=== PATIENT | male | born 1940 | race Caucasian/White ===

== ENCOUNTER 2018-01-19 11:10 | Inpatient (IN) | payer OTHER ==
[~2018-01-19] VITALS: Ht 172.7 cm; Wt 74.4 kg
[~2018-01-19 11:10] MED LIST: ALBUTEROL0.09 MG/A1 INH; AMLODIPINE BESYL5 M1 PO; ATIVAN0.5 M1 PO; ATORVASTATIN CA40 MG PO; AZITHROMYCIN500 M3 PO; AZITHROMYCIN500 MG PO; CEFUROXIME500 MG PO; CLOPIDOGREL75 MG PO; DALIRESP500 MCG PO; FINASTERIDE5 M1 PO; IPRAT-ALBUT 0.5-3 ML INH; LASIX20 M1 PO; LEVAQUIN500 MG PO; LOPRESSOR 25MG25 MG PO; LOSARTAN POTASS50 MG PO; LOTREL 5 MG-201 CAP PO; METOPROLOL TART25 M1 PO; MIRALAX119 GM PO; PREDNISONE 20MG20 MG PO; PREDNISONE10 M2 PO; PREDNISONE10 MG PO; PREDNISONE20 M1 PO; PREDNISONE50 MG PO; PROAIR HFA0.09 MG/Ac INH; SPIRIVA1 PUF INH; SYMBICORT 80-10.2 GM INH; ZETIA10 M1 PO; ZITHROMAX Z-PA250 M1 PO; ZITHROMAX500 M2 PO
--- NOTE | 2018-01-19 11:57 | ED DYSPNEA/ASTHMA COMPLAINT ---
History of Present Illness General Chief Complaint: General Adult Stated Complaint: SENT BY [facility] FOR EVAL OF SWOLLEN LEGS Source: patient, family, old records Exam Limitations: no limitations Vital Signs & Intake/Output Vital Signs & Intake/Output Vital Signs Date Time Temp Pulse Resp B/P B/P Pulse O2 O2 Flow FiO2 Mean Ox Delivery Rate 01/20 0639 98.7 98 20 126/80 97 Nasal 2.0L Cannula 01/20 0156 93 Nasal 2.0L Cannula 01/20 0000 Nasal 2.0L Cannula 01/19 2319 98.7 98 20 128/70 95 Nasal Cannula 01/19 1913 Nasal 2.0L Cannula 01/19 1626 94 Nasal 2.0L Cannula 01/19 1626 94 Nasal 2.0L Cannula 01/19 1557 97.7 88 22 126/68 96 01/19 1514 97.4 85 18 133/66 96 01/19 1335 98.1 96 22 148/79 94 Nasal 2.0L Cannula 01/19 1330 94 Nasal 2.0L Cannula 01/19 1250 100 137/78 01/19 1245 100 137/78 01/19 1245 100 137/78 01/19 1224 98 Nasal 2.0L Cannula 01/19 1144 97.2 100 22 137/78 95 Nasal 2.0L Cannula ED Intake and Output 01/20 0000 01/19 1200 Intake Total 240 Output Total 450 Balance -210 Intake, Oral 240 Output, Urine 450 Patient 175 lb 175 lb Weight Weight Reported by Patient Measurement Method Allergies Coded Allergies: aspirin (Intermediate, HIVES 11/07/15) Triage Note: 77 YEAR OLD MALE SENT TO ER BY HIS PMD, PT STATES THAT HE HAS BEEN HAVING INCREASED EDEMA IN BLE AND INCREASED SOB X A FEW DAYS, TOOK 20 MG PO LASIX WITH NO RELIEF, STATES THAT HE URINATES BUT A VERY SMALL AMOUNT DUE TO PROSTATE ISSUES. PT IS O2 DEPENDENT 2L, O2 SAT 95 % , COMPLAINS OF SOB BUT DENIES CP. Triage Nurses Notes Reviewed? yes Onset: Abrupt Duration: day(s): (4), constant Timing: recent history Severity: moderate Activities at Onset: activity Prior Episodes/Possible Cause: occasional episodes Associated Symptoms: denies HPI: 77 YEAR Old male with past medical history of chf, COPD on 2 L of home oxygen, myocardial infarction 25 years ago, CAD status post angioplasty, HTN, HLD presents to the ER for evaluation after being seen by his primary care physician today. Patient has had progressively worsening bilateral lower extremity swelling going on for the past 3-4 days associated with orthopnea dyspnea at rest worse with exertion he has had to increase his oxygen to 3 L. He's been compliant with his Lasix which she was told to increase to twice a day which she took last night's dose. No chest pain fever chills cough. 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 Romero (Manav Jewell) Reconcile Medications Amlodipine Besylate 5 MG TABLET 1 TAB PO DAILY HEART (Reported) Atorvastatin Calcium 40 MG TABLET 1 TAB PO DAILY cholesterol (Reported) Azithromycin (Zithromax) 500 MG TABLET 1 TAB PO Tuesday COPD Please resume taking this medication as scheduled starting 03/24/16 Budesonide/Formoterol Fumarate (Symbicort 80-4.5 Mcg Inhaler) 10.2 GM HFA.AER.AD 1 PUF INH BID COPD (Reported) Clopidogrel Bisulfate (Clopidogrel) 75 MG TABLET 1 TAB PO DAILY CAD (Reported ) Ezetimibe (Zetia) 10 MG TABLET 1 TAB PO DAILY CHOLESTEROL (Reported) Finasteride 5 MG TABLET 1 TAB PO DAILY PROSTATE (Reported) Furosemide (Lasix) 20 MG TABLET 1 TAB PO DAILY FLUID OVERLOAD (Reported) Ipratropium/Albuterol Sulfate (Iprat-Albut 0.5-3(2.5) MG/3 Ml) 3 ML AMPUL.NEB 3 ML INH Q4 BREATHING (Reported) EVERY 4 HOURS WHEN AWAKE Losartan Potassium 50 MG TABLET 1 TAB PO DAILY htn (Reported) Metoprolol Tartrate 25 MG TABLET 1 TAB PO BID BP (Reported) Polyethylene Glycol 3350 (Miralax) 119 GM POWDER 17 GM PO DAILY constipatin mix with water, juice, soda, coffee or tea Prednisone 10 MG TABLET 1 TAB PO EOD COPD (Reported) (Brannon RICE,Jevon Medina) Past History Travel History Traveled to [place] past 21 day No Medical History Any Pertinent Medical History? 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 FATHER (COPD). Hx Contributory? No (Manav Jewell) Review of Systems Review of Systems Constitutional: Reports: see HPI. Comments Review of systems: See HPI, All other systems negative. Constitutional, no chills no fever HEENT: no sore throat no congestion Cardiovascular: No chest pain , no palpitation Skin: no rashes, no change in skin Respiratory: see hpi GI: No nausea no vomiting, no diarrhea : No dysuria Muscle skeletal: No joint pain, no back pain, no neck pain, Neurologic: , no headache Heme/endocrine: No bruising (Manav Jewell) Physical Exam Physical Exam General Appearance: well developed/nourished, alert, awake Respiratory: chest non-tender, decreased breath sounds Comments: Well-developed well-nourished person in no acute distress HEENT: Normal EENT exam; PERRL, EOMI, HEAD is atraumatic. moist mucous membranes. Neck: Supple, normal range of motion Back: Full range of motion Cardiovascular: Regular rate and rhythms no murmurs rubs Respiratory:No respiratory distress. Patient speaking in full complete sentences. Diminished breath sounds bilaterally Abdomen: Soft, nontender nondistended, no appreciable organomegaly. Extremity: Bilateral 4+ pitting lower extremity treva, full range of motion of extremities, normal and equal pulses bilaterally, 5 out of 5 strength noted to bilateral upper and lower extremities Neuro: Alert oriented x3, motor sensory normal, There were no obvious focal neurologic abnormalities. Skin: No appreciable rash on exposed skin, skin is warm and dry. Psych: Mood and affect is normal, memory and judgment is normal. Core Measures ACS in differential dx? Yes CVA/TIA Diagnosis No Sepsis Present: No Sepsis Focused Exam Completed? No (Manav Jewell) Progress Differential Diagnosis: asthma, AMI, CHF, COPD, pericarditis, pulmonary embolism , pneumonia, pneumothorax, unstable angina Plan of Care: Orders Procedure Date/time Status CBC WITHOUT DIFFERENTIAL 01/20 06 Complete BASIC ELECTROLYTES PLUS BUN&CR 01/20 0600 Complete TROPONIN LEVEL 01/20 0035 Complete EKG 01/20 0035 Active US-EXT BILAT VENOUS DOPPLER 01/20 UNK Active Heart Healthy Diet 01/19 D Active EKG 01/19 1930 Active RT: Evaluation 01/19 1910 Active TROPONIN LEVEL 01/19 1835 Complete EKG 01/19 1835 Active CULTURE,URINE 01/19 1742 Active URINALYSIS 01/19 1742 Complete Weight 01/19 1624 Active Teach/Educate 01/19 162 Active Pain Treatment and Response 01/19 1624 Active Nutritional Intake, Monitor 01/19 162 Active Isolation 01/19 1624 Active Patient Care Conference 01/19 1624 Active TRC EVALUATION (GEN) 01/19 1520 Complete OXYGEN SETUP (GEN) 01/19 1520 Active Saline Lock 01/19 1520 Active Pathway - chart 01/19 1520 Active House Staff 01/19 1520 Active Code Status 01/19 1520 Active Intake & Output 01/19 1451 Active Patient Data 01/19 1355 Active ED Holding Orders 01/19 1347 Active Admit to inpatient 01/19 1347 Active Vital Signs 01/19 1347 Active Code Status 01/19 1347 Complete Telemetry/General Assembler 01/19 1151 Active TROPONIN LEVEL 01/19 1151 Complete COMPREHENSIVE METABOLIC PANEL 01/19 1151 Complete CBC WITHOUT DIFFERENTIAL 01/19 1151 Complete B-TYPE NATRIURETIC PEP (BNP) 01/19 1151 Complete EKG 01/19 1151 Active THERAPIST ORDERS 01/19 UNK Complete OXYGEN SETUP (GEN) 01/19 UNK Complete VTE Mechanical Prophylaxis 01/19 UNK Active Vital Signs 01/19 UNK Complete Intake & Output 01/19 UNK Complete Elevate 01/19 UNK Active Activity/Ambulation 01/19 UNK Active Current Medications Sig/Herber Start time Last Medication Dose Stop Time Status Admin Prednisone 10 MG Q48H 01/20 1730 AC Amlodipine Besylate 5 MG DAILY 01/20 900 AC (Norvasc) Azithromycin 500 MG 01/20 09 AC (Zithromax) Clopidogrel Bisulfate 75 MG DAILY 01/20 900 AC (Plavix) Enoxaparin Sodium 40 MG DAILY 01/20 900 AC (Lovenox) Ezetimibe 10 MG DAILY 01/20 900 AC (Zetia) Finasteride 5 MG DAILY 01/20 900 AC (Proscar) Losartan Potassium 50 MG DAILY 01/20 900 AC (Cozaar) Metoprolol Tartrate 25 MG BID 01/20 900 AC (Lopressor) Albuterol Sulfate 3 ML EVERY 4 HRS/AWAKE 01/20 0800 AC 01/20 (Proventil) 0539 Ipratropium [place] 2.5 ML EVERY 4 HRS/AWAKE 01/20 0800 AC 01/20 (Atrovent) 0539 Budesonide/ 1 PUF BID 01/19 2100 AC Formoterol Fumarate (SYMBICORT) Lorazepam 0.5 MG AT BEDTIME 01/19 2100 AC 01/19 (Ativan) 01/26 Ipratropium [place] 2.5 ML Q4 01/19 1800 AC (Atrovent) Atorvastatin Calcium 40 MG 1700 01/19 1717 AC 01/19 (Lipitor) 1832 Acetaminophen 650 MG Q6P PRN 01/19 1530 AC 01/20 (Tylenol) 0133 Laboratory Tests 01/20/18 0640: Anion Gap 11, Estimated GFR 59 L, BUN/Creatinine Ratio 20.0, CBC w Diff NO MAN DIFF REQ, RBC 4.22 L, MCV 92.3, MCH 31.1 H, MCHC 33.6, RDW 13.7, MPV 8.4, Gran % 68.5, Lymphocytes % 14.7 L, Monocytes % 11.8 H, Eosinophils % 4.6, Basophils % 0.4, Absolute Granulocytes 6.8 H, Absolute Lymphocytes 1.5, Absolute Monocytes 1.2 H, Absolute Eosinophils 0.5, Absolute Basophils 0 01/20/18 0530: Urine Color YEL, Urine Clarity CLEAR, Urine pH 6.0, Ur Specific [place] 1.020, Urine Protein NEG, Urine Ketones NEG, Urine Nitrite NEG, Urine Bilirubin NEG, Urine Urobilinogen 0.2, Ur Leukocyte Esterase NEG, Ur Microscopic EXAM NOT REQUIRED, Urine Hemoglobin NEG, Urine Glucose NEG 01/20/18 0100: Troponin I 0.02 01/19/18 1847: Troponin I 0.01 01/19/18 1235: Anion Gap 12, Estimated GFR > 60, BUN/Creatinine Ratio 20.0, Glucose 94, Calcium 9.4, Total Bilirubin 1.9 H, AST 27, ALT 30, Alkaline Phosphatase 80, Troponin I 0.01, Gzj-V-Flnejcizayn Pept 804 H, Total Protein 6.6, Albumin 4.3, Globulin 2.3, Albumin/Globulin Ratio 1.9, CBC w Diff NO MAN DIFF REQ, RBC 4.42 L, MCV 91.6, MCH 30.9, MCHC 33.8, RDW 13.7, MPV 7.8, Gran % 67.3, Lymphocytes % 17.0 L , Monocytes % 11.6 H, Eosinophils % 3.5, Basophils % 0.6, Absolute Granulocytes 6.8 H, Absolute Lymphocytes 1.7, Absolute Monocytes 1.2 H, Absolute Eosinophils 0.4, Absolute Basophils 0.1 Microbiology 01/20 530 URINE ROUT: Urine Culture - RECD Labs ordered old records reviewed patient medicated Lasix 20 mg IV DuoNeb ordered case discussed with Dr. South agrees with plan Dr. Romero was in the department seeing another patient and I spoke with him regarding his patient he agrees with plan. Patient is on prednisone every other day no prednisone at this time Diagnostic Imaging: Viewed by Me: Radiology Read. Discussed w/RAD: Radiology Read. Radiology Impression: PATIENT: OUSMANE GUZMAN PRESENT AGE: 77 PATIENT ACCOUNT NO: [id number] : 42 LOCATION: [facility] ORDERING PHYSICIAN: Manav JONES SERVICE DATE: 01/19/18 EXAM TYPE: RAD - XRY- PORTABLE CHEST XRAY EXAMINATION: XR PORTABLE CHEST CLINICAL INFORMATION: Dyspnea. Leg swelling. COMPARISON: Chest radiograph 01/28/2017. TECHNIQUE: Portable frontal view of the chest was obtained. FINDINGS: The lungs are slightly hyperexpanded and the diaphragms are flattened. There is no consolidation, edema, effusion, or pneumothorax. The heart is top normal in size. Atheromatous calcifications are present in the thoracic aorta. The osseous structures are intact allowing for degenerative changes at the bilateral shoulder joints. IMPRESSION: No acute abnormality in the chest. All DICTATED BY: Kyle Renteria MD DATE/TIME DICTATED:01/19/181350 MAT MAKER:SU DATE/TIME TRANSCRIBED:01/19/181350 CONFIDENTIAL, DO NOT COPY WITHOUT APPROPRIATE AUTHORIZATION. <Electronically signed in Other Vendor System> SIGNED BY: Kyle Renteria MD 01/19/18 1401 Initial ED EKG: normal QRS complex, NSR AT 90, ARTIFACT, PVC Prior EKG: unchanged Rhythm Strip: normal sinus rhythm (Manav Jewell) Departure Departure Condition: Stable Clinical Impression Primary Impression: CHF exacerbation Secondary Impressions: COPD exacerbation, Leg edema Referrals: Charlotte RICE,Naun Benites (PCP/Family) Departure Forms: Customer Survey General Discharge Information Admission Note Documentation of Exam: Documentation of any treatments & extenuating circumstances including Concerns Regarding Discharge (functional status, medication knowledge or non-compliance, living conditions, etc.) that warrant an admission rather than observation: Pulmonology, cardiology consult premature discharge would BE medically harmful IV diuresis (Manav Jewell) Departure Disposition: STILL A PATIENT Admission Note Spoke With: Momo Arroyo MD Documentation of Exam: Documentation of any treatments & extenuating circumstances including Concerns Regarding Discharge (functional status, medication knowledge or non-compliance, living conditions, etc.) that warrant an admission rather than observation: [ Patient will need IV diuresis, this may be secondary to pulmonary hypertension given his COPD and probable cor pulmonale.] PA/PASTER HAT LINING Co-Sign Statement Statement: ED Attending supervision documentation- [X] I saw and evaluated the patient. I have also reviewed all the pertinent lab results and diagnostic results. I agree with the findings and the plan of care as documented in the PA's/PASTER HAT LINING's documentation. []X I have reviewed the ED Record and agree with the PA's/PASTER HAT LINING's documentation. [] Additions or exceptions (if any) to the PAs/PASTER HAT LINING's note and plan are summarized below: [SEE ABOVE NOTE] (Brannon RICE,Jevon Medina) Critical Care Note Critical Care Note Critical Care Time: non-applicable (Manav Jewell)
[2018-01-19] MEDS ORDERED: LOSARTAN POTASS50 M1 PO (12:08)
[2018-01-19 12:45] LABS: ABSOLUTE BASOPHIL COUNT 0.1 /CUMM (0.0-0.2); ABSOLUTE EOSINOPHIL COUNT 0.4 /CUMM (0.0-0.7); ABSOLUTE GRANULOCYTE CT 6.8 /CUMM (1.4-6.5); ABSOLUTE LYMPH COUNT 1.7 /CUMM (1.2-3.4); ABSOLUTE MONOCYTE COUNT 1.2 /CUMM (0.10-0.60); BASOPHIL % 0.6 % (0.0-2.0); EOSINOPHIL % 3.5 % (0-5); GRANULOCYTE % 67.3 % (42.2-75.2); HEMATOCRIT 40.5 % (42-52); MEAN CORPUSCULAR HGB 30.9 PG (27.0-31.0); MEAN CORPUSCULAR HGB CONC 33.8 G/DL (33.0-37.0); MEAN CORPUSCULAR VOLUME 91.6 FL (80.0-94.0); MEAN PLATELET VOLUME 7.8 FL (7.4-10.4); PLATELET COUNT 287 /CUMM (130-400); RBC DISTRIBUTION WIDTH 13.7 % (11.5-14.5); RED BLOOD CELL CT 4.42 /CUMM (4.70-6.10); WHITE BLOOD CELL COUNT 10.1 /CUMM (4.8-10.8)
--- NOTE | 2018-01-19 14:00 | History & Physical ---
Constantino RICE,Gregoria 01/19/18 9523: General Information and HPI MD Statement: I have seen and personally examined OUSMANE GUZMAN and documented this H&P. The patient is a 77 year old M who presented with a patient stated chief complaint of [shortness of breath]. 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 Patient was seen by his PCP, Dr. Porter today who sent him to the ED due to dyspnea with and without exertion and worsening lower extremity swelling. Patient reports that he has dyspnea at baseline however has noticed that it has worsened over the past 3-4 days. Patient reports shortness of breath while sitting and talking and with movement. Patient reports orthopnea at baseline. States that he sits upright in a recliner. Also notes that his legs have become more swollen and noted that he had difficulty putting his shoes on today. Patient reports that he was recently restarted on Lasix 10 mg once a day which was increased to twice daily 1 day prior to admission. Patient denies any chest pain, palpitations, cough, fever/chills, nausea/vomiting, abdominal pain, constipation/diarrhea, hematuria. Reports chronic burning on urination and decreased stream. Patient notes that this has been an ongoing problem due to BPH. Patient sees Dr. Gould and is currently on Flomax. Patient states that his senior field engineer is Dr. Abernathy who he saw 6 months ago. Patient's ball maker is Dr. Romero. Past medical history: As above Past surgical history: CABG, cholecystectomy Social history: Former tobacco user, quit 25 years ago, previously smoked 1.5-2 packs per day for 40 years, occasional alcohol use, denies illicit drug use, patient lives with his , denies any sick contacts, recent travel Medications: Patient reports he is currently on Norvasc 5 mg, losartan 50 mg, Zetia 10 mg, atorvastatin 40 mg, Plavix 75 mg. Patient states that he is allergic to aspirin and was temporarily put on Coumadin due to his MS and CABG in the past. Of note patient does not have a stent however due to his aspirin allergy he is currently on Plavix. Patient is on ipratropium/albuterol, prednisone 10 mg every other day, azithromycin 500 mg 3 times a week, Flomax. Patient's pharmacy is [facility] in [place]. Allergies/Medications Allergies: Coded Allergies: aspirin (Intermediate, HIVES 11/07/15) Home Med list Amlodipine Besylate 5 MG TABLET 1 TAB PO DAILY HEART (Reported) Atorvastatin Calcium 40 MG TABLET 1 TAB PO DAILY cholesterol (Reported) Azithromycin (Zithromax) 500 MG TABLET 1 TAB PO Tuesday COPD Please resume taking this medication as scheduled starting 03/24/16 Budesonide/Formoterol Fumarate (Symbicort 80-4.5 Mcg Inhaler) 10.2 GM HFA.AER.AD 1 PUF INH BID COPD (Reported) Clopidogrel Bisulfate (Clopidogrel) 75 MG TABLET 1 TAB PO DAILY CAD (Reported ) Ezetimibe (Zetia) 10 MG TABLET 1 TAB PO DAILY CHOLESTEROL (Reported) Finasteride 5 MG TABLET 1 TAB PO DAILY PROSTATE (Reported) Furosemide (Lasix) 20 MG TABLET 1 TAB PO DAILY FLUID OVERLOAD (Reported) Ipratropium/Albuterol Sulfate (Iprat-Albut 0.5-3(2.5) MG/3 Ml) 3 ML AMPUL.NEB 3 ML INH Q4 BREATHING (Reported) EVERY 4 HOURS WHEN AWAKE Lorazepam (Ativan) 0.5 MG TABLET 1 TAB PO BIDP PRN ANXIETY (Reported) Losartan Potassium 50 MG TABLET 1 TAB PO DAILY htn (Reported) Metoprolol Tartrate 25 MG TABLET 1 TAB PO BID BP (Reported) Polyethylene Glycol 3350 (Miralax) 119 GM POWDER 17 GM PO DAILY constipatin mix with water, juice, soda, coffee or tea Prednisone 10 MG TABLET 1 TAB PO EOD COPD (Reported) Past History Travel History Traveled to [place] past 21 day No Medical History Neurological: NONE EENT: HOARSE VOICE Cardiovascular: hypertension, hyperlipidemia, myocardial infarction Respiratory: COPD, emphysema Gastrointestinal: diverticulosis Hepatic: NONE Renal: benign prost hyperplasia, nephrolithiasis Musculoskeletal: FRACTURE(LT.INDEX FINGER) Psychiatric: NONE Endocrine: NONE Blood Disorders: NONE Cancer(s): 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 FATHER (COPD). Psychosocial History Who Do You Live With? spouse Services at Home: Oxygen ETOH Use: denies use Illicit Drug Use: denies illicit drug use Living Will? yes Functional Ability ADLs Independent: dressing, eating, toileting. Needs Assist: bathing. Ambulation: independent IADLs Independent: shopping, housework, finances, food prep, telephone, medication admin. Needs Assist: transportation. Review of Systems Review of Systems Constitutional: Reports: see HPI. Exam & Diagnostic Data Last 24 Hrs of Vital Signs/I&O Vital Signs Date Time Temp Pulse Resp B/P B/P Pulse O2 O2 Flow FiO2 Mean Ox Delivery Rate 01/19 1626 94 Nasal 2.0L Cannula 01/19 1626 94 Nasal 2.0L Cannula 01/19 1557 97.7 88 22 126/68 96 01/19 1514 97.4 85 18 133/66 96 01/19 1335 98.1 96 22 148/79 94 Nasal 2.0L Cannula 01/19 1330 94 Nasal 2.0L Cannula 01/19 1250 100 137/78 01/19 1245 100 137/78 01/19 1245 100 137/78 01/19 1224 98 Nasal 2.0L Cannula 01/19 1144 97.2 100 22 137/78 95 Nasal 2.0L Cannula Intake & Output 01/19 1600 01/19 0800 01/19 0000 Intake Total 0 Output Total 200 Balance -200 Intake, Oral 0 Output, Urine 200 Patient 175 lb Weight Physical Exam General Appearance Alert, Oriented X3, Cooperative, Mild Distress Skin No Rashes Skin Temp/Moisture Exam: Warm/Dry HEENT Atraumatic, PERRLA, EOMI, dry mucosal membranes Neck No JVD, +2 Carotid Pulse wo Bruit Cardiovascular Regular Rate, Normal S1, Normal S2, No Murmurs Lungs decreased breath sounds bilaterally Abdomen Normal Bowel Sounds, Soft, No Tenderness, distended Neurological Normal Speech, Sensation Intact, Cranial Nerves 3-12 NL Extremities bilateral lower extremity pitting edema 4+, unable to assess feet as patient refuses to take his shoes off Last 24 Hrs of Labs/Alok: Laboratory Tests 01/19/18 1235: Anion Gap 12, Estimated GFR > 60, BUN/Creatinine Ratio 20.0, Glucose 94, Calcium 9.4, Total Bilirubin 1.9 H, AST 27, ALT 30, Alkaline Phosphatase 80, Troponin I 0.01, Ldj-B-Scozxqwkzyr Pept 804 H, Total Protein 6.6, Albumin 4.3, Globulin 2.3, Albumin/Globulin Ratio 1.9, CBC w Diff NO MAN DIFF REQ, RBC 4.42 L, MCV 91.6, MCH 30.9, MCHC 33.8, RDW 13.7, MPV 7.8, Gran % 67.3, Lymphocytes % 17.0 L , Monocytes % 11.6 H, Eosinophils % 3.5, Basophils % 0.6, Absolute Granulocytes 6.8 H, Absolute Lymphocytes 1.7, Absolute Monocytes 1.2 H, Absolute Eosinophils 0.4, Absolute Basophils 0.1 Microbiology 01/19 1742 URINE ROUT: Urine Culture - ORD Assessment/Plan Assessment: Patient is a 77-year-old male with past medical history of 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 Patient will be admitted to the telemetry floor for management of the followin. Dyspnea and Lower Extremity Edema likley 2/2 right heart failure and COPD Patient has worsening dyspnea and lower extremity edema over the past 3-4 days with orthopnea at baseline. No JVD or crackles on exam. There is decreased breath sounds bilaterally. Pro-BNP is elevated. CXR is negative for vascular congestion or effusion. The patient does become short of breath while talking and moving on examination. Patient meets framingham criteria for decompensated heart failure with one major criteria of orthopnea and two minor criteria of bilateral lower extremity edema and dyspnea on minimal exertion. This acute decompensation is likley due to right heart failure in the setting of end stage COPD, oxygen dependency and pulmonary htn seen on ECHO in 2005. More current echo is unavailable at this time. - Admit to telemetry - Continuous telemetry monitoring - Oxygen supplementation as needed - TRC/DuoNeb Treatment - Serial EKG and Trops - Patient received IV lasix in the ED. Due to preload depedency in RHF will be cautious with diuresis - Cardiology consult with Dr. Linares's group - Will hold off ECHO pending cardiology consult (possible recent ECHO) - Pulmonology consult with Dr. Romero - Continue prednisone 10mg every other day - Continue azithromycin three times/week - Continue plavix, losartan, norvasc, zetia, atorvastatin 2. Possible UTI in the setting of BPH Patient reports dysuria and decreased stream. - U/A and urine culture - continue flomax - Monitor I/O - Bladder scan if poor urine output while being diuresed 3. Chronic conditions: COPD, HTN, HLD, BPH, Lung nodules - continue home medications DVT PPx: Lovenox SQ Diet: Heart healthy Code: DNR/DNI As Ranked By This Provider Problem List: 1. CHF exacerbation 2. Leg edema 3. BPH (benign prostatic hyperplasia) Core Measures/Misc (05/15) Acute Coronary Syndrome ACS Diagnosis: No Congestive Heart Failure Congestive Heart Failure Diagnosis No Cerebrovascular Accident CVA/TIA Diagnosis: No VTE (View Protocol) VTE Risk Factors Age>40 No Mechanical VTE Prophylaxis d/t N/A MechProphylax Ordered No VTE Pharm Prophylaxis d/t NA PharmProphylax ordered Sepsis (View protocol) Sepsis Present: No If YES complete Sepsis Event Note If YES complete Sepsis Event Note Charles Gray 01/19/18 1609: Core Measures/Misc (05/15) Sepsis (View protocol) If YES complete Sepsis Event Note If YES complete Sepsis Event Note Resident Review Statement Resident Statement: examined this patient, discussed with international marketing executive, agreed with international marketing executive, discussed with family, reviewed EMR data (avail), reviewed images Other Findings: 75 year old gentleman, former smoker with past medical history significant for endstage COPD on home O2 of 2 L NC and chronic prednisone, myocardial infarction s/p CAD status post angioplasty 25 years ago, HTN, HLD, BPH s/p laser TURP, coming in for evaluation of dyspnea at rest and worsening BLE since the past 3- 4days. States that his baseline is dyspnea on minimal exertion however this dyspnea at rest is new for him. He also sleeps at a steep inclination. He is not on daily lasix and after speaking to his PCP he has been taking lasix 10mg BID since the past two day. ROS as above. Of note Patient is allergic to Aspirin. He breaks out in Hives. Vitals on admission afebrile, HR 100, BP 137/78, sat 94% on RA. Examination pertinent for dry mucous membranes, distant S1S2, no murmurs heard, b/l decreased breath sounds throughout, BLE up to below the knees. He refused to remove his shoes for us to examine him. Labs: CBC/BEP unremarkable, Pro BNP 804. CXR show no acute abnormality. His last echo in EMR is 03/03 RV pressure of 30-40 EKG NSR, HR 90, normal axis Assessement: Likely decompensated Right heart failure, unclear as to what triggered it, as he stated compliance with medication and salt restrict diet and reports no recent infection. Plan: admit to tele floor, vitals per protocol, daily weights,strict I/0s. elevate legs with compression stockings. will reasses in am and continue with IV diuresis trend trop/ekg to rule out acs cardio consult in am (his senior field engineer is Dr. Linares), if no echo done recently then we will repeat echocardiogram DVT PPx sc lovenox heart healthy diet DNR/DNI Yaw Min MD 01/19/18 2137: Core Measures/Misc (05/15) Sepsis (View protocol) If YES complete Sepsis Event Note If YES complete Sepsis Event Note Attending MD Review Statement Attending Statement Attending MD Statement: examined this patient, discuss w/resident/PA/HIGHBALLER, agreed w/resident/PA/HIGHBALLER, reviewed EMR data (avail) Attending Assessment/Plan: Agree with resident assessment and plan. Will give gentle diuresis, monitor output, holds steroids for now, LE doppler, leg elevation if possible, continue home meds, DVT PPx
--- NOTE | 2018-01-19 14:01 | RADIOLOGY REPORT ---
EXAMINATION: XR PORTABLE CHEST CLINICAL INFORMATION: Dyspnea. Leg swelling. COMPARISON: Chest radiograph 01/28/2017. TECHNIQUE: Portable frontal view of the chest was obtained. FINDINGS: The lungs are slightly hyperexpanded and the diaphragms are flattened. There is no consolidation, edema, effusion, or pneumothorax. The heart is top normal in size. Atheromatous calcifications are present in the thoracic aorta. The osseous structures are intact allowing for degenerative changes at the bilateral shoulder joints. IMPRESSION: No acute abnormality in the chest. All
[2018-01-19 15:57] VITALS: BP 126/68
[2018-01-19] MEDS ORDERED: ATORVASTATIN CA40 M1 PO (17:15)
[2018-01-19] MEDS ORDERED: CLOPIDOGREL75 M1 PO (17:20)
--- NOTE | 2018-01-19 19:13 | Cons- Pulmonary ---
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 Patient was seen by his PCP, who sent him to the ED due to dyspnea with and without exertion and worsening lower extremity swelling. Patient reports that he has dyspnea at baseline however has noticed that it has worsened over the past 3-4 days. Patient reports shortness of breath while sitting and talking and with movement. Patient reports orthopnea at baseline. States that he sits upright in a recliner. Also notes that his legs have become more swollen and noted that he had difficulty putting his shoes on today. Patient reports that he was recently restarted on Lasix 10 mg once a day which was increased to twice daily 1 day prior to admission. Patient denies any chest pain, palpitations, cough, fever/chills, nausea/vomiting, abdominal pain, constipation/diarrhea, hematuria. Reports chronic burning on urination and decreased stream. Patient notes that this has been an ongoing problem due to BPH. Patient sees Dr. Gould and is currently on Flomax. Allergies/Medications Allergies: Coded Allergies: aspirin (Intermediate, HIVES 11/07/15) Home Med List: Amlodipine Besylate 5 MG TABLET 1 TAB PO DAILY HEART (Reported) Atorvastatin Calcium 40 MG TABLET 1 TAB PO DAILY cholesterol (Reported) Azithromycin (Zithromax) 500 MG TABLET 1 TAB PO Tuesday COPD Please resume taking this medication as scheduled starting 03/24/16 Budesonide/Formoterol Fumarate (Symbicort 80-4.5 Mcg Inhaler) 10.2 GM HFA.AER.AD 1 PUF INH BID COPD (Reported) Clopidogrel Bisulfate (Clopidogrel) 75 MG TABLET 1 TAB PO DAILY CAD (Reported ) Ezetimibe (Zetia) 10 MG TABLET 1 TAB PO DAILY CHOLESTEROL (Reported) Finasteride 5 MG TABLET 1 TAB PO DAILY PROSTATE (Reported) Furosemide (Lasix) 20 MG TABLET 1 TAB PO DAILY FLUID OVERLOAD (Reported) Ipratropium/Albuterol Sulfate (Iprat-Albut 0.5-3(2.5) MG/3 Ml) 3 ML AMPUL.NEB 3 ML INH Q4 BREATHING (Reported) EVERY 4 HOURS WHEN AWAKE Losartan Potassium 50 MG TABLET 1 TAB PO DAILY htn (Reported) Metoprolol Tartrate 25 MG TABLET 1 TAB PO BID BP (Reported) Polyethylene Glycol 3350 (Miralax) 119 GM POWDER 17 GM PO DAILY constipatin mix with water, juice, soda, coffee or tea Prednisone 10 MG TABLET 1 TAB PO EOD COPD (Reported) Review of Systems Review of Systems Constitutional: Reports: see HPI. 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 FATHER (COPD). Psychosocial History Where Do You Live? Home Who Do You Live With? spouse Services at Home: Oxygen Smoking Status: Former Smoker ETOH Use: denies use Illicit Drug Use: denies illicit drug use Living Will? yes Functional Ability ADLs Independent: dressing, eating, toileting. Needs Assist: bathing. Ambulation: independent IADLs Independent: shopping, housework, finances, food prep, telephone, medication admin. Needs Assist: transportation. Exam & Diagnostic Data Last 24 Hrs of Vital Signs/I&O Vital Signs Date Time Temp Pulse Resp B/P B/P Pulse O2 O2 Flow FiO2 Mean Ox Delivery Rate 01/19 1626 94 Nasal 2.0L Cannula 01/19 1626 94 Nasal 2.0L Cannula 01/19 1557 97.7 88 22 126/68 96 01/19 1514 97.4 85 18 133/66 96 01/19 1335 98.1 96 22 148/79 94 Nasal 2.0L Cannula 01/19 1330 94 Nasal 2.0L Cannula 01/19 1250 100 137/78 01/19 1245 100 137/78 01/19 1245 100 137/78 01/19 1224 98 Nasal 2.0L Cannula 01/19 1144 97.2 100 22 137/78 95 Nasal 2.0L Cannula Intake & Output 01/19 1600 01/19 0800 01/19 0000 Intake Total 0 Output Total 200 Balance -200 Intake, Oral 0 Output, Urine 200 Patient 175 lb Weight Last 48 Hrs of Labs/Alok: Laboratory Tests 01/19/18 1847: Troponin I Pending 01/19/18 1235: Anion Gap 12, Estimated GFR > 60, BUN/Creatinine Ratio 20.0, Glucose 94, Calcium 9.4, Total Bilirubin 1.9 H, AST 27, ALT 30, Alkaline Phosphatase 80, Troponin I 0.01, Jch-H-Hvjwxmdyret Pept 804 H, Total Protein 6.6, Albumin 4.3, Globulin 2.3, Albumin/Globulin Ratio 1.9, CBC w Diff NO MAN DIFF REQ, RBC 4.42 L, MCV 91.6, MCH 30.9, MCHC 33.8, RDW 13.7, MPV 7.8, Gran % 67.3, Lymphocytes % 17.0 L , Monocytes % 11.6 H, Eosinophils % 3.5, Basophils % 0.6, Absolute Granulocytes 6.8 H, Absolute Lymphocytes 1.7, Absolute Monocytes 1.2 H, Absolute Eosinophils 0.4, Absolute Basophils 0.1 Assessment/Plan Impression/Plan: SIGNIFICANT Data Chest x-ray normal No left shift Previous ABG did not reveal hypercarbia This is a gentleman with very end-stage COPD with FEV1 of 0.6 L, on oxygen, coronary artery disease with previous angioplasty, previous [place], hypertension, hyperlipidemia, diverticulosis, stable lung nodules at least for 5 years bilaterally, previous bronchiectasis which is mild with recurrent bronchitis episode, intolerant to Daliresp and has been on azithromycin for exacerbation prophylaxis, came into the hospital because of increasing pedal edema and wt gain not responding to lasix. No recent travel history. No sig cough or wheezing and his oxygenation is at his baseline Issues include * Acute corpulmonalae on top of chronic corpulmonalae with sig pedal edema and wt gain * End-stage COPD with no COPD exacerbation. is at baseline as far as copd is concerned * Mild bilateral bronchiectasis in a gentleman with end-stage COPD high risk for pseudomonas with no exacerbation of bronchiectasis * Intolerant to preventative medications like Daliresp due to diarrhea and GI upset. Patient has been on azithromycin 500 mg 3 times a week * Chronic steroid dependent COPD now on low-dose steroids at home * Ischemic heart disease, hypertension, hyperlipidemia with no evidence suggestive of active coronary ischemia * Multiple bilateral lung nodules which has been stable for more than 5 years. * BPH with signs of dysuria REC Cont out pt inhaler rx, no indication for abx or escalation of steroid rx IV lasix and keep potassium more than 4.2 Cont oxygen Keep leg elevated Ultrasound of lower ext and if neg will consider ultrasound of abd ECHO to rule out pericardial path Will follow Discussed with pt's and ed provider Consult Acknowledgment - Thank you for your consult request.
[2018-01-19 23:19] VITALS: BP 128/70
[2018-01-20 06:39] VITALS: BP 126/80
--- NOTE | 2018-01-20 07:49 | PN- Housestaff ---
Constantino RICE,Gregoria 01/20/18 0748: Subjective Follow-up For: Acute on chronic heart failure Urinary retention secondary to BPH Anxiety End-stage COPD Tele-Events Since Last Visit: NSR - ST: 88-101 Subjective: Patient was seen and examined today. Patient reports continued lower extremity swelling which has worsened today. Reports shortness of breath which is also worsened today. Patient denies any chest pain, palpitations, nausea/vomiting, lightheadedness, dizziness. Patient reports that he has poor urinary stream Due to BPH. Patient states he would feel more comfortable with a Lorenzo. Patient had a bladder scan and a Lorenzo was placed after patient voided. Immediately after Lorenzo placement patient had approximately 1.4 L of urine. Review of Systems Constitutional: Reports: see HPI. Objective Last 24 Hrs of Vital Signs/I&O Vital Signs Date Time Temp Pulse Resp B/P B/P Pulse O2 O2 Flow FiO2 Mean Ox Delivery Rate 01/20 1743 110 140/86 01/20 1743 110 140/86 01/20 1743 110 140/86 01/20 1645 94 Nasal 2.0L Cannula 01/20 1600 Nasal 2.0L Cannula 01/20 1440 98.1 105 20 134/74 94 Nasal Cannula 01/20 0855 95 Nasal 2.0L Cannula 01/20 0800 92 Nasal 2.0L Cannula 01/20 0639 98.7 98 20 126/80 97 Nasal 2.0L Cannula 01/20 0156 93 Nasal 2.0L Cannula 01/20 0000 Nasal 2.0L Cannula 01/19 2319 98.7 98 20 128/70 95 Nasal Cannula 01/19 1913 Nasal 2.0L Cannula Intake & Output 01/20 1600 01/20 0800 01/20 0000 Intake Total 250 240 Output Total 2400 100 250 Balance -2150 -100 -10 Intake, IV 10 Intake, Oral 240 240 Output, Urine 2400 100 250 Patient 179 lb Weight Weight Bed scale Measurement Method Physical Exam General Appearance: Alert, Cooperative, No Acute Distress Skin: No Rashes Other Physical Findings: Neck No JVD, +2 Carotid Pulse wo Bruit Cardiovascular Regular Rate, Normal S1, Normal S2, No Murmurs Lungs decreased breath sounds bilaterally Abdomen Normal Bowel Sounds, Soft, No Tenderness, distended Neurological Normal Speech, Sensation Intact, Cranial Nerves 3-12 NL Extremities bilateral lower extremity pitting edema 4+, unable to assess feet as patient refuses to take his shoes off Current Medications: Current Medications Sig/Herber Start time Last Medication Dose Route Stop Time Status Admin Acetaminophen 500 MG Q4P PRN 01/20 1715 AC 01/20 PO 1707 Acetaminophen 650 MG .STK-MED ONE 01/20 0132 DC PO 01/20 0133 Acetaminophen 650 MG Q6P PRN 01/19 1530 DC 01/20 PO 0133 Albuterol Sulfate 3 ML EVERY 4 HRS/AWAKE 01/20 0800 AC 01/20 INH 1645 Amlodipine Besylate 5 MG 1200 01/20 1200 AC 01/20 PO 1743 Amlodipine Besylate 5 MG DAILY 01/20 0900 DC PO Atorvastatin Calcium 40 MG 1700 01/19 1717 AC 01/20 PO 1741 Azithromycin 500 MG MoWeFr@1200 01/20 1200 AC 01/20 PO 1742 Azithromycin 500 MG 01/20 0900 DC PO Budesonide/ 1 PUF BID 01/19 2100 AC Formoterol Fumarate INH Clopidogrel Bisulfate 75 MG 1200 01/20 1200 AC 01/20 PO 1741 Clopidogrel Bisulfate 75 MG DAILY 01/20 0900 DC PO Enoxaparin Sodium 40 MG DAILY 01/20 0900 AC 01/20 SC 1038 Ezetimibe 10 MG 1200 01/20 1200 AC 01/20 PO 1744 Ezetimibe 10 MG DAILY 01/20 09 DC PO Finasteride 5 MG 1200 01/20 1200 AC 01/20 PO 1744 Finasteride 5 MG DAILY 01/20 0900 DC PO Furosemide 20 MG 7:30 AM, & 4:30 PM 01/20 1630 AC 01/20 IV 1707 Furosemide 20 MG DAILY 01/20 0911 DC 01/20 IV 1021 Ipratropium [place] 2.5 ML EVERY 4 HRS/AWAKE 01/20 0800 AC 01/20 INH 1645 Ipratropium [place] 2.5 ML Q4 01/19 1800 DC INH Lorazepam 0.5 MG BID PRN 01/20 1100 AC 01/20 PO 01/27 1059 1059 Lorazepam 0.5 MG AT BEDTIME 01/19 2100 DC 01/19 PO 01/26 Losartan Potassium 50 MG 1200 01/20 1200 AC 01/20 PO 1743 Losartan Potassium 50 MG DAILY 01/20 0900 DC PO Metoprolol Tartrate 25 MG 1200,01/20 1200 AC 01/20 PO 1743 Metoprolol Tartrate 25 MG BID 01/20 0900 DC PO Patient Medication 1 ED ONE ONE 01/20 1430 DC Teaching ED 01/20 1431 Potassium Chloride 40 MEQ ONCE ONE 01/20 0915 DC 01/20 PO 01/20 0916 1741 Prednisone 10 MG Q48H 01/20 1730 DC PO Prednisone 10 MG Q48@1200 01/20 1200 AC 01/20 PO 1745 Tramadol HCl 50 MG Q6 PRN 01/20 1515 AC 01/20 PO 1517 Last 24 Hrs of Lab/Alok Results Last 24 Hrs of Labs/Mics: Laboratory Tests 01/20/18 0640: Anion Gap 11, Estimated GFR 59 L, BUN/Creatinine Ratio 20.0, CBC w Diff NO MAN DIFF REQ, RBC 4.22 L, MCV 92.3, MCH 31.1 H, MCHC 33.6, RDW 13.7, MPV 8.4, Gran % 68.5, Lymphocytes % 14.7 L, Monocytes % 11.8 H, Eosinophils % 4.6, Basophils % 0.4, Absolute Granulocytes 6.8 H, Absolute Lymphocytes 1.5, Absolute Monocytes 1.2 H, Absolute Eosinophils 0.5, Absolute Basophils 0 01/20/18 0530: Urine Color YEL, Urine Clarity CLEAR, Urine pH 6.0, Ur Specific [place] 1.020, Urine Protein NEG, Urine Ketones NEG, Urine Nitrite NEG, Urine Bilirubin NEG, Urine Urobilinogen 0.2, Ur Leukocyte Esterase NEG, Ur Microscopic EXAM NOT REQUIRED, Urine Hemoglobin NEG, Urine Glucose NEG 01/20/18 0100: Troponin I 0.02 01/19/18 1847: Troponin I 0.01 Microbiology 01/20 0530 URINE ROUT: Urine Culture - RECD Assessment/Plan Assessment: Patient is a 77-year-old male with past medical history of end-stage COPD on 2 L oxygen at home, CAD status post WA and CABG on Plavix (allergic to aspirin), hypertension, hyperlipidemia,BPH, nephrolithiasis, diverticulosis, and bilateral lung nodules presenting this admission with worsening lower extremity swelling and shortness of breath. Patient will be admitted to the telemetry floor for management of the followin. Dyspnea and Lower Extremity Edema likley 2/2 right heart failure and COPD Patient has worsening dyspnea and lower extremity edema over the past 3-4 days with orthopnea at baseline. No JVD or crackles on exam. There is decreased breath sounds bilaterally. Pro-BNP is elevated. CXR is negative for vascular congestion or effusion. The patient does become short of breath while talking and moving on examination. Patient meets framingham criteria for decompensated heart failure with one major criteria of orthopnea and two minor criteria of bilateral lower extremity edema and dyspnea on minimal exertion. This acute decompensation is likley due to right heart failure in the setting of end stage COPD, oxygen dependency and pulmonary htn seen on ECHO in 2005. More current echo is unavailable at this time. - Admit to telemetry - Continuous telemetry monitoring - Oxygen supplementation as needed - TRC/DuoNeb Treatment - I/O, daily weights - compression stockings, keep legs elevated - IV lasix BID - If patient continues to remain dyspneic or worsen will consider giving steroids - Cardiology consult with Dr. Linares's group - ECHO ordered - Pulmonology consult with Dr. Romero - Continue prednisone 10mg every other day - Continue azithromycin three times/week - Continue plavix, losartan, norvasc, zetia, atorvastatin 2. Obstructive uropathy in setting of BPH Patient reports dysuria and decreased stream. - follow up urine culture - continue flomax - Lorenzo placed - urine output of 1.4L immediateley after placement - tramadol and tylenol for penile pain s/p insertion of lorenzo 3. Chronic conditions: COPD, HTN, HLD, BPH, Lung nodules - continue home medications DVT PPx: Lovenox SQ Diet: Heart healthy Code: DNR/DNI Problem List: 1. Leg edema 2. CHF exacerbation Pain Ratin Pain Location: penile pain Pain Goal: Pain 7 or less Pain Plan: tramadol tylenol Tomorrow's Labs & Rationales: Araseli Conley MD 01/20/18 1347: Attending MD Review Statement Attending Statement Attending MD Statement: examined this patient, discuss w/resident/PA/CERAMIC TILE SETTER, agreed w/resident/PA/CERAMIC TILE SETTER, reviewed EMR data (avail) Attending Assessment/Plan: 77M PMH end-stage COPD on 2 L oxygen at home, CAD status post WA and CABG on Plavix (allergic to aspirin), hypertension, hyperlipidemia,BPH, nephrolithiasis, diverticulosis, and bilateral lung nodules admitted with progressive bilateral leg swelling and SOB. Symptoms consistent with right and left heart failure. 1. Acute on chronic systolic CHF 2. COPD with cor pulmonale Plan - Continue on telemetry - Continue IV Lasix - Follow pulmonary and cardiology recommendations - I/O, daily weights - Continue home medications - DVT PPx
[2018-01-20 08:08] LABS: ABSOLUTE BASOPHIL COUNT 0 /CUMM (0.0-0.2); ABSOLUTE EOSINOPHIL COUNT 0.5 /CUMM (0.0-0.7); ABSOLUTE GRANULOCYTE CT 6.8 /CUMM (1.4-6.5); ABSOLUTE LYMPH COUNT 1.5 /CUMM (1.2-3.4); ABSOLUTE MONOCYTE COUNT 1.2 /CUMM (0.10-0.60); BASOPHIL % 0.4 % (0.0-2.0); EOSINOPHIL % 4.6 % (0-5); GRANULOCYTE % 68.5 % (42.2-75.2); MEAN CORPUSCULAR HGB 31.1 PG (27.0-31.0); MEAN CORPUSCULAR HGB CONC 33.6 G/DL (33.0-37.0); MEAN CORPUSCULAR VOLUME 92.3 FL (80.0-94.0); MEAN PLATELET VOLUME 8.4 FL (7.4-10.4); PLATELET COUNT 272 /CUMM (130-400); RBC DISTRIBUTION WIDTH 13.7 % (11.5-14.5); RED BLOOD CELL CT 4.22 /CUMM (4.70-6.10); WHITE BLOOD CELL COUNT 9.9 /CUMM (4.8-10.8)
[2018-01-20] MEDS ORDERED: ATIVAN0.5 M1 PO ×2 (10:45→10:46)
--- NOTE | 2018-01-20 10:56 | Cons- Cardiology ---
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 He presents to our hospital with increasing dyspnea. The patient was referred to our emergency room due to increasing dyspnea as well as lower extremity edema that had been progressive over the past several days. The patient states symptoms have been present for approximately 3-4 days, and are described as dyspnea while at physical rest and minimal activity. There has been a cough, productive of clear sputum, as well as increasing lower extremity edema, with a an inability to adequately ambulate due to the same. He was restarted on 10 mg of furosemide twice daily; however, without significant improvement. The patient otherwise denies symptoms of chest pain or palpitations while at rest or with physical activity. He states no fevers nor chills. Upon arrival, the patient was given nebulizer treatments with improvement of symptoms; however, not returned to his baseline. He has ruled out for myocardial infarction via serial troponin isoenzymes, and his baseline presenting BNP was 804 Allergies/Medications Allergies: Coded Allergies: aspirin (Intermediate, HIVES 11/07/15) Home Med List: Amlodipine Besylate 5 MG TABLET 1 TAB PO DAILY HEART (Reported) Atorvastatin Calcium 40 MG TABLET 1 TAB PO DAILY cholesterol (Reported) Azithromycin (Zithromax) 500 MG TABLET 1 TAB PO Tuesday COPD Please resume taking this medication as scheduled starting 03/24/16 Budesonide/Formoterol Fumarate (Symbicort 80-4.5 Mcg Inhaler) 10.2 GM HFA.AER.AD 1 PUF INH BID COPD (Reported) Clopidogrel Bisulfate (Clopidogrel) 75 MG TABLET 1 TAB PO DAILY CAD (Reported ) Ezetimibe (Zetia) 10 MG TABLET 1 TAB PO DAILY CHOLESTEROL (Reported) Finasteride 5 MG TABLET 1 TAB PO DAILY PROSTATE (Reported) Furosemide (Lasix) 20 MG TABLET 1 TAB PO DAILY FLUID OVERLOAD (Reported) Ipratropium/Albuterol Sulfate (Iprat-Albut 0.5-3(2.5) MG/3 Ml) 3 ML AMPUL.NEB 3 ML INH Q4 BREATHING (Reported) EVERY 4 HOURS WHEN AWAKE Losartan Potassium 50 MG TABLET 1 TAB PO DAILY htn (Reported) Metoprolol Tartrate 25 MG TABLET 1 TAB PO BID BP (Reported) Polyethylene Glycol 3350 (Miralax) 119 GM POWDER 17 GM PO DAILY constipatin mix with water, juice, soda, coffee or tea Prednisone 10 MG TABLET 1 TAB PO EOD COPD (Reported) Current Medications: Current Medications Sig/Herber Start time Last Medication Dose Route Stop Time Status Admin Acetaminophen 650 MG .STK-MED ONE 01/20 0132 DC PO 01/20 0133 Acetaminophen 650 MG Q6P PRN 01/19 1530 AC 01/20 PO 0133 Albuterol Sulfate 3 ML EVERY 4 HRS/AWAKE 01/20 0800 AC 01/20 INH 0854 Albuterol Sulfate 3 ML ONCE ONE 01/19 1230 DC 01/19 INH 01/19 1231 1225 Amlodipine Besylate 5 MG 1200 01/20 1200 AC PO Amlodipine Besylate 5 MG DAILY 01/20 09 DC PO Amlodipine Besylate 0 .STK-MED ONE 01/19 1226 DC PO Amlodipine Besylate 5 MG ONCE ONE 01/19 1215 DC 01/19 PO 01/19 1216 1250 Atorvastatin Calcium 40 MG 1700 01/19 1717 AC 01/19 PO 1832 Azithromycin 500 MG MoWeFr@1200 01/20 1200 AC PO Azithromycin 500 MG 01/20 0900 DC PO Budesonide/ 1 PUF BID 01/19 2100 AC Formoterol Fumarate INH Clopidogrel Bisulfate 75 MG 1200 01/20 1200 AC PO Clopidogrel Bisulfate 75 MG DAILY 01/20 0900 DC PO Clopidogrel Bisulfate 75 MG ONCE ONE 01/19 1215 DC 01/19 PO 01/19 1216 1245 Enoxaparin Sodium 40 MG DAILY 01/20 0900 AC 01/20 SC 1038 Ezetimibe 10 MG 1200 01/20 1200 AC PO Ezetimibe 10 MG DAILY 01/20 0900 DC PO Finasteride 5 MG 1200 01/20 1200 AC PO Finasteride 5 MG DAILY 01/20 0900 DC PO Finasteride 5 MG ONCE ONE 01/19 1215 DC 01/19 PO 01/19 1216 1245 Furosemide 20 MG DAILY 01/20 0911 AC 01/20 IV 1021 Furosemide 0 .STK-MED ONE 01/19 1225 DC IV Furosemide 20 MG ONCE ONE 01/19 1215 DC 01/19 IV 01/19 1216 1245 Ipratropium [place] 2.5 ML EVERY 4 HRS/AWAKE 01/20 0800 AC 01/20 INH 0854 Ipratropium [place] 2.5 ML Q4 01/19 1800 DC INH Ipratropium [place] 2.5 ML ONCE ONE 01/19 1230 DC 01/19 INH 01/19 1231 1225 Lorazepam 0.5 MG .[BIDP] PRN 01/20 1100 UNVr PO 01/27 1059 Lorazepam 0.5 MG AT BEDTIME 01/19 2100 DC 01/19 PO 01/26 2059 205 Losartan Potassium 50 MG 1200 01/20 1200 AC PO Losartan Potassium 50 MG DAILY 01/20 0900 DC PO Losartan Potassium 0 .STK-MED ONE 01/19 1226 DC PO Losartan Potassium 50 MG ONCE ONE 01/19 1215 DC 01/19 PO 01/19 1216 1245 Metoprolol Tartrate 25 MG 1200,01/20 1200 AC PO Metoprolol Tartrate 25 MG BID 01/20 0900 DC PO Metoprolol Tartrate 0 .STK-MED ONE 01/19 1225 DC PO Metoprolol Tartrate 25 MG ONCE ONE 01/19 1215 DC 01/19 PO 01/19 1216 1245 Potassium Chloride 40 MEQ ONCE ONE 01/20 0915 DC PO 01/20 0916 Prednisone 10 MG Q48H 01/20 1730 DC PO Prednisone 10 MG Q48@1200 01/20 1200 AC PO Review of Systems Review of Systems: The review of systems is negative for chest pains, palpitations nor lightheadedness. Positive for increasing dyspnea as above as well as lower extremity edema The remainder of the 14 point review of systems is noncontributory with the exception of above. Past History Travel History Traveled to [place] past 21 day No Medical History Blood Transfusion Hx: No Neurological: NONE EENT: HOARSE VOICE Cardiovascular: hypertension, hyperlipidemia, myocardial infarction Respiratory: COPD, emphysema, CHF Gastrointestinal: diverticulosis Hepatic: NONE Renal: benign prost hyperplasia, nephrolithiasis Musculoskeletal: FRACTURE(LT.INDEX FINGER) Psychiatric: anxiety Endocrine: NONE Blood Disorders: NONE Cancer(s): NONE QUANTITATIVE SOFTWARE ENGINEER/Reproductive: NONE Surgical History Surgical History: CABG, cholecystectomy Family History Relations & Conditions If Any: MOTHER (lung cancer, COPD). FATHER (COPD). Psychosocial History Where Do You Live? Home Who Do You Live With? spouse Services at Home: Oxygen Smoking Status: Former Smoker ETOH Use: denies use Illicit Drug Use: denies illicit drug use Living Will? yes Functional Ability ADLs Independent: dressing, eating, toileting. Needs Assist: bathing. Ambulation: independent IADLs Independent: shopping, housework, finances, food prep, telephone, medication admin. Needs Assist: transportation. Exam & Diagnostic Data Vital Signs and I&O Vital Signs Date Time Temp Pulse Resp B/P B/P Pulse O2 O2 Flow FiO2 Mean Ox Delivery Rate 01/20 0855 95 Nasal 2.0L Cannula 01/20 0639 98.7 98 20 126/80 97 Nasal 2.0L Cannula 01/20 0156 93 Nasal 2.0L Cannula 01/20 0000 Nasal 2.0L Cannula 01/19 2319 98.7 98 20 128/70 95 Nasal Cannula 01/19 1913 Nasal 2.0L Cannula 01/19 1626 94 Nasal 2.0L Cannula 01/19 1626 94 Nasal 2.0L Cannula 01/19 1557 97.7 88 22 126/68 96 01/19 1514 97.4 85 18 133/66 96 01/19 1335 98.1 96 22 148/79 94 Nasal 2.0L Cannula 01/19 1330 94 Nasal 2.0L Cannula 01/19 1250 100 137/78 01/19 1245 100 137/78 01/19 1245 100 137/78 01/19 1224 98 Nasal 2.0L Cannula 01/19 1144 97.2 100 22 137/78 95 Nasal 2.0L Cannula Intake & Output 01/20 1600 01/20 0800 01/20 0000 01/19 1600 01/19 0800 01/19 0000 Intake Total 240 0 Output Total 100 250 200 Balance -100 -10 -200 Intake, Oral 240 0 Output, Urine 100 250 200 Patient 179 lb 175 lb Weight Weight Bed scale Measurement Method Physical Exam: General: Nontoxic, no apparent distress. HEENT: Sclera and conjunctiva within normal limits, without xanthelasmas. Neck: Carotids 2+ without bruits. Respiratory: Scattered rhonchi, air movement is markedly decreased throughout, without accessory respiratory muscle use. Heart: Regular rate and rhythm, 2 out of 6 systolic ejection murmur at left sternal border, without JVD. There is approximately greater than 1 cm of pitting edema in both lower extremities to the thighs Abdomen: Soft, nontender, no masses, normoactive bowel sounds. Extremities: Without clubbing, cyanosis, Neuro: Nonfocal exam, strength, 5 out of 5 Skin: Within normal limits without lesions. Psych: Mood and affect: Normal Labs/Alok Results: Laboratory Tests 01/20 01/20 0640 0530 Chemistry Sodium (137 - 145 mmol/L) 142 Potassium (3.5 - 5.1 mmol/L) 3.8 Chloride (98 - 107 mmol/L) 99 Carbon Dioxide (22 - 30 mmol/L) 32 H Anion Gap (5 - 16) 11 BUN (9 - 20 mg/dL) 24 H Creatinine (0.7 - 1.2 mg/dL) 1.2 Estimated GFR (>60 ml/min) 59 L BUN/Creatinine Ratio (7 - 25 %) 20.0 Hematology CBC w Diff NO MAN DIFF REQ WBC (4.8 - 10.8 /CUMM) 9.9 RBC (4.70 - 6.10 /CUMM) 4.22 L Hgb (14.0 - 18.0 G/DL) 13.1 L Hct (42 - 52 %) 39.0 L MCV (80.0 - 94.0 FL) 92.3 MCH (27.0 - 31.0 PG) 31.1 H MCHC (33.0 - 37.0 G/DL) 33.6 RDW (11.5 - 14.5 %) 13.7 Plt Count (130 - 400 /CUMM) 272 MPV (7.4 - 10.4 FL) 8.4 Gran % (42.2 - 75.2 %) 68.5 Lymphocytes % (20.5 - 51.1 %) 14.7 L Monocytes % (1.7 - 9.3 %) 11.8 H Eosinophils % (0 - 5 %) 4.6 Basophils % (0.0 - 2.0 %) 0.4 Absolute Granulocytes (1.4 - 6.5 /CUMM) 6.8 H Absolute Lymphocytes (1.2 - 3.4 /CUMM) 1.5 Absolute Monocytes (0.10 - 0.60 /CUMM) 1.2 H Absolute Eosinophils (0.0 - 0.7 /CUMM) 0.5 Absolute Basophils (0.0 - 0.2 /CUMM) 0 Urines Urine Color (YEL,AMB,STR) YEL Urine Clarity (CLEAR) CLEAR Urine pH (5.0 - 8.0) 6.0 Ur Specific [place] (1.001 - 1.035) 1.020 Urine Protein (NEG,<30 MG/DL) NEG Urine Ketones (NEG) NEG Urine Nitrite (NEG) NEG Urine Bilirubin (NEG) NEG Urine Urobilinogen (0.1 - 1.0 EU/dl) 0.2 Ur Leukocyte Esterase (NEG) NEG Ur Microscopic EXAM NOT REQUIRED Urine Hemoglobin (NEG) NEG Urine Glucose (N MG/DL) NEG 01/20 01/19 01/19 0100 1847 1235 Chemistry Sodium (137 - 145 mmol/L) 145 Potassium (3.5 - 5.1 mmol/L) 3.7 Chloride (98 - 107 mmol/L) 98 Carbon Dioxide (22 - 30 mmol/L) 35 H Anion Gap (5 - 16) 12 BUN (9 - 20 mg/dL) 20 Creatinine (0.7 - 1.2 mg/dL) 1.0 Estimated GFR (>60 ml/min) > 60 BUN/Creatinine Ratio (7 - 25 %) 20.0 Glucose (65 - 99 mg/dL) 94 Calcium (8.4 - 10.2 mg/dL) 9.4 Total Bilirubin (0.2 - 1.3 mg/dL) 1.9 H AST (17 - 59 U/L) 27 ALT (21 - 72 U/L) 30 Alkaline Phosphatase (< 127 U/L) 80 Troponin I (<0.11 ng/ml) 0.02 0.01 0.01 Ter-A-Fjuggjmfury Pept (<125 pg/mL) 804 H Total Protein (6.3 - 8.2 g/dL) 6.6 Albumin (3.5 - 5.0 g/dL) 4.3 Globulin (1.9 - 4.2 gm/dL) 2.3 Albumin/Globulin Ratio (1.1 - 2.2 %) 1.9 Hematology CBC w Diff NO MAN DIFF REQ WBC (4.8 - 10.8 /CUMM) 10.1 RBC (4.70 - 6.10 /CUMM) 4.42 L Hgb (14.0 - 18.0 G/DL) 13.7 L Hct (42 - 52 %) 40.5 L MCV (80.0 - 94.0 FL) 91.6 MCH (27.0 - 31.0 PG) 30.9 MCHC (33.0 - 37.0 G/DL) 33.8 RDW (11.5 - 14.5 %) 13.7 Plt Count (130 - 400 /CUMM) 287 MPV (7.4 - 10.4 FL) 7.8 Gran % (42.2 - 75.2 %) 67.3 Lymphocytes % (20.5 - 51.1 %) 17.0 L Monocytes % (1.7 - 9.3 %) 11.6 H Eosinophils % (0 - 5 %) 3.5 Basophils % (0.0 - 2.0 %) 0.6 Absolute Granulocytes (1.4 - 6.5 /CUMM) 6.8 H Absolute Lymphocytes (1.2 - 3.4 /CUMM) 1.7 Absolute Monocytes (0.10 - 0.60 /CUMM) 1.2 H Absolute Eosinophils (0.0 - 0.7 /CUMM) 0.4 Absolute Basophils (0.0 - 0.2 /CUMM) 0.1 Assessment/Plan Assessment/Plan 77-year-old gentleman with a past medical history of COPD (on home O2), coronary artery disease (status post remote myocardial infarction and bypass surgery), mild cardiomyopathy with an LVEF of 45%, hypertension, hyperlipidemia and lung nodules. He presents to our hospital with increasing dyspnea. Dyspnea: The patient presents with increasing dyspnea which is predominantly secondary to his underlying COPD. Pulmonary input was reviewed and appreciated. There is likely a component of increasing edema which is worsening his symptoms as well as capacity for ambulation. We will attempt to diurese as tolerated. Of note, on his recent outpatient visit to his program director cable television, his weight was 170 pounds (77.1 kg), which is 9 pounds below his current weight. This demonstrates a significant volume overload. I would therefore increase his diuretic regimen to 20 mg IV twice daily or 40 mg orally twice daily, targeting a net output of approximately 1 L per day. Coronary artery disease: The patient has known coronary artery disease and hemic cardiomyopathy with an LVEF of 45%. This has been overall stable, we will continue to monitor and treat conservatively given his significant underlying pulmonary issues. Thank you for allowing us to participate in the care of your patient. Please do not hesitate to contact us further with any questions. Sincerely, Rex Alanis MD [facility] Consult Acknowledgment - Thank you for your consult request.
--- NOTE | 2018-01-20 12:55 | ULTRASOUND REPORT ---
EXAMINATION: US TRIPLEX OF LOWER EXTREMITIES, BILATERAL CLINICAL INFORMATION: Bilateral lower extremity pitting edema with swelling and erythema COMPARISON: None TECHNIQUE: Color-flow triplex imaging with spectral analysis and compression Doppler were performed on the lower extremities. FINDINGS: Respiratory variation, normal compression and augmented flow are noted throughout the lower extremities. The visualized common femoral vein, superficial femoral vein, profunda femoral vein, popliteal vein and visualized tibial venous segments show no evidence of deep venous thrombosis. On the right, the peroneal veins were not seen secondary to edema There is no Luna's cyst. IMPRESSION: No evidence of deep venous thrombosis involving the bilateral lower extremities.
--- NOTE | 2018-01-20 14:05 | PN- Pulmonary ---
Subjective HPI/Critical Care Issues: Doing well stable Dyspnea persists Objective Current Medications: Current Medications Sig/Herber Start time Last Medication Dose Route Stop Time Status Admin Acetaminophen 650 MG .STK-MED ONE 01/20 0132 DC PO 01/20 0133 Acetaminophen 650 MG Q6P PRN 01/19 1530 AC 01/20 PO 0133 Albuterol Sulfate 3 ML EVERY 4 HRS/AWAKE 01/20 0800 AC 01/20 INH 1255 Amlodipine Besylate 5 MG 1200 01/20 1200 AC PO Amlodipine Besylate 5 MG DAILY 01/20 0900 DC PO Atorvastatin Calcium 40 MG 1700 01/19 1717 AC 01/19 PO 1832 Azithromycin 500 MG MoWeFr@1200 01/20 1200 AC PO Azithromycin 500 MG 01/20 0900 DC PO Budesonide/ 1 PUF BID 01/19 2100 AC Formoterol Fumarate INH Clopidogrel Bisulfate 75 MG 1200 01/20 1200 AC PO Clopidogrel Bisulfate 75 MG DAILY 01/20 0900 DC PO Enoxaparin Sodium 40 MG DAILY 01/20 0900 AC 01/20 SC 1038 Ezetimibe 10 MG 1200 01/20 1200 AC PO Ezetimibe 10 MG DAILY 01/20 0900 DC PO Finasteride 5 MG 1200 01/20 1200 AC PO Finasteride 5 MG DAILY 01/20 0900 DC PO Furosemide 20 MG 7:30 AM, & 4:30 PM 01/20 1630 AC IV Furosemide 20 MG DAILY 01/20 0911 DC 01/20 IV 1021 Ipratropium [place] 2.5 ML EVERY 4 HRS/AWAKE 01/20 0800 AC 01/20 INH 1255 Ipratropium [place] 2.5 ML Q4 01/19 1800 DC INH Lorazepam 0.5 MG BID PRN 01/20 1100 AC 01/20 PO 01/27 1059 1059 Lorazepam 0.5 MG AT BEDTIME 01/19 2100 DC 01/19 PO 01/26 Losartan Potassium 50 MG 1200 01/20 1200 AC PO Losartan Potassium 50 MG DAILY 01/20 0900 DC PO Metoprolol Tartrate 25 MG 1200,01/20 1200 AC PO Metoprolol Tartrate 25 MG BID 01/20 0900 DC PO Potassium Chloride 40 MEQ ONCE ONE 01/20 0915 DC PO 01/20 0916 Prednisone 10 MG Q48H 01/20 1730 DC PO Prednisone 10 MG Q48@1200 01/20 1200 AC PO Vital Signs & I&O Last 24 Hrs of Vitals and I&O: Vital Signs Date Time Temp Pulse Resp B/P B/P Pulse O2 O2 Flow FiO2 Mean Ox Delivery Rate 01/20 0855 95 Nasal 2.0L Cannula 01/20 0800 92 Nasal 2.0L Cannula 01/20 0639 98.7 98 20 126/80 97 Nasal 2.0L Cannula 01/20 0156 93 Nasal 2.0L Cannula 01/20 0000 Nasal 2.0L Cannula 01/19 2319 98.7 98 20 128/70 95 Nasal Cannula 01/19 1913 Nasal 2.0L Cannula 01/19 1626 94 Nasal 2.0L Cannula 01/19 1626 94 Nasal 2.0L Cannula 01/19 1557 97.7 88 22 126/68 96 01/19 1514 97.4 85 18 133/66 96 Intake & Output 01/20 1600 01/20 0800 01/20 0000 Intake Total 240 Output Total 100 250 Balance -100 -10 Intake, Oral 240 Output, Urine 100 250 Patient 179 lb Weight Weight Bed scale Measurement Method Impression/Plan Impression/Plan Impression/Plan: General: Nontoxic, no apparent distress. HEENT: Sclera and conjunctiva within normal limits, without xanthelasmas. Neck: Carotids 2+ without bruits. Respiratory: Scattered rhonchi, air movement is markedly decreased throughout, without accessory respiratory muscle use. Heart: Regular rate and rhythm, 2 out of 6 systolic ejection murmur at left sternal border, without JVD. There is approximately greater than 1 cm of pitting edema in both lower extremities to the thighs Abdomen: Soft, nontender, no masses, normoactive bowel sounds. Extremities: Without clubbing, cyanosis, Neuro: Nonfocal exam, strength, 5 out of 5 Skin: Within normal limits without lesions. 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 No recent travel history. No sig cough or wheezing and his oxygenation is at his baseline Issues include * Acute corpulmonalae on top of chronic corpulmonalae with sig pedal edema and wt gain * End-stage COPD with no sig COPD exacerbation. is at baseline as far as copd is concerned * Mild bilateral bronchiectasis in a gentleman with end-stage COPD high risk for pseudomonas with no exacerbation of bronchiectasis * Intolerant to preventative medications like Daliresp due to diarrhea and GI upset. Patient has been on azithromycin 500 mg 3 times a week * Chronic steroid dependent COPD now on low-dose steroids at home * Ischemic heart disease, hypertension, hyperlipidemia with no evidence suggestive of active coronary ischemia * Multiple bilateral lung nodules which has been stable for more than 5 years. * BPH with signs of dysuria REC Cont nebs If dyspnea persists can start prednisone 50 qd or iv solumedrol 60 daily IV lasix and keep potassium more than 4.2, watch urine out put Ok to use low dose benzo and low dose po dilautid for dyspnea Sputum culture Cont oxygen Keep leg elevated
[2018-01-20 14:40] VITALS: BP 134/74
--- NOTE | 2018-01-20 17:10 | ULTRASOUND REPORT ---
EXAMINATION: ABDOMINAL ULTRASOUND COMPLETE CLINICAL INFORMATION: Abdominal distention. COMPARISON: 12/23/2016. TECHNIQUE: Real-time imaging of the abdominal viscera. FINDINGS: PANCREAS: The visualized pancreatic head and body are normal in appearance. The remainder of the pancreas is obscured from visualization by the overlying bowel gas. ABDOMINAL AORTA: The proximal, middle, and distal aortic segments are normal in caliber. INFERIOR VENA CAVA: Visualized portions are normal. LIVER: There is a stable 9 mm cyst within the right lobe. The liver demonstrates normal size, contour and echogenicity. No concerning focal lesion. There is equivocal prominence to the intrahepatic biliary ducts. GALLBLADDER: The patient is status post cholecystectomy. COMMON BILE DUCT: Normal in caliber measuring 0.7 cm in diameter. RIGHT KIDNEY: Normal. No hydronephrosis. No renal calculi or focal parenchymal lesions. The kidney measures 10.0 cm in maximum dimension. LEFT KIDNEY: Normal. No hydronephrosis. No renal calculi or focal parenchymal lesions. The kidney measures 9.7 cm in maximum dimension. SPLEEN: Normal. The spleen measures 7.9 cm in maximum dimension. FREE FLUID: None. IMPRESSION: Status post cholecystectomy. Equivocal increase in the prominence of the intrahepatic biliary ducts. Stable hepatic cysts. Otherwise, unremarkable abdominal ultrasound.
[2018-01-20 23:21] VITALS: BP 124/82
[2018-01-21 06:50] VITALS: BP 130/74
[2018-01-21 08:38] LABS: ABSOLUTE BASOPHIL COUNT 0 /CUMM (0.0-0.2); ABSOLUTE EOSINOPHIL COUNT 0 /CUMM (0.0-0.7); ABSOLUTE GRANULOCYTE CT 8.4 /CUMM (1.4-6.5); ABSOLUTE LYMPH COUNT 0.9 /CUMM (1.2-3.4); ABSOLUTE MONOCYTE COUNT 1.2 /CUMM (0.10-0.60); BASOPHIL % 0.2 % (0.0-2.0); EOSINOPHIL % 0.4 % (0-5); GRANULOCYTE % 79.5 % (42.2-75.2); HEMATOCRIT 40.6 % (42-52); MEAN CORPUSCULAR HGB 30.9 PG (27.0-31.0); MEAN CORPUSCULAR HGB CONC 33.7 G/DL (33.0-37.0); MEAN CORPUSCULAR VOLUME 91.9 FL (80.0-94.0); MEAN PLATELET VOLUME 8.9 FL (7.4-10.4); PLATELET COUNT 259 /CUMM (130-400); RBC DISTRIBUTION WIDTH 13.8 % (11.5-14.5); RED BLOOD CELL CT 4.42 /CUMM (4.70-6.10); WHITE BLOOD CELL COUNT 10.6 /CUMM (4.8-10.8)
--- NOTE | 2018-01-21 09:14 | PN- Housestaff ---
Roxana RICE,[facility] 01/21/18 0914: Subjective Follow-up For: Acute on chronic heart failure Urinary retention secondary to BPH Anxiety End-stage COPD Tele-Events Since Last Visit: Sinus rhythm with PVCs Heart rate 70-99 Subjective: Patient continues to have shortness of breath. Denies any chest pain or palpitations. Since he wants to go home tomorrow. Review of Systems Constitutional: Reports: no symptoms. EENTM: Reports: no symptoms. Cardiovascular: Reports: peripheral edema. Respiratory: Reports: short of breath. Gastrointestinal: Reports: no symptoms. Genitourinary: Reports: no symptoms. Musculoskeletal: Reports: no symptoms. Skin: Reports: no symptoms. Neurological/Psychological: Reports: no symptoms. Hematologic/Endocrine: Reports: no symptoms. Immunologic/Allergic: Reports: no symptoms. Objective Last 24 Hrs of Vital Signs/I&O Vital Signs Date Time Temp Pulse Resp B/P B/P Pulse O2 O2 Flow FiO2 Mean Ox Delivery Rate 01/22 1948 86 118/78 01/21 1947 86 118/78 01/21 1508 97.6 77 20 110/60 96 Nasal 2.0L Cannula 01/21 1207 87 130/74 01/21 1207 87 130/74 01/21 1207 87 130/74 01/21 0825 98 Nasal 2.0L Cannula 01/21 0800 Nasal 2.0L Cannula 01/21 0650 98.4 84 18 130/74 96 Nasal Cannula 01/21 0009 96 Nasal 2.0L Cannula 01/20 2321 98.3 82 18 124/82 96 Nasal 2.0L Cannula 01/20 2256 95 Nasal 2.0L Cannula 01/20 2048 88 126/78 Intake & Output 01/21 1600 01/21 0800 01/21 0000 Intake Total 610 300 360 Output Total 5174 121 3197 Balance -490 -200 -1440 Intake, IV 10 Intake, Oral 600 300 360 Number 1 Bowel Movements Output, Urine 6679 562 3385 Patient 175 lb Weight Weight Bed scale Measurement Method Physical Exam General Appearance: Alert, Oriented X3, Cooperative Skin: No Rashes, No Breakdown Cardiovascular: Regular Rate, Normal S1, Normal S2 Lungs: decreased breath sounds and wheezing bilaterally Abdomen: Normal Bowel Sounds, Soft, No Tenderness Extremities: No Clubbing (+2 pitting edema bilateral), +2 pitting edema bilaterally Current Medications: Current Medications Sig/Herber Start time Last Medication Dose Route Stop Time Status Admin Acetaminophen 500 MG Q4P PRN 01/20 1715 AC 01/21 PO 1946 Albuterol Sulfate 3 ML EVERY 4 HRS/AWAKE 01/20 08 AC 01/21 INH 1627 Amlodipine Besylate 5 MG 1200 01/20 1200 AC 01/21 PO 1207 Atorvastatin Calcium 40 MG 1700 01/19 1717 AC 01/21 PO 1710 Azithromycin 500 MG MoWeFr@1200 01/20 1200 AC 01/20 PO 1742 Budesonide/ 1 PUF BID 01/19 2100 AC Formoterol Fumarate INH Clopidogrel Bisulfate 75 MG 1200 01/20 1200 AC 01/21 PO 1205 Digoxin 0.125 MG 01/21 1830 AC 01/21 PO 194 Enoxaparin Sodium 40 MG DAILY 01/20 0900 AC 01/21 SC 0808 Ezetimibe 10 MG 1200 01/20 1200 AC 01/21 PO 1205 Finasteride 5 MG 1200 01/20 1200 AC 01/21 PO 0811 Furosemide 20 MG DAILY 01/22 09 AC IV Furosemide 40 MG .STK-MED ONE 01/21 0802 DC IV 01/21 0803 Furosemide 20 MG 7:30 AM, & 4:30 PM 01/20 1630 DC 01/21 IV 1710 Ipratropium [place] 2.5 ML EVERY 4 HRS/AWAKE 01/20 08 AC 01/21 INH 1627 Lorazepam 0.5 MG BID PRN 01/20 1100 AC 01/21 PO 01/27 1059 1946 Losartan Potassium 50 MG 1200 01/20 1200 AC 01/21 PO 1207 Metoprolol Tartrate 25 MG 1200,01/20 1200 AC 01/21 PO 1948 Prednisone 10 MG Q48@1200 01/20 1200 AC 01/20 PO 1745 Tramadol HCl 50 MG Q6 PRN 01/20 1515 AC 01/21 PO 171 Last 24 Hrs of Lab/Alok Results Last 24 Hrs of Labs/Mics: Laboratory Tests 01/21/18 0658: Anion Gap 11, Estimated GFR > 60, BUN/Creatinine Ratio 24.0, CBC w Diff NO MAN DIFF REQ, RBC 4.42 L, MCV 91.9, MCH 30.9, MCHC 33.7, RDW 13.8, MPV 8.9, Gran % 79.5 H, Lymphocytes % 8.7 L, Monocytes % 11.2 H, Eosinophils % 0.4, Basophils % 0.2, Absolute Granulocytes 8.4 H, Absolute Lymphocytes 0.9 L, Absolute Monocytes 1.2 H, Absolute Eosinophils 0, Absolute Basophils 0 Assessment/Plan Assessment: Patient is a 77-year-old male with past medical history of end-stage COPD on 2 L oxygen at home, CAD status post VA and CABG on Plavix (allergic to aspirin), hypertension, hyperlipidemia,BPH, nephrolithiasis, diverticulosis, and bilateral lung nodules presenting this admission with worsening lower extremity swelling and shortness of breath. Patient will be admitted to the telemetry floor for management of the followin. Dyspnea and Lower Extremity Edema likley 2/2 right heart failure and COPD Patient has worsening dyspnea and lower extremity edema over the past 3-4 days with orthopnea at baseline. No JVD or crackles on exam. There is decreased breath sounds bilaterally. Pro-BNP is elevated. CXR is negative for vascular congestion or effusion. The patient does become short of breath while talking and moving on examination. Patient meets framingham criteria for decompensated heart failure with one major criteria of orthopnea and two minor criteria of bilateral lower extremity edema and dyspnea on minimal exertion. This acute decompensation is likley due to right heart failure in the setting of end stage COPD, oxygen dependency and pulmonary htn seen on ECHO in 2005. More current echo is unavailable at this time. - Admit to telemetry - Continuous telemetry monitoring - Oxygen supplementation as needed - TRC/DuoNeb Treatment - I/O, daily weights - compression stockings, keep legs elevated - Changed IV lasix to once daily - Start patient on digoxin 0.125 mg to - If patient continues to remain dyspneic or worsen will consider giving benzos or low dose dilaudid - Cardiology consult with Dr. Linares's group - ECHO pending - Pulmonology consult with Dr. Romero - Continue prednisone 10mg every other day - Continue azithromycin three times/week - Continue plavix, losartan, norvasc, zetia, atorvastatin 2. Obstructive uropathy in setting of BPH Patient reports dysuria and decreased stream. - follow up urine culture - no growth after 1 day - continue flomax - Lorenzo placed - urine output of 1.4L immediateley after placement - tramadol and tylenol for penile pain s/p insertion of lorenzo 3. Chronic conditions: COPD, HTN, HLD, BPH, Lung nodules - continue home medications DVT PPx: Lovenox SQ Diet: Heart healthy Code: DNR/DNI Problem List: 1. CHF exacerbation 2. COPD exacerbation 3. Leg edema 4. BPH (benign prostatic hyperplasia) Pain Ratin Pain Location: None Pain Goal: Remain pain free Pain Plan: Pain pathway Tomorrow's Labs & Rationales: BEP (on Lasix) Araseli Min MD 01/21/18 1555: Attending MD Review Statement Attending Statement Attending MD Statement: examined this patient, discuss w/resident/PA/DRY JANITOR, agreed w/resident/PA/DRY JANITOR, reviewed EMR data (avail) Attending Assessment/Plan: 77M PMH end-stage COPD on 2 L oxygen at home, CAD status post VA and CABG on Plavix (allergic to aspirin), hypertension, hyperlipidemia,BPH, nephrolithiasis, diverticulosis, and bilateral lung nodules admitted with progressive bilateral leg swelling and SOB. Symptoms consistent with right and failure. 1. Acute on chronic right CHF 2. COPD with cor pulmonale Plan - Continue on telemetry - Start Digoxin per cardiology - Continue IV Lasix - Follow pulmonary and cardiology recommendations - I/O, daily weights - Continue home medications - DVT PPx
--- NOTE | 2018-01-21 11:25 | PN- Cardiology ---
Subjective Subjective: * Patient continue to report shortness of breath and orthopnea although it has improved somewhat from admission. * sinus rhythm Objective Vital Signs and I&Os Vital Signs Date Time Temp Pulse Resp B/P B/P Pulse O2 O2 Flow FiO2 Mean Ox Delivery Rate 01/21 0825 98 Nasal 2.0L Cannula 01/21 0800 Nasal 2.0L Cannula 01/21 0650 98.4 84 18 130/74 96 Nasal Cannula 01/21 0009 96 Nasal 2.0L Cannula 01/20 2321 98.3 82 18 124/82 96 Nasal 2.0L Cannula 01/20 2256 95 Nasal 2.0L Cannula 01/20 2048 88 126/78 01/20 1743 110 140/86 01/20 1743 110 140/86 01/20 1743 110 140/86 01/20 1645 94 Nasal 2.0L Cannula 01/20 1600 Nasal 2.0L Cannula 01/20 1440 98.1 105 20 134/74 94 Nasal Cannula Intake & Output 01/21 1600 01/21 0800 01/21 0000 01/20 1600 01/20 0800 01/20 0000 Intake Total 300 360 250 240 Output Total 500 1800 2400 100 250 Balance -200 -1440 -2150 -100 -10 Intake, IV 10 Intake, Oral 300 360 240 240 Output, Urine 500 1800 2400 100 250 Patient 175 lb 179 lb Weight Weight Bed scale Bed scale Measurement Method Physical Exam: General: WD/WN male in NAD; alert and oriented x 3 HEENT: NC/AT, PERRL, EOMI Neck: no JVD, no carotid bruit Heart: RRR lungs: severely decreased air movement, no crackles Extremities: 2+ leg edema Assessment/Plan Assessment/Plan * 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 He reports that he cannot lie down to sleep even at his baseline. I do not think he has left heart failure. * Begin digoxin at 0.125mg daily for increased RV contractility. Change Lasix to 40mg IV daily today and we will likely change to oral Lasix tomorrow. * Follow BUN, creatinine and potassium Continue telemetry? Yes
--- NOTE | 2018-01-21 12:24 | PN- Pulmonary ---
Subjective HPI/Critical Care Issues: Patient continue to report shortness of breath and orthopnea although it has improved somewhat from admission. Much improved Did have urinary outlet obstruction and did have a Parker placed. Since then he has had good urine output. Objective Current Medications: Current Medications Sig/Herber Start time Last Medication Dose Route Stop Time Status Admin Acetaminophen 500 MG Q4P PRN 01/20 1715 AC 01/20 PO 1707 Acetaminophen 650 MG Q6P PRN 01/19 1530 DC 01/20 PO 0133 Albuterol Sulfate 3 ML EVERY 4 HRS/AWAKE 01/20 0800 AC 01/21 INH 1212 Amlodipine Besylate 5 MG 1200 01/20 1200 AC 01/21 PO 1207 Atorvastatin Calcium 40 MG 1700 01/19 1717 AC 01/20 PO 1741 Azithromycin 500 MG MoWeFr@1200 01/20 1200 AC 01/20 PO 1742 Budesonide/ 1 PUF BID 01/19 2100 AC Formoterol Fumarate INH Clopidogrel Bisulfate 75 MG 1200 01/20 1200 AC 01/21 PO 1205 Enoxaparin Sodium 40 MG DAILY 01/20 0900 AC 01/21 SC 0808 Ezetimibe 10 MG 1200 01/20 1200 AC 01/21 PO 1205 Finasteride 5 MG 1200 01/20 1200 AC 01/21 PO 0811 Furosemide 20 MG 7:30 AM, & 4:30 PM 01/20 1630 AC 01/21 IV 0808 Furosemide 20 MG DAILY 01/20 0911 DC 01/20 IV 1021 Ipratropium [place] 2.5 ML EVERY 4 HRS/AWAKE 01/20 0800 AC 01/21 INH 1212 Lorazepam 0.5 MG BID PRN 01/20 1100 AC 01/21 PO 01/27 1059 0807 Losartan Potassium 50 MG 1200 01/20 1200 AC 01/21 PO 1207 Metoprolol Tartrate 25 MG 1200,2100 01/20 1200 AC 01/21 PO 1207 Patient Medication 1 ED ONE ONE 01/20 1430 DC Teaching ED 01/20 1431 Prednisone 10 MG Q48H 01/20 1730 DC PO Prednisone 10 MG Q48@1200 01/20 1200 AC 01/20 PO 1745 Tramadol HCl 50 MG Q6 PRN 01/20 1515 AC 01/21 PO 0807 Vital Signs & I&O Last 24 Hrs of Vitals and I&O: Vital Signs Date Time Temp Pulse Resp B/P B/P Pulse O2 O2 Flow FiO2 Mean Ox Delivery Rate 01/21 1207 87 130/74 01/21 1207 87 130/74 01/21 1207 87 130/74 01/21 0825 98 Nasal 2.0L Cannula 01/21 0800 Nasal 2.0L Cannula 01/21 0650 98.4 84 18 130/74 96 Nasal Cannula 01/21 0009 96 Nasal 2.0L Cannula 01/20 2321 98.3 82 18 124/82 96 Nasal 2.0L Cannula 01/20 2256 95 Nasal 2.0L Cannula 01/20 2048 88 126/78 01/20 1743 110 140/86 01/20 1743 110 140/86 01/20 1743 110 140/86 01/20 1645 94 Nasal 2.0L Cannula 01/20 1600 Nasal 2.0L Cannula 01/20 1440 98.1 105 20 134/74 94 Nasal Cannula Intake & Output 01/21 1600 01/21 0800 01/21 0000 Intake Total 300 360 Output Total 500 1800 Balance -200 -1440 Intake, Oral 300 360 Output, Urine 500 1800 Patient 175 lb Weight Weight Bed scale Measurement Method Impression/Plan Impression/Plan Impression/Plan: General: Nontoxic, no apparent distress. HEENT: Sclera and conjunctiva within normal limits, without xanthelasmas. Neck: Carotids 2+ without bruits. Respiratory: Scattered rhonchi, air movement is markedly decreased throughout, without accessory respiratory muscle use. Heart: Regular rate and rhythm, 2 out of 6 systolic ejection murmur at left sternal border, without JVD. There is approximately greater than 1 cm of pitting edema in both lower extremities to the thighs Abdomen: Soft, nontender, no masses, normoactive bowel sounds. Extremities: Without clubbing, cyanosis, Neuro: Nonfocal exam, strength, 5 out of 5 Skin: Within normal limits without lesions. 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 No recent travel history. No sig cough or wheezing and his oxygenation is at his baseline Issues include * Acute corpulmonalae on top of chronic corpulmonalae with sig pedal edema and wt gain, slowly improving * End-stage COPD with no sig COPD exacerbation. is at baseline as far as copd is concerned * Mild bilateral bronchiectasis in a gentleman with end-stage COPD high risk for pseudomonas with no exacerbation of bronchiectasis * Intolerant to preventative medications like Daliresp due to diarrhea and GI upset. Patient has been on azithromycin 500 mg 3 times a week * Chronic steroid dependent COPD now on low-dose steroids at home * Ischemic heart disease, hypertension, hyperlipidemia with no evidence suggestive of active coronary ischemia * Multiple bilateral lung nodules which has been stable for more than 5 years. * BPH with signs of dysuria, now with urinary outlet obstruction status post Parker with adequate urine output REC Cont nebs, Parker IV lasix and keep potassium more than 4.2, watch urine out put Ok to use low dose benzo and low dose po dilautid for dyspnea if worse Start bowel regimen Cont oxygen Keep leg elevated
[2018-01-21 15:08] VITALS: BP 110/60
[2018-01-21 21:38] VITALS: BP 122/59
[2018-01-22 07:04] VITALS: BP 146/67
--- NOTE | 2018-01-22 09:34 | ECHOCARDIOGRAM REPORT ---
OUSMANE GUZMAN Age: 77 : 1940 Gender: M Exam Date: 01/21/2018 09:18 Exam Location: [address] Ht (in): 68 Wt (lb): 179 BSA: 1.99 BP: 140 / 86 Ordering Physician: Gregoria Meeks MD Referring Physician: Gregoria Meeks MD Technologist: Jenny Vsaquez [facility] Room Number: 178-1 Indications: Rhythm: Sinus Technical Quality: poor FINDINGS Left Ventricle Left ventricular cavity size normal. Left ventricular wall thickness mildly increased. Mildly abnormal left ventricular ejection fraction estimated at 35-40%. Akinetic anterior wall. Murphy akinetic. Abnormal relaxation filling pattern of the left ventricle for age (stage 1 diastolic dysfunction). Right Ventricle Normal right ventricular size and function. Right Atrium Normal right atrial size. Left Atrium Normal left atrial size. Mitral Valve Moderate thickening/calcification of the anterior mitral valve leaflet. Moderate mitral annular calcification. Trace to mild mitral regurgitation. Aortic Valve Diffuse thickening of the aortic valve cusps with reduced excursion. Severe aortic stenosis. Trace to mild aortic regurgitation. Dimensionlesss index 0.24 Tricuspid Valve Tricuspid valve is normal in structure and function. Mild tricuspid regurgitation. Pulmonic Valve Pulmonic valve not well visualized, grossly normal. Pericardium No pericardial effusion. Great Vessels Normal size aortic root. CONCLUSIONS Moderately reduced left ventricular systolic function with segmental abnormalities consistent with Ischemic heart disease and prior infarct. Normal Right ventricular systolic function. Probably severe Aortic stenosis. Jose De Jesus Linares M.D. (Electronically Signed) Final Date: 22 Jan 2018 09:33 MEASUREMENTS (Male / Female) Normal Values 2D ECHO LV Diastolic Diameter PLAX 3.9 cm 4.2 - 5.9 / 3.9 - 5.3 cm LV Systolic Diameter PLAX 2.6 cm 2.1 - 4.0 cm LV Fractional Shortening PLAX 33.3 % 25 - 46 % LV Ejection Fraction 2D Teich 62.7 % IVS Diastolic Thickness 1.3 cm LVPW Diastolic Thickness 1.6 cm LV Relative Wall Thickness 0.7 LVOT Diameter 2.1 cm Aortic Root Diameter 3.3 cm LA Systolic Diameter LX 3.0 cm 3.0 - 4.0 / 2.7 - 3.8 cm LA Volume 38.0 cm 18 - 58 / 22 - 52 cm DOPPLER AV Peak Velocity 304.0 cm/s AV Peak Gradient 37.0 mmHg AV Mean Velocity 215.0 cm/s AV Mean Gradient 21.0 mmHg AV Velocity Time Integral 62.3 cm LVOT Peak Velocity 71.4 cm/s LVOT Peak Gradient 2.0 mmHg LVOT Mean Velocity 47.7 cm/s LVOT Mean Gradient 1.0 mmHg LVOT Velocity Time Integral 15.2 cm LVOT Stroke Volume 52.6 cm AV Area Cont Eq vti 0.8 cm AV Area Cont Eq pk 0.8 cm Mitral E Point Velocity 67.6 cm/s Mitral A Point Velocity 120.0 cm/s Mitral E to A Ratio 0.6 MV Deceleration Time 158.0 ms TV Peak Velocity 246.0 cm/s PV Peak Velocity 129.0 cm/s PV Peak Gradient 6.7 mmHg LV E' Lateral Velocity 6.9 cm/s Mitral E to LV E' Lateral Ratio 9.8 LV E' Septal Velocity 5.7 cm/s Mitral E to LV E' Septal Ratio 12.0
--- NOTE | 2018-01-22 09:57 | PN- Housestaff ---
Subjective Follow-up For: Acute on chronic heart failure Urinary retention secondary to BPH Anxiety End-stage COPD Tele-Events Since Last Visit: Sinus rhythm with PVCs Heart rate 70-99 Subjective: Seen and examined patient. Patient states that he is feeling much better, his lower extremity swelling has improved remarkably. He does however seem anxious and a little agitated this morning. Some hematuria noted in his Lorenzo likely secondary to some overnight trauma as he reports some tugging when he was moving last night. Review of Systems Constitutional: Denies: chills, diaphoresis, fever, malaise, weakness, unexplained weight loss. Cardiovascular: Denies: chest pain, edema, orthopena, palpitations, peripheral edema, syncope. Respiratory: Denies: see HPI. Objective Last 24 Hrs of Vital Signs/I&O Vital Signs Date Time Temp Pulse Resp B/P B/P Pulse O2 O2 Flow FiO2 Mean Ox Delivery Rate 01/22 1131 92 Nasal 2.0L Cannula 01/22 0800 Nasal 2.0L Cannula 01/22 0704 98.2 85 20 146/67 96 01/22 0643 96 Nasal 2.0L Cannula 01/22 0000 Nasal 2.0L Cannula 01/21 2138 98.0 85 18 122/59 93 01/21 2054 95 Nasal 2.0L Cannula 01/21 1948 86 118/78 01/21 1947 86 118/78 01/21 1508 97.6 77 20 110/60 96 Nasal 2.0L Cannula 01/21 1207 87 130/74 01/21 1207 87 130/74 01/21 1207 87 130/74 Intake & Output 01/22 1600 01/22 0800 01/22 0000 Intake Total 200 240 Output Total 1050 1100 Balance -850 -860 Intake, Oral 200 240 Output, Urine 1050 1100 Patient 175 lb Weight Weight Bed scale Measurement Method Physical Exam General Appearance: Alert, Oriented X3, Cooperative, No Acute Distress Cardiovascular: Normal S1, Normal S2 Lungs: Clear to Auscultation, Normal Air Movement Extremities: resolving edema Current Medications: Current Medications Sig/Herber Start time Last Medication Dose Route Stop Time Status Admin Acetaminophen 500 MG .STK-MED ONE 01/21 1945 DC PO 01/21 1946 Acetaminophen 650 MG .STK-MED ONE 01/21 1943 DC PO 01/22 1944 Acetaminophen 500 MG Q4P PRN 01/20 1715 AC 01/22 PO 1036 Albuterol Sulfate 3 ML EVERY 4 HRS/AWAKE 01/20 0800 AC 01/22 INH 1127 Amlodipine Besylate 5 MG 1200 01/20 1200 AC 01/21 PO 1207 Atorvastatin Calcium 40 MG 17001/19 1717 AC 01/21 PO 1710 Azithromycin 500 MG MoWeFr@1200 01/20 1200 AC 01/20 PO 1742 Budesonide/ 1 PUF BID 01/19 2100 AC Formoterol Fumarate INH Clopidogrel Bisulfate 75 MG 1200 01/20 1200 AC 01/21 PO 1205 Digoxin 0.125 MG 01/21 1830 AC 01/21 PO 1947 Enoxaparin Sodium 40 MG DAILY 01/20 0900 AC 01/22 SC 0902 Ezetimibe 10 MG 1200 01/20 1200 AC 01/21 PO 1205 Finasteride 5 MG 1200 01/20 1200 AC 01/21 PO 0811 Furosemide 20 MG DAILY 01/22 0900 AC 01/22 IV 0902 Furosemide 20 MG 7:30 AM, & 4:30 PM 01/20 1630 DC 01/21 IV 1710 Ipratropium [place] 2.5 ML EVERY 4 HRS/AWAKE 01/20 08 AC 01/22 INH 1127 Lorazepam 0.5 MG BID PRN 01/20 1100 AC 01/22 PO 01/27 1059 0902 Losartan Potassium 50 MG 1200 01/20 1200 AC 01/21 PO 1207 Metoprolol Tartrate 25 MG 1200,2100 01/20 1200 AC 01/21 PO 1948 Prednisone 10 MG Q48@1200 01/20 1200 AC 01/20 PO 1745 Tramadol HCl 50 MG Q6 PRN 01/20 1515 AC 01/22 PO 0901 Last 24 Hrs of Lab/Alok Results Last 24 Hrs of Labs/Mics: Laboratory Tests 01/22/18 0610: Anion Gap 9, Estimated GFR > 60, BUN/Creatinine Ratio 22.0 Assessment/Plan Assessment: 77-year-old gentleman with past medical history of 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 1. Dyspnea and Lower Extremity Edema likley 2/2 right heart failure and COPD w -continue telemetry - Oxygen supplementation as needed - TRC/DuoNeb Treatment - I/O, daily weights - compression stockings, keep legs elevated - on IV lasix 20 once daily - Started on digoxin 0.125 mg - ECHO: Mildly abnormal left ventricular ejection fraction estimated at 35-40%. Akinetic anterior wall. [place] akinetic. Abnormal relaxation filling pattern of the left ventricle for age (stage 1 diastolic dysfunction). - Pulmonology and cardiology on board, apprec recomendations - Continue prednisone 10mg every other day - Continue azithromycin three times/week HTN/CAD - Continue plavix, losartan, norvasc, zetia, atorvastatin 2. Obstructive uropathy in setting of BPH - urine culture - no growth after 1 day - continue flomax - continue Lorenzo placed - watch for resolution of hematuria (likely 2/2 trauma) - tramadol and tylenol for penile pain s/p insertion of lorenzo 3. Chronic conditions: COPD, HTN, HLD, BPH, Lung nodules - continue home medications DVT PPx: Lovenox SQ Diet: Heart healthy Code: DNR/DNI Problem List: 1. BPH (benign prostatic hyperplasia) 2. CHF exacerbation 3. COPD exacerbation Pain Ratin Pain Location: penile Pain Goal: Pain 4 or less Pain Plan: current regimen Tomorrow's Labs & Rationales: cbc/bep
--- NOTE | 2018-01-22 11:46 | PN- Att Addend ---
Attending Addendum Attending Brief Note 77M PMH end-stage COPD on 2 L oxygen at home, CAD status post [place] and CABG on Plavix (allergic to aspirin), hypertension, hyperlipidemia,BPH, nephrolithiasis, diverticulosis, and bilateral lung nodules admitted with progressive bilateral leg swelling and SOB. Symptoms consistent with right and failure. 1. Acute on chronic right CHF 2. COPD with cor pulmonale Plan - Continue on telemetry - Start Digoxin per cardiology - Continue IV Lasix - Follow pulmonary and cardiology recommendations - I/O, daily weights - Continue home medications - DVT PPx
--- NOTE | 2018-01-22 12:55 | PN- Cardiology ---
Subjective Subjective: * No complaints. * sinus rhythm Objective Vital Signs and I&Os Vital Signs Date Time Temp Pulse Resp B/P B/P Pulse O2 O2 Flow FiO2 Mean Ox Delivery Rate 01/22 1209 98 100/62 01/22 1208 98 100/62 01/22 1206 98 100/62 01/22 1131 92 Nasal 2.0L Cannula 01/22 0800 Nasal 2.0L Cannula 01/22 0704 98.2 85 20 146/67 96 01/22 0643 96 Nasal 2.0L Cannula 01/22 0000 Nasal 2.0L Cannula 01/21 2138 98.0 85 18 122/59 93 01/21 2054 95 Nasal 2.0L Cannula 01/21 1948 86 118/78 01/21 1947 86 118/78 01/21 1508 97.6 77 20 110/60 96 Nasal 2.0L Cannula Intake & Output 01/22 1600 01/22 0800 01/22 0000 01/21 1600 01/21 0800 01/21 0000 Intake Total 200 240 610 300 360 Output Total 1050 1100 5423 846 1369 Balance -850 -860 -490 -200 -1440 Intake, IV 10 Intake, Oral 200 240 600 300 360 Number 1 Bowel Movements Output, Urine 1050 1100 4136 201 0351 Patient 175 lb 175 lb Weight Weight Bed scale Bed scale Measurement Method Physical Exam: General: WD/WN male in NAD; alert and oriented x 3 HEENT: NC/AT, PERRL, EOMI Neck: no JVD, no carotid bruit Heart: RRR lungs: severely decreased air movement, no crackles Extremities: 1+ leg edema Assessment/Plan Assessment/Plan * 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 He reports that he cannot lie down to sleep even at his baseline. I do not think he has left heart failure. * Continue digoxin at 0.125mg daily for increased RV contractility. Change Lasix to 40mg PO today. * Follow BUN, creatinine and potassium Continue telemetry? Yes
[2018-01-22 15:12] VITALS: BP 120/64
--- NOTE | 2018-01-22 16:03 | PN- Pulmonary ---
Subjective HPI/Critical Care Issues: Doing well improving stable Objective Current Medications: Current Medications Sig/Herber Start time Last Medication Dose Route Stop Time Status Admin Acetaminophen 500 MG .STK-MED ONE 01/21 1945 DC PO 01/21 1946 Acetaminophen 650 MG .STK-MED ONE 01/21 1943 DC PO 01/22 1944 Acetaminophen 500 MG Q4P PRN 01/20 1715 AC 01/22 PO 1036 Albuterol Sulfate 3 ML EVERY 4 HRS/AWAKE 01/20 0800 AC 01/22 INH 1127 Amlodipine Besylate 5 MG 1200 01/20 1200 AC 01/21 PO 1207 Atorvastatin Calcium 40 MG 1700 01/19 1717 AC 01/21 PO 1710 Azithromycin 500 MG MoWeFr@1200 01/20 1200 AC 01/20 PO 1742 Budesonide/ 1 PUF BID 01/19 2100 AC Formoterol Fumarate INH Clopidogrel Bisulfate 75 MG 1200 01/20 1200 AC 01/22 PO 1209 Digoxin 0.125 MG 01/21 1830 AC 01/21 PO 1947 Enoxaparin Sodium 40 MG DAILY 01/20 0900 AC 01/22 SC 0902 Ezetimibe 10 MG 1200 01/20 1200 AC 01/22 PO 1209 Finasteride 5 MG 1200 01/20 1200 AC 01/22 PO 1209 Furosemide 20 MG DAILY 01/22 0900 AC 01/22 IV 0902 Furosemide 20 MG 7:30 AM, & 4:30 PM 01/20 1630 VT 01/21 IV 1710 Ipratropium [place] 2.5 ML EVERY 4 HRS/AWAKE 01/20 0800 AC 01/22 INH 1127 Lorazepam 0.5 MG TID 01/22 1400 AC 01/22 PO 01/29 1359 1341 Lorazepam 0.5 MG BID PRN 01/20 1100 DC 01/22 PO 01/27 1059 0902 Losartan Potassium 50 MG 1200 01/20 1200 AC 01/21 PO 1207 Metoprolol Tartrate 25 MG 1200,2100 01/20 1200 AC 01/22 PO 1208 Potassium Chloride 40 MEQ BID 01/22 1150 AC 01/22 PO 1202 Prednisone 10 MG Q48@1200 01/20 1200 AC 01/22 PO 1209 Tramadol HCl 50 MG Q6 PRN 01/20 1515 AC 01/22 PO 0901 Vital Signs & I&O Last 24 Hrs of Vitals and I&O: Vital Signs Date Time Temp Pulse Resp B/P B/P Pulse O2 O2 Flow FiO2 Mean Ox Delivery Rate 01/22 1512 98.0 91 20 120/64 97 Nasal 2.0L Cannula 01/22 1209 98 100/62 01/22 1208 98 100/62 01/22 1206 98 10062 01/22 1131 92 Nasal 2.0L Cannula 01/22 0800 Nasal 2.0L Cannula 01/22 0704 98.2 85 20 146/67 96 01/22 0643 96 Nasal 2.0L Cannula 01/22 0000 Nasal 2.0L Cannula 01/21 2138 98.0 85 18 122/59 93 01/21 2054 95 Nasal 2.0L Cannula 01/21 1948 86 118/78 01/21 1947 86 118/78 Intake & Output 01/22 1600 01/22 0800 01/22 0000 Intake Total 660 200 240 Output Total 1200 1050 1100 Balance -540 -850 -860 Intake, IV 10 Intake, Oral 650 200 240 Output, Urine 1200 1050 1100 Patient 175 lb Weight Weight Bed scale Measurement Method Laboratory Tests 01/22 01/21 0610 0658 Chemistry Sodium (137 - 145 mmol/L) 140 143 Potassium (3.5 - 5.1 mmol/L) 3.7 4.4 Chloride (98 - 107 mmol/L) 92 L 97 L Carbon Dioxide (22 - 30 mmol/L) 39 H 35 H Anion Gap (5 - 16) 9 11 BUN (9 - 20 mg/dL) 22 H 24 H Creatinine (0.7 - 1.2 mg/dL) 1.0 1.0 Estimated GFR (>60 ml/min) > 60 > 60 BUN/Creatinine Ratio (7 - 25 %) 22.0 24.0 Hematology CBC w Diff NO MAN DIFF REQ WBC (4.8 - 10.8 /CUMM) 10.6 RBC (4.70 - 6.10 /CUMM) 4.42 L Hgb (14.0 - 18.0 G/DL) 13.7 L Hct (42 - 52 %) 40.6 L MCV (80.0 - 94.0 FL) 91.9 MCH (27.0 - 31.0 PG) 30.9 MCHC (33.0 - 37.0 G/DL) 33.7 RDW (11.5 - 14.5 %) 13.8 Plt Count (130 - 400 /CUMM) 259 MPV (7.4 - 10.4 FL) 8.9 Gran % (42.2 - 75.2 %) 79.5 H Lymphocytes % (20.5 - 51.1 %) 8.7 L Monocytes % (1.7 - 9.3 %) 11.2 H Eosinophils % (0 - 5 %) 0.4 Basophils % (0.0 - 2.0 %) 0.2 Absolute Granulocytes (1.4 - 6.5 /CUMM) 8.4 H Absolute Lymphocytes (1.2 - 3.4 /CUMM) 0.9 L Absolute Monocytes (0.10 - 0.60 /CUMM) 1.2 H Absolute Eosinophils (0.0 - 0.7 /CUMM) 0 Absolute Basophils (0.0 - 0.2 /CUMM) 0 Microbiology Date/Time Procedure - Status Source Growth 01/20 0530 Urine Culture - COMP URINE ROUT Impression/Plan Impression/Plan Impression/Plan: General: Nontoxic, no apparent distress. HEENT: Sclera and conjunctiva within normal limits, without xanthelasmas. Neck: Carotids 2+ without bruits. Respiratory: Scattered rhonchi, air movement is markedly decreased throughout, without accessory respiratory muscle use. Heart: Regular rate and rhythm, 2 out of 6 systolic ejection murmur at left sternal border, without JVD. There is approximately greater than 1 cm of pitting edema in both lower extremities to the thighs Abdomen: Soft, nontender, no masses, normoactive bowel sounds. Extremities: Without clubbing, cyanosis, Neuro: Nonfocal exam, strength, 5 out of 5 Skin: Within normal limits without lesions. Psych: Mood and affect: Normal This is a gentleman with very end-stage COPD with FEV1 of 0.6 L, on oxygen, coronary artery disease with previous angioplasty, previous [place], hypertension, hyperlipidemia, diverticulosis, stable lung nodules at least for 5 years bilaterally, previous bronchiectasis which is mild with recurrent bronchitis episode, intolerant to Daliresp and has been on azithromycin for exacerbation prophylaxis, came into the hospital because of increasing pedal edema and wt gain not responding to lasix. No recent travel history. No sig cough or wheezing and his oxygenation is at his baseline Issues include * Acute corpulmonalae on top of chronic corpulmonalae with sig pedal edema and wt gain, slowly improving * End-stage COPD with no sig COPD exacerbation. is at baseline as far as copd is concerned * Mild bilateral bronchiectasis in a gentleman with end-stage COPD high risk for pseudomonas with no exacerbation of bronchiectasis * Intolerant to preventative medications like Daliresp due to diarrhea and GI upset. Patient has been on azithromycin 500 mg 3 times a week * Chronic steroid dependent COPD now on low-dose steroids at home * Ischemic heart disease, hypertension, hyperlipidemia with no evidence suggestive of active coronary ischemia * Multiple bilateral lung nodules which has been stable for more than 5 years. * BPH with signs of dysuria, now with urinary outlet obstruction status post Parker with adequate urine output, with hematuria REC Cont nebs, [place] IV lasix and keep potassium more than 4.2, watch urine out put Ok to use low dose benzo and low dose po dilautid for dyspnea if worse Start bowel regimen Cont oxygen Keep leg elevated
[2018-01-22 22:01] VITALS: BP 126/74
[2018-01-23 06:59] VITALS: BP 126/74
[2018-01-23 08:38] LABS: ABSOLUTE BASOPHIL COUNT 0 /CUMM (0.0-0.2); ABSOLUTE EOSINOPHIL COUNT 0.4 /CUMM (0.0-0.7); ABSOLUTE GRANULOCYTE CT 6.5 /CUMM (1.4-6.5); ABSOLUTE MONOCYTE COUNT 1.1 /CUMM (0.10-0.60); BASOPHIL % 0.5 % (0.0-2.0); EOSINOPHIL % 4.4 % (0-5); GRANULOCYTE % 71.2 % (42.2-75.2); HEMATOCRIT 37.4 % (42-52); MEAN CORPUSCULAR HGB 30.9 PG (27.0-31.0); MEAN CORPUSCULAR HGB CONC 33.6 G/DL (33.0-37.0); MEAN CORPUSCULAR VOLUME 91.8 FL (80.0-94.0); MEAN PLATELET VOLUME 8.8 FL (7.4-10.4); PLATELET COUNT 236 /CUMM (130-400); RBC DISTRIBUTION WIDTH 13.5 % (11.5-14.5); RED BLOOD CELL CT 4.07 /CUMM (4.70-6.10); WHITE BLOOD CELL COUNT 9.2 /CUMM (4.8-10.8)
--- NOTE | 2018-01-23 12:14 | PN- Pulmonary ---
Subjective HPI/Critical Care Issues: Much improved Wishes to go home with lorenzo and wants to follow with uro as out pt Objective Current Medications: Current Medications Sig/Herber Start time Last Medication Dose Route Stop Time Status Admin Acetaminophen 500 MG Q4P PRN 01/20 1715 AC 01/22 PO 1036 Albuterol Sulfate 3 ML EVERY 4 HRS/AWAKE 01/20 0800 AC 01/23 INH 1146 Amlodipine Besylate 5 MG 1200 01/20 1200 AC 01/21 PO 1207 Atorvastatin Calcium 40 MG 17001/19 1717 AC 01/22 PO 1728 Azithromycin 500 MG MoWeFr@1200 01/20 1200 AC 01/20 PO 1742 Budesonide/ 1 PUF BID 01/19 2100 AC Formoterol Fumarate INH Clopidogrel Bisulfate 75 MG 1200 01/20 1200 AC 01/22 PO 1209 Digoxin 0.125 MG 17001/21 1830 AC 01/22 PO 1728 Docusate Sodium 100 MG DAILY NEEDED PRN 01/22 1830 AC PO Enoxaparin Sodium 40 MG DAILY 01/20 0900 AC 01/22 SC 0902 Ezetimibe 10 MG 1200 01/20 1200 AC 01/22 PO 1209 Finasteride 5 MG 1200 01/20 1200 AC 01/22 PO 1209 Furosemide 40 MG DAILY 01/23 0900 AC 01/23 PO 0839 Furosemide 20 MG DAILY 01/22 0900 DC 01/22 IV 0902 Ipratropium [place] 2.5 ML EVERY 4 HRS/AWAKE 01/20 0800 AC 01/23 INH 1146 Lorazepam 0.5 MG TID 01/22 1400 AC 01/23 PO 01/29 1359 0839 Losartan Potassium 50 MG 1200 01/20 1200 AC 01/21 PO 1207 Metoprolol Tartrate 25 MG 1200,01/20 1200 AC 01/22 PO 1208 Polyethylene Glycol 17 GM DAILY PRN 01/22 1830 AC PO Potassium Chloride 40 MEQ BID 01/22 1150 AC 01/23 PO 0839 Prednisone 10 MG Q48@1200 01/20 1200 AC 01/22 PO 1209 Senna 187 MG AT BEDTIME PRN 01/22 1830 AC PO Tramadol HCl 50 MG Q6 PRN 01/20 1515 AC 01/22 PO 0901 Vital Signs & I&O Last 24 Hrs of Vitals and I&O: Vital Signs Date Time Temp Pulse Resp B/P B/P Pulse O2 O2 Flow FiO2 Mean Ox Delivery Rate 01/23 0921 94 Nasal 2.0L Cannula 01/23 0759 95 Nasal 2.0L Cannula 01/23 0659 97.9 81 20 126/74 96 Nasal Cannula 01/22 2201 98.2 88 20 126/74 97 Nasal 2.0L Cannula 01/22 2045 Nasal 2.0L Cannula 01/22 2043 86 126/74 01/22 1728 91 120/64 01/22 1656 95 Nasal 2.0L Cannula 01/22 1512 98.0 91 20 120/64 97 Nasal 2.0L Cannula Intake & Output 01/23 1600 01/23 0800 01/23 0000 Intake Total 250 Output Total 900 Balance -650 Intake, Oral 250 Output, Urine 900 Patient 173 lb Weight Weight Bed scale Measurement Method Impression/Plan Impression/Plan Impression/Plan: General: Nontoxic, no apparent distress. HEENT: Sclera and conjunctiva within normal limits, without xanthelasmas. Neck: Carotids 2+ without bruits. Respiratory: Scattered rhonchi, air movement is markedly decreased throughout, without accessory respiratory muscle use. Heart: Regular rate and rhythm, 2 out of 6 systolic ejection murmur at left sternal border, without JVD. There is approximately greater than 1 cm of pitting edema in both lower extremities to the thighs Abdomen: Soft, nontender, no masses, normoactive bowel sounds. Extremities: Without clubbing, cyanosis, Neuro: Nonfocal exam, strength, 5 out of 5 Skin: Within normal limits without lesions. Psych: Mood and affect: Normal This is a gentleman with very end-stage COPD with FEV1 of 0.6 L, on oxygen, coronary artery disease with previous angioplasty, previous [place], hypertension, hyperlipidemia, diverticulosis, stable lung nodules at least for 5 years bilaterally, previous bronchiectasis which is mild with recurrent bronchitis episode, intolerant to Daliresp and has been on azithromycin for exacerbation prophylaxis, came into the hospital because of increasing pedal edema and wt gain not responding to lasix. No recent travel history. No sig cough or wheezing and his oxygenation is at his baseline Issues include * Resolved Acute corpulmonalae on top of chronic corpulmonalae with sig pedal edema and wt gain, slowly improving * End-stage COPD with no sig COPD exacerbation. is at baseline as far as copd is concerned * Mild bilateral bronchiectasis in a gentleman with end-stage COPD high risk for pseudomonas with no exacerbation of bronchiectasis * Intolerant to preventative medications like Daliresp due to diarrhea and GI upset. Patient has been on azithromycin 500 mg 3 times a week * Chronic steroid dependent COPD now on low-dose steroids at home * Ischemic heart disease, hypertension, hyperlipidemia with no evidence suggestive of active coronary ischemia * Multiple bilateral lung nodules which has been stable for more than 5 years. * BPH with signs of dysuria, now with urinary outlet obstruction status post Lorenzo with adequate urine output, with hematuria REC OK to DC Cont nebs, Lorenzo Lasix Cont oxygen Keep leg elevated, with compression stockings
--- NOTE | 2018-01-23 12:37 | Patient Discharge Instructions ---
Discharge Instructions General Discharge Information You were seen/treated for: CHF Exacerbation Urinary Retention You had these procedures: Cystoscopy Special Instructions: Please follow up with your PCP, travel rn, urologist and clinic lpn within one week of discharge. Please follow up with Dr. Gould for management of your lorenzo. Please note the medications that have been changed. Diet Continue normal diet: Yes Recommended Diet: Heart Healthy Activity Full Activity/No Limits: Yes Acute Coronary Syndrome Inclusion Criteria At DC or during hospital stay patient has or had the following: ACS DIAGNOSIS No Discharge Core Measures Meds if any: Prescribed or Continued at Discharge Meds if any: NOT Prescribed or Continued at Discharge Congestive Heart Failure Inclusion Criteria At DC or during hospital stay patient has or had the following: CHF DIAGNOSIS No Discharge Core Measures Meds if any: Prescribed or Continued at Discharge Meds if any: NOT Prescribed or Continued at Discharge Cerebrovascular accident Inclusion Criteria At DC or during hospital stay patient has or had the following: CVA/TIA Diagnosis No Discharge Core Measures Meds if any: Prescribed or Continued at Discharge Meds if any: NOT Prescribed or Continued at Discharge Venous thromboembolism Inclusion Criteria VTE Diagnosis No VTE Type NONE VTE Confirmed by (Test) NONE Discharge Core Measures - Per Current guidelines, there needs to be overlap - treatment for the first 5 days of Warfarin therapy. - If discharged on Warfarin prior to 5 days of - overlap therapy, the patient will need to be - assessed for post discharge needs including - *Post discharge parental anticoagulation - *Warfarin and/or parental anticoagulation education - *Follow up date to check INR post discharge At least 5 days overlap therapy as Inpatient No Meds if any: Prescribed or Continued at Discharge Note: Overlap Therapy is Warfarin and Anticoagulant Meds if any: NOT Prescribed or Continued at Discharge
[2018-01-23] MEDS ORDERED: LASIX40 M1 PO (12:38)
[2018-01-23] MEDS ORDERED: DIGOXIN125 MCG PO (12:40)
--- NOTE | 2018-01-23 13:15 | PN- Cardiology ---
Subjective Subjective: * Patient denies shortness of breath. * sinus rhythm Objective Vital Signs and I&Os Vital Signs Date Time Temp Pulse Resp B/P B/P Pulse O2 O2 Flow FiO2 Mean Ox Delivery Rate 01/23 0921 94 Nasal 2.0L Cannula 01/23 0759 95 Nasal 2.0L Cannula 01/23 0659 97.9 81 20 126/74 96 Nasal Cannula 01/22 2201 98.2 88 20 126/74 97 Nasal 2.0L Cannula 01/22 2045 Nasal 2.0L Cannula 01/22 2043 86 126/74 01/22 1728 91 120/64 01/22 1656 95 Nasal 2.0L Cannula 01/22 1512 98.0 91 20 120/64 97 Nasal 2.0L Cannula Intake & Output 01/23 1600 01/23 0800 01/23 0000 01/22 1600 01/22 0800 01/22 0000 Intake Total 250 660 200 240 Output Total 900 1200 1050 1100 Balance -650 -540 -850 -860 Intake, IV 10 Intake, Oral 250 650 200 240 Output, Urine 900 1200 1050 1100 Patient 173 lb 175 lb Weight Weight Bed scale Bed scale Measurement Method Physical Exam: General: WD/WN male in NAD; alert and oriented x 3 HEENT: NC/AT, PERRL, EOMI Neck: no JVD, no carotid bruit Heart: RRR lungs: severely decreased air movement, no crackles Extremities: 1+ leg edema Assessment/Plan Assessment/Plan * 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 He reports that he cannot lie down to sleep even at his baseline. I do not think he has left heart failure. * Continue digoxin at 0.125mg daily for increased RV contractility. Continue Lasix to 40mg PO today. * Follow BUN, creatinine and potassium * stable for discharge today from a cardiac standpoint. Continue telemetry? No
[2018-01-23 14:16] VITALS: BP 118/58
--- NOTE | 2018-01-23 18:26 | PN- Att Addend ---
Attending Addendum Attending Brief Note 77M PMH end-stage COPD on 2 L oxygen at home, CAD status post [place] and CABG on Plavix (allergic to aspirin), hypertension, hyperlipidemia,BPH, nephrolithiasis, diverticulosis, and bilateral lung nodules admitted with progressive bilateral leg swelling and SOB. Symptoms consistent with right heart failure. Doing well today, breathing better. Having gross hematuria through Parker. 1. Acute on chronic right CHF 2. COPD with cor pulmonale Plan - Continue on telemetry - Start Digoxin per cardiology - Urology consult Tuesday - Continue IV Lasix - Follow pulmonary and cardiology recommendations - I/O, daily weights - Continue home medications - DVT PPx
[2018-01-23 22:53] VITALS: BP 110/62
[2018-01-24 06:54] VITALS: BP 118/64
[2018-01-24 07:49] LABS: ABSOLUTE BASOPHIL COUNT 0 /CUMM (0.0-0.2); ABSOLUTE EOSINOPHIL COUNT 0.8 /CUMM (0.0-0.7); ABSOLUTE GRANULOCYTE CT 7.7 /CUMM (1.4-6.5); ABSOLUTE LYMPH COUNT 1.5 /CUMM (1.2-3.4); ABSOLUTE MONOCYTE COUNT 1.4 /CUMM (0.10-0.60); BASOPHIL % 0.4 % (0.0-2.0); EOSINOPHIL % 6.9 % (0-5); GRANULOCYTE % 67.2 % (42.2-75.2); HEMATOCRIT 40.8 % (42-52); MEAN CORPUSCULAR HGB 30.8 PG (27.0-31.0); MEAN CORPUSCULAR HGB CONC 33.4 G/DL (33.0-37.0); MEAN CORPUSCULAR VOLUME 92.2 FL (80.0-94.0); MEAN PLATELET VOLUME 8.9 FL (7.4-10.4); PLATELET COUNT 277 /CUMM (130-400); RBC DISTRIBUTION WIDTH 13.8 % (11.5-14.5); RED BLOOD CELL CT 4.43 /CUMM (4.70-6.10); WHITE BLOOD CELL COUNT 11.5 /CUMM (4.8-10.8)
--- NOTE | 2018-01-24 08:27 | PN- Housestaff ---
Constantino RICE,Gregoria 01/24/18 0827: Subjective Follow-up For: CHF Exacerbation Gross Hematuria Urinary Retention currently with lorenzo Tele-Events Since Last Visit: Off Tele Subjective: Patient was seen and examined today. Patient reports improved lower extremity swelling and breathing. Denies chest pain, palpitations, dizziness, abdominal pain, n/v/c/d. Patient currently has a lorenzo in place with gross hematuria and clots. Patient over the weekend scraped his arm against the bedrailing. Superficial tear covered with dry dressing. Review of Systems Constitutional: Reports: see HPI. Objective Last 24 Hrs of Vital Signs/I&O Vital Signs Date Time Temp Pulse Resp B/P B/P Pulse O2 O2 Flow FiO2 Mean Ox Delivery Rate 01/24 1635 80 102/60 01/24 1600 95 Nasal 2.0L Cannula 01/24 1457 98.4 94 20 120/80 97 Room Air 01/24 1331 82 118/64 01/24 1331 82 118/64 01/24 1331 82 118/64 01/24 0923 94 Nasal 2.0L Cannula 01/24 0803 95 Nasal 2.0L Cannula 01/24 0654 97.5 82 20 118/64 96 Nasal 2.0L Cannula 01/24 0013 96 Nasal 2.0L Cannula 01/23 2253 98.3 80 20 110/62 96 Nasal 2.0L Cannula 01/23 2231 Nasal 2.0L Cannula 01/23 2019 89 108/66 Intake & Output 01/24 1600 01/24 0800 01/24 0000 Intake Total 200 240 360 Output Total 8605 009 6388 Balance -1325 -360 -640 Intake, Oral 200 240 360 Output, Urine [phone] Patient 165 lb Weight Weight Bed scale Measurement Method Physical Exam General Appearance: Alert, Oriented X3, Cooperative, No Acute Distress Skin Temp/Moisture Exam: Warm/Dry HEENT: Atraumatic, Mucous Membr. moist/pink Cardiovascular: Regular Rate, Normal S1, Normal S2 Lungs: Clear to Auscultation, Normal Air Movement Abdomen: Normal Bowel Sounds, Soft, No Tenderness Neurological: Normal Speech, Strength at 5/5 X4 Ext, Normal Tone, Sensation Intact, Cranial Nerves 3-12 NL Extremities: No Clubbing, No Cyanosis, No Edema, Normal Pulses, No Tenderness/ Swelling, right arm covered with dry dressing Current Medications: Current Medications Sig/Herber Start time Last Medication Dose Route Stop Time Status Admin Acetaminophen 500 MG Q4P PRN 01/20 1715 AC 01/22 PO 1036 Albuterol Sulfate 3 ML EVERY 4 HRS/AWAKE 01/20 0800 AC 01/24 INH 1600 Amlodipine Besylate 5 MG 1200 01/20 1200 AC 01/24 PO 1331 Artificial Tears 2 GTT TID 01/24 1615 AC OPH Atorvastatin Calcium 40 MG 1700 01/19 1717 AC 01/24 PO 1634 Azithromycin 500 MG MoWeFr@1200 01/20 1200 AC 01/23 PO 1306 Budesonide/ 1 PUF BID 01/19 2100 AC Formoterol Fumarate INH Clopidogrel Bisulfate 75 MG 1200 01/20 1200 DC 01/23 PO 1307 Digoxin 0.125 MG 1700 01/21 1830 AC 01/24 PO 1635 Docusate Sodium 100 MG DAILY NEEDED PRN 01/22 1830 AC PO Enoxaparin Sodium 40 MG DAILY 01/20 0900 AC 01/22 SC 0902 Ezetimibe 10 MG 1200 01/20 1200 AC 01/24 PO 1331 Finasteride 5 MG 1200 01/20 1200 AC 01/24 PO 1331 Furosemide 40 MG DAILY 01/23 0900 AC 01/24 PO 0820 Ipratropium [place] 2.5 ML EVERY 4 HRS/AWAKE 01/20 0800 AC 01/24 INH 1600 Lorazepam 0.5 MG TID 01/22 1400 AC 01/24 PO 01/29 1359 1331 Losartan Potassium 50 MG 1200 01/20 1200 AC 01/24 PO 1331 Magnesium Chloride 64 MG ONCE ONE 01/23 2000 DC 01/23 PO 01/23 Magnesium Oxide 400 MG DAILY 01/24 1152 AC 01/24 PO 1331 Magnesium Sulfate 1 GM Q2H 01/23 1800 DC Dextrose/Water 100 ML IV 01/23 215 Metoprolol Tartrate 25 MG 1200,2100 01/20 1200 AC 01/24 PO 1331 Polyethylene Glycol 17 GM DAILY PRN 01/22 1830 AC PO Potassium Chloride 40 MEQ BID 01/22 1150 DC 01/24 PO 0820 Prednisone 5 MG Q48@01/24 1513 DC PO Prednisone 10 MG Q48@1200 01/20 1200 DC 01/24 PO 1333 Senna 187 MG AT BEDTIME PRN 01/22 1830 AC PO Tramadol HCl 50 MG Q6 PRN 01/20 1515 AC 01/22 PO 0901 Assessment/Plan Assessment: Patient is a 77-year-old male with past medical history of 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 Patient will be admitted to the telemetry floor for management of the followin. Dyspnea and Lower Extremity Edema gudelialey 2/2 right heart failure and COPD- currently much improved after diuresis, currently on PO lasix - Admit to telemetry - Continuous telemetry monitoring - Oxygen supplementation as needed - TRC/DuoNeb Treatment - I/O, daily weights - compression stockings, keep legs elevated - Continue PO lasix 40mg daily - If patient continues to remain dyspneic or worsen will consider giving steroids - Cardiology consult with Dr. Linares's group - ECHO ordered - Pulmonology consult with Dr. Romero - Decreased prednisone 5 mg every other day - Continue azithromycin three times/week - Continue plavix, losartan, norvasc, zetia, atorvastatin 2. Obstructive uropathy in setting of BPH, Gross Hematuria. Lorenzo placed on 01/20 - urine output of 1.4L immediateley after placement. Continues to have gross hematuria. Dr. Gould consulted. - urology consulted - NPO for cystoscopy tomorrow - continue flomax - tramadol and tylenol for penile pain s/p insertion of lorenzo 3. Chronic conditions: COPD, HTN, HLD, BPH, Lung nodules - continue home medications DVT PPx: Lovenox SQ held for cystoscopy Diet: Heart healthy Code: DNR/DNI Problem List: 1. CHF exacerbation 2. Urinary retention due to benign prostatic hyperplasia 3. 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 Symptoms consistent with right heart failure. Doing well today, breathing better, leg edema is resolved. Having gross hematuria through Lorenzo. 1. Acute on chronic right CHF 2. COPD with cor pulmonale Plan - Continue on telemetry - Continue Digoxin per cardiology - Urology consult - Continue PO Lasix - Follow pulmonary and cardiology recommendations - I/O, daily weights - Continue home medications - DVT PPx
--- NOTE | 2018-01-24 08:31 | Cons- Wound Care ---
General Information and HPI Consulting Request Date of Consult: 01/24/18 Requested By: Araseli Min MD Reason for Consult: Right arm skin tear History of Present Illness: Patient is 77-year-old with COPD coronary artery disease cor pulmonale urinary obstruction who developed a right forearm skin tear in the past several days. Request is made for management Allergies/Medications Allergies: Coded Allergies: aspirin (Intermediate, HIVES 11/07/15) Home Med List: Amlodipine Besylate 5 MG TABLET 1 TAB PO DAILY HEART (Reported) Atorvastatin Calcium 40 MG TABLET 1 TAB PO DAILY cholesterol (Reported) Azithromycin (Zithromax) 500 MG TABLET 1 TAB PO Tuesday COPD Please resume taking this medication as scheduled starting 03/24/16 Budesonide/Formoterol Fumarate (Symbicort 80-4.5 Mcg Inhaler) 10.2 GM HFA.AER.AD 1 PUF INH BID COPD (Reported) Clopidogrel Bisulfate (Clopidogrel) 75 MG TABLET 1 TAB PO DAILY CAD (Reported ) Digoxin 125 MCG TABLET 1 TAB PO DAILY Heart Failure Ezetimibe (Zetia) 10 MG TABLET 1 TAB PO DAILY CHOLESTEROL (Reported) Finasteride 5 MG TABLET 1 TAB PO DAILY PROSTATE (Reported) Furosemide (Lasix) 20 MG TABLET 1 TAB PO DAILY FLUID OVERLOAD (Reported) Furosemide (Lasix) 40 MG TABLET 1 TAB PO DAILY Fluid Overload Ipratropium/Albuterol Sulfate (Iprat-Albut 0.5-3(2.5) MG/3 Ml) 3 ML AMPUL.NEB 3 ML INH Q4 BREATHING (Reported) EVERY 4 HOURS WHEN AWAKE Lorazepam (Ativan) 0.5 MG TABLET 1 TAB PO BIDP PRN ANXIETY (Reported) Losartan Potassium 50 MG TABLET 1 TAB PO DAILY htn (Reported) Metoprolol Tartrate 25 MG TABLET 1 TAB PO BID BP (Reported) Polyethylene Glycol 3350 (Miralax) 119 GM POWDER 17 GM PO DAILY constipatin mix with water, juice, soda, coffee or tea Prednisone 10 MG TABLET 1 TAB PO EOD COPD (Reported) Review of Systems Review of Systems: Noncontributory Past History Travel History Traveled to [place] past 21 day No Medical History Blood Transfusion Hx: No Neurological: NONE EENT: HOARSE VOICE Cardiovascular: hypertension, hyperlipidemia, myocardial infarction Respiratory: COPD, emphysema, CHF Gastrointestinal: diverticulosis Hepatic: NONE Renal: benign prost hyperplasia, nephrolithiasis Musculoskeletal: FRACTURE(LT.INDEX FINGER) Psychiatric: anxiety Endocrine: NONE Blood Disorders: NONE Cancer(s): NONE COMPUTING SERVICES DIRECTOR/Reproductive: NONE Surgical History Surgical History: CABG, cholecystectomy Family History Relations & Conditions If Any: MOTHER (lung cancer, COPD). FATHER (COPD). Psychosocial History Where Do You Live? Home Who Do You Live With? spouse Services at Home: Oxygen Smoking Status: Former Smoker ETOH Use: denies use Illicit Drug Use: denies illicit drug use Living Will? yes Functional Ability ADLs Independent: dressing, eating, toileting. Needs Assist: bathing. Ambulation: independent IADLs Independent: shopping, housework, finances, food prep, telephone, medication admin. Needs Assist: transportation. Exam & Diagnostic Data Vital Signs and I&O Vital Signs Result Date Time Pulse Ox 95 01/24 08 O2 Delivery Nasal Cannula 01/24 08 O2 Flow Rate 2.0L 01/24 0803 B/P 118/64 01/24 0654 Temp 97.5 01/24 0654 Pulse 82 01/24 0654 Resp 20 01/24 0654 Intake & Output 01/24 0000 01/23 1600 01/23 0800 Intake Total 360 400 Output Total 1000 1800 Balance -640 -1400 Intake, Oral 360 400 Output, Urine 1000 1800 Patient 165 lb Weight Weight Bed scale Measurement Method Physical Exam: Exam of the right forearm shows there to be a skin tear in a inverted C configuration measuring approximately 6 cm. There is adherent dried blood present the skin flap has been repositioned.. Appears to be significant dermal atrophy likely related to chronic steroid use. 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 Recommend cleansing with soap and water and use of a nonadherent dressing such as Xeroform daily and gauze over dressing. Consult Acknowledgment - Thank you for your consult request.
--- NOTE | 2018-01-24 09:25 | PN- Cardiology ---
Subjective Subjective: Patient states his breathing has improved. He only complains of difficulty urinating Review of Systems: Eyes no blurred or double vision Ears no deafness or ringing Nose and throat no recurrent sinusitis Lungs per history of present illness Heart per history of present illness Abdomen no nausea vomiting as per HPI Musculoskeletal occasional muscle and joint pains Psych no anxiety or depression Neuro without recurrent headache or seizures Endocrine no heat or cold intolerance Objective Vital Signs and I&Os Vital Signs Date Time Temp Pulse Resp B/P B/P Pulse O2 O2 Flow FiO2 Mean Ox Delivery Rate 01/24 0803 95 Nasal 2.0L Cannula 01/24 0654 97.5 82 20 118/64 96 Nasal 2.0L Cannula 01/24 0013 96 Nasal 2.0L Cannula 01/23 2253 98.3 80 20 110/62 96 Nasal 2.0L Cannula 01/23 2231 Nasal 2.0L Cannula 01/23 2019 89 108/66 01/23 1639 96 Nasal 2.0L Cannula 01/23 1620 92 Nasal 2.0L Cannula 01/23 1543 93 114/60 01/23 1416 96.9 103 22 118/58 94 Nasal 2.0L Cannula 01/23 1310 103 118/58 01/23 1307 103 118/58 01/23 1307 103 118/58 Intake & Output 01/24 1600 01/24 0800 01/24 0000 01/23 1600 01/23 0800 01/23 0000 Intake Total 240 360 400 250 Output Total 600 1000 1800 900 Balance -360 -640 -1400 -650 Intake, Oral 240 360 400 250 Output, Urine 600 1000 1800 900 Patient 165 lb 173 lb Weight Weight Bed scale Bed scale Measurement Method Physical Exam: Patient is a well-developed well-nourished male appearing in no acute distress HEENT is unremarkable Neck is supple there is no JVD Lungs and expiratory wheezes bilaterally Heart regular rhythm S1 and S2 are normal no gallops or rubs 12 are systolic ejection murmur left sternal border Abdomen bowel sounds positive Extremities trace edema Current Medications: Current Medications Sig/Herber Start time Last Medication Dose Route Stop Time Status Admin Acetaminophen 500 MG Q4P PRN 01/20 1715 AC 01/22 PO 1036 Albuterol Sulfate 3 ML EVERY 4 HRS/AWAKE 01/20 0800 AC 01/24 INH 0759 Amlodipine Besylate 5 MG 1200 01/20 1200 AC 01/23 PO 1307 Atorvastatin Calcium 40 MG 17001/19 1717 AC 01/23 PO 1542 Azithromycin 500 MG MoWeFr@1200 01/20 1200 AC 01/23 PO 1306 Budesonide/ 1 PUF BID 01/19 2100 AC Formoterol Fumarate INH Clopidogrel Bisulfate 75 MG 1200 01/20 1200 AC 01/23 PO 1307 Digoxin 0.125 MG 1700 01/21 1830 AC 01/23 PO 1543 Docusate Sodium 100 MG DAILY NEEDED PRN 01/22 1830 AC PO Enoxaparin Sodium 40 MG DAILY 01/20 0900 AC 01/24 SC 0820 Ezetimibe 10 MG 1200 01/20 1200 AC 01/23 PO 1307 Finasteride 5 MG 1200 01/20 1200 AC 01/23 PO 1307 Furosemide 40 MG DAILY 01/23 0900 AC 01/24 PO 0820 Ipratropium [place] 2.5 ML EVERY 4 HRS/AWAKE 01/20 0800 AC 01/24 INH 0759 Lorazepam 0.5 MG TID 01/22 1400 AC 01/24 PO 01/29 1359 0820 Losartan Potassium 50 MG 1200 01/20 1200 AC 01/23 PO 1310 Magnesium Chloride 64 MG ONCE ONE 01/23 2000 DC 01/23 PO 01/23 Magnesium Sulfate 1 GM Q2H 01/23 1800 DC Dextrose/Water 100 ML IV 01/23 2159 Metoprolol Tartrate 25 MG 1200,01/20 1200 AC 01/23 PO 2019 Polyethylene Glycol 17 GM DAILY PRN 01/22 1830 AC PO Potassium Chloride 40 MEQ BID 01/22 1150 AC 01/24 PO 0820 Prednisone 10 MG Q48@1200 01/20 1200 AC 01/22 PO 1209 Senna 187 MG AT BEDTIME PRN 01/22 1830 AC PO Tramadol HCl 50 MG Q6 PRN 01/20 1515 AC 01/22 PO 0901 Results Last 48 Hrs of Labs/Mics: Laboratory Tests 01/24/18 0620: Anion Gap 7, Estimated GFR > 60, BUN/Creatinine Ratio 17.5, Magnesium 1.4 L, CBC w Diff NO MAN DIFF REQ, RBC 4.43 L, MCV 92.2, MCH 30.8, MCHC 33.4, RDW 13.8 , MPV 8.9, Gran % 67.2, Lymphocytes % 13.1 L, Monocytes % 12.4 H, Eosinophils % 6.9 H, Basophils % 0.4, Absolute Granulocytes 7.7 H, Absolute Lymphocytes 1.5, Absolute Monocytes 1.4 H, Absolute Eosinophils 0.8, Absolute Basophils 0 01/23/18 0635: Anion Gap 8, Estimated GFR > 60, BUN/Creatinine Ratio 20.0, Magnesium 1.3 L, CBC w Diff NO MAN DIFF REQ, RBC 4.07 L, MCV 91.8, MCH 30.9, MCHC 33.6, RDW 13.5 , MPV 8.8, Gran % 71.2, Lymphocytes % 11.4 L, Monocytes % 12.5 H, Eosinophils % 4.4, Basophils % 0.5, Absolute Granulocytes 6.5, Absolute Lymphocytes 1.0 L, Absolute Monocytes 1.1 H, Absolute Eosinophils 0.4, Absolute Basophils 0, Digoxin < 0.4 L Assessment/Plan Assessment/Plan 1. Shortness of breath secondary to exacerbation of COPD 2. Coronary disease by history status post coronary bypass surgery 3. 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 Hypertension 5. Hyperlipidemia 6. Urinary retention Limitations 1. Continue current medications 2. Urology follow-up 3. Patient states the cardiac standpoint for discharge Continue telemetry? No
--- NOTE | 2018-01-24 09:49 | PN- Pulmonary ---
Subjective HPI/Critical Care Issues: Doing ok Stable Patient states his breathing has improved. He only complains of difficulty urinating Review of Systems: Eyes no blurred or double vision Ears no deafness or ringing Nose and throat no recurrent sinusitis Lungs per history of present illness Heart per history of present illness Abdomen no nausea vomiting as per HPI Musculoskeletal occasional muscle and joint pains Psych no anxiety or depression Neuro without recurrent headache or seizures Endocrine no heat or cold intolerance Objective Current Medications: Current Medications Sig/Herber Start time Last Medication Dose Route Stop Time Status Admin Acetaminophen 500 MG Q4P PRN 01/20 1715 AC 01/22 PO 1036 Albuterol Sulfate 3 ML EVERY 4 HRS/AWAKE 01/20 0800 AC 01/24 INH 0759 Amlodipine Besylate 5 MG 1200 01/20 1200 AC 01/23 PO 1307 Atorvastatin Calcium 40 MG 17001/19 1717 AC 01/23 PO 1542 Azithromycin 500 MG MoWeFr@1200 01/20 1200 AC 01/23 PO 1306 Budesonide/ 1 PUF BID 01/19 2100 AC Formoterol Fumarate INH Clopidogrel Bisulfate 75 MG 1200 01/20 1200 AC 01/23 PO 1307 Digoxin 0.125 MG 17001/21 1830 AC 01/23 PO 1543 Docusate Sodium 100 MG DAILY NEEDED PRN 01/22 1830 AC PO Enoxaparin Sodium 40 MG DAILY 01/20 0900 AC 01/24 SC 0820 Ezetimibe 10 MG 1200 01/20 1200 AC 01/23 PO 1307 Finasteride 5 MG 1200 01/20 1200 AC 01/23 PO 1307 Furosemide 40 MG DAILY 01/23 0900 AC 01/24 PO 0820 Ipratropium [place] 2.5 ML EVERY 4 HRS/AWAKE 01/20 0800 AC 01/24 INH 0759 Lorazepam 0.5 MG TID 01/22 1400 AC 01/24 PO 01/29 1359 0820 Losartan Potassium 50 MG 1200 01/20 1200 AC 01/23 PO 1310 Magnesium Chloride 64 MG ONCE ONE 01/23 2000 DC 01/23 PO 01/23 Magnesium Sulfate 1 GM Q2H 01/23 1800 DC Dextrose/Water 100 ML IV 01/23 215 Metoprolol Tartrate 25 MG 1200,2100 01/20 1200 AC 01/23 PO 2019 Polyethylene Glycol 17 GM DAILY PRN 01/22 1830 AC PO Potassium Chloride 40 MEQ BID 01/22 1150 AC 01/24 PO 0820 Prednisone 10 MG Q48@1200 01/20 1200 AC 01/22 PO 1209 Senna 187 MG AT BEDTIME PRN 01/22 1830 AC PO Tramadol HCl 50 MG Q6 PRN 01/20 1515 AC 01/22 PO 0901 Vital Signs & I&O Last 24 Hrs of Vitals and I&O: Vital Signs Date Time Temp Pulse Resp B/P B/P Pulse O2 O2 Flow FiO2 Mean Ox Delivery Rate 01/24 0803 95 Nasal 2.0L Cannula 01/24 0654 97.5 82 20 118/64 96 Nasal 2.0L Cannula 01/24 0013 96 Nasal 2.0L Cannula 01/23 2253 98.3 80 20 110/62 96 Nasal 2.0L Cannula 01/23 2231 Nasal 2.0L Cannula 01/23 2019 89 108/66 01/23 1639 96 Nasal 2.0L Cannula 01/23 1620 92 Nasal 2.0L Cannula 01/23 1543 93 114/60 01/23 1416 96.9 103 22 118/58 94 Nasal 2.0L Cannula 01/23 1310 103 118/58 01/23 1307 103 118/58 01/23 1307 103 118/58 Intake & Output 01/24 1600 01/24 0800 01/24 0000 Intake Total 240 360 Output Total 600 1000 Balance -360 -640 Intake, Oral 240 360 Output, Urine 600 1000 Patient 165 lb Weight Weight Bed scale Measurement Method Impression/Plan Impression/Plan Impression/Plan: General: Nontoxic, no apparent distress. HEENT: Sclera and conjunctiva within normal limits, without xanthelasmas. Neck: Carotids 2+ without bruits. Respiratory: Scattered rhonchi, air movement is markedly decreased throughout, without accessory respiratory muscle use. Heart: Regular rate and rhythm, 2 out of 6 systolic ejection murmur at left sternal border, without JVD. There is approximately greater than 1 cm of pitting edema in both lower extremities to the thighs Abdomen: Soft, nontender, no masses, normoactive bowel sounds. Extremities: Without clubbing, cyanosis, Neuro: Nonfocal exam, strength, 5 out of 5 Skin: skin tear forearm Psych: Mood and affect: Normal This is a gentleman with very end-stage COPD with FEV1 of 0.6 L, on oxygen, coronary artery disease with previous angioplasty, previous NC, hypertension, hyperlipidemia, diverticulosis, stable lung nodules at least for 5 years bilaterally, previous bronchiectasis which is mild with recurrent bronchitis episode, intolerant to Daliresp and has been on azithromycin for exacerbation prophylaxis, came into the hospital because of increasing pedal edema and wt gain not responding to lasix. No recent travel history. No sig cough or wheezing and his oxygenation is at his baseline Issues include * Resolved Acute corpulmonalae on top of chronic corpulmonalae with sig pedal edema and wt gain, slowly improving * End-stage COPD with no sig COPD exacerbation. is at baseline as far as copd is concerned * Mild bilateral bronchiectasis in a gentleman with end-stage COPD high risk for pseudomonas with no exacerbation of bronchiectasis * Intolerant to preventative medications like Daliresp due to diarrhea and GI upset. Patient has been on azithromycin 500 mg 3 times a week * Chronic steroid dependent COPD now on low-dose steroids at home * Ischemic heart disease, hypertension, hyperlipidemia with no evidence suggestive of active coronary ischemia * Multiple bilateral lung nodules which has been stable for more than 5 years. * BPH with signs of dysuria, now with urinary outlet obstruction status post Parker with adequate urine output, with hematuria REC OK to DC Cont nebs, Parker Lasix daily Cont out pt meds Change prednisone to 5 mg qod Cont oxygen Keep leg elevated, with compression stockings
[2018-01-24 14:57] VITALS: BP 120/80
[2018-01-24 23:32] VITALS: BP 110/60
[2018-01-25 07:10] VITALS: BP 114/60
--- NOTE | 2018-01-25 07:31 | PN- Housestaff ---
Constantino RICE,Gregoria 01/25/18 0731: Subjective Follow-up For: CHF Exacerbation Gross Hematuria Urinary Retention currently with lorenzo Subjective: Patient reports feeling tired this morning. Denies complaints of chest pain, palpitations. Breathing has improved. Denies abdominal pain, n/v. Lorenzo in place. Review of Systems Constitutional: Reports: see HPI. Objective Last 24 Hrs of Vital Signs/I&O Vital Signs Date Time Temp Pulse Resp B/P B/P Pulse O2 O2 Flow FiO2 Mean Ox Delivery Rate 01/25 2200 99.1 71 20 108/60 97 Nasal 2.0L Cannula 01/25 2104 97 Nasal 2.0L Cannula 01/25 2039 71 108/60 01/25 1802 118/66 01/25 1615 98 Nasal 2.0L Cannula 01/25 1530 118/66 01/25 1530 118/66 01/25 1529 118/66 01/25 0822 98 Nasal 2.0L Cannula 01/25 0800 95 Nasal 2.0L Cannula 01/25 0710 98.0 78 18 114/60 95 Nasal Cannula 01/25 0040 97 Nasal 2.0L Cannula 01/25 0000 93 Nasal 2.0L Cannula Intake & Output 01/25 1600 01/25 0800 01/25 0000 Intake Total 360 Output Total Balance 360 Intake, IV 10 Intake, Oral 350 Number 0 Bowel Movements Patient 162 lb 162 lb Weight Weight Bed scale Measurement Method Physical Exam General Appearance: Alert, Cooperative, No Acute Distress Skin: No Rashes HEENT: Atraumatic, Mucous Membr. moist/pink Cardiovascular: Regular Rate, Normal S1, Normal S2 Lungs: Clear to Auscultation, Normal Air Movement Abdomen: Normal Bowel Sounds, Soft, No Tenderness Neurological: Normal Speech, Cranial Nerves 3-12 NL Extremities: No Clubbing, No Cyanosis, No Edema, Normal Pulses, No Tenderness/ Swelling Vascular: Normal Pulses, Pulses Symmetrical Current Medications: Current Medications Sig/Herber Start time Last Medication Dose Route Stop Time Status Admin Acetaminophen 1,000 MG .STK-MED ONE 01/25 1321 DC IV 01/25 1322 Acetaminophen 500 MG Q4P PRN 01/20 1715 AC 01/22 PO 1036 Albuterol Sulfate 3 ML EVERY 4 HRS/AWAKE 01/20 0800 AC 01/25 INH 2004 Amlodipine Besylate 5 MG 1200 01/20 1200 AC 01/25 PO 1529 Artificial Tears 2 GTT TID 01/24 1615 AC 01/25 OPH 2039 Atorvastatin Calcium 40 MG 1700 01/19 1717 AC 01/25 PO 1802 Azithromycin 500 MG MoWeFr@1200 01/20 1200 AC 01/25 PO 1802 Budesonide/ 1 PUF BID 01/19 2100 AC Formoterol Fumarate INH Digoxin 0.125 MG 1700 01/21 1830 AC 01/25 PO 1802 Docusate Sodium 100 MG DAILY NEEDED PRN 01/22 1830 AC PO Ezetimibe 10 MG 1200 01/20 1200 AC 01/25 PO 1528 Fentanyl Citrate 100 MCG .STK-MED ONE 01/25 1121 DC IM 01/25 1122 Finasteride 5 MG 1200 01/20 1200 AC 01/25 PO 1528 Furosemide 40 MG DAILY 01/23 0900 AC 01/25 PO 1530 Hydromorphone HCl 2 MG .STK-MED ONE 01/25 1346 DC IM 01/25 1347 Hydromorphone HCl 2 MG .STK-MED ONE 01/25 1333 DC IM 01/25 1334 Ipratropium [place] 2.5 ML EVERY 4 HRS/AWAKE 01/20 0800 AC 01/25 INH 2005 Lorazepam 0.5 MG TID 01/22 1400 AC 01/25 PO 01/29 1359 2039 Losartan Potassium 50 MG 1200 01/20 1200 AC 01/25 PO 1530 Magnesium Oxide 400 MG DAILY 01/24 1152 AC 01/25 PO 1530 Metoprolol Tartrate 25 MG 1200,2100 01/20 1200 AC 01/25 PO 2039 Midazolam HCl 2 MG .STK-MED ONE 01/25 1121 DC IM 01/25 1122 Polyethylene Glycol 17 GM DAILY PRN 01/22 1830 AC PO Prednisone 5 MG Q48 01/26 0900 AC PO Senna 187 MG AT BEDTIME PRN 01/22 1830 AC PO Tramadol HCl 50 MG Q6 PRN 01/20 1515 AC 01/25 PO 2259 Last 24 Hrs of Lab/Alok Results Last 24 Hrs of Labs/Mics: Laboratory Tests 01/25/18 0615: Anion Gap 10, Estimated GFR > 60, BUN/Creatinine Ratio 21.3, Magnesium 1.5 L, CBC w Diff NO MAN DIFF REQ, RBC 4.53 L, MCV 91.7, MCH 30.6, MCHC 33.4, RDW 13.4 , MPV 8.8, Gran % 70.3, Lymphocytes % 13.2 L, Monocytes % 12.1 H, Eosinophils % 3.9, Basophils % 0.5, Absolute Granulocytes 6.7 H, Absolute Lymphocytes 1.3, Absolute Monocytes 1.1 H, Absolute Eosinophils 0.4, Absolute Basophils 0 Assessment/Plan Assessment: Patient is a 77-year-old male with past medical history of 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 Patient will be admitted to the telemetry floor for management of the followin. Dyspnea and Lower Extremity Edema likley 2/2 right heart failure and COPD- currently much improved after diuresis, currently on PO lasix - Admit to telemetry - Continuous telemetry monitoring - Oxygen supplementation as needed - TRC/DuoNeb Treatment - I/O, daily weights - compression stockings, keep legs elevated - Continue PO lasix 40mg daily - If patient continues to remain dyspneic or worsen will consider giving steroids - Cardiology consult with Dr. Linares's group - ECHO ordered - Pulmonology consult with Dr. Romero - Decreased prednisone 5 mg every other day - Continue azithromycin three times/week - Continue plavix, losartan, norvasc, zetia, atorvastatin 2. Obstructive uropathy in setting of BPH, Gross Hematuria. status post cystoscopy and fulgration Lorenzo placed on 01/20 - urine output of 1.4L immediateley after placement. Continues to have gross hematuria. Dr. Gould consulted. - urology consulted - proscar 5mg daily to minimize bleeding - continue flomax - tramadol and tylenol for penile pain s/p insertion of lorenzo 3. Chronic conditions: COPD, HTN, HLD, BPH, Lung nodules - continue home medications DVT PPx: ALPs Diet: Heart healthy Code: DNR/DNI Problem List: 1. CHF exacerbation 2. Gross hematuria 3. 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 Symptoms consistent with right heart failure. Doing well today, breathing better, leg edema is resolved. Having gross hematuria through Lorenzo. 1. Acute on chronic right CHF 2. COPD with cor pulmonale Plan - Discontinue telemetry - Continue Digoxin per cardiology - Cystoscopy today - Continue PO Lasix - Follow urology, pulmonary and cardiology recommendations - I/O, daily weights - Continue home medications - DVT PPx - Anticipated discharge tomorrow pending urology recommendations
[2018-01-25 08:00] LABS: ABSOLUTE BASOPHIL COUNT 0 /CUMM (0.0-0.2); ABSOLUTE EOSINOPHIL COUNT 0.4 /CUMM (0.0-0.7); ABSOLUTE GRANULOCYTE CT 6.7 /CUMM (1.4-6.5); ABSOLUTE LYMPH COUNT 1.3 /CUMM (1.2-3.4); ABSOLUTE MONOCYTE COUNT 1.1 /CUMM (0.10-0.60); BASOPHIL % 0.5 % (0.0-2.0); EOSINOPHIL % 3.9 % (0-5); GRANULOCYTE % 70.3 % (42.2-75.2); HEMATOCRIT 41.5 % (42-52); MEAN CORPUSCULAR HGB 30.6 PG (27.0-31.0); MEAN CORPUSCULAR HGB CONC 33.4 G/DL (33.0-37.0); MEAN CORPUSCULAR VOLUME 91.7 FL (80.0-94.0); MEAN PLATELET VOLUME 8.8 FL (7.4-10.4); PLATELET COUNT 274 /CUMM (130-400); RBC DISTRIBUTION WIDTH 13.4 % (11.5-14.5); RED BLOOD CELL CT 4.53 /CUMM (4.70-6.10); WHITE BLOOD CELL COUNT 9.5 /CUMM (4.8-10.8)
--- NOTE | 2018-01-25 08:34 | PN- Wound Care ---
Subjective Subjective: Patient has no complaints regarding right arm skin tear Objective Vital Signs and I&Os Vital Signs Result Date Time Pulse Ox 98 01/25 822 O2 Delivery Nasal Cannula 01/25 822 O2 Flow Rate 2.0L 01/25 822 B/P 114/60 01/25 0710 Temp 98.0 01/25 0710 Pulse 78 01/25 0710 Resp 18 01/25 0710 Intake & Output 01/25 0000 01/24 1600 01/24 0800 Intake Total 360 200 240 Output Total 1525 600 Balance 360 -1325 -360 Intake, IV 10 Intake, Oral 350 200 240 Number 0 Bowel Movements Output, Urine 1525 600 Patient 162 lb Weight Weight Bed scale Measurement Method Exam of the skin tear shows improvement with cleansing of adherent dried blood. Skin flap remains intact. Impression/Plan Impression/Plan Impression/Plan: 77-year-old status post traumatic skin tear of the right arm appears improved. Continue daily cleansing avoid removal of adherent skin flap. Continue nonadherent dressing with daily Xeroform
--- NOTE | 2018-01-25 13:16 | Operative Report ---
Operative/Inv Procedure Report Surgery Date: 01/25/18 Name of Procedure: CYSTOSOCOPY WITH FULGURATION OF PROSTATE BLOOD VESSELS Pre-Operative Diagnosis: GROSS HEMATURIA WITH BLOOD LOSS ANEMIA Post-Operative Diagnosis: SAME Estimated Blood Loss: scant Surgeon/High School Science Tutor: MD BRAD, PRINCESS-UROLOGY Anesthesia: moderate sedation, block Drains: 18 FR COUDE - NEW Complications: NONE Operative/Procedure Note Findings: ENLARGED PROSTATE WITH OPEN CHIOMA AND VASCULAR REGROWTH=BLEEDING Discharge Disposition: PACU CC: Princess Gould MD
--- NOTE | 2018-01-25 14:00 | PN- Pulmonary ---
Subjective HPI/Critical Care Issues: Doing ok for cysto sleeping when i saw him Objective Current Medications: Current Medications Sig/Herber Start time Last Medication Dose Route Stop Time Status Admin Acetaminophen 500 MG Q4P PRN 01/20 1715 AC 01/22 PO 1036 Albuterol Sulfate 3 ML EVERY 4 HRS/AWAKE 01/20 0800 AC 01/25 INH 1121 Amlodipine Besylate 5 MG 1200 01/20 1200 AC 01/24 PO 1331 Artificial Tears 2 GTT TID 01/24 1615 AC 01/25 OPH 1104 Atorvastatin Calcium 40 MG 1700 01/19 1717 AC 01/24 PO 1634 Azithromycin 500 MG MoWeFr@1200 01/20 1200 AC 01/23 PO 1306 Budesonide/ 1 PUF BID 01/19 2100 AC Formoterol Fumarate INH Digoxin 0.125 MG 01/21 1830 AC 01/24 PO 1635 Docusate Sodium 100 MG DAILY NEEDED PRN 01/22 1830 AC PO Enoxaparin Sodium 40 MG DAILY 01/20 0900 DC 01/22 SC 0902 Ezetimibe 10 MG 1200 01/20 1200 AC 01/24 PO 1331 Fentanyl Citrate 200 MCG .STK-MED ONE 01/24 1611 DC IM 01/24 1612 Finasteride 5 MG 1200 01/20 1200 AC 01/24 PO 1331 Furosemide 40 MG DAILY 01/23 0900 AC 01/24 PO 0820 Ipratropium [place] 2.5 ML EVERY 4 HRS/AWAKE 01/20 0800 AC 01/25 INH 1121 Lorazepam 0.5 MG TID 01/22 1400 AC 01/24 PO 01/29 1359 2033 Losartan Potassium 50 MG 1200 01/20 1200 AC 01/24 PO 1331 Magnesium Oxide 400 MG DAILY 01/24 1152 AC 01/24 PO 1331 Metoprolol Tartrate 25 MG 1200,2100 01/20 1200 AC 01/24 PO 2037 Polyethylene Glycol 17 GM DAILY PRN 01/22 1830 AC PO Potassium Chloride 40 MEQ BID 01/22 1150 DC 01/24 PO 0820 Prednisone 5 MG Q48@1200 01/24 1513 DC PO Prednisone 10 MG Q48@1200 01/20 1200 DC 01/24 PO 1333 Senna 187 MG AT BEDTIME PRN 01/22 1830 AC PO Tramadol HCl 50 MG Q6 PRN 01/20 1515 AC 01/22 PO 0901 Vital Signs & I&O Last 24 Hrs of Vitals and I&O: Vital Signs Date Time Temp Pulse Resp B/P B/P Pulse O2 O2 Flow FiO2 Mean Ox Delivery Rate 01/25 0822 98 Nasal 2.0L Cannula 01/25 0710 98.0 78 18 114/60 95 Nasal Cannula 01/25 0040 97 Nasal 2.0L Cannula 01/25 0000 93 Nasal 2.0L Cannula 01/24 2332 98.5 75 16 110/60 97 Nasal 2.0L Cannula 01/24 2037 90 102/50 01/24 1635 80 102/60 01/24 1600 93 Nasal 2.0L Cannula 01/24 1600 95 Nasal 2.0L Cannula 01/24 1457 98.4 94 20 120/80 97 Room Air Intake & Output 01/25 1600 01/25 0800 01/25 0000 Intake Total 360 Output Total Balance 360 Intake, IV 10 Intake, Oral 350 Number 0 Bowel Movements Patient 162 lb Weight Weight Bed scale Measurement Method Laboratory Tests 01/25 01/24 0615 0620 Chemistry Sodium (137 - 145 mmol/L) 139 140 Potassium (3.5 - 5.1 mmol/L) 3.9 4.4 Chloride (98 - 107 mmol/L) 96 L 97 L Carbon Dioxide (22 - 30 mmol/L) 34 H 36 H Anion Gap (5 - 16) 10 7 BUN (9 - 20 mg/dL) 17 14 Creatinine (0.7 - 1.2 mg/dL) 0.8 0.8 Estimated GFR (>60 ml/min) > 60 > 60 BUN/Creatinine Ratio (7 - 25 %) 21.3 17.5 Magnesium (1.6 - 2.3 mg/dL) 1.5 L 1.4 L Hematology CBC w Diff NO MAN DIFF REQ NO MAN DIFF REQ WBC (4.8 - 10.8 /CUMM) 9.5 11.5 H RBC (4.70 - 6.10 /CUMM) 4.53 L 4.43 L Hgb (14.0 - 18.0 G/DL) 13.9 L 13.6 L Hct (42 - 52 %) 41.5 L 40.8 L MCV (80.0 - 94.0 FL) 91.7 92.2 MCH (27.0 - 31.0 PG) 30.6 30.8 MCHC (33.0 - 37.0 G/DL) 33.4 33.4 RDW (11.5 - 14.5 %) 13.4 13.8 Plt Count (130 - 400 /CUMM) 274 277 MPV (7.4 - 10.4 FL) 8.8 8.9 Gran % (42.2 - 75.2 %) 70.3 67.2 Lymphocytes % (20.5 - 51.1 %) 13.2 L 13.1 L Monocytes % (1.7 - 9.3 %) 12.1 H 12.4 H Eosinophils % (0 - 5 %) 3.9 6.9 H Basophils % (0.0 - 2.0 %) 0.5 0.4 Absolute Granulocytes (1.4 - 6.5 /CUMM) 6.7 H 7.7 H Absolute Lymphocytes (1.2 - 3.4 /CUMM) 1.3 1.5 Absolute Monocytes (0.10 - 0.60 /CUMM) 1.1 H 1.4 H Absolute Eosinophils (0.0 - 0.7 /CUMM) 0.4 0.8 Absolute Basophils (0.0 - 0.2 /CUMM) 0 0 Impression/Plan Impression/Plan Impression/Plan: General: Nontoxic, no apparent distress. HEENT: Sclera and conjunctiva within normal limits, without xanthelasmas. Neck: Carotids 2+ without bruits. Respiratory: Scattered rhonchi, air movement is markedly decreased throughout, without accessory respiratory muscle use. Heart: Regular rate and rhythm, 2 out of 6 systolic ejection murmur at left sternal border, without JVD. There is approximately greater than 1 cm of pitting edema in both lower extremities to the thighs Abdomen: Soft, nontender, no masses, normoactive bowel sounds. Extremities: Without clubbing, cyanosis, Neuro: Nonfocal exam, strength, 5 out of 5 Skin: skin tear forearm Psych: Mood and affect: Normal This is a gentleman with very end-stage COPD with FEV1 of 0.6 L, on oxygen, coronary artery disease with previous angioplasty, previous AR, hypertension, hyperlipidemia, diverticulosis, stable lung nodules at least for 5 years bilaterally, previous bronchiectasis which is mild with recurrent bronchitis episode, intolerant to Daliresp and has been on azithromycin for exacerbation prophylaxis, came into the hospital because of increasing pedal edema and wt gain not responding to lasix. No recent travel history. No sig cough or wheezing and his oxygenation is at his baseline Issues include * Resolved Acute corpulmonalae on top of chronic corpulmonalae with sig pedal edema and wt gain, slowly improving * End-stage COPD with no sig COPD exacerbation. is at baseline as far as copd is concerned * Mild bilateral bronchiectasis in a gentleman with end-stage COPD high risk for pseudomonas with no exacerbation of bronchiectasis * Intolerant to preventative medications like Daliresp due to diarrhea and GI upset. Patient has been on azithromycin 500 mg 3 times a week * Chronic steroid dependent COPD now on low-dose steroids at home * Ischemic heart disease, hypertension, hyperlipidemia with no evidence suggestive of active coronary ischemia * Multiple bilateral lung nodules which has been stable for more than 5 years. * BPH with signs of dysuria, now with urinary outlet obstruction status post Parker with adequate urine output, with hematuria REC OK to DC Lasix daily Cont out pt meds Change prednisone to 5 mg qod make sure pt does not come off this as he has been steroid dep for yrs Cont oxygen Keep leg elevated, with compression stockings
[2018-01-25 15:12] VITALS: BP 142/60
--- NOTE | 2018-01-25 19:19 | Operative Report ---
Operative/Inv Procedure Report Surgery Date: 01/25/18 Name of Procedure: cystoscopy: fulguration of prostate bleeding vessels Pre-Operative Diagnosis: gross hematuria with clot retention Post-Operative Diagnosis: same Estimated Blood Loss: scant Surgeon/In Process Inspector: MD Luis Fernando, Kev-urology Anesthesia: moderate sedation, block Drains: 20 fr lorenzo Complications: none Condition: improved Operative/Procedure Note Note: The patient was taken to the operating room and placed on the OR table in supine position. With the patient awake, timeout was performed in order to confirm identity, procedure, anesthesia, and antibiotics, and other pertinent rena- operative information. After adequate anesthesia and antibiotics, the patient was then placed lithotomy stirrups, the old Lorenzo catheter was removed, and the patient was draped and prepped in the usual surgical fashion. A 22 [place] cystoscope sheath with a 30 angle lens was inserted under direct visualization. Upon entering the prostatic urethra, the prostate was noted to have bleeding prostate vessels. Upon entering the bladder, the bladder was noted to be trabeculated, with no evidence of tumor, no evidence of stone. Both ureteral orifices were in their orthotopic position with clear yellow reflux bilaterally. The cystoscope was removed, followed by insertion of a 26 [place] resectoscope sheath with 30 angle lens. Under direct visualization, the 24 [place] loop was extended until it was visible beyond the scope. Spot cauterization of the bleeding vessels was performed on the prostate, in order to achieve good coagulation/hemostasis. The bladder was then re-entered revealing no other areas requiring fulguration. A clot was irrigated out of the bladder. The bladder was left full, and the resectoscope was removed. A new 20 [place] lorenzo catheter was inserted draining clear fluid. 10 mL of sterile water was placed in the balloon, and a drainage bag was attached. All sponge needle and instrument count were correct at the end of the case. The patient tolerated procedure well, and was then taken to recovery in satisfactory condition. Discharge Disposition: PACU Additional Comments: DC home with lorenzo: pt should be on Proscar 5mg/day to minimize bleeding vessels. CC: Kev Gould MD
--- NOTE | 2018-01-25 19:22 | Cons- Urology ---
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 Patient was seen by his PCP, Dr. Porter today who sent him to the ED due to dyspnea with and without exertion and worsening lower extremity swelling. Patient reports that he has dyspnea at baseline however has noticed that it has worsened over the past 3-4 days. Patient reports shortness of breath while sitting and talking and with movement. Patient reports orthopnea at baseline. States that he sits upright in a recliner. Also notes that his legs have become more swollen and noted that he had difficulty putting his shoes on today. Patient reports that he was recently restarted on Lasix 10 mg once a day which was increased to twice daily 1 day prior to admission. Patient denies any chest pain, palpitations, cough, fever/chills, nausea/vomiting, abdominal pain, constipation/diarrhea, hematuria. Reports chronic burning on urination and decreased stream. Patient notes that this has been an ongoing problem due to BPH. Patient sees Dr. Gould and is currently on Flomax. Patient states that his rn infusion is Dr. Abernathy who he saw 6 months ago. Patient's mat sewer is Dr. Romero. Past medical history: As above Past surgical history: CABG, cholecystectomy Social history: Former tobacco user, quit 25 years ago, previously smoked 1.5-2 packs per day for 40 years, occasional alcohol use, denies illicit drug use, patient lives with his , denies any sick contacts, recent corporate travel consultant states gross hematuria persistent for several days. Slowed down when Plavix was held. Allergies/Medications Allergies: Coded Allergies: aspirin (Intermediate, HIVES 11/07/15) Home Med List: Amlodipine Besylate 5 MG TABLET 1 TAB PO DAILY HEART (Reported) Atorvastatin Calcium 40 MG TABLET 1 TAB PO DAILY cholesterol (Reported) Azithromycin (Zithromax) 500 MG TABLET 1 TAB PO Tuesday COPD Please resume taking this medication as scheduled starting 03/24/16 Budesonide/Formoterol Fumarate (Symbicort 80-4.5 Mcg Inhaler) 10.2 GM HFA.AER.AD 1 PUF INH BID COPD (Reported) Clopidogrel Bisulfate (Clopidogrel) 75 MG TABLET 1 TAB PO DAILY CAD (Reported ) Digoxin 125 MCG TABLET 1 TAB PO DAILY Heart Failure Ezetimibe (Zetia) 10 MG TABLET 1 TAB PO DAILY CHOLESTEROL (Reported) Finasteride 5 MG TABLET 1 TAB PO DAILY PROSTATE (Reported) Furosemide (Lasix) 20 MG TABLET 1 TAB PO DAILY FLUID OVERLOAD (Reported) Furosemide (Lasix) 40 MG TABLET 1 TAB PO DAILY Fluid Overload Ipratropium/Albuterol Sulfate (Iprat-Albut 0.5-3(2.5) MG/3 Ml) 3 ML AMPUL.NEB 3 ML INH Q4 BREATHING (Reported) EVERY 4 HOURS WHEN AWAKE Lorazepam (Ativan) 0.5 MG TABLET 1 TAB PO BIDP PRN ANXIETY (Reported) Losartan Potassium 50 MG TABLET 1 TAB PO DAILY htn (Reported) Metoprolol Tartrate 25 MG TABLET 1 TAB PO BID BP (Reported) Polyethylene Glycol 3350 (Miralax) 119 GM POWDER 17 GM PO DAILY constipatin mix with water, juice, soda, coffee or tea Prednisone 10 MG TABLET 1 TAB PO EOD COPD (Reported) Current Medications: Current Medications Sig/Herber Start time Last Medication Dose Route Stop Time Status Admin Acetaminophen 500 MG Q4P PRN 01/20 1715 AC 01/22 PO 1036 Albuterol Sulfate 3 ML EVERY 4 HRS/AWAKE 01/20 0800 AC 01/25 INH 1615 Amlodipine Besylate 5 MG 1200 01/20 1200 AC 01/25 PO 1529 Artificial Tears 2 GTT TID 01/24 1615 AC 01/25 OPH 1530 Atorvastatin Calcium 40 MG 01/19 1717 AC 01/25 PO 1802 Azithromycin 500 MG MoWeFr@1200 01/20 1200 AC 01/25 PO 1802 Budesonide/ 1 PUF BID 01/19 2100 AC Formoterol Fumarate INH Digoxin 0.125 MG 01/21 1830 AC 01/25 PO 1802 Docusate Sodium 100 MG DAILY NEEDED PRN 01/22 183 AC PO Ezetimibe 10 MG 1200 01/20 1200 AC 01/25 PO 1528 Finasteride 5 MG 1200 01/20 1200 AC 01/25 PO 1528 Furosemide 40 MG DAILY 01/23 0900 AC 01/25 PO 1530 Ipratropium [place] 2.5 ML EVERY 4 HRS/AWAKE 01/20 0800 AC 01/25 INH 1615 Lorazepam 0.5 MG TID 01/22 1400 AC 01/25 PO 01/29 1359 1528 Losartan Potassium 50 MG 1200 01/20 1200 AC 01/25 PO 1530 Magnesium Oxide 400 MG DAILY 01/24 1152 AC 01/25 PO 1530 Metoprolol Tartrate 25 MG 1200,2100 01/20 1200 AC 01/25 PO 1530 Polyethylene Glycol 17 GM DAILY PRN 01/22 1830 AC PO Prednisone 5 MG Q48 01/26 0900 AC PO Senna 187 MG AT BEDTIME PRN 01/22 1830 AC PO Tramadol HCl 50 MG Q6 PRN 01/20 1515 AC 01/22 PO 0901 Past History Medical History Blood Transfusion Hx: No Neurological: NONE EENT: HOARSE VOICE Cardiovascular: hypertension, hyperlipidemia, myocardial infarction Respiratory: COPD, emphysema, CHF Gastrointestinal: diverticulosis Hepatic: NONE Renal: benign prost hyperplasia, nephrolithiasis Musculoskeletal: FRACTURE(LT.INDEX FINGER) Psychiatric: anxiety Endocrine: NONE Blood Disorders: NONE Cancer(s): NONE SCOOPER/Reproductive: NONE Surgical History Pertinent Surgical History: CABG, cholecystectomy Family History Relations & Conditions If Any: MOTHER (lung cancer, COPD). FATHER (COPD). Psychosocial History Where Do You Live? Home Who Do You Live With? spouse Services at Home: Oxygen Smoking Status: Former Smoker ETOH Use: denies use Illicit Drug Use: denies illicit drug use Living Will? yes Functional Ability ADLs Independent: dressing, eating, toileting. Needs Assist: bathing. Ambulation: independent IADLs Independent: shopping, housework, finances, food prep, telephone, medication admin. Needs Assist: transportation. Review of Systems Review of Systems Constitutional: Reports: weakness. EENTM: Denies: no symptoms. Cardiovascular: Denies: no symptoms. Respiratory: Reports: short of breath. GI: Denies: no symptoms. Genitourinary: Reports: hematuria. Musculoskeletal: Denies: no symptoms. Skin: Denies: no symptoms. Exam & Diagnostic Data Vital Signs and I&O Vital Signs Date Time Temp Pulse Resp B/P B/P Pulse O2 O2 Flow FiO2 Mean Ox Delivery Rate 01/25 1802 118/66 01/25 1615 98 Nasal 2.0L Cannula 01/25 1530 118/66 01/25 1530 118/66 01/25 1529 11866 01/25 0822 98 Nasal 2.0L Cannula 01/25 0800 95 Nasal 2.0L Cannula 01/25 0710 98.0 78 18 114/60 95 Nasal Cannula 01/25 0040 97 Nasal 2.0L Cannula 01/25 0000 93 Nasal 2.0L Cannula 01/24 2332 98.5 75 16 110/60 97 Nasal 2.0L Cannula 01/24 2037 90 102/50 Intake & Output 01/25 1600 01/25 0800 01/25 0000 01/24 1600 01/24 0801/24 0000 Intake Total 360 200 240 360 Output Total 3634 777 7631 Balance 360 -1325 -360 -640 Intake, IV 10 Intake, Oral 350 200 240 360 Number 0 Bowel Movements Output, Urine 5584 028 4164 Patient 162 lb 162 lb 165 lb Weight Weight Bed scale Bed scale Measurement Method Physical Exam General Appearance: well developed/nourished Head: atraumatic Eyes: Bilateral: normal appearance. Respiratory: normal breath sounds Cardiovascular: regular rate/rhythm Gastrointestinal: normal bowel sounds Back: no vertebral tenderness Extremities: normal inspection Skin: intact, normal color Reproductive: Normal male genitalia Last 24 Hours of Labs: Laboratory Tests 01/25 0615 Chemistry Sodium (137 - 145 mmol/L) 139 Potassium (3.5 - 5.1 mmol/L) 3.9 Chloride (98 - 107 mmol/L) 96 L Carbon Dioxide (22 - 30 mmol/L) 34 H Anion Gap (5 - 16) 10 BUN (9 - 20 mg/dL) 17 Creatinine (0.7 - 1.2 mg/dL) 0.8 Estimated GFR (>60 ml/min) > 60 BUN/Creatinine Ratio (7 - 25 %) 21.3 Magnesium (1.6 - 2.3 mg/dL) 1.5 L Hematology CBC w Diff NO MAN DIFF REQ WBC (4.8 - 10.8 /CUMM) 9.5 RBC (4.70 - 6.10 /CUMM) 4.53 L Hgb (14.0 - 18.0 G/DL) 13.9 L Hct (42 - 52 %) 41.5 L MCV (80.0 - 94.0 FL) 91.7 MCH (27.0 - 31.0 PG) 30.6 MCHC (33.0 - 37.0 G/DL) 33.4 RDW (11.5 - 14.5 %) 13.4 Plt Count (130 - 400 /CUMM) 274 MPV (7.4 - 10.4 FL) 8.8 Gran % (42.2 - 75.2 %) 70.3 Lymphocytes % (20.5 - 51.1 %) 13.2 L Monocytes % (1.7 - 9.3 %) 12.1 H Eosinophils % (0 - 5 %) 3.9 Basophils % (0.0 - 2.0 %) 0.5 Absolute Granulocytes (1.4 - 6.5 /CUMM) 6.7 H Absolute Lymphocytes (1.2 - 3.4 /CUMM) 1.3 Absolute Monocytes (0.10 - 0.60 /CUMM) 1.1 H Absolute Eosinophils (0.0 - 0.7 /CUMM) 0.4 Absolute Basophils (0.0 - 0.2 /CUMM) 0 Imaging Results: PATIENT: OUSMANE GUZMAN PRESENT AGE: 77 PATIENT ACCOUNT NO: [id number] : 42 LOCATION: [facility] ORDERING PHYSICIAN: Charles Gray MD SERVICE DATE: 01/20/18 EXAM TYPE: US - US-COMPLETE ABDOMEN EXAMINATION: ABDOMINAL ULTRASOUND COMPLETE CLINICAL INFORMATION: Abdominal distention. COMPARISON: 12/23/2016. TECHNIQUE: Real-time imaging of the abdominal viscera. FINDINGS: PANCREAS: The visualized pancreatic head and body are normal in appearance. The remainder of the pancreas is obscured from visualization by the overlying bowel gas. ABDOMINAL AORTA: The proximal, middle, and distal aortic segments are normal in caliber. INFERIOR VENA CAVA: Visualized portions are normal. LIVER: There is a stable 9 mm cyst within the right lobe. The liver demonstrates normal size, contour and echogenicity. No concerning focal lesion. There is equivocal prominence to the intrahepatic biliary ducts. GALLBLADDER: The patient is status post cholecystectomy. COMMON BILE DUCT: Normal in caliber measuring 0.7 cm in diameter. RIGHT KIDNEY: Normal. No hydronephrosis. No renal calculi or focal parenchymal lesions. The kidney measures 10.0 cm in maximum dimension. LEFT KIDNEY: Normal. No hydronephrosis. No renal calculi or focal parenchymal lesions. The kidney measures 9.7 cm in maximum dimension. SPLEEN: Normal. The spleen measures 7.9 cm in maximum dimension. FREE FLUID: None. IMPRESSION: Status post cholecystectomy. Equivocal increase in the prominence of the intrahepatic biliary ducts. Stable hepatic cysts. Otherwise, unremarkable abdominal ultrasound. DICTATED BY: Felipe Vaca MD DATE/TIME DICTATED:01/20/181704 AGRICULTURAL AGENT:SU DATE/TIME TRANSCRIBED:01/20/181704 CONFIDENTIAL, DO NOT COPY WITHOUT APPROPRIATE AUTHORIZATION. <Electronically signed in Other Vendor System> SIGNED BY: Felipe Vaca MD 01/20/18 298 Assessment/Plan Assessment/Plan hematuria/cystoscopy today Copies To: Kev Gould MD Consult Acknowledgment - Thank you for your consult request. Attending MD Review Statement Attending Statement Attending MD Statement: examined this patient, discuss w/resident/PA/SALES ASSISTANT ENTERTAINMENT AND MEDIA Attending Assessment/Plan: hematuria due to hypervascular enlarged prostate-exacerbated by anti-coagulation
[2018-01-25 22:00] VITALS: BP 108/60
[2018-01-26 06:50] VITALS: BP 126/68
--- NOTE | 2018-01-26 07:49 | PN- Housestaff ---
Constantino RICE,Gregoria 01/26/18 0749: Subjective Follow-up For: CHF Exacerbation Gross Hematuria Urinary Retention currently with lorenzo Tele-Events Since Last Visit: off tele Subjective: Patient seen and examined today. Denies complaints. States he is ready to go home. Review of Systems Constitutional: Reports: see HPI. Objective Last 24 Hrs of Vital Signs/I&O Vital Signs Date Time Temp Pulse Resp B/P B/P Pulse O2 O2 Flow FiO2 Mean Ox Delivery Rate 01/26 1343 80 126/70 01/26 1310 82 128/68 01/26 1310 82 128/68 01/26 0817 97 Nasal 2.0L Cannula 01/26 0800 Nasal 2.0L Cannula 01/26 0650 98.3 95 20 126/68 96 Nasal Cannula 01/26 0003 97 Nasal 2.0L Cannula 01/25 2200 99.1 71 20 108/60 97 Nasal 2.0L Cannula 01/25 2104 97 Nasal 2.0L Cannula 01/25 2039 71 108/60 01/25 1802 118/66 Intake & Output 01/26 1600 01/26 0800 01/26 0000 Intake Total 420 120 240 Output Total 1000 350 400 Balance -580 -230 -160 Intake, Oral 420 120 240 Number 1 Bowel Movements Output, Urine 1000 350 400 Patient 164 lb Weight Weight Bed scale Measurement Method Physical Exam General Appearance: Alert, Oriented X3, Cooperative, No Acute Distress Skin: No Rashes HEENT: Atraumatic, Mucous Membr. moist/pink Cardiovascular: Regular Rate, Normal S1, Normal S2 Lungs: bilateral expiratory wheezing Abdomen: Normal Bowel Sounds, Soft, No Tenderness Neurological: Normal Speech, Cranial Nerves 3-12 NL Extremities: No Clubbing, No Cyanosis, No Edema, Normal Pulses, No Tenderness/ Swelling Current Medications: Current Medications Sig/Herber Start time Last Medication Dose Route Stop Time Status Admin Acetaminophen 500 MG .STK-MED ONE 01/26 0610 DC PO 01/26 0611 Acetaminophen 500 MG Q4P PRN 01/20 1715 DCD 01/26 PO 0613 Albuterol Sulfate 3 ML EVERY 4 HRS/AWAKE 01/20 0800 DCD 01/26 INH 1143 Amlodipine Besylate 5 MG 1200 01/20 1200 DCD 01/26 PO 1310 Artificial Tears 2 GTT TID 01/24 1615 DCD 01/26 OPH 0913 Atorvastatin Calcium 40 MG 1700 01/19 1717 DCD 01/25 PO 1802 Azithromycin 500 MG MoWeFr@1200 01/20 1200 DCD 01/25 PO 1802 Budesonide/ 1 PUF BID 01/19 2100 DCD 01/26 Formoterol Fumarate INH 0913 Digoxin 0.125 MG 1700 01/21 1830 DCD 01/25 PO 1802 Docusate Sodium 100 MG DAILY NEEDED PRN 01/22 1830 DCD PO Ezetimibe 10 MG 1200 01/20 1200 DCD 01/26 PO 1344 Finasteride 5 MG 1200 01/20 1200 DCD 01/26 PO 1343 Furosemide 20 MG DAILY 01/27 0900 DCD PO Furosemide 40 MG DAILY 01/23 0900 DC 01/26 PO 0913 Ipratropium [place] 2.5 ML EVERY 4 HRS/AWAKE 01/20 0800 DCD 01/26 INH 1143 Lorazepam 0.5 MG TID 01/22 1400 DCD 01/26 PO 01/29 1359 1413 Losartan Potassium 50 MG 1200 01/20 1200 DCD 01/26 PO 1343 Magnesium Oxide 400 MG DAILY 01/24 1152 DCD 01/26 PO 0913 Metoprolol Tartrate 25 MG 1200,2100 01/20 1200 DCD 01/26 PO 1310 Polyethylene Glycol 17 GM DAILY PRN 01/22 1830 DCD PO Prednisone 5 MG Q48 01/26 0900 DCD 01/26 PO 0913 Senna 187 MG AT BEDTIME PRN 01/22 1830 DCD PO Tramadol HCl 50 MG Q6 PRN 01/20 1515 DCD 01/25 PO 2259 Assessment/Plan Assessment: Patient is a 77-year-old male with past medical history of 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 Patient will be admitted to the telemetry floor for management of the followin. Dyspnea and Lower Extremity Edema 2/2 acute on chronic right heart failure likely due to CAD and COPD- currently much improved after diuresis, currently on PO lasix - Admit to telemetry - Continuous telemetry monitoring - Oxygen supplementation as needed - TRC/DuoNeb Treatment - I/O, daily weights - compression stockings, keep legs elevated - Continue PO lasix 40mg daily - If patient continues to remain dyspneic or worsen will consider giving steroids - Cardiology consult with Dr. Linares's group - ECHO ordered - Pulmonology consult with Dr. Romero - Decreased prednisone 5 mg every other day - Continue azithromycin three times/week - Continue plavix, losartan, norvasc, zetia, atorvastatin 2. Obstructive uropathy in setting of BPH, Gross Hematuria. status post cystoscopy and fulgration Lorenzo placed on 01/20 - urine output of 1.4L immediateley after placement. Continues to have gross hematuria. Dr. Gould consulted. - urology consulted - proscar 5mg daily to minimize bleeding - continue flomax - tramadol and tylenol for penile pain s/p insertion of lorenzo 3. Chronic conditions: COPD, HTN, HLD, BPH, Lung nodules - continue home medications DVT PPx: ALPs Diet: Heart healthy Code: DNR/DNI Dispo: discharge home with lorenzo with urology follow up Problem List: 1. CHF exacerbation 2. 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 Symptoms consistent with right heart failure. Went for cystoscopy with vessel fulguration on 01/25. No further hematuria. Feeling well. 1. Acute on chronic right CHF due to COPD with cor pulmonale Plan - Stable for discharge with Lorenzo catheter in place - Continue Digoxin per cardiology - Outpatient urology follow up, will obtain discharge recommendations prior to going - Continue PO Lasix - Continue home medications
[2018-01-26] MEDS ORDERED: PREDNISONE5 M1 PO ×3 (09:24→14:39)
--- NOTE | 2018-01-26 10:53 | PN- Cardiology ---
Subjective Subjective: Patient not on telemetry. Sitting out of bed in a chair quite comfortable. Has a Parker catheter in. Urine is clear. Objective Vital Signs and I&Os Vital Signs Date Time Temp Pulse Resp B/P B/P Pulse O2 O2 Flow FiO2 Mean Ox Delivery Rate 01/26 0817 97 Nasal 2.0L Cannula 01/26 0800 Nasal 2.0L Cannula 01/26 0650 98.3 95 20 126/68 96 Nasal Cannula 01/26 0003 97 Nasal 2.0L Cannula 01/25 2200 99.1 71 20 108/60 97 Nasal 2.0L Cannula 01/25 2104 97 Nasal 2.0L Cannula 01/25 2039 71 108/60 01/25 1802 118/66 01/25 1615 98 Nasal 2.0L Cannula 01/25 1530 118/66 01/25 1530 11866 01/25 1529 118/66 Intake & Output 01/26 1600 01/26 0800 01/26 0000 01/25 1600 01/25 0800 01/25 0000 Intake Total 120 240 360 Output Total 350 400 Balance -230 -160 360 Intake, IV 10 Intake, Oral 120 240 350 Number 1 0 Bowel Movements Output, Urine 350 400 Patient 164 lb 162 lb 162 lb Weight Weight Bed scale Bed scale Measurement Method Physical Exam: On physical exam he appeared comfortable Head normocephalic atraumatic Eyes sclera anicteric conjunctiva showed no pallor extraocular muscles are normal Neck no jugular venous distention no thyroid masses no palpable nodes Chest lungs were clear bilaterally although very distant lung sounds Heart regular rhythm but distant heart sounds Abdomen soft no organomegaly Extremities no clubbing cyanosis or edema Neurological no gross motor or sensory deficits Current Medications: Current Medications Sig/Herber Start time Last Medication Dose Route Stop Time Status Admin Acetaminophen 1,000 MG .STK-MED ONE 01/25 1321 DC IV 01/25 1322 Acetaminophen 500 MG Q4P PRN 01/20 171 AC 01/26 PO 0613 Albuterol Sulfate 3 ML EVERY 4 HRS/AWAKE 01/20 0800 AC 01/26 INH 0820 Amlodipine Besylate 5 MG 1200 01/20 1200 AC 01/25 PO 1529 Artificial Tears 2 GTT TID 01/24 1615 AC 01/26 OPH 0913 Atorvastatin Calcium 40 MG 1700 01/19 1717 AC 01/25 PO 1802 Azithromycin 500 MG MoWeFr@1200 01/20 1200 AC 01/25 PO 1802 Budesonide/ 1 PUF BID 01/19 2100 AC 01/26 Formoterol Fumarate INH 0913 Digoxin 0.125 MG 1700 01/21 1830 AC 01/25 PO 1802 Docusate Sodium 100 MG DAILY NEEDED PRN 01/22 1830 AC PO Ezetimibe 10 MG 1200 01/20 1200 AC 01/25 PO 1528 Fentanyl Citrate 100 MCG .STK-MED ONE 01/25 1121 DC IM 01/25 1122 Finasteride 5 MG 1200 01/20 1200 AC 01/25 PO 1528 Furosemide 40 MG DAILY 01/23 0900 AC 01/26 PO 0913 Hydromorphone HCl 2 MG .STK-MED ONE 01/25 1346 DC IM 01/25 1347 Hydromorphone HCl 2 MG .STK-MED ONE 01/25 1333 DC IM 01/25 1334 Ipratropium [place] 2.5 ML EVERY 4 HRS/AWAKE 01/20 0800 AC 01/26 INH 0820 Lorazepam 0.5 MG TID 01/22 1400 AC 01/26 PO 01/29 1359 0913 Losartan Potassium 50 MG 1200 01/20 1200 AC 01/25 PO 1530 Magnesium Oxide 400 MG DAILY 01/24 1152 AC 01/26 PO 0913 Metoprolol Tartrate 25 MG 1200,01/20 1200 AC 01/25 PO 2039 Midazolam HCl 2 MG .STK-MED ONE 01/25 1121 DC IM 01/25 1122 Polyethylene Glycol 17 GM DAILY PRN 01/22 1830 AC PO Prednisone 5 MG Q48 01/26 0900 AC 01/26 PO 0913 Senna 187 MG AT BEDTIME PRN 01/22 1830 AC PO Tramadol HCl 50 MG Q6 PRN 01/20 1515 AC 01/25 PO 2259 Results Last 48 Hrs of Labs/Mics: Laboratory Tests 01/25/18 0615: Anion Gap 10, Estimated GFR > 60, BUN/Creatinine Ratio 21.3, Magnesium 1.5 L, CBC w Diff NO MAN DIFF REQ, RBC 4.53 L, MCV 91.7, MCH 30.6, MCHC 33.4, RDW 13.4 , MPV 8.8, Gran % 70.3, Lymphocytes % 13.2 L, Monocytes % 12.1 H, Eosinophils % 3.9, Basophils % 0.5, Absolute Granulocytes 6.7 H, Absolute Lymphocytes 1.3, Absolute Monocytes 1.1 H, Absolute Eosinophils 0.4, Absolute Basophils 0 Assessment/Plan Assessment/Plan In summary this 77-year-old gentleman had being admitted for the following problems 1. Severe COPD end-stage with bronchiectasis 2. Admitted with volume overload could be related to right heart failure related to cor pulmonale, or related to valvular disease severe aortic stenosis, or acute on chronic systolic heart failure, or obstructive uropathy. Chest x- ray did not show pulmonary venous congestion. Troponins were negative. BNP was not impressive. 3. Probably severe aortic stenosis by echocardiogram 4. Previous myocardial infarction anterior wall left ventricular ejection fraction around 40% 5. BPH with possible obstructive uropathy. I would suggest decreasing his furosemide to 20 mg a day for discharge. I have instructed the family to weigh himself every day. Should there be increase in weight more than 5 pounds a week we might have to discuss addressing the aortic valve pathology. Continue telemetry? Not applicable
[2018-01-26 13:43] VITALS: BP 126/70
[2018-01-26] MEDS ORDERED: ZITHROMAX500 M2 PO (13:51)
[2018-01-26] MEDS ORDERED: LASIX20 M1 PO (14:13)
[2018-01-26] MEDS ORDERED: DIGOXIN125 MCG PO (14:13)
[2018-01-26] MEDS ORDERED: AUGMENTIN 500-1 EACH PO (14:32)
[2018-01-26] MEDS ORDERED: LOSARTAN POTAS100 M1 PO (14:32)
--- NOTE | 2018-01-26 20:04 | PN- Pulmonary ---
Subjective HPI/Critical Care Issues: Doing better this morning Status post cystoscopy yesterday Noted issues Back to his baseline Objective Current Medications: Current Medications Sig/Herber Start time Last Medication Dose Route Stop Time Status Admin Acetaminophen 500 MG .STK-MED ONE 01/26 0610 DC PO 01/26 0611 Acetaminophen 500 MG Q4P PRN 01/20 1715 DCD 01/26 PO 0613 Albuterol Sulfate 3 ML EVERY 4 HRS/AWAKE 01/20 0800 DCD 01/26 INH 1143 Amlodipine Besylate 5 MG 1200 01/20 1200 DCD 01/26 PO 1310 Artificial Tears 2 GTT TID 01/24 1615 DCD 01/26 OPH 0913 Atorvastatin Calcium 40 MG 1700 01/19 1717 DCD 01/25 PO 1802 Azithromycin 500 MG MoWeFr@1200 01/20 1200 DCD 01/25 PO 1802 Budesonide/ 1 PUF BID 01/19 2100 DCD 01/26 Formoterol Fumarate INH 0913 Digoxin 0.125 MG 1700 01/21 1830 DCD 01/25 PO 1802 Docusate Sodium 100 MG DAILY NEEDED PRN 01/22 1830 DCD PO Ezetimibe 10 MG 1200 01/20 1200 DCD 01/26 PO 1344 Finasteride 5 MG 1200 01/20 1200 DCD 01/26 PO 1343 Furosemide 20 MG DAILY 01/27 0900 DCD PO Furosemide 40 MG DAILY 01/23 0900 DC 01/26 PO 0913 Ipratropium [place] 2.5 ML EVERY 4 HRS/AWAKE 01/20 0800 DCD 01/26 INH 1143 Lorazepam 0.5 MG TID 01/22 1400 DCD 01/26 PO 03 1359 1413 Losartan Potassium 50 MG 1200 01/20 1200 DCD 01/26 PO 1343 Magnesium Oxide 400 MG DAILY 01/24 1152 DCD 01/26 PO 0913 Metoprolol Tartrate 25 MG 1200,2100 01/20 1200 DCD 01/26 PO 1310 Polyethylene Glycol 17 GM DAILY PRN 01/22 1830 DCD PO Prednisone 5 MG Q48 01/26 0900 DCD 01/26 PO 0913 Senna 187 MG AT BEDTIME PRN 01/22 1830 DCD PO Tramadol HCl 50 MG Q6 PRN 01/20 1515 DCD 01/25 PO 2259 Vital Signs & I&O Last 24 Hrs of Vitals and I&O: Vital Signs Date Time Temp Pulse Resp B/P B/P Pulse O2 O2 Flow FiO2 Mean Ox Delivery Rate 01/26 1343 80 126/70 01/26 1310 82 128/68 01/26 1310 82 128/68 01/26 0817 97 Nasal 2.0L Cannula 01/26 0800 Nasal 2.0L Cannula 01/26 0650 98.3 95 20 126/68 96 Nasal Cannula 01/26 0003 97 Nasal 2.0L Cannula 01/25 2200 99.1 71 20 108/60 97 Nasal 2.0L Cannula 01/25 2104 97 Nasal 2.0L Cannula 01/25 2039 71 108/60 Intake & Output 01/26 1600 01/26 0800 01/26 0000 Intake Total 420 120 240 Output Total 1000 350 400 Balance -580 -230 -160 Intake, Oral 420 120 240 Number 1 Bowel Movements Output, Urine 1000 350 400 Patient 164 lb Weight Weight Bed scale Measurement Method Impression/Plan Impression/Plan Impression/Plan: General: Nontoxic, no apparent distress. HEENT: Sclera and conjunctiva within normal limits, without xanthelasmas. Neck: Carotids 2+ without bruits. Respiratory: Scattered rhonchi, air movement is markedly decreased throughout, without accessory respiratory muscle use. Heart: Regular rate and rhythm, 2 out of 6 systolic ejection murmur at left sternal border, without JVD. There is approximately greater than 1 cm of pitting edema in both lower extremities to the thighs Abdomen: Soft, nontender, no masses, normoactive bowel sounds. 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 No recent travel history. No sig cough or wheezing and his oxygenation is at his baseline Issues include * Resolved Acute corpulmonalae on top of chronic corpulmonalae with sig pedal edema and wt gain, slowly improving * End-stage COPD with no sig COPD exacerbation. is at baseline as far as copd is concerned * Mild bilateral bronchiectasis in a gentleman with end-stage COPD high risk for pseudomonas with no exacerbation of bronchiectasis * Intolerant to preventative medications like Daliresp due to diarrhea and GI upset. Patient has been on azithromycin 500 mg 3 times a week * Chronic steroid dependent COPD now on low-dose steroids at home * Ischemic heart disease, hypertension, hyperlipidemia with no evidence suggestive of active coronary ischemia * Multiple bilateral lung nodules which has been stable for more than 5 years. * BPH with signs of dysuria, now with urinary outlet obstruction status post Parker with adequate urine output, with hematuria REC OK to DC Lasix daily Cont out pt meds Change prednisone to 5 mg qod make sure pt does not come off this as he has been steroid dep for yrs Cont oxygen Keep leg elevated, with compression stockings
== END 2018-01-26 15:15 | DRG 989 ==
LOC: ERH 11:10 → ERHI 13:47 → 1NO 13:47 → ENRESERV 14:14 → 1NO 15:33 → ENTRNSPT 01-25 13:54 → EDTRNSPT 01-25 13:57 → EDTRNSPTSTS 01-25 13:57 → CMPTRNSPT 01-25 14:24 → ENPENDDIS 01-26 14:08 → ENTRNSPT 01-26 15:02 → EDTRNSPTSTS 01-26 15:14 → EDTRNSPT 01-26 15:14 → 1NO 01-26 15:15 → EDTRNSPT 01-26 15:17 → CMPTRNSPT 01-26 15:35
PROVIDERS: Internal Medicine; Physician Assistant Medical; Student in an Organized Health Care Education/Training Program
PROC: 0V508ZZ Destruction of Prostate, Via Natural or Artificial Opening Endoscopic (ICD-10-PCS; principal; 2018-01-25)
DX: I50.813 Acute on chronic right heart failure (principal); Z99.81 Dependence on supplemental oxygen; J44.9 Chronic obstructive pulmonary disease, unspecified; I25.10 Atherosclerotic heart disease of native coronary artery without angina pectoris; D50.0 Iron deficiency anemia secondary to blood loss (chronic); I25.2 Old myocardial infarction; Z95.1 Presence of aortocoronary bypass graft; R31.0 Gross hematuria; E78.5 Hyperlipidemia, unspecified; I42.9 Cardiomyopathy, unspecified; R91.8 Other nonspecific abnormal finding of lung field; Z66 Do not resuscitate; N40.1 Benign prostatic hyperplasia with lower urinary tract symptoms; R33.8 Other retention of urine; T38.0X5A Adverse effect of glucocorticoids and synthetic analogues, initial encounter; L90.9 Atrophic disorder of skin, unspecified; S51.811A Laceration without foreign body of right forearm, initial encounter; Z88.8 Allergy status to other drugs, medicaments and biological substances; Z90.49 Acquired absence of other specified parts of digestive tract; I10 Essential (primary) hypertension; Z87.81 Personal history of (healed) traumatic fracture; Z87.891 Personal history of nicotine dependence; X58.XXXA Exposure to other specified factors, initial encounter
CPT/HCPCS: 1NP; 36415; 36592; 71045; 81003; 82436; 87086; 93005; 93010; 93306; 93970; 96374; 97116-GO; 97161-GP; 97530-GO; J0131; J0456; J1650; J1940; J3490; J7512

== ENCOUNTER 2018-02-07 12:08 | Emergency (ER) | payer OTHER ==
[~2018-02-07 12:08] MED LIST changes: +ATORVASTATIN CA40 M1 PO; +AUGMENTIN 500-1 EACH PO; +CLOPIDOGREL75 M1 PO; +DIGOXIN125 MCG PO; +LASIX40 M1 PO; +LOSARTAN POTAS100 M1 PO; +LOSARTAN POTASS50 M1 PO; +PREDNISONE5 M1 PO
--- NOTE | 2018-02-07 12:46 | ED GI/GU/ABDOMINAL COMPLAINT ---
History of Present Illness General Chief Complaint: Male Genitourinary Problems Stated Complaint: BLOOD IN URINE Source: patient, family, old records Exam Limitations: no limitations Vital Signs & Intake/Output Vital Signs & Intake/Output Vital Signs Date Time Temp Pulse Resp B/P B/P Pulse O2 O2 Flow FiO2 Mean Ox Delivery Rate 02/07 1425 96 Nasal 2.0L Cannula 02/07 1408 97.6 92 20 124/70 96 Room Air 02/07 1245 96 Nasal 2.0L Cannula 02/07 1220 98.0 58 22 151/54 94 Nasal 2.0L Cannula Allergies Coded Allergies: aspirin (Intermediate, HIVES 11/07/15) Reconcile Medications Amlodipine Besylate 5 MG TABLET 1 TAB PO DAILY HEART (Reported) Atorvastatin Calcium 40 MG TABLET 1 TAB PO DAILY cholesterol (Reported) Azithromycin (Zithromax) 500 MG TABLET 1 TAB PO Tuesday COPD Budesonide/Formoterol Fumarate (Symbicort 80-4.5 Mcg Inhaler) 10.2 GM HFA.AER.AD 1 PUF INH BID COPD (Reported) Clopidogrel Bisulfate (Clopidogrel) 75 MG TABLET 1 TAB PO Q48 CAD (Reported) Digoxin 125 MCG TABLET 1 TAB PO DAILY CHF . Ezetimibe (Zetia) 10 MG TABLET 1 TAB PO DAILY CHOLESTEROL (Reported) Finasteride 5 MG TABLET 1 TAB PO DAILY PROSTATE (Reported) Furosemide (Lasix) 20 MG TABLET 1 TAB PO DAILY CHF Ipratropium/Albuterol Sulfate (Iprat-Albut 0.5-3(2.5) MG/3 Ml) 3 ML AMPUL.NEB 3 ML INH Q4 BREATHING (Reported) EVERY 4 HOURS WHEN AWAKE Lorazepam (Ativan) 0.5 MG TABLET 1 TAB PO BIDP PRN ANXIETY (Reported) Losartan Potassium 50 MG TABLET 1 TAB PO DAILY htn (Reported) Metoprolol Tartrate 25 MG TABLET 1 TAB PO BID BP (Reported) Prednisone 5 MG TABLET 5 MG PO Q48 COPD Triage Note: PER PT/ PT WAS AT PMD FOR CLEARANCE FOR URINE PROCEDURE WITH DR GOULD, CAUTERIZE PROSTATE AND AND SCRAPPING HAD CATH PLACED LAST TUESDAY PT URINE CLEAR THIS AM BUT NOW BLOODY DENIES CO PT O2 DEPENDENT Triage Nurses Notes Reviewed? yes Onset: Morning Duration: minute(s):, constant, continues in ED Timing: recent history Quality/Severity: moderate Radiation: no radiation Activities at Onset: rest Prior Abdominal Problems: similar symptoms Past Sexual History: Unobtainable at this time No Modifying Factors: none HPI: Patient complains of productive cough of brown dior sputum and wheezing 1 day prior to admission. Prior to admission his Parker bag was draining bloody urine. He denies fever chills nausea vomiting diarrhea abdominal pain chest pain headache dysuria rash. Past History Travel History Traveled to [place] past 21 day No Medical History Any Pertinent Medical History? 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 FATHER (COPD). Hx Contributory? No Review of Systems Review of Systems Constitutional: Reports: no symptoms. EENTM: Reports: no symptoms. Respiratory: Reports: see HPI, cough, sputum production, wheezing. Cardiovascular: Reports: no symptoms. GI: Reports: no symptoms. Genitourinary: Reports: see HPI, hematuria. Musculoskeletal: Reports: no symptoms. Skin: Reports: no symptoms. Neurological/Psychological: Reports: no symptoms. Hematologic/Endocrine: Reports: no symptoms. Immunologic/Allergic: Reports: no symptoms. All Other Systems: Reviewed and Negative Physical Exam Physical Exam General Appearance: well developed/nourished, alert, awake, anxious, mild distress, obese Head: atraumatic, normal appearance Eyes: Bilateral: normal appearance, PERRL, EOMI, normal inspection. Ears, Nose, Throat, Mouth: hearing grossly normal, moist mucous membrane Neck: normal inspection, supple, full range of motion, normal alignment Respiratory: chest non-tender, decreased breath sounds, wheezing Cardiovascular: regular rate/rhythm, normal peripheral pulses, norml femoral pulses equa Peripheral Pulses: 4+ carotid (R), 4+ carotid (L) Gastrointestinal: normal bowel sounds, soft, non-tender, no organomegaly Male Genitals: normal genitalia Back: normal inspection, normal range of motion, no vertebral tenderness Extremities: normal range of motion, no ligament instability Neurologic/Psych: no motor/sensory deficits, awake, alert, oriented x 3, normal mood/affect, 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 No Sepsis Present: No Sepsis Focused Exam Completed? No Progress Differential Diagnosis: pyelonephritis, ureterolithiasis, urinary retention, UTI /pyelo Plan of Care: Orders Procedure Date/time Status AEROSOL (GEN) 02/07 1427 Complete AEROSOL (GEN) 02/07 1333 Complete URINALYSIS 02/07 1240 Complete PROTHROMBIN TIME 02/07 1240 Complete MAGNESIUM 02/07 1240 Complete COMPREHENSIVE METABOLIC PANEL 02/07 1240 Complete CBC WITHOUT DIFFERENTIAL 02/07 1240 Complete Current Medications Sig/Herber Start time Last Medication Dose Stop Time Status Admin Trimethoprim/ 1 TAB ONCE ONE 02/07 1445 AC Sulfamethoxazole 02/07 1446 (Bactrim DS) Laboratory Tests 02/07/18 1334: Anion Gap 8, Estimated GFR > 60, BUN/Creatinine Ratio 18.8, Glucose 115 H, Calcium 9.5, Magnesium 1.6, Total Bilirubin 1.1, AST 23, ALT 31, Alkaline Phosphatase 66, Total Protein 6.2 L, Albumin 3.7, Globulin 2.5, Albumin/ Globulin Ratio 1.5, PT 12.3, INR 1.13 02/07/18 1330: Urine Color BLDY H, Urine Clarity CLDY H, Urine pH 5.5, Ur Specific [place] 1.025, Urine Protein 100 H, Urine Ketones TRACE H, Urine Nitrite POS H, Urine Bilirubin NEG@ICTO, Urine Urobilinogen 1.0, Ur Leukocyte Esterase MOD H, Ur Microscopic SEDIMENT EXAMINED, Urine RBC PACKD H, Urine WBC > 75 H, Urine Bacteria FEW H, Micro UA Comment , Urine Hemoglobin LARGE H, Urine Glucose NEG 02/07/18 1246: CBC w Diff NO MAN DIFF REQ, RBC 4.46 L, MCV 92.5, MCH 31.2 H, MCHC 33.8, RDW 13.3, MPV 8.5, Gran % 76.3 H, Lymphocytes % 10.7 L, Monocytes % 7.7, Eosinophils % 5.0, Basophils % 0.3, Absolute Granulocytes 10.1 H, Absolute Lymphocytes 1.4, Absolute Monocytes 1.0 H, Absolute Eosinophils 0.7, Absolute Basophils 0 Initial ED EKG: none Departure Departure Time of Disposition: 1437 Disposition: HOME OR SELF CARE Condition: Stable Clinical Impression Primary Impression: UTI (urinary tract infection) Secondary Impressions: COPD exacerbation, Hematuria Referrals: Charlotte RICE,Naun Benites (PCP/Family) Kev Gould MD Departure Forms: Customer Survey General Discharge Information Prescriptions: Current Visit Scripts Sulfamethoxazole/Trimethoprim (Bactrim Ds Tablet) 1 TAB PO BID #20 TAB
[2018-02-07 12:53] LABS: ABSOLUTE BASOPHIL COUNT 0 /CUMM (0.0-0.2); ABSOLUTE EOSINOPHIL COUNT 0.7 /CUMM (0.0-0.7); ABSOLUTE GRANULOCYTE CT 10.1 /CUMM (1.4-6.5); ABSOLUTE LYMPH COUNT 1.4 /CUMM (1.2-3.4); BASOPHIL % 0.3 % (0.0-2.0); GRANULOCYTE % 76.3 % (42.2-75.2); HEMATOCRIT 41.2 % (42-52); MEAN CORPUSCULAR HGB 31.2 PG (27.0-31.0); MEAN CORPUSCULAR HGB CONC 33.8 G/DL (33.0-37.0); MEAN CORPUSCULAR VOLUME 92.5 FL (80.0-94.0); MEAN PLATELET VOLUME 8.5 FL (7.4-10.4); PLATELET COUNT 325 /CUMM (130-400); RBC DISTRIBUTION WIDTH 13.3 % (11.5-14.5); RED BLOOD CELL CT 4.46 /CUMM (4.70-6.10); WHITE BLOOD CELL COUNT 13.2 /CUMM (4.8-10.8)
[2018-02-07 13:49] LABS: PT 12.3 SEC (9.4-12.5)
[2018-02-07 14:08] VITALS: BP 124/70
--- NOTE | 2018-02-07 14:10 | RADIOLOGY REPORT ---
EXAMINATION: XR PORTABLE CHEST CLINICAL INFORMATION: COPD with productive cough and wheezing. COMPARISON: Chest 02/02/2018 TECHNIQUE: Portable frontal view of the chest was obtained. FINDINGS: Both lungs are mildly hyperinflated but clear of acute process. The heart size is borderline enlarged. Pulmonary vascularity is normal. No gross bony abnormality seen. IMPRESSION: Mild cardiomegaly. No acute process seen.
[2018-02-07] MEDS ORDERED: BACTRIM DS TAB1 EACH PO (14:41)
== END 2018-02-07 15:59 ==
LOC: ERH 12:08
PROVIDERS: Emergency Medicine
DX: J44.1 Chronic obstructive pulmonary disease with (acute) exacerbation (principal); N39.0 Urinary tract infection, site not specified; R31.9 Hematuria, unspecified
CPT/HCPCS: 1263; 71045; 81001

== ENCOUNTER 2018-02-09 09:07 | Inpatient (IN) | payer OTHER ==
[~2018-02-09] VITALS: Ht 172.7 cm; Wt 71.4 kg
[~2018-02-09 09:07] MED LIST changes: +BACTRIM DS TAB1 EACH PO
--- NOTE | 2018-02-09 10:26 | ED GI/GU/ABDOMINAL COMPLAINT ---
History of Present Illness General Chief Complaint: Male Genitourinary Problems Stated Complaint: BLOOD IN HERNANDEZ, SEEN HERE YESTERDAY FOR SAME Source: patient Exam Limitations: no limitations Allergies Coded Allergies: aspirin (Intermediate, HIVES 11/07/15) Reconcile Medications Amlodipine Besylate 5 MG TABLET 1 TAB PO DAILY HEART (Reported) Atorvastatin Calcium 40 MG TABLET 1 TAB PO DAILY cholesterol (Reported) Azithromycin (Zithromax) 500 MG TABLET 1 TAB PO Tuesday COPD Budesonide/Formoterol Fumarate (Symbicort 80-4.5 Mcg Inhaler) 10.2 GM HFA.AER.AD 1 PUF INH BID COPD (Reported) Clopidogrel Bisulfate (Clopidogrel) 75 MG TABLET 1 TAB PO Q48 CAD (Reported) Digoxin 125 MCG TABLET 1 TAB PO DAILY CHF . Ezetimibe (Zetia) 10 MG TABLET 1 TAB PO DAILY CHOLESTEROL (Reported) Finasteride 5 MG TABLET 1 TAB PO DAILY PROSTATE (Reported) Furosemide (Lasix) 20 MG TABLET 1 TAB PO DAILY CHF Ipratropium/Albuterol Sulfate (Iprat-Albut 0.5-3(2.5) MG/3 Ml) 3 ML AMPUL.NEB 3 ML INH Q4 BREATHING (Reported) EVERY 4 HOURS WHEN AWAKE Lorazepam (Ativan) 0.5 MG TABLET 1 TAB PO BIDP PRN ANXIETY (Reported) Losartan Potassium 50 MG TABLET 1 TAB PO DAILY htn (Reported) Metoprolol Tartrate 25 MG TABLET 1 TAB PO BID BP (Reported) Prednisone 5 MG TABLET 5 MG PO Q48 COPD Sulfamethoxazole/Trimethoprim (Bactrim Ds Tablet) 800 MG-160 MG TABLET 1 TAB PO BID uti Triage Note: PT TO ED FOR C/C OF BLOOD IN HERNANDEZ BAG. PT SEEN IN ED YESTERDAY FOR SAME. PT REPORTS BLOOD OCCURED OVER NIGHT, WOKE UP WITH APPROX 1200 ML OF BLOOD IN HERNANDEZ. PT DENIES CLOTS. PT DENIES PAIN. PT ALSO REPORTS SOME DIFFICULTY TAKING DEEP BREATHS. O2 DEPENDENT 2L, USUALLY 95%, BUT TODAY ONLY 92% IN TRIAGE. Triage Nurses Notes Reviewed? yes Onset: Abrupt Timing: recent history Radiation: no radiation HPI: 77-year-old male on Plavix comes in with blood in Hernandez catheter bag. Patient had a Hernandez catheter placed a couple weeks ago after a cystoscopy. The Hernandez catheter was removed and he was unable to urinate so it was placed again last week. Patient was seen here for blood in the catheter couple days ago. Comes back in due to dark red blood in the catheter still. No clots seen. Denies any fever chills vomiting abdominal pain or back pain. 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 He was cleared medically by his clinical project assistant and home hospice aide for Dr. Gould. (Tayo Frost) Vital Signs & Intake/Output Vital Signs & Intake/Output Vital Signs Date Time Temp Pulse Resp B/P B/P Pulse O2 O2 Flow FiO2 Mean Ox Delivery Rate 02/09 1324 97.7 95 16 136/71 96 Room Air 02/09 1158 94 Nasal 2.5L Cannula 02/09 1132 96 Room Air Room Air 02/09 0911 97.0 111 15 157/62 92 Nasal 2.0L Cannula (Brannon RICE,Jevon Medina) Past History Travel History Traveled to [place] past 21 day No Medical History Any Pertinent Medical History? 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 FATHER (COPD). Hx Contributory? No (Tayo Frost) Review of Systems Review of Systems Constitutional: Reports: no symptoms. EENTM: Reports: no symptoms. Respiratory: Reports: no symptoms. Cardiovascular: Reports: no symptoms. GI: Reports: no symptoms. Genitourinary: Reports: no symptoms. Musculoskeletal: Reports: no symptoms. Skin: Reports: no symptoms. Neurological/Psychological: Reports: no symptoms. Hematologic/Endocrine: Reports: see HPI. Immunologic/Allergic: Reports: no symptoms. All Other Systems: Reviewed and Negative (Tayo Frost) Physical Exam Physical Exam General Appearance: well developed/nourished, alert, awake Head: atraumatic Eyes: Bilateral: normal appearance. Ears, Nose, Throat, Mouth: hearing grossly normal, moist mucous membrane Neck: normal inspection Respiratory: no respiratory distress Gastrointestinal: soft, non-tender Back: normal inspection Extremities: normal range of motion Neurologic/Psych: awake, alert Skin: intact (Tayo Frost) Core Measures ACS in differential dx? No Sepsis Present: No Sepsis Focused Exam Completed? No (Brannon RICE,Jevon Medina) Progress Differential Diagnosis: ureterolithiasis, urinary retention, urethritis, UTI/ pyelo Plan of Care: Orders Procedure Date/time Status Heart Healthy Diet 02/09 D Active Intake & Output 02/09 1426 Active Patient Data 02/09 1348 Active ED Holding Orders 02/09 1342 Active Admit to inpatient 02/09 1342 Active Vital Signs 02/09 1342 Active Code Status 02/09 1342 Active Continuous Bladder Irrigation 02/09 1232 Active Hernandez, Insertion/Removal/Asses 02/09 1231 Active Add-on Test (ER Only) 02/09 1030 Active EKG 02/09 1030 Active TROPONIN LEVEL 02/09 1025 Complete PARTIAL THROMBOPLASTIN TIME 02/09 1025 Complete PROTHROMBIN TIME 02/09 1025 Complete CBC WITHOUT DIFFERENTIAL 02/09 1025 Complete BASIC METABOLIC PANEL 02/09 1025 Complete Current Medications Sig/Herber Start time Last Medication Dose Stop Time Status Admin Albuterol Sulfate 3 ML ONCE ONE 02/09 1430 UNVr (Proventil) 02/09 1431 Ipratropium [place] 2.5 ML ONCE ONE 02/09 1430 UNVr (Atrovent) 02/09 1431 Laboratory Tests 02/09/18 1034: Anion Gap 10, Estimated GFR > 60, BUN/Creatinine Ratio 20.0, Glucose 107 H, Calcium 9.4, Troponin I 0.01, PT 12.2, INR 1.12, APTT 30, CBC w Diff NO MAN DIFF REQ, RBC 4.55 L, MCV 92.7, MCH 30.4, MCHC 32.8 L, RDW 13.2, MPV 8.4, Gran % 79.5 H, Lymphocytes % 10.0 L, Monocytes % 8.0, Eosinophils % 2.4, Basophils % 0.1, Absolute Granulocytes 8.8 H, Absolute Lymphocytes 1.1 L, Absolute Monocytes 0.9 H, Absolute Eosinophils 0.3, Absolute Basophils 0 Initial ED EKG: none (Tayo Frost) Departure Departure Condition: Stable Referrals: Naun Porter MD (PCP/Family) Departure Forms: Customer Survey General Discharge Information Admission Note Documentation of Exam: Documentation of any treatments & extenuating circumstances including Concerns Regarding Discharge (functional status, medication knowledge or non-compliance, living conditions, etc.) that warrant an admission rather than observation: Patient is on Plavix. High risk. Due to age and comorbidities not medically safe for discharge. (Tayo Frost) Departure Disposition: STILL A PATIENT Clinical Impression Primary Impression: Hematuria Admission Note Spoke With: Momo Arroyo MD Documentation of Exam: Documentation of any treatments & extenuating circumstances including Concerns Regarding Discharge (functional status, medication knowledge or non-compliance, living conditions, etc.) that warrant an admission rather than observation: [ Follow serial hematocrits, continue CBI, urology consultation] PA/SALES PROCESS MANAGER Co-Sign Statement Statement: ED Attending supervision documentation- [X] I saw and evaluated the patient. I have also reviewed all the pertinent lab results and diagnostic results. I agree with the findings and the plan of care as documented in the PA's/SALES PROCESS MANAGER's documentation. [X] I have reviewed the ED Record and agree with the PA's/SALES PROCESS MANAGER's documentation. [] Additions or exceptions (if any) to the PAs/SALES PROCESS MANAGER's note and plan are summarized below: [See above note] (Brannon RICE,Jevon Carter
[2018-02-09 10:44] LABS: ABSOLUTE BASOPHIL COUNT 0 /CUMM (0.0-0.2); ABSOLUTE EOSINOPHIL COUNT 0.3 /CUMM (0.0-0.7); ABSOLUTE GRANULOCYTE CT 8.8 /CUMM (1.4-6.5); ABSOLUTE LYMPH COUNT 1.1 /CUMM (1.2-3.4); ABSOLUTE MONOCYTE COUNT 0.9 /CUMM (0.10-0.60); BASOPHIL % 0.1 % (0.0-2.0); EOSINOPHIL % 2.4 % (0-5); GRANULOCYTE % 79.5 % (42.2-75.2); HEMATOCRIT 42.2 % (42-52); MEAN CORPUSCULAR HGB 30.4 PG (27.0-31.0); MEAN CORPUSCULAR HGB CONC 32.8 G/DL (33.0-37.0); MEAN CORPUSCULAR VOLUME 92.7 FL (80.0-94.0); MEAN PLATELET VOLUME 8.4 FL (7.4-10.4); PLATELET COUNT 308 /CUMM (130-400); RBC DISTRIBUTION WIDTH 13.2 % (11.5-14.5); RED BLOOD CELL CT 4.55 /CUMM (4.70-6.10)
[2018-02-09 10:53] LABS: PT 12.2 SEC (9.4-12.5); PTT 30 SEC (25-37)
--- NOTE | 2018-02-09 11:48 | RADIOLOGY REPORT ---
EXAMINATION: XR CHEST CLINICAL INFORMATION: Shortness of breath. COMPARISON: 02/07/2018 and earlier exams. TECHNIQUE: AP and lateral views (4 images) of the chest are obtained. FINDINGS: The heart is normal in size. There is no congestion or focal consolidation. There are stable mild degenerative changes of the spine. IMPRESSION: No acute cardiopulmonary process.
--- NOTE | 2018-02-09 14:51 | History & Physical ---
Constantino RICE,Gregoria 02/09/18 1449: General Information and HPI MD Statement: I have seen and personally examined OUSMANE GUZMAN and documented this H&P. The patient is a 77 year old M who presented with a patient stated chief complaint of [bleeding in lorenzo]. 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 Patient and his were present at the time of the interview. Reports that this morning patient and his noticed signficant bright red blood in the lorenzo bag. No clots were reportedly seen. Patient denies lightheadedness, dizziness, recent trauma or pain. Patient was previously admitted on 01/19 at which point he had a lorenzo placed for urinary retention. During that admission patient was seen by urology and underwent cystoscopy and fulgration of blood vessels. Patient at that point had hematuria which resolved prior to discharge. Patient was seen by his urologist on 02/01 at which point he had the lorenzo removed. On 02/02 patient arrived to the ED due to urinary retention and inability to void at which point a lorenzo was placed again. Patient's reports that he was seen by his urologist and was told to follow up with his personnel research psychologist and appellate court judge for clearance prior to urological procedure for his ongoing urinary retention. Patient on 02/07 presented to the ED due to blood in lorenzo bag and had CBI and was discharged home. Patient's states this morning she noticed a signifcant amount of blood. Patient's urologist, Dr. Gould was informed by the ED. Patient was previously discharged on digoxin. This was stopped recently by his personnel research psychologist. Patient's plavix has been on hold for the past 2 days - cleared by his personnel research psychologist for procedure tentatively scheduled for 02/14. Allergies/Medications Allergies: Coded Allergies: aspirin (Intermediate, HIVES 11/07/15) Home Med list Amlodipine Besylate 5 MG TABLET 1 TAB PO DAILY HEART (Reported) Atorvastatin Calcium 40 MG TABLET 1 TAB PO DAILY cholesterol (Reported) Azithromycin (Zithromax) 500 MG TABLET 1 TAB PO Tuesday COPD Budesonide/Formoterol Fumarate (Symbicort 80-4.5 Mcg Inhaler) 10.2 GM HFA.AER.AD 1 PUF INH BID COPD (Reported) Clopidogrel Bisulfate (Clopidogrel) 75 MG TABLET 1 TAB PO Q48 CAD (Reported) Digoxin 125 MCG TABLET 1 TAB PO DAILY CHF . Ezetimibe (Zetia) 10 MG TABLET 1 TAB PO DAILY CHOLESTEROL (Reported) Finasteride 5 MG TABLET 1 TAB PO DAILY PROSTATE (Reported) Furosemide (Lasix) 20 MG TABLET 1 TAB PO DAILY CHF Ipratropium/Albuterol Sulfate (Iprat-Albut 0.5-3(2.5) MG/3 Ml) 3 ML AMPUL.NEB 3 ML INH Q4 BREATHING (Reported) EVERY 4 HOURS WHEN AWAKE Lorazepam (Ativan) 0.5 MG TABLET 1 TAB PO BIDP PRN ANXIETY (Reported) Losartan Potassium 50 MG TABLET 1 TAB PO DAILY htn (Reported) Metoprolol Tartrate 25 MG TABLET 1 TAB PO BID BP (Reported) Prednisone 5 MG TABLET 5 MG PO Q48 COPD Sulfamethoxazole/Trimethoprim (Bactrim Ds Tablet) 800 MG-160 MG TABLET 1 TAB PO BID uti Past History Travel History Traveled to [place] past 21 day No Medical History Neurological: NONE EENT: HOARSE VOICE Cardiovascular: CHF, hypertension, hyperlipidemia, myocardial infarction Respiratory: COPD, emphysema, CHF ON 2L BASLINE Gastrointestinal: diverticulosis Hepatic: NONE Renal: benign prost hyperplasia, nephrolithiasis Musculoskeletal: FRACTURE(LT.INDEX FINGER) Psychiatric: anxiety Endocrine: NONE Blood Disorders: NONE Cancer(s): NONE [employer] FABRICATOR/Reproductive: 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 FATHER (COPD). Psychosocial History Who Do You Live With? spouse Services at Home: Oxygen ETOH Use: denies use Illicit Drug Use: denies illicit drug use Living Will? yes Functional Ability ADLs Independent: dressing, eating, toileting. Needs Assist: bathing. Ambulation: independent IADLs Independent: shopping, housework, finances, food prep, telephone, medication admin. Needs Assist: transportation. Review of Systems Review of Systems Constitutional: Reports: see HPI. Exam & Diagnostic Data Last 24 Hrs of Vital Signs/I&O Vital Signs Date Time Temp Pulse Resp B/P B/P Pulse O2 O2 Flow FiO2 Mean Ox Delivery Rate 02/09 1942 102 110/66 02/09 1922 Nasal 2.0L Cannula 02/09 1646 98.4 109 20 130/66 95 Nasal 3.0L Cannula 02/09 1635 Nasal 3.0L Cannula 02/09 1522 97.7 60 18 137/68 97 Nasal 2.5L Cannula 02/09 1431 95 Nasal 2.0L Cannula 02/09 1324 97.7 95 16 136/71 96 Room Air 02/09 1158 94 Nasal 2.5L Cannula 02/09 1132 96 Room Air Room Air 02/09 0911 97.0 111 15 157/62 92 Nasal 2.0L Cannula Intake & Output 02/09 1600 02/09 0800 02/09 0000 Intake Total Output Total Balance Patient 153 lb Weight Weight Reported by Patient Measurement Method Physical Exam General Appearance Alert, Oriented X3, Cooperative, No Acute Distress HEENT Atraumatic, PERRLA, EOMI, Mucous Membr. moist/pink Cardiovascular Regular Rate, Normal S1, Normal S2 Lungs Clear to Auscultation, Normal Air Movement Abdomen Normal Bowel Sounds, Soft, No Tenderness Neurological Normal Speech, Strength at 5/5 X4 Ext, Normal Tone, Sensation Intact, Cranial Nerves 3-12 NL Extremities No Clubbing, No Cyanosis, Normal Pulses, No Tenderness/Swelling, trace bilateral pitting edema Last 24 Hrs of Labs/Alok: Laboratory Tests 02/09/18 1034: Anion Gap 10, Estimated GFR > 60, BUN/Creatinine Ratio 20.0, Glucose 107 H, Calcium 9.4, Troponin I 0.01, PT 12.2, INR 1.12, APTT 30, CBC w Diff NO MAN DIFF REQ, RBC 4.55 L, MCV 92.7, MCH 30.4, MCHC 32.8 L, RDW 13.2, MPV 8.4, Gran % 79.5 H, Lymphocytes % 10.0 L, Monocytes % 8.0, Eosinophils % 2.4, Basophils % 0.1, Absolute Granulocytes 8.8 H, Absolute Lymphocytes 1.1 L, Absolute Monocytes 0.9 H, Absolute Eosinophils 0.3, Absolute Basophils 0 Assessment/Plan Assessment: Patient is a 77-year-old male with past medical history of 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 Patient is currently stable with H/H of 13.9 and currently with pink tinged urine after starting CBI. Unclear of the cause of patient's hematuria however this has been reccurring since his procedure on 01/25. Patient has been on plavix which places him at risk of bleeding. The urological service has been notified. 1. Hematuria w/ lorenzo and continuous bladder irrigation 2. Urinary retention w/lorenzo in setting of BPH 3. Chronic conditions: CHF, COPD, CAD, HTN, HLD Plan: Observe on gen med Continuous bladder irrigation Urology consult - Dr. Gould Continue to hold off plavix. Avoid NSAIDs and blood thinners. CBC in AM. Continue home medications. DVT PPx: ALPS Code: Full code Diet: Heart healthy As Ranked By This Provider Problem List: 1. Hematuria 2. Urinary retention due to benign prostatic hyperplasia Core Measures/Misc (05/15) Acute Coronary Syndrome ACS Diagnosis: No Congestive Heart Failure Congestive Heart Failure Diagnosis No Cerebrovascular Accident CVA/TIA Diagnosis: No VTE (View Protocol) VTE Risk Factors Age>40 No Mechanical VTE Prophylaxis d/t N/A MechProphylax Ordered No VTE Pharm Prophylaxis d/t Bleeding (Active) Sepsis (View protocol) Sepsis Present: No If YES complete Sepsis Event Note If YES complete Sepsis Event Note Malena Rasmussen 02/09/18 1542: Core Measures/Misc (05/15) Sepsis (View protocol) If YES complete Sepsis Event Note If YES complete Sepsis Event Note Resident Review Statement Resident Statement: examined this patient, discussed with attending Other Findings: Patient is a 77-year-old male with past medical history of COPD on 2 L of oxygen , CHF, hypertension, hyperlipidemia, past medical history of NE and on plavix since then as he is allergic to aspirin. Patient was recently discharged from [facility] on 01/25/2018 after being treated for CHF exacerbation. Patient also developed urinary retention during that stay, and had cystoscopy done by Dr. Gould on 01/25/18. Previously with a known history of BPH, he was taking Flomax. During that stay of Lorenzo was placed, which was significant for hematuria, however his hemoglobin was stable. Patient was discharged with Lorenzo with a plan to follow with Dr. Gould as an outpatient. Patient states that the Lorenzo was later taken out later, however on 02/02/18, he developed urinary obstruction again and came to ER, a new Lorenzo was placed at that time. Patient was also seen by Dr. Gould in ER with a plan to follow-up as outpatient. When followed up as an outpatient, patient was advised to get cardiac and pulmonary clearance for possible urological procedure, cystoscopy? In which the plan was to cauterize the prostatic vessels. Patient was advised to stay off of Plavix for 5 days. The patient followed up with Dr. Jose De Jesus Wyman for clearance, This morning the patient noticed that his Lorenzo had dark red blood, he informed Dr. Gould and was advised to come to ER. Review of system is negative except for some wheezing. Labs and vitals as above Assessment and plan We'll admit the patient on general medicine floor, patient is currently on continuous bladder irrigation, his Lorenzo is draining pinkish urine, will continue to closely monitor that. We'll repeat CBC in the morning and get Dr. Gould on board. We'll continue to hold Plavix, and check with Dr. Gould regarding the planned urological procedure. We will continue all of the home meds. DVT prophylaxis Alps Patient is full code
[2018-02-09 16:46] VITALS: BP 130/66
--- NOTE | 2018-02-09 18:00 | PN- Att Addend ---
Attending Addendum Attending Brief Note Patient seen and examined. Agree with history and plan as documented by the certified medical records coder above. Patient is currently resting comfortably and not in any acute distress. Admits to some abdominal discomfort but denies any overt pain. He will be admitted to the hospital for further management of his gross hematuria. We will continue with continuous bladder irrigation as initiated. We will follow-up with the urology service regarding timing of repeat cystoscopy. He needs to be of Plavix for 5 days. He has been off it for 2 days so far. Cystoscopy will be done sometime next week. Patient has already been cleared by his cardiology and pulmonology service. We will monitor his hemoglobin levels closely while here in the hospital and transfuse if needed. He is noted to have mild leukocytosis which is likely secondary to his chronic steroid therapy which he takes for his COPD.
[2018-02-09 21:44] VITALS: BP 112/66
[2018-02-10 06:48] VITALS: BP 124/64
--- NOTE | 2018-02-10 07:26 | PN- Housestaff ---
Constantino RICE,Gregoria 02/10/18 0726: Subjective Follow-up For: Hematuria w/ lorenzo and continuous bladder irrigation Subjective: Patient was seen and examined. Patient's lorenzo is clear. Patient reports feeling helpless and overwhelmed by his current state. Patient inquiring about a pill from [place] that helps people pass away. Patient denies any plan to harm himself. Patient reports he would feel much better if he could go home. Review of Systems Constitutional: Reports: see HPI. Objective Last 24 Hrs of Vital Signs/I&O Vital Signs Date Time Temp Pulse Resp B/P B/P Pulse O2 O2 Flow FiO2 Mean Ox Delivery Rate 02/10 0648 98.1 94 20 124/64 91 Nasal 2.0L Cannula 02/10 0103 94 Nasal 2.0L Cannula 02/10 0000 Nasal 3.0L Cannula 02/09 2144 98.6 102 18 112/66 95 Nasal 3.0L Cannula 02/09 1942 102 110/66 02/09 1922 Nasal 2.0L Cannula 02/09 1646 98.4 109 20 130/66 95 Nasal 3.0L Cannula 02/09 1635 Nasal 3.0L Cannula 02/09 1522 97.7 60 18 137/68 97 Nasal 2.5L Cannula 02/09 1431 95 Nasal 2.0L Cannula 02/09 1324 97.7 95 16 136/71 96 Room Air 02/09 1158 94 Nasal 2.5L Cannula 02/09 1132 96 Room Air Room Air 02/09 0911 97.0 111 15 157/62 92 Nasal 2.0L Cannula Intake & Output 02/10 0800 02/10 0000 02/09 1600 Intake Total 700 Output Total 400 Balance 300 Intake, Oral 700 Output, Urine 400 Patient 157 lb 158 lb 153 lb Weight Weight Bed scale Reported by Patient Measurement Method Physical Exam General Appearance: Alert, Cooperative, No Acute Distress Skin Temp/Moisture Exam: Warm/Dry HEENT: Atraumatic, Mucous Membr. moist/pink Cardiovascular: Regular Rate, Normal S1, Normal S2 Lungs: Clear to Auscultation, Normal Air Movement Abdomen: Normal Bowel Sounds, Soft, No Tenderness, No Hepatospenomegaly Neurological: Normal Speech, Cranial Nerves 3-12 NL Extremities: No Clubbing, No Cyanosis, Normal Pulses, No Tenderness/Swelling, trace bilateral edema Current Medications: Current Medications Sig/Herber Start time Last Medication Dose Route Stop Time Status Admin Acetaminophen 500 MG ONCE ONE 02/10 0015 DC 02/10 PO 02/10 0016 0006 Albuterol Sulfate 3 ML EVERY 4 HRS/AWAKE 02/10 2000 AC 02/10 INH 1304 Albuterol Sulfate 3 ML ONCE ONE 02/09 1430 DC 02/09 INH 02/09 1431 1431 Amlodipine Besylate 5 MG DAILY 02/10 0900 AC 02/10 PO 1057 Atorvastatin Calcium 40 MG 1700 02/10 1700 AC PO Furosemide 20 MG DAILY 02/10 0900 AC 02/10 PO 1057 Ipratropium [place] 2.5 ML EVERY 4 HRS/AWAKE 02/10 2000 AC 02/10 INH 1305 Ipratropium [place] 2.5 ML ONCE ONE 02/09 1430 DC 02/09 INH 02/09 1431 1431 Lorazepam 0.5 MG BID PRN 02/09 1615 AC 02/09 PO 02/16 1614 1645 Losartan Potassium 50 MG DAILY 02/10 0900 AC 02/10 PO 1056 Metoprolol Tartrate 25 MG BID 02/09 2100 AC 02/10 PO 1057 Prednisone 5 MG Q48 02/11 0900 AC PO Prednisone 5 MG ONCE ONE 02/09 1615 DC 02/09 PO 02/09 1616 1942 Last 24 Hrs of Lab/Alok Results Last 24 Hrs of Labs/Mics: Laboratory Tests 02/10/18 0610: Sodium Pending, Potassium Pending, Chloride Pending, Carbon Dioxide Pending, Anion Gap Pending, BUN Pending, Creatinine Pending, BUN/Creatinine Ratio Pending , CBC w Diff Pending, WBC Pending, RBC Pending, Hgb Pending, Hct Pending, MCV Pending, MCH Pending, MCHC Pending, RDW Pending, Plt Count Pending, MPV Pending 02/09/18 1034: Anion Gap 10, Estimated GFR > 60, BUN/Creatinine Ratio 20.0, Glucose 107 H, Calcium 9.4, Troponin I 0.01, PT 12.2, INR 1.12, APTT 30, CBC w Diff NO MAN DIFF REQ, RBC 4.55 L, MCV 92.7, MCH 30.4, MCHC 32.8 L, RDW 13.2, MPV 8.4, Gran % 79.5 H, Lymphocytes % 10.0 L, Monocytes % 8.0, Eosinophils % 2.4, Basophils % 0.1, Absolute Granulocytes 8.8 H, Absolute Lymphocytes 1.1 L, Absolute Monocytes 0.9 H, Absolute Eosinophils 0.3, Absolute Basophils 0 Assessment/Plan Assessment: Patient is a 77-year-old male with past medical history of 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 On admission: Patient is currently stable with H/H of 13.9 and currently with pink tinged urine after starting CBI. Unclear of the cause of patient's hematuria however this has been reccurring since his procedure on 01/25. Patient has been on plavix which places him at risk of bleeding. The urological service has been notified. Today patient's H/H remains stable at 12.9 with completely clear urine with cbi running and no visible blood or clots. Patient reports that he feels helpless with his situation and was inquiring about a medication he heard about that may be prescribed in [place] to help him pass away. Patient was counseled by the medical team of the ability to continue normal functioning if the lorenzo is required chronically. 1. Hematuria w/ lorenzo and continuous bladder irrigation 2. Urinary retention w/lorenzo in setting of BPH 3. Depression 4. Chronic conditions: CHF, COPD, CAD, HTN, HLD Plan: Discharge home- currently with no suicidal ideation. Patient's reports she is comfortable taking him home. Patient seen by psychiatrist and started on mirtazipine. Patient reports he will not taken any new medication until after his procedure. Patient's lorenzo is completely clear and no visible gross blood/clots seen. CBI was stopped. I spoke to Dr. Gould today. Patient will remain off plavix and can go home and come back on Tuesday for a TURP. Continue home medications with the exception of plavix. Patient was given antibiotics in the ED previously. He does not have an infection and was not given any antibiotics this admission. Should not continue bactrim. DVT PPx: ALPS Code: Full code Diet: Heart healthy Problem List: 1. Hematuria Pain Ratin Pain Location: n/a Pain Goal: Remain pain free Pain Plan: PRN Tomorrow's Labs & Rationales: none - dc today Cruz RICE,Momo 02/10/18 1059: Attending MD Review Statement Attending Statement Attending MD Statement: examined this patient, discuss w/resident/PA/LADLE LINER HELPER, agreed w/resident/PA/LADLE LINER HELPER, reviewed EMR data (avail), discussed with nursing, discussed with case mgmt, amended to note Attending Assessment/Plan: patient seen and examined. Hematuria has improved significantly overnight with continuous bladder irrigation. Urine output is very clear this morning. Hemoglobin level is stable. Patient remains hemodynamically stab he is quite upset as he would like to eat this morning.le. There are no plans for cystoscopy today so diet has been ordered. We are still awaiting evaluation by his urology service. This morning patient voiced desire to . He is frustrated about the potential of requiring a chronic indwelling Lorenzo catheter. I did discuss with the patient that even he requires a chronic Lorenzo catheter he will build to carry out his activities of daily living. He however continues to voice frustration stating that currently he requires assistance from his with regards to routine activities of daily living. We did attempt to provide emotional support to the patient as a team. Problems: 1. Hematuria 2. Bladder outlet obstruction requiring indwelling Lorenzo catheter. 3. Oxygen dependent COPD 4. Coronary artery disease on Plavix due to aspirin allergy. Currently on hold in preparation for cystoscopy next week. 5. Depression with suicide ideations. Plan: Discontinue continuous bladder irrigation. Resume oral diet. Awaiting evaluation by the urology service. He is planned for elective cystoscopy next week Tuesday. Continue to hold Plavix. Recommend one-to-one sitter and evaluation by the psychiatry service due to his suicidal ideation.
[2018-02-10 07:55] LABS: ABSOLUTE BASOPHIL COUNT 0 /CUMM (0.0-0.2); ABSOLUTE EOSINOPHIL COUNT 0 /CUMM (0.0-0.7); ABSOLUTE GRANULOCYTE CT 9.3 /CUMM (1.4-6.5); ABSOLUTE LYMPH COUNT 1.1 /CUMM (1.2-3.4); BASOPHIL % 0.3 % (0.0-2.0); EOSINOPHIL % 0.3 % (0-5); GRANULOCYTE % 81.2 % (42.2-75.2); HEMATOCRIT 39.1 % (42-52); MEAN CORPUSCULAR HGB 30.7 PG (27.0-31.0); MEAN PLATELET VOLUME 9.3 FL (7.4-10.4); PLATELET COUNT 267 /CUMM (130-400); RBC DISTRIBUTION WIDTH 13.2 % (11.5-14.5); RED BLOOD CELL CT 4.21 /CUMM (4.70-6.10); WHITE BLOOD CELL COUNT 11.5 /CUMM (4.8-10.8)
--- NOTE | 2018-02-10 13:51 | Patient Discharge Instructions ---
Discharge Instructions General Discharge Information You were seen/treated for: Blood in the lorenzo Special Instructions: 1. Please follow up with your urologist 2. Please do NOT resume plavix until after your procedure on Tuesday 3. Please follow up with your pcp within 1 week of discharge. 4. Please note your medication changes Diet Continue normal diet: No Recommended Diet: Heart Healthy Activity Full Activity/No Limits: No Activity Self Limited: Yes Acute Coronary Syndrome Inclusion Criteria At DC or during hospital stay patient has or had the following: ACS DIAGNOSIS No Discharge Core Measures Meds if any: Prescribed or Continued at Discharge Meds if any: NOT Prescribed or Continued at Discharge Congestive Heart Failure Inclusion Criteria At DC or during hospital stay patient has or had the following: CHF DIAGNOSIS No Discharge Core Measures Meds if any: Prescribed or Continued at Discharge Meds if any: NOT Prescribed or Continued at Discharge Cerebrovascular accident Inclusion Criteria At DC or during hospital stay patient has or had the following: CVA/TIA Diagnosis No Discharge Core Measures Meds if any: Prescribed or Continued at Discharge Meds if any: NOT Prescribed or Continued at Discharge Venous thromboembolism Inclusion Criteria VTE Diagnosis No VTE Type NONE VTE Confirmed by (Test) NONE Discharge Core Measures - Per Current guidelines, there needs to be overlap - treatment for the first 5 days of Warfarin therapy. - If discharged on Warfarin prior to 5 days of - overlap therapy, the patient will need to be - assessed for post discharge needs including - *Post discharge parental anticoagulation - *Warfarin and/or parental anticoagulation education - *Follow up date to check INR post discharge At least 5 days overlap therapy as Inpatient No Meds if any: Prescribed or Continued at Discharge Note: Overlap Therapy is Warfarin and Anticoagulant Meds if any: NOT Prescribed or Continued at Discharge
[2018-02-10 14:02] VITALS: BP 118/62
--- NOTE | 2018-02-10 14:41 | Cons- Psychiatry ---
Psychiatric Consult Date of Consult: 02/10/18 Reason for Consult: Asked to see this 77-year-old male admitted with michelle hematuria. Multiple medical comorbidities. This morning he expressed to staff desire to "go to [place] and take the pill" referring to euthanasia procedure. 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 The patient was admitted in December for acute on chronic CHF and urinary retention secondary to significant BPH. He has a history of cystoscopy and fulguration. The patient is scheduled for surgery next Tuesday. Pt was initially unforthcomng and resistant to meeting with me. Seen with his at his request. Reports that he is tired if being dependent on his who "has to take care of me like a little baby". Would like to to "set her free". Would not take his won life but heard a news story on euthanasia in [place] and feels this may be an option. Admits that he is angry at the decline in his physical health saying "I am losing something every day". He has lost his social life; he used to enjoy going to restaurants and on vacation but is no longer able to do so. His sleep is poor at least in part due to BPH. Appetite has been poor but according to both him and his has been significantly reduced over the past month. He is lost energy and his usual activities, is increasingly irritable and hopeless. There are no psychotic symptoms. Past psychiatric history: None Past substance abuse history: Ex-smoker, no other history of substance abuse. Personal history: The patient has been for 54 years. Their marriage is a good one according to both of them. He has 2 children in their early 50s who are supportive. 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 His works and he kept the home running. As mentioned his level of functioning has been significantly decreased by his physical symptoms. Allergies: Coded Allergies: aspirin (Intermediate, HIVES 11/07/15) Past History Past Medical History Neurological: NONE EENT: HOARSE VOICE Cardiovascular: CHF, hypertension, hyperlipidemia, myocardial infarction Respiratory: COPD, emphysema, CHF ON 2L BASLINE Gastrointestinal: diverticulosis Hepatic: NONE Renal: benign prost hyperplasia, nephrolithiasis Musculoskeletal: FRACTURE(LT.INDEX FINGER) Psychiatric: anxiety, depression, insomnia Endocrine: NONE Blood Disorders: NONE Cancer(s): NONE ANIMAL RIDES MANAGER/Reproductive: NONE Past Surgical History Surgical History: CABG, cholecystectomy Psychiatric Treatment History Psych Treatment Psychiatric Treatment No Substance Abuse Treatment Substance Abuse Treatment Past Substance Abuse [place] No Assessment/Plan Mental Status Orientation: Current situation Mental Status Exam: The patient is a 77-year-old male on nasal oxygen with the catheter in situ. He was alert and oriented 3. Gait is steady with a walker. Eye contact is good. Speech is hoarse but normal in rate, rhythm, volume and tone. His mood is depressed his affect is irritable and angry. He is feelings of futility and hopelessness. He reports a desire to but is not suicidal. Thought process is normal in tempo, stream and form with no delusions or obsessions. Attention and concentration are good. There was no perceptual abnormality. Impulse control is fair. Intelligence level is average, use of language appropriate, fund of knowledge average. Recent and remote memory are grossly intact. The patient's insight is fair. He is reluctant to accept that depression may be playing a part in his presentation. Judgment is unimpaired. Diffential Diagnosis: Major depressive disorder single episode moderate with anxious distress Impression: 77-year-old male with multiple physical illnesses presenting with hematuria in the context of BPH. Physical illness has significantly reduced his level of functioning over the past few years. He currently presents with symptoms consistent with depressive illness. His also states that she felt "that he was getting depressed but I did not know what to do". The patient was initially extremely reluctant to take an antidepressant. However once I spoke with his primary care doctor and obtained his permission, he reluctantly agreed. The patient is still extremely invested in his procedure next Tuesday stating "I will rethink everything if that comes out differently but I am not spending the rest of my life with a bag on my leg". The patient is also taking prednisone which is likely exacerbating his depression. Provisional Treatment Plan: Start Lexapro 5 mg p.o. daily tomorrow. If the patient develops GI side effects over the weekend, suggest discontinuing the medication and starting mirtazapine 7.5 mg p.o. nightly. Thank you for consulting us on this patient.
[2018-02-10] MEDS ORDERED: LEXAPRO5 M1 PO (15:05)
[2018-02-10] MEDS ORDERED: MIRTAZAPINE7.5 M1 PO ×2 (15:15→16:22)
--- NOTE | 2018-02-10 16:07 | Incdntl Nt Psy ---
Incidental Note Notation: Due to possible drug interactions, pt will be started on mirtazapine instead of Lexapro.
--- NOTE | 2018-02-10 18:51 | Discharge Summary ---
Visit Information Visit Dates Admission Date: 02/09/18 Discharge Date: 02/10/18 Hospital Course Course Attending Physician: Momo Arroyo MD Primary Care Physician: Naun Porter MD Allergies: Coded Allergies: aspirin (Intermediate, HIVES 11/07/15) Discharge Instructions Medications at Discharge Discharge Medications: Stop taking the following medications: Clopidogrel Bisulfate (Clopidogrel) 75 MG TABLET ORAL EVERY 48 HOURS (Every 2 days) Qty = 90 Digoxin (Digoxin) 125 MCG TABLET ORAL DAILY Qty = 30 Sulfamethoxazole/Trimethoprim (Bactrim Ds Tablet) 800 MG-160 MG TABLET ORAL TWICE DAILY Qty = 20 Continue taking these medications: Ezetimibe (Zetia) 10 MG TABLET 1 Tablet ORAL DAILY Comments: Last Taken: 01/26/18 Time: 13:44 Budesonide/Formoterol Fumarate (Symbicort 80-4.5 Mcg Inhaler) 10.2 GM HFA.AER.AD 1 Puff Inhale through mouth TWICE DAILY Comments: Last Taken: 01/26/18 Time: 09:13 Finasteride (Finasteride) 5 MG TABLET 1 Tablet ORAL DAILY Qty = 90 Comments: NOT GIVEN IN HOSPITAL Amlodipine Besylate (Amlodipine Besylate) 5 MG TABLET 1 Tablet ORAL DAILY Qty = 90 Comments: Last Taken: 02/10/18 Time: 10:57AM Ipratropium/Albuterol Sulfate (Iprat-Albut 0.5-3(2.5) MG/3 Ml) 3 ML AMPUL.NEB 3 Milliliters Inhale through mouth Every 4 hours Instructions: EVERY 4 HOURS WHEN AWAKE Comments: Last Taken: 01/26/18 Time: 11:43 Metoprolol Tartrate (Metoprolol Tartrate) 25 MG TABLET 1 Tablet ORAL TWICE DAILY Comments: Last Taken: 02/10/18 Time: 10:57AM Losartan Potassium (Losartan Potassium) 50 MG TABLET 1 Tablet ORAL DAILY Comments: Last Taken: 02/10/18 Time: 10:56AM Atorvastatin Calcium (Atorvastatin Calcium) 40 MG TABLET 1 Tablet ORAL DAILY Qty = 90 Comments: Last Taken: 01/25/18 Time: 18:02 Lorazepam (Ativan) 0.5 MG TABLET 1 Tablet ORAL 2 x Daily as needed as needed for ANXIETY Comments: Last Taken: 02/09/18 Time: 4:45PM Azithromycin (Zithromax) 500 MG TABLET 1 Tablet ORAL TUESDAY, TUESDAY AND TUESDAY Qty = 30 Comments: Last Taken:01/25/18 Time: 18:02 Furosemide (Lasix) 20 MG TABLET 1 Tablet ORAL DAILY Qty = 30 Comments: PT GIVEN LASIX 40MG 01/26/18 @ 09:13 Prednisone (Prednisone) 5 MG TABLET 5 Milligram ORAL EVERY 48 HOURS (Every 2 days) Qty = 30 Comments: Last Taken: 01/26/18 Time: 09:13 Start taking the following new medications: Mirtazapine (Mirtazapine) 7.5 MG TABLET 1 Tablet ORAL AT BEDTIME Qty = 30 No Refills
[2018-02-12] MEDS ORDERED: LASIX20 M1 PO (18:41)
[2018-02-12] MEDS ORDERED: CLOPIDOGREL75 M1 PO (18:42)
[2018-02-12] MEDS ORDERED: IPRATROPIU0.2 MG/1 M INH/SOL (18:43)
== END 2018-02-10 16:48 | DRG 699 ==
LOC: ERH 09:07 → ERHI 13:42 → 2NA 13:42 → ENRESERV 14:08 → ENTRNSPT 15:57 → EDTRNSPTSTS 16:09 → EDTRNSPT 16:09 → 2NA 16:29 → CMPTRNSPT 16:36 → ENPENDDIS 02-10 16:28 → 2NA 02-10 16:48 → ENTRNSPT 02-10 17:09 → EDTRNSPTSTS 02-10 17:11 → CMPTRNSPT 02-10 17:41
PROVIDERS: Internal Medicine; Physician Assistant Medical
DX: T83.83XA Hemorrhage due to genitourinary prosthetic devices, implants and grafts, initial encounter (principal); R45.851 Suicidal ideations; J44.9 Chronic obstructive pulmonary disease, unspecified; Z99.81 Dependence on supplemental oxygen; I25.10 Atherosclerotic heart disease of native coronary artery without angina pectoris; I25.2 Old myocardial infarction; I10 Essential (primary) hypertension; E78.5 Hyperlipidemia, unspecified; N40.0 Benign prostatic hyperplasia without lower urinary tract symptoms; K57.90 Diverticulosis of intestine, part unspecified, without perforation or abscess without bleeding; R91.1 Solitary pulmonary nodule; Z79.02 Long term (current) use of antithrombotics/antiplatelets; F32.9 Major depressive disorder, single episode, unspecified
CPT/HCPCS: 2NASP; 36592; 71046; 82436; 93005; 93010; J7512

== ENCOUNTER 2018-02-14 02:02 | Inpatient (IN) | payer OTHER ==
[~2018-02-14] VITALS: Ht 172.7 cm; Wt 68.0 kg
[~2018-02-14 02:02] MED LIST changes: +IPRATROPIU0.2 MG/1 M INH/SOL; +LEXAPRO5 M1 PO; +MIRTAZAPINE7.5 M1 PO
--- NOTE | 2018-02-14 13:31 | History & Physical ---
Samantha RICE,[facility] 02/14/18 1331: General Information and HPI MD Statement: I have seen and personally examined OUSMANE WHARTON and documented this H&P. The patient is a 77 year old M who presented with a patient stated chief complaint of Source of Information: patient, family, old records Exam Limitations: no limitations, unable to give history History of Present Illness: Mr Wharton is a 77-year-old gentleman with past medical history of end-stage COPD on 2 L oxygen at home, CAD status post HI and CABG on Plavix (allergic to aspirin), hypertension, hyperlipidemia, BPH, nephrolithiasis, diverticulosis, and bilateral lung nodules who came in to [facility] on the morning of for an elective TURP for BPH. Appears the patient tolerated the procedure well under the care of Dr. Gould. The medicine team was consulted and the patient placed in observation due to excessive drowsiness likely related to anesthesia. Patient was recently discharged from [facility] on February 10. He was admitted on 01/30/2018 where he had presented with a chief complaint of bleeding in lorenzo. He was managed for hemturia and bladder outlet obstruction requiring indwelling lorenzo. Prior to TURP he underwent a preop evaluation with his primary care physician Dr. Porter. At the time of our clinical interaction the patient was somnolent and unable to provide much of a clinical history. He was accompanied by his Fiona. reports that for the last 6 days the patient's Plavix has been held for upcoming procedure. This morning he was in his usual state of health. She does state that over last few weeks she feels her has been very depressed and is being considered to being an antidepressant. His primary care physician is Dr. Porter. Patient's jigger operator is Dr. Allen. Patient's building services technician Hector Romero MD. Allergies/Medications Allergies: Coded Allergies: aspirin (Intermediate, HIVES 02/13/18) Home Med list Amlodipine Besylate 5 MG TABLET 1 TAB PO DAILY HEART (Reported) Atorvastatin Calcium 40 MG TABLET 1 TAB PO DAILY cholesterol (Reported) Azithromycin (Zithromax) 500 MG TABLET 1 TAB PO Tuesday COPD Clopidogrel Bisulfate (Clopidogrel) 75 MG TABLET 1 TAB PO DAILY BLOOD THINNER (Reported) Ezetimibe (Zetia) 10 MG TABLET 1 TAB PO DAILY CHOLESTEROL (Reported) Finasteride 5 MG TABLET 1 TAB PO DAILY PROSTATE (Reported) Furosemide (Lasix) 20 MG TABLET 1 TAB PO EOD DIURETIC (Reported) Ipratropium/Albuterol Sulfate (Iprat-Albut 0.5-3(2.5) MG/3 Ml) 3 ML AMPUL.NEB 3 ML INH Q4 BREATHING (Reported) EVERY 4 HOURS WHEN AWAKE Lorazepam (Ativan) 0.5 MG TABLET 1 TAB PO BIDP PRN ANXIETY (Reported) Losartan Potassium 50 MG TABLET 1 TAB PO DAILY htn (Reported) Metoprolol Tartrate 25 MG TABLET 1 TAB PO DAILY Heart Health (Reported) Mirtazapine 7.5 MG TABLET 1 TAB PO AT BEDTIME ANXIETY/DEPRESSION Prednisone 5 MG TABLET 5 MG PO Q48 COPD Compliance With Home Meds: GOOD Past History Medical History Neurological: NONE EENT: HOARSE VOICE Cardiovascular: CHF, hypertension, hyperlipidemia, myocardial infarction Respiratory: COPD, emphysema, CHF ON 2L BASLINE Gastrointestinal: diverticulosis Hepatic: NONE Renal: benign prost hyperplasia, nephrolithiasis Musculoskeletal: FRACTURE(LT.INDEX FINGER) Psychiatric: anxiety, depression, insomnia Endocrine: NONE Blood Disorders: NONE Cancer(s): NONE PROSTHODONTIST/EDUCATOR/Reproductive: 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 FATHER (COPD). Psychosocial History Where do you live? Home Who Do You Live With? spouse Services at Home: Oxygen Living Will? yes Functional Ability ADLs Independent: dressing, eating, toileting. Needs Assist: bathing. Ambulation: independent IADLs Independent: shopping, housework, finances, food prep, telephone, medication admin. Needs Assist: transportation. Review of Systems Review of Systems Constitutional: Reports: see HPI. Exam & Diagnostic Data Last 24 Hrs of Vital Signs/I&O T: 97.3, respirations 18, blood pressure 132/64, heart rate 91, Physical Exam General Appearance Cooperative, Mild Distress Skin No Rashes Sepsis Skin Exam (color): Normal for Ethnicity HEENT PERRLA, Mucous Membr. moist/pink Cardiovascular Normal S1, Normal S2 Lungs Clear to Auscultation, Normal Air Movement Abdomen Normal Bowel Sounds, Soft, No Tenderness Neurological Strength at 5/5 X4 Ext, Cranial Nerves 3-12 NL, Somnolent Extremities No Clubbing, No Cyanosis, No Edema Vascular Normal Pulses Assessment/Plan Assessment: Mr Wharton is a 77-year-old gentleman with past medical history of end-stage COPD on 2 L oxygen at home, CAD status post HI and CABG on Plavix (allergic to aspirin), hypertension, hyperlipidemia, BPH, nephrolithiasis, diverticulosis, and bilateral lung nodules who came in to [facility] on the morning of for an elective TURP for BPH. Appears the patient tolerated the procedure well under the care of Dr. Gould. Will place the patient on observation on the Gen. medical service and below is a problem list and plan for Mr Wharton. Excessive drowsiness likely related to anesthesia and recent procedure . TURP due to Bladder outlet obstruction catheter in place. Oxygen dependent COPD Coronary artery disease, Plavix Currently on hold in preparation for cystoscopy next week. Depression with suicide ideations. Place in observation on General medical service. Monitor In's and Outs. Aspiration precautions. TRC nebs and supplemental oxygen. Incentive spirometer, encourage use when more alert. Gentle fluid hydration with normal saline at 75 mL per hour. Hold home medications for now if patient appears hypertensive medication calcium channel paulina and metoprolol. Will begin Plavix if H&H stable on 02/15/2018. Continue home medications from 02/15/2018. CBC and BEP in a.m. DVT prophylaxis with Lovenox. Keep nothing by mouth for now. When patient is more alert may do a bedside swallow evaluation. If able to swallow appropriately may begin a heart healthy diet. Patient is a full code. As Ranked By This Provider Problem List: 1. Full code status 2. COPD (chronic obstructive pulmonary disease) 3. Lethargy 4. Hematuria Core Measures/Misc (05/15) Acute Coronary Syndrome ACS Diagnosis: No Congestive Heart Failure Congestive Heart Failure Diagnosis No Cerebrovascular Accident CVA/TIA Diagnosis: No VTE (View Protocol) VTE Risk Factors Age>40 No Mechanical VTE Prophylaxis d/t N/A MechProphylax Ordered No VTE Pharm Prophylaxis d/t Bleeding (Active) (Hematuria ) Sepsis (View protocol) Sepsis Present: No If YES complete Sepsis Event Note If YES complete Sepsis Event Note Felipe Mullins MD 02/14/18 1924: Core Measures/Misc (05/15) Sepsis (View protocol) If YES complete Sepsis Event Note If YES complete Sepsis Event Note Attending MD Review Statement Attending Statement Attending MD Statement: examined this patient, discuss w/resident/PA/DIRECTOR OF CARDIOPULMONARY SERVICES, agreed w/resident/PA/DIRECTOR OF CARDIOPULMONARY SERVICES, discussed with family, reviewed EMR data (avail), discussed with nursing, amended to note Attending Assessment/Plan: The patient is a 77 yo male with h/o end-stage COPD (followed by Dr. Romero), CAD /CHF (s/p HI, CABG and stents- followed by Dr. Linares), HTN, HL, BPH, and nephrolithiasis who is being admitted to after undergoing TURP today with Dr. Gould. He had been seen pre-operatively by his PCP Dr. Porter. He was recently discharge from [facility] on 02/10 with urinary retention and had gone home with Lorenzo catheter. He had been off of his Plavix x 1 week as per his . Also had Lasix daily initially and then cut back to every other day per (by Dr. Porter). He has had some bleeding from the Lorenzo. Post operatively he did c/o some increased dyspnea, however at the time of my exam was similar to baseline. His also states that the last admission they contemplated starting Mirtazapine, however the patient elected to start this post operatively. Physical Exam: VS: T 97.8, P 58, R 20, BP 128/68, PO 97% 3L HEENT: eyes- PERRLA, EOMI wes- dry mucosa Neck: no JVD/bruits Chest: diminished breath sounds diffusely, minimal expiratory wheeze Cor: RRR, nl S1, S2 w/o murm Abd: BS+, soft, NT Ext: 1+ edema bilat (no change per patient), pulses 1+ Neuro: drowsy but arousable and able to speak, oriented (poor historian), MENDOZA, non-focal exam Labs/Tests- as above Impression/Plan: #Dyspnea/Somnolence/Acute on Chronic Hypoxic Respiratory Failure- secondary to anesthesia and underlying COPD. Expect will improve more after further recovery. Normally on 2L nasal, now requiring 3L. Plan: Advised to bring in as OBServation patient to general medical floor. Will monitor mental status and oxygenation. Should be able to take po when more awake. #COPD- end stage/severe- on chronic oxygen. Plan: Continue oxygen, nebs, etc. Nebs as per respiratory protocol. If condition worsens, consider steroids. #CAD/CHF/HTN- stable at present. Plan: Restart Plavix tomorrow. Pending BP reading on floor restart Metoprolol/ Losartan. Will assess need for furosemide 02/15. #Anxiety/Depression- on Lorazepam at home per . Intention was to treat with Mirtazapine once through surgery. Plan: Will consider starting Mirtazapine 02/15. PRN Lorazepam. #BPH/Urinary Retention- s/p TURP. Some bleeding in catheter at present. Plan: Care as per Urology. #HL- on Atorvastatin. Plan: Continue Atorvastatin once taking po.
[2018-02-14 16:00] VITALS: BP 110/60
[2018-02-14 20:00] VITALS: BP 100/60
[2018-02-15 06:20] VITALS: BP 118/60
--- NOTE | 2018-02-15 08:22 | Operative Report ---
Operative/Inv Procedure Report Surgery Date: 02/14/18 Name of Procedure: TURP: bipolar Pre-Operative Diagnosis: bph-retention Post-Operative Diagnosis: same Estimated Blood Loss: less than 50ml Surgeon/Surgical Orderly: Kev Gould MD Anesthesia: laryngeal mask airway Drains: 20fr lorenzo Specimens: prostate chips Complications: none Operative/Procedure Note Note: The patient was taken to the operating room and placed on the OR table in supine position. Timeout was performed, with the pt. awake, to correctly identify the patient, anesthesia, procedure, and IV antibiotics, and other pertinent perioperative information. After adequate anesthesia and antibiotics, the patient was then placed in lithotomy stirrups using yellowfin stirrups. The patient was then draped and prepped in the usual surgical fashion. A 26 Tanzanian standard resectoscope sheath with a 30 angle lens and the 24 Tanzanian loop was inserted into the urethra, and then advanced into the bladder without difficulty. A FEW small clots, and bladder stones, were noted in the bladder, and were Ellix evacuated out. With a clearer vision, the prostate was noted to have an irregular and ratty surface with severely coapting lobes. Additionally, the prostate was hypervascular consistent with regrowth. Upon entering the bladder, it was thoroughly and systematically surveyed revealing no evidence of tumor, both orifices were difficult to find due to the severe trabeculation, in their orthotopic position with clear yellow reflux. The resectoscope was then retracted to the level of the digna montanum. Under direct visualization the 24 Tanzanian loop was then extended beyond the scope. Under direct visualization, and using the cutting current, the left lobe of the prostate was resected from the 2 :00 to the 6 o'clock position to the level of the fibromuscular capsule. Using coag current, spot cauterization was performed in order to achieve good hemostasis of the prostate. The loop was then extended once again using cutting current to resect the right side of the prostate from the 10:00 to the 6 o'clock position to the level of the fibromuscular capsule. Spot cauterization using coag current was then performed in order to achieve good hemostasis. Maintaining the position of the resectoscope at the level of the vera montanum the apical tissue was resected as well on both sides. The external sphincter was preserved. The bladder was then re-entered via the resectoscope, and the prostate chips were irrigated out using tumey evacuation. Once all the prostate chips were removed, the bladder was re-evaluating and noted to have no untoward injury. Additionally, the prostate channel was noted to have good hemostasis, with a wide open channel. The resectoscope was removed with the bladder full. A 22 Tanzanian couvalier three-way Lorenzo catheter was inserted without difficulty draining clear fluid. The bladder was again copiously irrigated via the lorenzo to ensure patency/ The 30 mL balloon was then filled, and continuous bladder irrigation with normal saline was initiated. Clear and easy drainage of NS from the main port was confirmed with CBI. All sponge needle and instrument count were correct at the end of the case. The patient tolerated the procedure well and was then taken to the recovery room in satisfactory condition. Discharge Disposition: PACU CC: Kev Gould MD
[2018-02-15 08:24] LABS: ABSOLUTE BASOPHIL COUNT 0 /CUMM (0.0-0.2); ABSOLUTE EOSINOPHIL COUNT 0 /CUMM (0.0-0.7); ABSOLUTE GRANULOCYTE CT 8.5 /CUMM (1.4-6.5); ABSOLUTE LYMPH COUNT 0.9 /CUMM (1.2-3.4); ABSOLUTE MONOCYTE COUNT 0.9 /CUMM (0.10-0.60); BASOPHIL % 0.2 % (0.0-2.0); EOSINOPHIL % 0 % (0-5); GRANULOCYTE % 82.4 % (42.2-75.2); MEAN CORPUSCULAR HGB 30.9 PG (27.0-31.0); MEAN CORPUSCULAR HGB CONC 33.7 G/DL (33.0-37.0); MEAN CORPUSCULAR VOLUME 91.8 FL (80.0-94.0); MEAN PLATELET VOLUME 9.6 FL (7.4-10.4); PLATELET COUNT 253 /CUMM (130-400); RBC DISTRIBUTION WIDTH 13.3 % (11.5-14.5); RED BLOOD CELL CT 3.54 /CUMM (4.70-6.10); WHITE BLOOD CELL COUNT 10.3 /CUMM (4.8-10.8)
--- NOTE | 2018-02-15 09:00 | PN-Observation ---
See Addendum Observation Note Observation Note _ I have personally examined OUSMANE GUZMAN. him disposition is uncertain at this time. Before a determination can be made, he requires continued observation for the following reasons the patient continues to be confused likely as a result of anesthetic agents. He has had issues with Parker catheter draining overnight and had to be catheterized repeatedly due to urinary retention. He currently remains high risk for significant morbidity if was discharged home. 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 Appears the patient tolerated the procedure well under the care of Dr. Gould. Given the fact that the patient has had significant issues with his Parker overnight it would be prudent to admit him for a full hospitalization. His problem list and plan has been listed below. #Excessive drowsiness likely related to anesthesia and recent procedure . #TURP due to Bladder outlet obstruction catheter in place. #Oxygen dependent COPD #Coronary artery disease, Plavix Currently on hold #Depression with suicide ideations. Admit to the General medical service. I spoke with the urologist Dr. Gould who recommends the patient needs to be started on continuous bladder irrigation. Dr. Gould states he will come and see the patient at some point of the afternoon. Will follow additional recommendations. Monitor In's and Outs. Aspiration precautions. If patient spikes temperature overnight obtain chest x-ray to rule out any consolidation or opacification. TRC nebs and supplemental oxygen. Incentive spirometer, encourage use when more alert. Hold begin Plavix till H&H is more stable Continue home medications from 02/15/2018. CBC and BEP Q12. Goal hgb > 8/24 DVT prophylaxis ALPS Heart healthy diet Physical therapy evaluation. Patient is a full code. Problem List: 1. Lethargy 2. BPH (benign prostatic hyperplasia) Subjective Follow-up For: lethargy s/p turp day one Subjective: Mr Guzman was seen and examined this morning. He is resting comfortably in bed. He appears alert and more oriented compared to the time of our previous interaction. He is oriented to place and time. States that he had issues with his Parker overnight. Parker is currently in place and significant hematuria has been noted. Denies any fever, chills, nausea, vomiting. He does state that he feels weak and would not be able to ambulate independently. Has been tolerating by mouth intake well. Review of Systems Constitutional: Reports: see HPI. Objective Last 24 Hrs of Vital Signs/I&O Vital Signs Date Time Temp Pulse Resp B/P B/P Pulse O2 O2 Flow FiO2 Mean Ox Delivery Rate 02/15 1440 98.0 101 18 128/84 93 02/15 1007 99 118/60 02/15 0818 94 Nasal 2.0L Cannula 02/15 0800 Nasal 2.0L Cannula 02/15 06 98.5 99 20 118/60 95 Nasal Cannula 02/15 0000 96 Nasal 2.0L Cannula 02/14 2000 98.4 114 22 100/60 96 Nasal Cannula 02/14 1657 Nasal 2.0L Cannula 02/14 1600 97.9 96 22 110/60 96 Nasal 3.0L Cannula 02/14 1600 99 Nasal 2.0L Cannula Intake & Output 02/15 1600 02/15 0800 02/15 0000 Intake Total 640 1200 Output Total 650 20 Balance -10 1180 Intake, IV 400 400 Intake, Oral 240 800 Output, Urine 650 20 Patient 68.039 kg Weight Physical Exam General Appearance: Alert, Cooperative, No Acute Distress, Intermittently HEENT: Mucous Membr. moist/pink Cardiovascular: Normal S1, Normal S2 Lungs: Normal Air Movement, Mild Expiratory Rhonchi Abdomen: Normal Bowel Sounds, Soft, No Tenderness Neurological: Normal Speech Extremities: No Edema Vascular: Normal Pulses Current Medications: Current Medications Sig/Herber Start time Last Medication Dose Route Stop Time Status Admin Acetaminophen 650 MG Q6-PRN PRN 02/14 1645 AC PO Albuterol Sulfate 3 ML EVERY 4 HRS/AWAKE 02/15 2000 AC 02/15 INH 1122 Atorvastatin Calcium 40 MG DAILY 02/15 900 AC 02/15 PO 1007 Azithromycin 500 MG 02/15 09 AC 02/15 PO 1007 Ciprofloxacin 500 MG ONCE 02/14 0000 DC PO 02/14 2359 Ezetimibe 10 MG DAILY 02/15 900 AC 02/15 PO 1007 Ipratropium [place] 2.5 ML EVERY 4 HRS/AWAKE 02/15 2000 AC 02/15 INH 1122 Lorazepam 0.5 MG BID 02/15 1015 AC 02/15 PO 02/22 1014 1025 Losartan Potassium 50 MG DAILY 02/15 0900 AC 02/15 PO 1007 Morphine Sulfate 2 MG Q6P PRN 02/14 1645 AC 02/15 IV 1025 Oxycodone/ 1 TAB Q6P PRN 02/14 1645 AC 02/14 Acetaminophen PO 1858 Patient Medication 1 ED ONE ONE 02/15 1200 DC 02/15 Teaching ED 02/15 1201 1203 Sodium Chloride 1,000 ML Q20H 02/14 1515 AC 02/14 IV 1613 Last 24 Hrs of Labs/Mics: Laboratory Tests 02/15/18 0616: Anion Gap 8, Estimated GFR 54 L, BUN/Creatinine Ratio 28.5 H, CBC w Diff NO MAN DIFF REQ, RBC 3.54 L, MCV 91.8, MCH 30.9, MCHC 33.7, RDW 13.3, MPV 9.6, Gran % 82.4 H, Lymphocytes % 8.9 L, Monocytes % 8.5, Eosinophils % 0, Basophils % 0.2, Absolute Granulocytes 8.5 H, Absolute Lymphocytes 0.9 L, Absolute Monocytes 0.9 H, Absolute Eosinophils 0, Absolute Basophils 0 Microbiology 02/15 0100 URINE ROUT: Urine Culture - RECD
[2018-02-15 09:01] LABS: HEMATOCRIT 32.5 % (42-52)
[2018-02-15 14:40] VITALS: BP 128/84
[2018-02-15 18:44] LABS: ABSOLUTE BASOPHIL COUNT 0 /CUMM (0.0-0.2); ABSOLUTE EOSINOPHIL COUNT 0 /CUMM (0.0-0.7); ABSOLUTE GRANULOCYTE CT 10.7 /CUMM (1.4-6.5); ABSOLUTE LYMPH COUNT 1.4 /CUMM (1.2-3.4); ABSOLUTE MONOCYTE COUNT 1.6 /CUMM (0.10-0.60); BASOPHIL % 0.1 % (0.0-2.0); EOSINOPHIL % 0.3 % (0-5); GRANULOCYTE % 77.9 % (42.2-75.2); MEAN CORPUSCULAR HGB 30.3 PG (27.0-31.0); MEAN CORPUSCULAR HGB CONC 32.6 G/DL (33.0-37.0); MEAN CORPUSCULAR VOLUME 92.9 FL (80.0-94.0); MEAN PLATELET VOLUME 8.9 FL (7.4-10.4); PLATELET COUNT 228 /CUMM (130-400); RBC DISTRIBUTION WIDTH 13.4 % (11.5-14.5); RED BLOOD CELL CT 3.02 /CUMM (4.70-6.10); WHITE BLOOD CELL COUNT 13.8 /CUMM (4.8-10.8)
[2018-02-15 21:37] VITALS: BP 106/50
[2018-02-15 22:21] VITALS: BP 110/60
[2018-02-16 06:00] VITALS: BP 114/60
--- NOTE | 2018-02-16 07:20 | PN- Housestaff ---
Samantha RICE,[facility] 02/16/18 0719: Subjective Follow-up For: s/p TURP procedure Subjective: Mr. Wharton was seen and examined this morning. Resting comfortably in bed. Currently alert and oriented to place and person, but not to time.. States he had an uneventful night and is eager to go home. He continued continues to have CBI in place. He said his been tolerating by mouth intake well. Denies any fever, chills, nausea, vomiting. Review of Systems Constitutional: Reports: see HPI. Objective Last 24 Hrs of Vital Signs/I&O Vital Signs Date Time Temp Pulse Resp B/P B/P Pulse O2 O2 Flow FiO2 Mean Ox Delivery Rate 02/16 0600 98.4 88 18 114/60 95 Nasal Cannula 02/16 0409 93 Nasal 2.0L Cannula 02/16 0000 94 Nasal 2.0L Cannula 02/15 2221 98.2 90 20 110/60 94 02/15 2137 97.7 91 18 106/50 94 02/15 1628 69 130/70 02/15 1600 Nasal 2.0L Cannula 02/15 1555 89 Room Air 02/15 1440 98.0 101 18 128/84 93 02/15 1007 99 118/60 02/15 0818 94 Nasal 2.0L Cannula 02/15 0800 Nasal 2.0L Cannula Intake & Output 02/16 0800 02/16 0000 02/15 1600 Intake Total 830 580 Output Total 300 Balance 830 280 Intake, IV 350 100 Intake, Oral 480 480 Number 0 Bowel Movements Output, Urine 300 Physical Exam General Appearance: Alert, Cooperative, No Acute Distress HEENT: Mucous Membr. moist/pink Cardiovascular: Regular Rate, Normal S1, Normal S2 Lungs: Clear to Auscultation Abdomen: Normal Bowel Sounds, Soft, No Tenderness Neurological: Normal Speech, Normal Tone, Sensation Intact Extremities: No Cyanosis, No Edema Vascular: Normal Pulses Current Medications: Current Medications Sig/Herber Start time Last Medication Dose Route Stop Time Status Admin Acetaminophen 650 MG Q6-PRN PRN 02/14 1645 AC PO Albuterol Sulfate 3 ML EVERY 4 HRS/AWAKE 02/15 2000 AC 02/16 INH 0354 Atorvastatin Calcium 40 MG DAILY 02/15 900 AC 02/15 PO 1007 Azithromycin 500 MG 02/15 09 AC 02/15 PO 1007 Ezetimibe 10 MG DAILY 02/15 0900 AC 02/15 PO 1007 Ipratropium [place] 2.5 ML EVERY 4 HRS/AWAKE 02/15 2000 AC 02/16 INH 0354 Lorazepam 0.5 MG BID 02/15 1015 AC 02/15 PO 02/22 1014 2137 Losartan Potassium 50 MG DAILY 02/15 0900 AC 02/15 PO 1007 Metoprolol Tartrate 25 MG DAILY 02/15 1552 AC 02/15 PO 1628 Mirtazapine 15 MG AT BEDTIME 02/15 2100 CAN PO Mirtazapine 7.5 MG AT BEDTIME 02/15 2100 AC 02/15 PO 2137 Morphine Sulfate 2 MG Q6P PRN 02/14 1645 AC 02/15 IV 1025 Oxycodone/ 1 TAB Q6P PRN 02/14 1645 AC 02/14 Acetaminophen PO 1858 Patient Medication 1 ED ONE ONE 02/15 1200 DC 02/15 Teaching ED 02/15 1201 1203 Sodium Chloride 1,000 ML Q20H 02/14 1515 AC 02/16 IV 0533 Last 24 Hrs of Lab/Alok Results Last 24 Hrs of Labs/Mics: Laboratory Tests 02/15/18 1806: Anion Gap 5, Estimated GFR 59 L, BUN/Creatinine Ratio 35.0 H, CBC w Diff NO MAN DIFF REQ, RBC 3.02 L, MCV 92.9, MCH 30.3, MCHC 32.6 L, RDW 13.4, MPV 8.9, Gran % 77.9 H, Lymphocytes % 9.9 L, Monocytes % 11.8 H, Eosinophils % 0.3, Basophils % 0.1, Absolute Granulocytes 10.7 H, Absolute Lymphocytes 1.4, Absolute Monocytes 1.6 H, Absolute Eosinophils 0, Absolute Basophils 0 Assessment/Plan Assessment: Mr Wharton is a 77-year-old gentleman with past medical history of 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 Appears the patient tolerated the procedure well under the care of Dr. Gould. This morning the patient appeared to be delirious likely due to polypharmacy including morphine, Ativan and mirtazapine. His problem list and plan has been listed below. #Excessive drowsiness likely related to anesthesia and recent procedure #TURP due to Bladder outlet obstruction catheter in place. #Oxygen dependent COPD #Coronary artery disease, Plavix Currently on hold #Acute Encephalopathy #Hisotry of Depression with suicide ideations. Continue on General medical service. Continuous bladder irrigation. Monitor In's and Outs. Aspiration precautions. If patient spikes temperature overnight obtain chest x-ray to rule out any consolidation or opacification. If mentation worsening, may consider ABG to rule out acute hypoxa and CO2 retention Hold Mirtazipine, avoid benzos. TRC nebs and supplemental oxygen. Incentive spirometer, encourage use when more alert. Hold begin Plavix till H&H is more stable Continue home medications from 02/15/2018. CBC and BEP Q24. Goal hgb > 8/24 DVT prophylaxis ALPS Heart healthy diet Physical therapy evaluation. Patient is a full code. Problem List: 1. Hematuria Pain Ratin Pain Location: No Pain endorsed Pain Goal: Remain pain free Pain Plan: Tylenol PRN Tomorrow's Labs & Rationales: CBC: monitor H/H in the setting of hematuria. BEP: monitor Electrolytes Felipe Mullins MD 02/16/18 1400: Attending MD Review Statement Attending Statement Attending MD Statement: examined this patient, discuss w/resident/PA/FLOOR SUPERVISOR, agreed w/resident/PA/FLOOR SUPERVISOR, discussed with family, reviewed EMR data (avail), discussed with nursing, discussed with case mgmt, amended to note Attending Assessment/Plan: The patient was seen and discussed with house staff. Will continue bladder irrigation (still with blood). Slightly sedated this morning and will hold Mirtazapine and sedating meds at present. If not improving will check ABG's (? CO2 retention) .
[2018-02-16 08:33] LABS: ABSOLUTE BASOPHIL COUNT 0 /CUMM (0.0-0.2); ABSOLUTE EOSINOPHIL COUNT 0.2 /CUMM (0.0-0.7); ABSOLUTE GRANULOCYTE CT 8.4 /CUMM (1.4-6.5); ABSOLUTE LYMPH COUNT 1.6 /CUMM (1.2-3.4); ABSOLUTE MONOCYTE COUNT 1.5 /CUMM (0.10-0.60); BASOPHIL % 0.2 % (0.0-2.0); EOSINOPHIL % 1.6 % (0-5); HEMATOCRIT 28.1 % (42-52); MEAN CORPUSCULAR HGB 30.5 PG (27.0-31.0); MEAN CORPUSCULAR HGB CONC 33.1 G/DL (33.0-37.0); MEAN CORPUSCULAR VOLUME 92.4 FL (80.0-94.0); PLATELET COUNT 234 /CUMM (130-400); RBC DISTRIBUTION WIDTH 13.5 % (11.5-14.5); RED BLOOD CELL CT 3.05 /CUMM (4.70-6.10); WHITE BLOOD CELL COUNT 11.7 /CUMM (4.8-10.8)
--- NOTE | 2018-02-16 11:01 | PN- Urology ---
Surgical Brief Attending Note Brief Attending Note: pt appears exhausted: vss afebrile: cbi with intermittent hematuria and clots- continue cbi today
[2018-02-16 14:23] VITALS: BP 112/60
[2018-02-16 22:00] VITALS: BP 114/60
[2018-02-17 06:58] VITALS: BP 142/84
--- NOTE | 2018-02-17 07:18 | PN- Housestaff ---
See Addendum Subjective Follow-up For: Lethatgy S/P TURP Subjective: Mr Akiko was seen and examined this morning. Resting comfortably in bed. Denies any issued overnight. States that he feels better and would like to go home today. CBI is currently in progress and has been draining well overnight. Urologist Dr. Gould was at bedside during the course of the clinical interaction. Currently on supplemental oxygen 2 L via nasal cannula. Review of Systems Constitutional: Reports: see HPI. Objective Last 24 Hrs of Vital Signs/I&O Vital Signs Date Time Temp Pulse Resp B/P B/P Pulse O2 O2 Flow FiO2 Mean Ox Delivery Rate 02/17 0803 104 18 126/60 02/17 0802 104 18 126/60 02/17 0658 97.5 110 20 142/84 98 Nasal Cannula 02/17 0320 94 Nasal 2.0L Cannula 02/17 0000 93 Nasal 2.0L Cannula 02/16 2200 98.2 82 20 114/60 94 02/16 1600 96 Nasal 2.0L Cannula 02/16 1423 98.4 88 18 112/60 93 Nasal 2.0L Cannula 02/16 1143 93 Nasal 2.0L Cannula 02/16 0842 88 114/60 02/16 0841 88 114/60 02/16 0826 Nasal 2.0L Cannula Intake & Output 02/17 1600 02/17 0800 02/17 0000 Intake Total 470 350 Output Total 1550 802 Balance -1080 -452 Intake, IV 350 150 Intake, Oral 120 200 Output, Stool 2 Output, Urine 1550 800 Physical Exam General Appearance: Alert, Oriented X3, Cooperative Cardiovascular: Normal S1, Normal S2 Lungs: Normal Air Movement, expiratory rhonchi noted Abdomen: Normal Bowel Sounds, Soft, No Tenderness Neurological: Normal Speech Extremities: No Edema Vascular: Normal Pulses Current Medications: Current Medications Sig/Herber Start time Last Medication Dose Route Stop Time Status Admin Acetaminophen 650 MG Q6-PRN PRN 02/14 1645 AC PO Albuterol Sulfate 3 ML EVERY 4 HRS/AWAKE 02/15 2000 AC 02/17 INH 0303 Atorvastatin Calcium 40 MG DAILY 02/15 09 AC 02/17 PO 0759 Azithromycin 500 MG 02/15 09 AC 02/17 PO 0759 Bicalutamide 50 MG DAILY 02/17 0800 AC PO Ezetimibe 10 MG DAILY 02/15 0900 AC 02/17 PO 0759 Ipratropium [place] 2.5 ML EVERY 4 HRS/AWAKE 02/14 2000 AC 02/17 INH 0303 Lorazepam 0.5 MG BID 02/15 1015 AC 02/17 PO 02/22 1014 0758 Losartan Potassium 50 MG DAILY 02/15 0900 AC 02/17 PO 0803 Metoprolol Tartrate 25 MG DAILY 02/15 1552 AC 02/17 PO 0802 Mirtazapine 7.5 MG AT BEDTIME 02/15 2100 DC 02/15 PO 2137 Morphine Sulfate 2 MG Q6P PRN 02/14 1645 AC 02/15 IV 1025 Oxycodone/ 1 TAB Q6P PRN 02/14 1645 AC 02/14 Acetaminophen PO 1858 Prednisone 5 MG Q48 02/17 0900 AC PO Sodium Chloride 1,000 ML Q20H 02/14 1515 AC 02/16 IV 2346 Last 24 Hrs of Lab/Alok Results Last 24 Hrs of Labs/Mics: Laboratory Tests 02/17/18 0601: Sodium Pending, Potassium Pending, Chloride Pending, Carbon Dioxide Pending, Anion Gap Pending, BUN Pending, Creatinine Pending, BUN/Creatinine Ratio Pending , CBC w Diff Pending, WBC Pending, RBC Pending, Hgb Pending, Hct Pending, MCV Pending, MCH Pending, MCHC Pending, RDW Pending, Plt Count Pending, MPV Pending Assessment/Plan Assessment: Mr Wharton is a 77-year-old gentleman with past medical history of 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 Appears the patient tolerated the procedure well under the care of Dr. Gould. Patient's mentation appears improved. His problem list and plan has been listed below. #Excessive drowsiness likely related to anesthesia and recent procedure #TURP due to Bladder outlet obstruction catheter in place. #Oxygen dependent COPD #Coronary artery disease, Plavix Currently on hold #Acute Encephalopathy #Hisotry of Depression with suicide ideations. Continue on General medical service. Continuous bladder irrigation. To be running till patient is ready for discharge. Monitor In's and Outs. Aspiration precautions. May begin Palvix, this was cleared by the urologist. Repeat CBC 02/21/2018. Hold Mirtazipine, avoid benzos. TRC nebs and supplemental oxygen. Incentive spirometer, encourage use when more alert. Continue home medications from 02/15/2018. CBC and BEP Q24 if does not get discharged. Goal hgb > 8/24 DVT prophylaxis ALPS Heart healthy diet Physical therapy evaluation, to advise on disposition. Patient is a full code. Problem List: 1. Urinary retention due to benign prostatic hyperplasia Pain Ratin Pain Location: No Pain Pain Goal: Remain pain free Pain Plan: Tylenol PRN Tomorrow's Labs & Rationales: No Labs unless labs from today are deranged
[2018-02-17 08:19] LABS: ABSOLUTE BASOPHIL COUNT 0.1 /CUMM (0.0-0.2); ABSOLUTE EOSINOPHIL COUNT 0.7 /CUMM (0.0-0.7); ABSOLUTE GRANULOCYTE CT 8.5 /CUMM (1.4-6.5); ABSOLUTE LYMPH COUNT 1.7 /CUMM (1.2-3.4); ABSOLUTE MONOCYTE COUNT 1.4 /CUMM (0.10-0.60); BASOPHIL % 0.5 % (0.0-2.0); EOSINOPHIL % 5.8 % (0-5); GRANULOCYTE % 68.4 % (42.2-75.2); HEMATOCRIT 28.2 % (42-52); MEAN CORPUSCULAR HGB 30.8 PG (27.0-31.0); MEAN CORPUSCULAR HGB CONC 33.1 G/DL (33.0-37.0); MEAN PLATELET VOLUME 9.1 FL (7.4-10.4); PLATELET COUNT 239 /CUMM (130-400); RBC DISTRIBUTION WIDTH 13.6 % (11.5-14.5); RED BLOOD CELL CT 3.04 /CUMM (4.70-6.10); WHITE BLOOD CELL COUNT 12.4 /CUMM (4.8-10.8)
--- NOTE | 2018-02-17 08:24 | Patient Discharge Instructions ---
Discharge Instructions General Discharge Information You were seen/treated for: TURP Lethargy Special Instructions: Please follow-up with your primary care physician within 7 days. Please follow-up with the urologist within 7 days. We've provided you with a referral. Please have a CBC done on 02/21/2018. CC results to your PCP (Dr Porter). Diet Continue normal diet: Yes Acute Coronary Syndrome Inclusion Criteria At DC or during hospital stay patient has or had the following: ACS DIAGNOSIS No Discharge Core Measures Meds if any: Prescribed or Continued at Discharge Meds if any: NOT Prescribed or Continued at Discharge Congestive Heart Failure Inclusion Criteria At DC or during hospital stay patient has or had the following: CHF DIAGNOSIS No Discharge Core Measures Meds if any: Prescribed or Continued at Discharge Meds if any: NOT Prescribed or Continued at Discharge Cerebrovascular accident Inclusion Criteria At DC or during hospital stay patient has or had the following: CVA/TIA Diagnosis No Discharge Core Measures Meds if any: Prescribed or Continued at Discharge Meds if any: NOT Prescribed or Continued at Discharge Venous thromboembolism Inclusion Criteria VTE Diagnosis No VTE Type NONE VTE Confirmed by (Test) NONE Discharge Core Measures - Per Current guidelines, there needs to be overlap - treatment for the first 5 days of Warfarin therapy. - If discharged on Warfarin prior to 5 days of - overlap therapy, the patient will need to be - assessed for post discharge needs including - *Post discharge parental anticoagulation - *Warfarin and/or parental anticoagulation education - *Follow up date to check INR post discharge At least 5 days overlap therapy as Inpatient No Meds if any: Prescribed or Continued at Discharge Note: Overlap Therapy is Warfarin and Anticoagulant Meds if any: NOT Prescribed or Continued at Discharge
[2018-02-17] MEDS ORDERED: BICALUTAMIDE50 M1 PO (08:25)
--- NOTE | 2018-02-17 10:19 | Discharge Summary ---
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 After the patient's procedure he had a hard time recovering from anesthesia and subsequently placed under observation for monitoring. Below is a problem list in summary of care he received under us. Dyspnea/Somnolence/Acute on Chronic Hypoxic Respiratory Failure BPH/ Urinary Retention s/p TURP due to Bladder outlet obstruction Oxygen dependent COPD Coronary artery disease, on Plavix HTN/CAD Anxiety/ Depression Patient was placed on observation on the medical service. Due to urinary retention and the presence of clots in the lorenzo status post TURP continuous bladder irrigation was initiated. Due to ongoing hematuria the patient was admitted to the hospital on 02/15/2018. Patient's H&H was serially monitored. Given the pathologyreports from TURP (prostate CA), patient was started on Casodex. Patient was advised to follow-up with urologist as an outpatient where he will be likley started on Lupron as an outpatient. Prior to procedure patient's Plavix was being held. This medication was resumed 02/17/2018. However due to ongoing hematuria this medication to be stopped. It was recommended that patient would need to remain off anticoagulation for an additional 3 days after discharge. Patient's also got teaching from nursing to irrigate Lorenzo catheter every 2 -4 hours with sterile water. Patient was advised if any evidence of clot or obstruction he will need to come back to the emergency department. Patient also worked with physical therapy recommended that the patient can go home. It was reported prior to patient's admission that he was supposed to be started on mirtazapine. Patient was given 1 dose of mirtazapine during this admission however following day noted to be sedated. We subsequently discontinued this medication. All imaging studies and procedure reports have been attached to the bottom of this report. Patient was a full code. Allergies: Coded Allergies: aspirin (Intermediate, HIVES 02/13/18) Significant Procedures: Name of Procedure: TURP: bipolar Pre-Operative Diagnosis: bph-retention Post-Operative Diagnosis: same Estimated Blood Loss: less than 50ml Surgeon/Research Associate Molecular Biology: Kev Gould MD Anesthesia: laryngeal mask airway Drains: 20fr lorenzo Specimens: prostate chips Complications: none Operative/Procedure Note Note: The patient was taken to the operating room and placed on the OR table in supine position. Timeout was performed, with the pt. awake, to correctly identify the patient, anesthesia, procedure, and IV antibiotics, and other pertinent perioperative information. After adequate anesthesia and antibiotics, the patient was then placed in lithotomy stirrups using yellowfin stirrups. The patient was then draped and prepped in the usual surgical fashion. A 26 [place] standard resectoscope sheath with a 30 angle lens and the 24 [place] loop was inserted into the urethra, and then advanced into the bladder without difficulty. A FEW small clots, and bladder stones, were noted in the bladder, and were Ellix evacuated out. With a clearer vision, the prostate was noted to have an irregular and ratty surface with severely coapting lobes. Additionally, the prostate was hypervascular consistent with regrowth. Upon entering the bladder, it was thoroughly and systematically surveyed revealing no evidence of tumor, both orifices were difficult to find due to the severe trabeculation, in their orthotopic position with clear yellow reflux. The resectoscope was then retracted to the level of the digna montanum. Under direct visualization the 24 [place] loop was then extended beyond the scope. Under direct visualization, and using the cutting current, the left lobe of the prostate was resected from the 2 :00 to the 6 o'clock position to the level of the fibromuscular capsule. Using coag current, spot cauterization was performed in order to achieve good hemostasis of the prostate. The loop was then extended once again using cutting current to resect the right side of the prostate from the 10:00 to the 6 o'clock position to the level of the fibromuscular capsule. Spot cauterization using coag current was then performed in order to achieve good hemostasis. Maintaining the position of the resectoscope at the level of the vera montanum the apical tissue was resected as well on both sides. The external sphincter was preserved. The bladder was then re-entered via the resectoscope, and the prostate chips were irrigated out using tumey evacuation. Once all the prostate chips were removed, the bladder was re-evaluating and noted to have no untoward injury. Additionally, the prostate channel was noted to have good hemostasis, with a wide open channel. The resectoscope was removed with the bladder full. A 22 Kazakh couvalier three-way Lorenzo catheter was inserted without difficulty draining clear fluid. The bladder was again copiously irrigated via the lorenzo to ensure patency/ The 30 mL balloon was then filled, and continuous bladder irrigation with normal saline was initiated. Clear and easy drainage of NS from the main port was confirmed with CBI. All sponge needle and instrument count were correct at the end of the case. The patient tolerated the procedure well and was then taken to the recovery room in satisfactory condition. Discharge Disposition: PACU CC: Kev Gould MD Disposition Summary Disposition Principal Diagnosis: Dyspnea/Somnolence/Acute on Chronic Hypoxic Respiratory Failure Additional Diagnosis: BPH/ Urinary Retention s/p TURP due to Bladder outlet obstruction Oxygen dependent COPD Coronary artery disease, on Plavix HTN/CAD Anxiety/ Depression Discharge Disposition: home or self care Discharge Instructions General Discharge Information Code Status: Full Code Patient's Diet: Heart Healthy Patient's Activity: As Tolerated Follow-Up Instructions/Appts: Please follow-up with your primary care physician within 7 days. Please follow-up with the urologist within 7 days. We've provided you with a referral. Please have a CBC done on 02/21/2018. CC results to your PCP (Dr Porter). Medications at Discharge Discharge Medications: Stop taking the following medications: Mirtazapine (Mirtazapine) 7.5 MG TABLET ORAL AT BEDTIME Qty = 30 Continue taking these medications: Ezetimibe (Zetia) 10 MG TABLET 1 Tablet ORAL DAILY Comments: Last Taken: 02/19/18 Time: 9 AM Finasteride (Finasteride) 5 MG TABLET 1 Tablet ORAL DAILY Qty = 90 Comments: NOT GIVEN IN HOSPITAL Amlodipine Besylate (Amlodipine Besylate) 5 MG TABLET 1 Tablet ORAL DAILY Qty = 90 Comments: DID NOT ADMINISTER IN HOSPITAL Ipratropium/Albuterol Sulfate (Iprat-Albut 0.5-3(2.5) MG/3 Ml) 3 ML AMPUL.NEB 3 Milliliters Inhale through mouth Every 4 hours Instructions: EVERY 4 HOURS WHEN AWAKE Comments: Last Taken: 02/19/18 Time: 4 PM Metoprolol Tartrate (Metoprolol Tartrate) 25 MG TABLET 1 Tablet ORAL DAILY Comments: Last Taken: 02/19/18 Time: 9 AM Losartan Potassium (Losartan Potassium) 50 MG TABLET 1 Tablet ORAL DAILY Comments: Last Taken: 02/19/18 Time: 9 AM Atorvastatin Calcium (Atorvastatin Calcium) 40 MG TABLET 1 Tablet ORAL DAILY Qty = 90 Comments: Last Taken: 02/19/18 Time: 9 AM Lorazepam (Ativan) 0.5 MG TABLET 1 Tablet ORAL 2 x Daily as needed as needed for ANXIETY Comments: Last Taken: 02/19/18 Time: 9:15AM Azithromycin (Zithromax) 500 MG TABLET 1 Tablet ORAL TUESDAY, TUESDAY AND TUESDAY Qty = 30 Comments: Last Taken: 02/17/18 Time: 7:00 AM Prednisone (Prednisone) 5 MG TABLET 5 Milligram ORAL EVERY 48 HOURS (Every 2 days) Qty = 30 Comments: Last Taken: 02/19/18 Time: 9:15 AM Furosemide (Lasix) 20 MG TABLET 1 Tablet ORAL Every other day Comments: NOT GIVEN IN HOSPITAL Clopidogrel Bisulfate (Clopidogrel) 75 MG TABLET 1 Tablet ORAL DAILY Comments: Last Taken: 02/18/18 Time: 9:40 AM Start taking the following new medications: Bicalutamide (Bicalutamide) 50 MG TABLET 1 Tablet ORAL DAILY Qty = 30 No Refills Comments: Last Taken: 02/19/18 Time: 9:15 AM Copies To: Charlotte RICE,Kev Licona MD Attending MD Review Statement Documenting Attending: Felipe Mullins MD Other Findings: The patient was seen and discussed with house staff. Agree with the summary of care as above.
[2018-02-17 14:49] VITALS: BP 118/56
--- NOTE | 2018-02-17 15:40 | PN- Urology ---
Surgical Brief Attending Note Brief Attending Note: PT TO GO HOME WITH HERNANDEZ IN AM. TO CONTINUE WITH CASODEX 50MG PO DAILY, AND WILL ORDER LUPRON 45MG TO START WHEN HE FOLLOWS UP IN OFFICE OUTPATIENT: PT AND HIS INFORMED OF PROSTATE CANCER DIAGNOSIS TODAY.
[2018-02-17 21:33] VITALS: BP 130/68
[2018-02-18 05:48] VITALS: BP 110/62
[2018-02-18 09:15] LABS: ABSOLUTE BASOPHIL COUNT 0 /CUMM (0.0-0.2); ABSOLUTE EOSINOPHIL COUNT 0.8 /CUMM (0.0-0.7); ABSOLUTE LYMPH COUNT 2.1 /CUMM (1.2-3.4); ABSOLUTE MONOCYTE COUNT 1.2 /CUMM (0.10-0.60); BASOPHIL % 0.4 % (0.0-2.0); EOSINOPHIL % 6.4 % (0-5); GRANULOCYTE % 68.3 % (42.2-75.2); HEMATOCRIT 30.5 % (42-52); MEAN CORPUSCULAR HGB 30.8 PG (27.0-31.0); MEAN CORPUSCULAR HGB CONC 33.1 G/DL (33.0-37.0); MEAN CORPUSCULAR VOLUME 93.2 FL (80.0-94.0); MEAN PLATELET VOLUME 8.8 FL (7.4-10.4); PLATELET COUNT 263 /CUMM (130-400); RBC DISTRIBUTION WIDTH 13.5 % (11.5-14.5); RED BLOOD CELL CT 3.27 /CUMM (4.70-6.10); WHITE BLOOD CELL COUNT 13.1 /CUMM (4.8-10.8)
[2018-02-18] MEDS ORDERED: BICALUTAMIDE50 M1 PO (09:46)
--- NOTE | 2018-02-18 11:46 | PN- Housestaff ---
Roxana RICE,[facility] 02/18/18 1146: Subjective Follow-up For: Prostate Ca S/P TURP Subjective: Patient feeling better, states he is ready go home today. Review of Systems Constitutional: Reports: no symptoms. EENTM: Reports: no symptoms. Cardiovascular: Reports: no symptoms. Respiratory: Reports: no symptoms. Gastrointestinal: Reports: no symptoms. Genitourinary: Reports: no symptoms. Musculoskeletal: Reports: no symptoms. Skin: Reports: no symptoms. Neurological/Psychological: Reports: no symptoms. Hematologic/Endocrine: Reports: no symptoms. Immunologic/Allergic: Reports: no symptoms. Objective Last 24 Hrs of Vital Signs/I&O Vital Signs Date Time Temp Pulse Resp B/P B/P Pulse O2 O2 Flow FiO2 Mean Ox Delivery Rate 02/18 1419 97.2 77 20 110/70 96 02/18 1147 95 Nasal 2.0L Cannula 02/18 0930 110 110/70 02/18 0928 110 110/70 02/18 0800 95 Nasal 2.0L Cannula 02/18 0746 95 Nasal 2.0L Cannula 02/18 0548 98.0 98 22 110/62 94 Nasal 2.0L Cannula 02/18 0259 Nasal 2.0L Cannula 02/17 2338 97 Nasal 2.0L Cannula 02/17 2133 97.4 96 18 130/68 97 02/17 1600 Nasal 2.0L Cannula 02/17 1550 95 Nasal 2.0L Cannula Intake & Output 02/18 1600 02/18 0800 02/18 0000 Intake Total 490 250 Output Total Balance 490 250 Intake, IV 10 10 Intake, Oral 480 240 Physical Exam General Appearance: Alert, Cooperative, No Acute Distress Skin: No Rashes, No Breakdown Cardiovascular: Regular Rate, Normal S1, Normal S2 Lungs: Clear to Auscultation, Normal Air Movement Abdomen: Normal Bowel Sounds, Soft, No Tenderness Extremities: No Clubbing, No Cyanosis, No Edema Current Medications: Current Medications Sig/Herber Start time Last Medication Dose Route Stop Time Status Admin Acetaminophen 650 MG Q6-PRN PRN 02/14 1645 AC PO Albuterol Sulfate 3 ML EVERY 4 HRS/AWAKE 02/15 2000 AC 02/18 INH 1145 Atorvastatin Calcium 40 MG DAILY 02/15 900 AC 02/18 PO 0930 Azithromycin 500 MG 02/15 09 AC 02/17 PO 0759 Bicalutamide 50 MG DAILY 02/17 0900 AC 02/18 PO 0930 Clopidogrel Bisulfate 75 MG DAILY 02/17 0955 DC 02/18 PO 0940 Ezetimibe 10 MG DAILY 02/15 0900 AC 02/18 PO 0928 Ipratropium [place] 2.5 ML EVERY 4 HRS/AWAKE 02/14 2000 AC 02/18 INH 1145 Lorazepam 0.5 MG BID PRN 02/18 1315 AC PO 02/25 1314 Lorazepam 0.5 MG ONE ONE 02/18 1300 DC 02/18 PO 02/18 1301 1306 Lorazepam 1 MG ONCE ONE 02/18 1115 CAN IV 02/18 1116 Losartan Potassium 50 MG DAILY 02/15 0900 AC 02/18 PO 0930 Metoprolol Tartrate 25 MG DAILY 02/15 1552 AC 02/18 PO 0928 Morphine Sulfate 2 MG Q6P PRN 02/14 1645 AC 02/15 IV 1025 Oxycodone/ 1 TAB Q6P PRN 02/14 1645 AC 02/14 Acetaminophen PO 1858 Prednisone 5 MG Q48 02/17 0900 AC 02/17 PO 1006 Sodium Chloride 1,000 ML Q20H 02/14 1515 DC 02/16 IV 2346 Last 24 Hrs of Lab/Alok Results Last 24 Hrs of Labs/Mics: Laboratory Tests 02/18/18 0824: CBC w Diff NO MAN DIFF REQ, RBC 3.27 L, MCV 93.2, MCH 30.8, MCHC 33.1, RDW 13.5 , MPV 8.8, Gran % 68.3, Lymphocytes % 16.1 L, Monocytes % 8.8, Eosinophils % 6.4 H, Basophils % 0.4, Absolute Granulocytes 9.0 H, Absolute Lymphocytes 2.1, Absolute Monocytes 1.2 H, Absolute Eosinophils 0.8, Absolute Basophils 0 Assessment/Plan Assessment: Mr Wharton is a 77-year-old gentleman with past medical history of 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 Appears the patient tolerated the procedure well under the care of Dr. Gould. Patient's mentation appears improved. His problem list and plan has been listed below. #Excessive drowsiness likely related to anesthesia and recent procedure #TURP due to Bladder outlet obstruction catheter in place. #Oxygen dependent COPD #Coronary artery disease, Plavix Currently on hold #Acute Encephalopathy #Hisotry of Depression with suicide ideations. Continue on General medical service. Continuous bladder irrigation as patient continues to have hematuria. Repeat CBC in am. Discontinue Plavix per Urology Resume Ativan for Anxiety. Aspiration precautions. Hold Mirtazipine, avoid benzos. TRC nebs and supplemental oxygen. Incentive spirometer, encourage use when more alert. Continue home medications from 02/15/2018. CBC and BEP Q24 if does not get discharged. Goal hgb > 8/24 DVT prophylaxis ALPS Heart healthy diet Physical therapy evaluation, to advise on disposition. Patient is a full code Problem List: 1. Urinary retention Pain Ratin Pain Location: NA Pain Goal: Remain pain free Pain Plan: NA Tomorrow's Labs & Rationales: JOSEPH Frederick MD,Jamee 02/18/18 1226: Attending MD Review Statement Attending Statement Attending MD Statement: examined this patient, discuss w/resident/PA/PARTY PLAN SALES AGENT, agreed w/resident/PA/PARTY PLAN SALES AGENT, discussed with family, reviewed EMR data (avail), discussed with nursing, discussed with case mgmt, reviewed images, amended to note Attending Assessment/Plan: Patient seen and examined, offers no complaints. Urine is now clear after CBI was stopped. H&H remained stable. Patient has a Parker and he's to go home with a Parker catheter. He will follow per Dr. Gould as an outpatient. Patient was started on Casodex and will be continued on that. Otherwise he is medically stable for discharge home today. D//W at bedside.
[2018-02-18 14:19] VITALS: BP 110/70
[2018-02-18 22:10] VITALS: BP 110/60
[2018-02-19 05:36] VITALS: BP 128/74
[2018-02-19 09:38] LABS: ABSOLUTE BASOPHIL COUNT 0.1 /CUMM (0.0-0.2); ABSOLUTE EOSINOPHIL COUNT 1.6 /CUMM (0.0-0.7); ABSOLUTE GRANULOCYTE CT 11.1 /CUMM (1.4-6.5); ABSOLUTE MONOCYTE COUNT 1.6 /CUMM (0.10-0.60); BASOPHIL % 0.4 % (0.0-2.0); GRANULOCYTE % 67.9 % (42.2-75.2); HEMATOCRIT 31.8 % (42-52); MEAN CORPUSCULAR HGB 30.5 PG (27.0-31.0); MEAN CORPUSCULAR HGB CONC 32.5 G/DL (33.0-37.0); MEAN CORPUSCULAR VOLUME 93.9 FL (80.0-94.0); PLATELET COUNT 302 /CUMM (130-400); RBC DISTRIBUTION WIDTH 13.4 % (11.5-14.5); RED BLOOD CELL CT 3.39 /CUMM (4.70-6.10); WHITE BLOOD CELL COUNT 16.4 /CUMM (4.8-10.8)
--- NOTE | 2018-02-19 09:53 | PN- Housestaff ---
Roxana RICE,[facility] 02/19/18 0953: Subjective Follow-up For: Prostate Ca S/P TURP Subjective: Patient is frustrated this morning, wants to go home today, since he does not have any blood in his urine anymore and he feels stable to be discharged today. Review of Systems Constitutional: Reports: no symptoms. EENTM: Reports: no symptoms. Cardiovascular: Reports: no symptoms. Respiratory: Reports: no symptoms. Gastrointestinal: Reports: no symptoms. Genitourinary: Reports: no symptoms. Musculoskeletal: Reports: no symptoms. Skin: Reports: no symptoms. Neurological/Psychological: Reports: no symptoms. Hematologic/Endocrine: Reports: no symptoms. Immunologic/Allergic: Reports: no symptoms. Objective Last 24 Hrs of Vital Signs/I&O Vital Signs Date Time Temp Pulse Resp B/P B/P Pulse O2 O2 Flow FiO2 Mean Ox Delivery Rate 02/19 0916 106 128/74 02/19 0916 106 128/74 02/19 0829 96 Nasal 2.0L Cannula 02/19 0536 97.5 106 22 128/74 99 Nasal Cannula 02/19 0027 95 Nasal 2.0L Cannula 02/18 2248 Nasal 2.0L Cannula 02/18 2210 97.8 100 20 110/60 96 02/18 1604 Nasal 2.0L Cannula 02/18 1419 97.2 77 20 110/70 96 02/18 1147 95 Nasal 2.0L Cannula Intake & Output 02/19 1600 02/19 0800 02/19 0000 Intake Total 60 Output Total Balance 60 Intake, Oral 60 Number 1 Bowel Movements Output, Urine Physical Exam General Appearance: Alert, Oriented X3, Cooperative Skin: No Rashes, No Breakdown Cardiovascular: Regular Rate, Normal S1, Normal S2 Lungs: Clear to Auscultation, Normal Air Movement Abdomen: Normal Bowel Sounds, Soft, No Tenderness Extremities: No Clubbing, No Cyanosis, No Edema Current Medications: Current Medications Sig/Herber Start time Last Medication Dose Route Stop Time Status Admin Acetaminophen 650 MG Q6-PRN PRN 02/14 1645 AC 02/19 PO 09 Albuterol Sulfate 3 ML EVERY 4 HRS/AWAKE 02/15 2000 AC 02/19 INH 0828 Atorvastatin Calcium 40 MG DAILY 02/15 900 AC 02/19 PO 0916 Azithromycin 500 MG 02/15 0900 AC 02/17 PO 0759 Bicalutamide 50 MG DAILY 02/17 0900 AC 02/19 PO 0916 Clopidogrel Bisulfate 75 MG DAILY 02/17 0955 DC 02/18 PO 0940 Ezetimibe 10 MG DAILY 02/15 0900 AC 02/19 PO 0916 Ipratropium [place] 2.5 ML EVERY 4 HRS/AWAKE 02/14 2000 AC 02/19 INH 0828 Lorazepam 0.5 MG BID PRN 02/18 1315 AC 02/19 PO 02/25 1314 0917 Lorazepam 0.5 MG ONE ONE 02/18 1300 DC 02/18 PO 02/18 1301 1306 Lorazepam 1 MG ONCE ONE 02/18 1115 CAN IV 02/18 1116 Losartan Potassium 50 MG DAILY 02/15 0900 AC 02/19 PO 0916 Metoprolol Tartrate 25 MG DAILY 02/15 1552 AC 02/19 PO 0916 Morphine Sulfate 2 MG Q6P PRN 02/14 1645 AC 02/15 IV 1025 Oxycodone/ 1 TAB Q6P PRN 02/14 1645 AC 02/14 Acetaminophen PO 1858 Prednisone 5 MG Q48 02/17 09 AC 02/19 PO 0916 Last 24 Hrs of Lab/Alok Results Last 24 Hrs of Labs/Mics: Laboratory Tests 02/19/18 0611: CBC w Diff NO MAN DIFF REQ, RBC 3.39 L, MCV 93.9, MCH 30.5, MCHC 32.5 L, RDW 13.4, MPV 9.0, Gran % 67.9, Lymphocytes % 12.1 L, Monocytes % 9.6 H, Eosinophils % 10.0 H, Basophils % 0.4, Absolute Granulocytes 11.1 H, Absolute Lymphocytes 2.0, Absolute Monocytes 1.6 H, Absolute Eosinophils 1.6, Absolute Basophils 0.1 Assessment/Plan Assessment: Mr Wharton is a 77-year-old gentleman with past medical history of 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 Appears the patient tolerated the procedure well under the care of Dr. Gould. Patient's mentation appears improved. His problem list and plan has been listed below. #Excessive drowsiness likely related to anesthesia and recent procedure #TURP due to Bladder outlet obstruction catheter in place. #Oxygen dependent COPD #Coronary artery disease, Plavix Currently on hold #Acute Encephalopathy #Hisotry of Depression with suicide ideations. Continue on General medical service. Continuous bladder irrigation as patient had hematuria yesterday. Urine currently cear, will discontinue CBI, if no hematuria patient can be discharged home later today. H&H stable. Plavix discontinued per Urology Resume Ativan for Anxiety. Aspiration precautions. Continue to hold Mirtazipine, avoid benzos. TRC nebs and supplemental oxygen. Incentive spirometer, encourage use when more alert. Continue home medications from 02/15/2018. DVT prophylaxis ALPS Heart healthy diet Physical therapy evaluation, to advise on disposition. Patient is a full code Problem List: 1. Hematuria 2. Urinary retention Pain Ratin Pain Location: None Pain Goal: Remain pain free Pain Plan: Pain pathway Tomorrow's Labs & Rationales: None Otoniel RICE,[facility] 02/19/18 1228: Attending MD Review Statement Attending Statement Attending MD Statement: examined this patient, discuss w/resident/PA/INSPECTOR GLASS OR MIRROR, agreed w/resident/PA/INSPECTOR GLASS OR MIRROR, discussed with family, reviewed EMR data (avail), discussed with nursing, discussed with case mgmt, amended to note Attending Assessment/Plan: Patient seen and examined, anticipating to go home. CBI is still going and currently the urine is clear. Vital Signs Date Time Temp Pulse Resp B/P B/P Pulse O2 O2 Flow FiO2 Mean Ox Delivery Rate 02/19 0916 106 128/74 02/19 0916 106 128/74 02/19 0829 96 Nasal 2.0L Cannula 02/19 0800 Nasal 2.0L Cannula 02/19 0536 97.5 106 22 128/74 99 Nasal Cannula 02/19 0027 95 Nasal 2.0L Cannula 02/18 2248 Nasal 2.0L Cannula 02/18 2210 97.8 100 20 110/60 96 02/18 1604 Nasal 2.0L Cannula 02/18 1419 97.2 77 20 110/70 96 on exam; aox3, nad. cv; s1,s2 rrr resp; clear abd; soft, nt, bs+ ext; no edema Laboratory Tests 02/19 0611 Hematology CBC w Diff NO MAN DIFF REQ WBC (4.8 - 10.8 /CUMM) 16.4 H RBC (4.70 - 6.10 /CUMM) 3.39 L Hgb (14.0 - 18.0 G/DL) 10.3 L Hct (42 - 52 %) 31.8 L MCV (80.0 - 94.0 FL) 93.9 MCH (27.0 - 31.0 PG) 30.5 MCHC (33.0 - 37.0 G/DL) 32.5 L RDW (11.5 - 14.5 %) 13.4 Plt Count (130 - 400 /CUMM) 302 MPV (7.4 - 10.4 FL) 9.0 Gran % (42.2 - 75.2 %) 67.9 Lymphocytes % (20.5 - 51.1 %) 12.1 L Monocytes % (1.7 - 9.3 %) 9.6 H Eosinophils % (0 - 5 %) 10.0 H Basophils % (0.0 - 2.0 %) 0.4 Absolute Granulocytes (1.4 - 6.5 /CUMM) 11.1 H Absolute Lymphocytes (1.2 - 3.4 /CUMM) 2.0 Absolute Monocytes (0.10 - 0.60 /CUMM) 1.6 H Absolute Eosinophils (0.0 - 0.7 /CUMM) 1.6 Absolute Basophils (0.0 - 0.2 /CUMM) 0.1 A/P; 77 y/o m with pmh sig for 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 The path report came out to be prostatic adenocarcinoma. Patient afterwards had hematuria and currently still getting CBI. Was supposed to be discharged yesterday but after the CBI was stopped, patient started hematuria again. As discussed with Dr. Gould, Plavix is stopped. Patient to remain off of anticoagulation for 3 days. We'll stop the CBI today. If hematuria is clear patient will go home, if there is slight pink urine then we don't have to worry about that as per Dr. Gould. If there is more hematuria then we can teach patient's to irrigate the Parker catheter every 2-4 hours with sterile water. If there is any obstruction or clot then patient would have to come back to the emergency room. Patient's to get teaching from nursing. Otherwise H&H remained stable. Possible discharge later today pending hematuria status.
[2018-02-19 14:07] VITALS: BP 118/70
[2018-02-19] MEDS ORDERED: BICALUTAMIDE50 M1 PO (16:17)
== END 2018-02-19 16:54 | disposition home health service (06) | DRG 713 ==
LOC: STS 02:02 → PACUH 12:01 → ENRESERV 12:38 → ENTRNSPT 15:40 → 2NA 15:51 → EDTRNSPT 15:52 → EDTRNSPTSTS 15:52 → CMPTRNSPT 16:21 → 2NA 02-15 10:15 → ENTRNSPT 02-19 16:35 → EDTRNSPTSTS 02-19 16:47 → 2NA 02-19 16:54 → CMPTRNSPT 02-19 17:08
PROVIDERS: Internal Medicine; Student in an Organized Health Care Education/Training Program
PROC: 0VT08ZZ Resection of Prostate, Via Natural or Artificial Opening Endoscopic (ICD-10-PCS; principal; 2018-02-14)
DX: C61 Malignant neoplasm of prostate (principal); J96.21 Acute and chronic respiratory failure with hypoxia; G93.40 Encephalopathy, unspecified; N40.1 Benign prostatic hyperplasia with lower urinary tract symptoms; R31.9 Hematuria, unspecified; Y83.8 Other surgical procedures as the cause of abnormal reaction of the patient, or of later complication, without mention of misadventure at the time of the procedure; J44.9 Chronic obstructive pulmonary disease, unspecified; Z99.81 Dependence on supplemental oxygen; I11.0 Hypertensive heart disease with heart failure; I50.9 Heart failure, unspecified; R33.8 Other retention of urine; I25.10 Atherosclerotic heart disease of native coronary artery without angina pectoris; I25.2 Old myocardial infarction; Z95.1 Presence of aortocoronary bypass graft; Z79.01 Long term (current) use of anticoagulants; Z79.82 Long term (current) use of aspirin; E78.5 Hyperlipidemia, unspecified; Z79.52 Long term (current) use of systemic steroids; F41.9 Anxiety disorder, unspecified; F32.9 Major depressive disorder, single episode, unspecified; T88.59XA Other complications of anesthesia, initial encounter; Y83.9 Surgical procedure, unspecified as the cause of abnormal reaction of the patient, or of later complication, without mention of misadventure at the time of the procedure; Y92.239 Unspecified place in hospital as the place of occurrence of the external cause
CPT/HCPCS: 2NASP; 36592; 82436; 87086; 97110-GO; 97116-GO; 97162-GP; 97530-GO; J0131; J0456; J7512; J9202

== ENCOUNTER 2018-02-20 21:17 | Inpatient (IN) | payer OTHER ==
[~2018-02-20] VITALS: Ht 172.7 cm; Wt 69.0 kg
[~2018-02-20 21:17] MED LIST changes: +BICALUTAMIDE50 M1 PO
--- NOTE | 2018-02-20 21:28 | ED AMS/SEIZURE/WEAK/DIZZY ---
History of Present Illness General Chief Complaint: General Adult Stated Complaint: BIBA INCREASED WEAKNESS Source: patient Exam Limitations: clinical condition Vital Signs & Intake/Output Vital Signs & Intake/Output Vital Signs Date Time Temp Pulse Resp B/P B/P Pulse O2 O2 Flow FiO2 Mean Ox Delivery Rate 02/21 0139 108 29 135/66 98 BIPAP 30% 02/21 0025 97 98 02/20 2344 99.1 102 26 132/67 95 Nasal 2.0L Cannula 02/203 99 Nasal 2.0L Cannula 02/205 97.9 98 22 138/64 100 Nasal 2.0L Cannula ED Intake and Output 02/21 0000 02/20 1200 Intake Total 1000 Output Total Balance 1000 Intake, IV 1000 Patient 175 lb Weight Weight Estimated Measurement Method Allergies Coded Allergies: aspirin (Intermediate, HIVES 02/13/18) Reconcile Medications Amlodipine Besylate 5 MG TABLET 1 TAB PO DAILY HEART (Reported) Atorvastatin Calcium 40 MG TABLET 1 TAB PO DAILY cholesterol (Reported) Azithromycin (Zithromax) 500 MG TABLET 1 TAB PO Tuesday COPD Bicalutamide 50 MG TABLET 1 TAB PO DAILY Prostate Clopidogrel Bisulfate (Clopidogrel) 75 MG TABLET 1 TAB PO DAILY BLOOD THINNER (Reported) Ezetimibe (Zetia) 10 MG TABLET 1 TAB PO DAILY CHOLESTEROL (Reported) Furosemide (Lasix) 20 MG TABLET 1 TAB PO SAT DIURETIC (Reported) Ipratropium/Albuterol Sulfate (Iprat-Albut 0.5-3(2.5) MG/3 Ml) 3 ML AMPUL.NEB 3 ML INH Q4 BREATHING (Reported) EVERY 4 HOURS WHEN AWAKE Lorazepam (Ativan) 0.5 MG TABLET 1 TAB PO BIDP PRN ANXIETY (Reported) Losartan Potassium 50 MG TABLET 1 TAB PO DAILY htn (Reported) Metoprolol Tartrate 25 MG TABLET 1 TAB PO DAILY Heart Health (Reported) Prednisone 2.5 MG TABLET 1 TAB PO SAT COPD Triage Note: BIBA FROM HOME WITH INCREASED WEAKNESS AND SHORTNESS OF BREATH. PER EMS PATIENT WAS RECENTLY DISCHARGED FROM THIS FACILITY WITH RECENT ADMISSION FOR URINARY S/S AND TURP PROCEDURE. PATIENT ARRIVES WITH HERNANDEZ IN FLACE FROM RECENT PROCEDURE, PATIENT WARM TO TOUCH, INCREASE IN CONFUSION PER FAMILY. PRE-HOSPITAL IV ESTABLISHED #20 LF. PATIENT ARRIVES WITH +4 EDEMA BILATERAL UPPER EXTREMITIES. EKG IN PROGRESS. Triage Nurses Notes Reviewed? yes Onset: Gradual Duration: day(s): Timing: recent history Injury Environment: home Severity: moderate Modifying Factors: Improves With: rest. Associated Symptoms: weakness HPI: 77 yo gentleman, h/o copd 2l nc, h/o turp last week, discharged yesterday, presents with lethargy, increased confusion, not eating or drinking. Per , "I tried to get him to eat lunch... and then dinner... He just hasn't eaten anything... I couldn't even wake him up this evening.... he is just so lethargic." 911 called. Medics arrived, 02 sat 96% on his baseline 2l. He is otherwise well. Past History Travel History Traveled to [place] past 21 day No Medical History Any Pertinent Medical History? see below for history Neurological: NONE EENT: HOARSE VOICE Cardiovascular: CHF, hypertension, hyperlipidemia, myocardial infarction Respiratory: COPD, emphysema, CHF ON 2L BASLINE Gastrointestinal: diverticulosis Hepatic: NONE Renal: benign prost hyperplasia, nephrolithiasis Musculoskeletal: FRACTURE(LT.INDEX FINGER) Psychiatric: anxiety, depression, insomnia Endocrine: NONE Blood Disorders: NONE Cancer(s): NONE TRANSCRIPTION COORDINATOR/Reproductive: NONE History of MRSA: No History of VRE: No History of CDIFF: No Surgical History Surgical History: CABG, cholecystectomy Psychosocial History Who do you live with Spouse Services at Home Oxygen What is your primary language Kazakh Tobacco Use: Quit >30 days ago ETOH Use: denies use Illicit Drug Use: denies illicit drug use Family History Family History, If Any: MOTHER (lung cancer, COPD). FATHER (COPD). Hx Contributory? No Review of Systems Review of Systems Constitutional: Reports: no symptoms. EENTM: Reports: no symptoms. Respiratory: Reports: no symptoms. Cardiovascular: Reports: no symptoms. GI: Reports: no symptoms. Genitourinary: Reports: no symptoms. Musculoskeletal: Reports: no symptoms. Skin: Reports: no symptoms. Neurological/Psychological: Reports: no symptoms. Hematologic/Endocrine: Reports: no symptoms. Immunologic/Allergic: Reports: no symptoms. All Other Systems: Reviewed and Negative Physical Exam Physical Exam General Appearance: well developed/nourished, mild distress Head: atraumatic, normal appearance Eyes: Bilateral: normal appearance. Ears, Nose, Throat: normal pharynx, normal ENT inspection, hearing grossly normal, except for dry mucosa Neck: normal inspection, supple, full range of motion Respiratory: normal breath sounds, chest non-tender, no respiratory distress, quiet respiration, lungs clear Cardiovascular: regular rate/rhythm Gastrointestinal: normal bowel sounds, soft, non-tender, no organomegaly Back: normal inspection, normal range of motion Extremities: normal range of motion, evidence of injury Neurologic/Psych: confused, axox1, non focal, mumbling. Skin: intact, normal color, warm/dry Core Measures ACS in differential dx? No CVA/TIA Diagnosis No Sepsis Present: No Sepsis Focused Exam Completed? No Progress Differential Diagnosis: uti, dehydration vs other. Plan of Care: Orders Procedure Date/time Status Nothing by Mouth 02/21 B Active TROPONIN LEVEL 02/21 1000 Active EKG 02/21 1000 Active TROPONIN LEVEL 02/21 0400 Active MAGNESIUM 02/21 0400 Active CBC WITHOUT DIFFERENTIAL 02/21 0400 Active BASIC ELECTROLYTES PLUS BUN&CR 02/21 0400 Active EKG 02/21 0400 Active ARTERIAL BLOOD GAS (GEN) 02/21 0300 Active LOWER RESPIRATORY CULTURE 02/21 0205 Active Wound Care/Dressing 02/21 0153 Complete Weight 02/21 0153 Active VTE Mechanical Prophylaxis 02/21 0153 Active Vital Signs 02/21 0153 Active Turn and Reposition 02/21 0153 Active Drains/Tubes 02/21 0153 Complete Teach/Educate 02/21 0153 Active Skin Integrity Protocol 02/21 0153 Active Skin/Pressure Ulcer Assess (Sk 02/21 0153 Active Precautions 02/21 0153 Active Pain Treatment and Response 02/21 0153 Active Nutritional Intake, Monitor 02/21 0153 Active Isolation 02/21 0153 Active CIWA 02/21 0153 Complete Patient Care Conference 02/21 0153 Active Activity/Ambulation 02/21 0153 Active TRC EVALUATION (GEN) 02/21 0148 Active OXYGEN SETUP (GEN) 02/21 0148 Active Pathway - chart 02/21 0148 Active House Staff 02/21 0148 Active Code Status 02/21 0148 Active VRE ACTIVE SURVIELLANCE 02/21 0100 Active ACTIVE SURVEILLANCE NARES 02/21 0100 Active BIPAP 02/21 0033 Active Restraint- Medical 02/21 0033 Active Transfer patient to 02/21 0029 Active BLOOD CULTURE 02/21 0020 Active Admit to inpatient 02/21 0018 Active Add-on Test (ER Only) 02/21 0016 Active BLOOD CULTURE 02/21 0016 Active VTE Mechanical Prophylaxis 02/21 UNK Active Vital Signs 02/21 UNK Active Activity/Ambulation 02/21 UNK Active Patient Data 02/20 2334 Active Intake & Output 02/20 2326 Active ARTERIAL BLOOD GAS (GEN) 02/20 2309 Complete CULTURE,URINE 02/20 2137 Active URINALYSIS 02/21 2128 Complete TROPONIN LEVEL 02/21 2128 Complete LIPASE 02/21 2128 Complete HEPATIC FUNCTION PANEL 02/21 2128 Complete CBC WITHOUT DIFFERENTIAL 02/21 2128 Complete BASIC METABOLIC PANEL 02/21 2128 Complete AMYLASE 02/21 2128 Complete EKG 02/20 2118 Active Current Medications Sig/Herber Start time Last Medication Dose Stop Time Status Admin Amlodipine Besylate 5 MG DAILY 02/21 900 UNVr (Norvasc) Atorvastatin Calcium 40 MG DAILY 02/21 900 UNVr (Lipitor) Azithromycin 500 MG DAILY 02/21 900 UNVr (Zithromax) Sodium Chloride 250 ML (Normal Saline 0.9%) Ezetimibe 10 MG DAILY 02/21 900 UNVr (Zetia) Furosemide 20 MG TU SAT 02/21 900 UNVr (Lasix) Losartan Potassium 50 MG DAILY 02/21 900 UNVr (Cozaar) Metoprolol Tartrate 25 MG DAILY 02/21 900 UNVr (Lopressor) Heparin Sodium 5,000 UNIT Q8 02/21 600 UNVr (Porcine) Ipratropium [place] 2.5 ML Q6 02/21 600 UNVr (Atrovent) Methylprednisolone 40 MG Q8 02/21 600 UNVr (Solumedrol) Albuterol Sulfate 3 ML Q6 PRN 02/21 0215 UNVr (Proventil) Non-Formulary 0 SEE ADMIN CRITERIA 02/21 0200 UNVr Medication (NON FORMULARY) Acetaminophen 650 MG Q6P PRN 02/21 0145 UNVr (Tylenol) Acetaminophen 1,000 MG Q6P PRN 02/21 0145 UNVr (Ofirmev) Laboratory Tests 02/21/18 0000: pH 7.23 *L, pCO2 94 *H, pO2 104 H, HCO3 38 H, ABG O2 Sat (Measured) 97.0, P-50 (Temp Corrected) N, Carboxyhemoglobin 0.3 L, O2 Concentration % 1L, O2 Delivery Method N/C, Phlebotomy Draw Site RIGHT RADIAL 02/20/182134: Anion Gap 3 L, Estimated GFR > 60, BUN/Creatinine Ratio 20.0, Glucose 106 H, Calcium 9.1, Total Bilirubin 1.0, Direct Bilirubin 0.1, AST 30, ALT 27, Alkaline Phosphatase 74, Troponin I 0.01, Total Protein 6.0 L, Albumin 3.3 L, Amylase 144 H, Lipase 100, CBC w Diff NO MAN DIFF REQ, RBC 3.48 L, MCV 94.2 H, MCH 30.6, MCHC 32.4 L, RDW 13.7, MPV 8.4, Gran % 70.8, Lymphocytes % 10.8 L, Monocytes % 9.7 H, Eosinophils % 8.4 H, Basophils % 0.3, Absolute Granulocytes 10.5 H, Absolute Lymphocytes 1.6, Absolute Monocytes 1.4 H, Absolute Eosinophils 1.3, Absolute Basophils 0, Urine Color YEL, Urine Clarity CLEAR, Urine pH 6.0, Ur Specific [place] >= 1.030, Urine Protein 100 H, Urine Ketones NEG, Urine Nitrite NEG, Urine Bilirubin NEG, Urine Urobilinogen 0.2, Ur Leukocyte Esterase NEG, Ur Microscopic SEDIMENT EXAMINED, Urine RBC 3-5, Urine WBC 1-3 H, Ur Epithelial Cells RARE, Urine Bacteria RARE H, Urine Mucus FEW, Urine Hemoglobin MOD H, Urine Glucose NEG Microbiology 02/21 0205 LOWER RESP: Respiratory Culture - ORD 02/21 0205 LOWER RESP: Gram Stain - ORD 02/21 0120 BLOOD: Blood Culture - RECD 02/21 0100 UPPER RESP: Surveillance Culture - ORD 02/21 0100 GI: Surveillance Culture - ORD 02/21 0025 BLOOD: Blood Culture - RECD 02/20 2137 URINE ROUT: Urine Culture - RECD Diagnostic Imaging: Viewed by Me: Radiology Read, CT Scan. Discussed w/RAD: Radiology Read, CT Scan. Radiology Impression: PATIENT: OUSMANE GUZMAN PRESENT AGE: 77 PATIENT ACCOUNT NO: [id number] : 42 LOCATION: [facility] ORDERING PHYSICIAN: Sg Fenton MD SERVICE DATE: 02/20/18-2134 EXAM TYPE: CAT - CT HEAD WO IV CONTRAST EXAMINATION: CT HEAD WITHOUT CONTRAST CLINICAL INFORMATION: Mental status change. COMPARISON: None TECHNIQUE: Contiguous axial imaging was performed from the skull base to vertex without intravenous administration of contrast. DLP: 863.88 mGy-cm FINDINGS: There is no evidence of acute intracranial hemorrhage or territorial infarction. No abnormal mass effect or midline shift is seen. [place] to white matter differentiation is well preserved. No extra-axial fluid collections are identified. There is atrophy with prominence of the ventricles and the sulci and hypodensity of the periventricular white matter due to chronic small vessel ischemic disease. There is vascular calcifications of the internal carotid arteries bilaterally. The osseous structures and soft tissues are normal. The mastoid air cells and visualized portions of the paranasal sinuses are well aerated. IMPRESSION: No acute intracranial pathology. DICTATED BY: Josh Moyer MD DATE/TIME DICTATED:2246 LEARNING SUPPORT SPECIALIST:SU DATE/TIME TRANSCRIBED:02/20/182246 CONFIDENTIAL, DO NOT COPY WITHOUT APPROPRIATE AUTHORIZATION. <Electronically signed in Other Vendor System> SIGNED BY: Josh Moyer MD 02/20/182252 CXR Impression: PATIENT: OUSMANE GUZMAN PRESENT AGE: 77 PATIENT ACCOUNT NO: [id number] : 42 LOCATION: [facility] ORDERING PHYSICIAN: Sg Fneton MD SERVICE DATE: 02/20/18 EXAM TYPE: RAD - XRY- PORTABLE CHEST XRAY EXAMINATION: XR PORTABLE CHEST CLINICAL INFORMATION: Chest pain. Dyspnea. COMPARISON: Chest x-ray 02/09/2018 TECHNIQUE: Portable frontal view of the chest was obtained. 9:37 PM FINDINGS: There is emphysematous hyperinflation of lungs. Lungs are clear. No pulmonary vascular congestion. No infiltrate or pleural effusion. No pneumothorax. The cardiac and mediastinal contours are normal. There are calcifications of aortic arch. Multilevel degenerative spondylosis of dorsal spine. IMPRESSION: No acute abnormality of the chest. DICTATED BY: Josh Moyer MD DATE/TIME DICTATED:02/20/182213 LEARNING SUPPORT SPECIALIST:SU DATE/TIME TRANSCRIBED:02/20/182213 CONFIDENTIAL, DO NOT COPY WITHOUT APPROPRIATE AUTHORIZATION. <Electronically signed in Other Vendor System> SIGNED BY: Josh Moyer MD 02/20/182218, PATIENT: OUSMANE GUZMAN PRESENT AGE: 77 PATIENT ACCOUNT NO: [id number] : 42 LOCATION: [facility] ORDERING PHYSICIAN: Sg Fenton MD SERVICE DATE: 02/20/18 EXAM TYPE: CAT - CT ABD & PELVIS W/O IV CONTRAS EXAMINATION: CT ABDOMEN AND PELVIS WITHOUT CONTRAST CLINICAL INFORMATION: Abdominal pain COMPARISON: Ultrasound abdomen 12/23/2016 TECHNIQUE: Multidetector volumetric imaging was performed from the superior aspect of the liver through the pubic symphysis. Sagittal and coronal reformatted images were obtained on the technologist's workstation. DLP: 378.18 mGy-cm FINDINGS: LUNG BASES: The visualized lung bases are unremarkable. LIVER, GALLBLADDER, AND BILIARY TREE: The liver is normal in size, shape, and attenuation. No focal hepatic lesion or biliary ductal dilatation is present. The gallbladder is unremarkable with no evidence of radiopaque gallstones, gallbladder wall thickening, or obvious pericholecystic inflammatory changes. PANCREAS: Unremarkable. SPLEEN: Unremarkable. ADRENAL GLANDS: Unremarkable. KIDNEYS AND URETERS: The kidneys are normal in size, shape, and attenuation. No hydronephrosis, hydroureter, or calculi seen. No perinephric stranding. BLADDER: Hernandez catheter within the bladder. GASTROINTESTINAL TRACT: No acute change of the bowel. No bowel obstruction. No bowel wall thickening or edema. There is a diverticula of the left colon and the sigmoid but no diverticulitis. The appendix is not seen. There is no inflammation the mesentery. The small bowel loops are unremarkable. ABDOMINAL WALL: Small fat-containing bilateral inguinal hernias. LYMPH NODES: Normal. VASCULAR: There is atherosclerotic vascular wall calcifications of aorta and iliac arteries without aneurysm. PELVIC VISCERA: Unremarkable. OSSEOUS STRUCTURES: Degenerative spondylosis spine with multilevel disc height narrowing and endplate spurring and facet joint arthrosis IMPRESSION : No acute abnormality CT scan abdomen and pelvis. DICTATED BY: Josh Moyer MD DATE/TIME DICTATED:02/20/182249 LEARNING SUPPORT SPECIALIST:SU DATE/TIME TRANSCRIBED:02/20/182249 CONFIDENTIAL, DO NOT COPY WITHOUT APPROPRIATE AUTHORIZATION. <Electronically signed in Other Vendor System> SIGNED BY: Josh Moyer MD 02/20/18 8930 Initial ED EKG: sinus tach, no acute changes. Departure Departure Disposition: STILL A PATIENT Condition: Stable Clinical Impression Primary Impression: Dehydration Secondary Impressions: COPD exacerbation, Hypercapnic respiratory failure, Mental status change, Respiratory acidosis Referrals: Charlotte RICE,Naun Benites (PCP/Family) Departure Forms: Customer Survey General Discharge Information Prescriptions: Current Visit Scripts Prednisone 1 TAB PO SAT #30 TAB Admission Note Spoke With: Nathanael Foss MD Documentation of Exam: Documentation of any treatments & extenuating circumstances including Concerns Regarding Discharge (functional status, medication knowledge or non-compliance, living conditions, etc.) that warrant an admission rather than observation: pt with respiratory acidosis in context of being post-op, merits bipap, icu admission. pt also with significant wheezing, merits steroids, abx for copd exacerbation. Critical Care Note Critical Care Note Critical Care Time: 30-74 min
[2018-02-20 21:42] LABS: ABSOLUTE BASOPHIL COUNT 0 /CUMM (0.0-0.2); ABSOLUTE EOSINOPHIL COUNT 1.3 /CUMM (0.0-0.7); ABSOLUTE GRANULOCYTE CT 10.5 /CUMM (1.4-6.5); ABSOLUTE LYMPH COUNT 1.6 /CUMM (1.2-3.4); ABSOLUTE MONOCYTE COUNT 1.4 /CUMM (0.10-0.60); BASOPHIL % 0.3 % (0.0-2.0); EOSINOPHIL % 8.4 % (0-5); GRANULOCYTE % 70.8 % (42.2-75.2); HEMATOCRIT 32.8 % (42-52); MEAN CORPUSCULAR HGB 30.6 PG (27.0-31.0); MEAN CORPUSCULAR HGB CONC 32.4 G/DL (33.0-37.0); MEAN CORPUSCULAR VOLUME 94.2 FL (80.0-94.0); MEAN PLATELET VOLUME 8.4 FL (7.4-10.4); PLATELET COUNT 359 /CUMM (130-400); RBC DISTRIBUTION WIDTH 13.7 % (11.5-14.5); RED BLOOD CELL CT 3.48 /CUMM (4.70-6.10); WHITE BLOOD CELL COUNT 14.9 /CUMM (4.8-10.8)
--- NOTE | 2018-02-20 22:19 | RADIOLOGY REPORT ---
EXAMINATION: XR PORTABLE CHEST CLINICAL INFORMATION: Chest pain. Dyspnea. COMPARISON: Chest x-ray 02/09/2018 TECHNIQUE: Portable frontal view of the chest was obtained. 9:37 PM FINDINGS: There is emphysematous hyperinflation of lungs. Lungs are clear. No pulmonary vascular congestion. No infiltrate or pleural effusion. No pneumothorax. The cardiac and mediastinal contours are normal. There are calcifications of aortic arch. Multilevel degenerative spondylosis of dorsal spine. IMPRESSION: No acute abnormality of the chest.
--- NOTE | 2018-02-20 22:53 | CT SCAN REPORT ---
EXAMINATION: CT HEAD WITHOUT CONTRAST CLINICAL INFORMATION: Mental status change. COMPARISON: None TECHNIQUE: Contiguous axial imaging was performed from the skull base to vertex without intravenous administration of contrast. DLP: 863.88 mGy-cm FINDINGS: There is no evidence of acute intracranial hemorrhage or territorial infarction. No abnormal mass effect or midline shift is seen. [place] to white matter differentiation is well preserved. No extra-axial fluid collections are identified. There is atrophy with prominence of the ventricles and the sulci and hypodensity of the periventricular white matter due to chronic small vessel ischemic disease. There is vascular calcifications of the internal carotid arteries bilaterally. The osseous structures and soft tissues are normal. The mastoid air cells and visualized portions of the paranasal sinuses are well aerated. IMPRESSION: No acute intracranial pathology.
--- NOTE | 2018-02-20 23:04 | CT SCAN REPORT ---
EXAMINATION: CT ABDOMEN AND PELVIS WITHOUT CONTRAST CLINICAL INFORMATION: Abdominal pain COMPARISON: Ultrasound abdomen 12/23/2016 TECHNIQUE: Multidetector volumetric imaging was performed from the superior aspect of the liver through the pubic symphysis. Sagittal and coronal reformatted images were obtained on the technologist's workstation. DLP: 378.18 mGy-cm FINDINGS: LUNG BASES: The visualized lung bases are unremarkable. LIVER, GALLBLADDER, AND BILIARY TREE: The liver is normal in size, shape, and attenuation. No focal hepatic lesion or biliary ductal dilatation is present. The gallbladder is unremarkable with no evidence of radiopaque gallstones, gallbladder wall thickening, or obvious pericholecystic inflammatory changes. PANCREAS: Unremarkable. SPLEEN: Unremarkable. ADRENAL GLANDS: Unremarkable. KIDNEYS AND URETERS: The kidneys are normal in size, shape, and attenuation. No hydronephrosis, hydroureter, or calculi seen. No perinephric stranding. BLADDER: Parker catheter within the bladder. GASTROINTESTINAL TRACT: No acute change of the bowel. No bowel obstruction. No bowel wall thickening or edema. There is a diverticula of the left colon and the sigmoid but no diverticulitis. The appendix is not seen. There is no inflammation the mesentery. The small bowel loops are unremarkable. ABDOMINAL WALL: Small fat-containing bilateral inguinal hernias. LYMPH NODES: Normal. VASCULAR: There is atherosclerotic vascular wall calcifications of aorta and iliac arteries without aneurysm. PELVIC VISCERA: Unremarkable. OSSEOUS STRUCTURES: Degenerative spondylosis spine with multilevel disc height narrowing and endplate spurring and facet joint arthrosis IMPRESSION: No acute abnormality CT scan abdomen and pelvis.
--- NOTE | 2018-02-21 00:42 | History & Physical ---
[place] 02/21/18 0031: General Information and HPI MD Statement: I have seen and personally examined OUSMANE GUZMAN and documented this H&P. The patient is a 77 year old M who presented with a patient stated chief complaint of lethargy and confusion []. 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 According to the family patient was recently discharged from facility as he was sent to facility after TURP for bladder outlet obstruction. According to his patient was not looking good after the discharge from hospital as he was feeling more lethargic. According to patient had multiple Parker's catheter change due to hematuria and he is following Dr. Gould who did the TURP and histopathology report showed stage II prostate cancer. Oncology recommended to start chemotherapy and radiotherapy for patient. According to the patient this morning he was feeling more anxious possibly due to difficulty breathing and she gave him Ativan. According to the after that he is more sleepy and he didn't eat his lunch and dinner. As patient's condition was worsening and he was progressively more sleepy than called the ambulance and brought the patient to hospital. According to the patient didn't have any chest pain, palpitation, nausea, vomiting, abdominal pain, chills, fever, sick contact, diarrhea, constipation, headache and rash. Patient had last echocardiogram in December 2017 that showed ejection fraction 3540 percent with akinesia take interior wall and stage I diastolic dysfunction. Patient also has severe aortic stenosis. Last admission was in [facility] on 02/17[facility]2018 when he was admitted with acute on chronic hypoxic respiratory failure and urinary retention after TURP. ED course: Vitals: Temperature 97.9, pulse 98, respiratory rate 22, blood pressure 138/64, oxygen saturation 100% on 2 L of oxygen Labs: WBC count 14.9, hemoglobin 10.6, hematocrit 32.8, platelet count 359, sodium 139, potassium 5.5, BUN 12, creatinine 0.6, anion gap 3, BUN/creatinine ratio 20.0, glucose 106, calcium 9.1, AST 30, ALT 27, troponin 0.01, albumin 3.3 , amylase 144, lipase 100 ABG showed pH 7.23 and PCO2 94, PaO2 104 and bicarbonate 38 Patient received one dose of ceftriaxone and azithromycin with prednisone in ED Allergies/Medications Allergies: Coded Allergies: aspirin (Intermediate, HIVES 02/13/18) Home Med list Amlodipine Besylate 5 MG TABLET 1 TAB PO DAILY HEART (Reported) Atorvastatin Calcium 40 MG TABLET 1 TAB PO DAILY cholesterol (Reported) Azithromycin (Zithromax) 500 MG TABLET 1 TAB PO Tuesday COPD Bicalutamide 50 MG TABLET 1 TAB PO DAILY Prostate Clopidogrel Bisulfate (Clopidogrel) 75 MG TABLET 1 TAB PO DAILY BLOOD THINNER (Reported) Ezetimibe (Zetia) 10 MG TABLET 1 TAB PO DAILY CHOLESTEROL (Reported) Furosemide (Lasix) 20 MG TABLET 1 TAB PO Tue DIURETIC (Reported) Ipratropium/Albuterol Sulfate (Iprat-Albut 0.5-3(2.5) MG/3 Ml) 3 ML AMPUL.NEB 3 ML INH Q4 BREATHING (Reported) EVERY 4 HOURS WHEN AWAKE Lorazepam (Ativan) 0.5 MG TABLET 1 TAB PO BIDP PRN ANXIETY (Reported) Losartan Potassium 50 MG TABLET 1 TAB PO DAILY htn (Reported) Metoprolol Tartrate 25 MG TABLET 1 TAB PO DAILY Heart Health (Reported) Prednisone 2.5 MG TABLET 1 TAB PO SAT COPD Past History Travel History Traveled to [place] past 21 day No Medical History Neurological: NONE EENT: HOARSE VOICE Cardiovascular: CHF, hypertension, hyperlipidemia, myocardial infarction Respiratory: COPD, emphysema, CHF ON 2L BASLINE Gastrointestinal: diverticulosis Hepatic: NONE Renal: benign prost hyperplasia, nephrolithiasis Musculoskeletal: FRACTURE(LT.INDEX FINGER) Psychiatric: anxiety, depression, insomnia Endocrine: NONE Blood Disorders: NONE Cancer(s): NONE SHEET CATCHER/Reproductive: 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 FATHER (COPD). Psychosocial History Who Do You Live With? spouse Services at Home: Oxygen ETOH Use: denies use Illicit Drug Use: denies illicit drug use Living Will? yes Functional Ability ADLs Independent: dressing, eating, toileting. Needs Assist: bathing. Ambulation: independent IADLs Independent: shopping, housework, finances, food prep, telephone, medication admin. Needs Assist: transportation. Review of Systems Review of Systems Constitutional: Reports: weakness. Denies: chills, fever. EENTM: Reports: no symptoms. Cardiovascular: Denies: chest pain, orthopena, palpitations, syncope. Respiratory: Reports: short of breath. Denies: cough, sputum production, wheezing. GI: Denies: abdominal pain, constipation, diarrhea, nausea, vomiting. Genitourinary: Reports: see HPI. Musculoskeletal: Reports: no symptoms. Skin: Reports: no symptoms. Neurological/Psychological: Reports: anxiety, confusion. Exam & Diagnostic Data Last 24 Hrs of Vital Signs/I&O Vital Signs Date Time Temp Pulse Resp B/P B/P Pulse O2 O2 Flow FiO2 Mean Ox Delivery Rate 02/21 0025 97 98 02/20 2344 99.1 102 26 132/67 95 Nasal 2.0L Cannula 02/20 2213 99 Nasal 2.0L Cannula 02/20 2125 97.9 98 22 138/64 100 Nasal 2.0L Cannula Intake & Output 02/21 0800 02/21 0000 02/20 1600 Intake Total 1000 Output Total Balance 1000 Intake, IV 1000 Patient 175 lb Weight Weight Estimated Measurement Method Physical Exam General Appearance Patient is drowsy and not arousable to verbal command. Skin No Rashes, echymosis on forearm Skin Temp/Moisture Exam: Warm/Dry Sepsis Skin Exam (color): Normal for Ethnicity HEENT Patient is drowsy and on Bipap, Not arousable to verbal command. Neck Supple Cardiovascular Normal S1, Normal S2 Lungs B/l decreased breath sounds , b/l wheezing. Abdomen Soft, No Tenderness Neurological Patient is drowsy and not arousable to verbal command. he is on Bipap. Extremities B/l pedal edema grade 1, b/l forearm echmosis and swelling. 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 We will admit the patient in ICU for following problems. Altered mental status due to Acute hypercapnic respiratory failure: -Possible metabolic encephalopathy causing AMS due to hypercapnia secondary to COPD exacerbation or could be multifactorial. -Possibly due to COPD exacerbation as patient is retaining CO2 and his HPI is 7.23 on ABGs. It could be due to polypharmacy or ativan use or patient was not able to recover from his anesthesia after the procedure. -We will keep patient supplemental oxygen and continue BiPAP to keep his oxygen saturation above 92%. -We will check ABGs in 1 hour if his ABGs improved then we will continue BiPAP but if his ABGs won't improve then patient may need intubation. -We will check ICU bundle to monitor his electrolytes. -IV Solu-Medrol 40 mg every 8 hourly -TRC nebulization as needed -Pulmonology consult -Continue azithromycin. Leukocytosis: -Patient is meeting SIRS criteria as his WBC count is 14.9 and heart rate 102 but there is no source of infection identified. -Patient's leukocytosis could be due to steroid use as he is chronically use prednisone due to his end-stage COPD or it could be reactionary to his recent procedure. -We will follow blood and urine cultures. -We will monitor his WBC count -We will monitor for any symptoms of infection History of CAD status post CABG: -Hold the Plavix considering his recent procedure. -We will check serial EKGs and troponins to rule out any acute ischemic cardiac injury. History of HFrEF: -Last echocardiogram showed ejection fraction 3540 percent -Continue Lasix -Continue losartan and metoprolol History of hypertension and hyperlipidemia: -Continue amlodipine and ezitimibe History of bladder outlet obstruction status post TURP: -Continue bicalutamide History of anxiety/depression: -Patient is using when necessary Ativan -We will hold Ativan considering his altered mental status. DVT prophylaxis: Mechanical and subcutaneous heparin CODE STATUS: Full code As Ranked By This Provider Problem List: 1. COPD exacerbation 2. Hypercapnic respiratory failure 3. Altered mental status Core Measures/Misc (05/15) Acute Coronary Syndrome ACS Diagnosis: No Congestive Heart Failure Congestive Heart Failure Diagnosis No Cerebrovascular Accident CVA/TIA Diagnosis: No VTE (View Protocol) VTE Risk Factors Age>40 No Mechanical VTE Prophylaxis d/t N/A MechProphylax Ordered No VTE Pharm Prophylaxis d/t NA PharmProphylax ordered Sepsis (View protocol) Sepsis Present: No If YES complete Sepsis Event Note If YES complete Sepsis Event Note Brandon James MD 02/21/18 0044: Core Measures/Misc (05/15) Sepsis (View protocol) If YES complete Sepsis Event Note If YES complete Sepsis Event Note Resident Review Statement Other Findings: History of Present Illness 77-year-old man with past medical history of COPD on 2.0 L home oxygen, CAD/PA status post CABG, hypertension, hyperlipidemia, BPH status post TURP, nephrolithiasis, and diverticulitis brought in by ambulance for increased weakness and confusion with decreased p.o. intake. Patient was recently admitted to [facility] from 02/15/18-02/19/18 for an elective TURP for his BPH. Postoperatively patient was found to be lethargic and confused for which she was placed under observation on the medical service. He was maintained on continuous bladder irrigation for hematuria with clots. He was discharged to home with instruction to follow-up with his urologist as an outpatient. Collateral information was obtained from patient's family member who is present during the interview. Since his arrival to home patient has apparently been progressively more weak and confused with decreased appetite. Patient is unable to offer subjective complaints or review of systems. Objective Vital signs temp 9 97.9-99.1, HR 98-102, RR 22-26, SBP 132-138, SPO2 95-100% on 40% FiO2 via BiPAP Physical exam -General: Ill-appearing elderly man in mild respiratory distress -HEENT: NCAT, Shelley, EOMI, anicteric sclera, dry oral mucosa, BiPAP in place -Neck: Supple, no JVP, trachea midline, mild accessory respiratory muscle use -Cardio: Normal S1/S2 without murmurs/gallops/rubs; regular rate and rhythm -Pulmonary: Loud scattered inspiratory/expiratory wheezing with rhonchi and scant bibasilar crackles; diminished left lower lobe airflow -Abdomen: Soft, nontender, nondistended, bowel sounds intact -Neuro: Somnolent/lethargic, spontaneous movement of all 4 extremities, cranial nerves II through XII grossly intact -Extremities: Normal pulses, no edema Labs/imaging/studies -CBC: WBC 14.9, hemoglobin 10.6, hematocrit 32.8, platelet 359 -BMP: Sodium 139, potassium 5.5, chloride 91, CO2 45, BUN 12, creatinine 0.6, anion gap 3, glucose 106 -LFT: Within normal limits -Miscellaneous: Amylase 144, lipase 100, troponin I negative -Urinalysis: Unremarkable -AB.23/94/104/38 -CXR: Unremarkable -EKG: Age-indeterminate anteroseptal infarct, T-wave inversion in V5-V6, normal sinus rhythm -CT head without IV contrast: Unremarkable -CT abdomen/pelvis without IV contrast: Unremarkable -Echocardiogram 01/20/18: LVEF 35-40% with increased LV wall thickness, akinetic anterior wall and apex, stage I diastolic dysfunction, severe aortic stenosis with trace/mild AR (DI 0.24) Assessment 77-year-old man with multiple medical problems significant for COPD on supplemental oxygen, CAD/PA status post CABG, and recent TURP for BPH brought in by ambulance for evaluation of increased weakness, confusion, lethargy, and decreased p.o. intake. Patient is unable to offer subjective complaints. Vital signs including SPO2 remain unremarkable while on 40% FiO2 via BiPAP. Physical exam is significant for a somnolent older man in mild respiratory distress with loud scattered wheezing/rhonchi. Labs are significant for the WBC 14.9, K5.5; amylase/lipase/ troponin and urinalysis are unremarkable. ABG demonstrated a pH 7.23, CO2 94, O2 104, HCO38. Chest x-ray, CT head, CT abdomen/pelvis are all unremarkable. Blood cultures 2 were drawn and patient received ceftriaxone/azithromycin/Solu- Medrol in the ED with 1 L of normal saline. Clinically patient appears to have altered mental status secondary to acute hypercapnic respiratory failure in the context of a COPD exacerbation. Patient meets SIRS criteria through leukocytosis and tachycardia without any obvious source of infection. Patient is being admitted to the intensive care unit as a telemetry hold for BiPAP, serial ABGs, intravenous steroids/antibiotics, and pulmonology consultation. Problem list -Acute on chronic hypercapnic respiratory failure -Altered mental status, likely secondary to hypercarbia -COPD exacerbation -Leukocytosis, multifactorial -SIRS -Newly diagnosed stage II prostate cancer -History of BPH status post TURP -History of COPD, on 2.0 L home O2 -CAD/PA status post CABG -History of severe aortic stenosis, dimensionless index 0.24 -HFrEF, LVEF 35-40% (12/2017) -Hypertension -Hyperlipidemia -History of nephrolithiasis -History of diverticulitis Plan -Admit to intensive care unit -Total respiratory care with scheduled nebs -Supplemental oxygen with BiPAP, taper as tolerated -Solu-Medrol 40 mg IV every 8 hours -Azithromycin 500 mg IV daily -Continue home meds: Amlodipine, atorvastatin, bicalutamide, Zetia, Lasix, losartan, metoprolol -Hold Plavix until Tuesday per previous postop instructions -Hold oral prednisone while receiving intravenous Solu-Medrol -Hold Ativan for altered mental status, restart as needed -Consult with pulmonology for acute hypercarbic respiratory failure/COPD exacerbation -Follow-up blood/urine cultures and sensitivity -Obtain sputum culture if able -Recheck ABG in 1 hour -Trend troponin/EKG until peak or 3 negative sets -Pain control with acetaminophen -N.p.o. for altered mental status, advance diet as tolerated -DVT prophylaxis with subcutaneous heparin -Full code Nathanael Foss 02/21/18 0534: Core Measures/Misc (05/15) Sepsis (View protocol) If YES complete Sepsis Event Note If YES complete Sepsis Event Note Attending MD Review Statement Attending Statement Attending MD Statement: examined this patient, discuss w/resident/PA/STEEPING PRESS OPERATOR, agreed w/resident/PA/STEEPING PRESS OPERATOR, discussed with family, reviewed EMR data (avail), reviewed images, amended to note Attending Assessment/Plan: CC: AMS PMH: COPD on 2 L nasal cannula, CAD S/P PA S/P PCI, HTN, HLD, prostate cancer, nephrolithiasis, HFrEF, severe Patient was admitted in hospital from February 14 to February 19 for TURP. Patient underwent surgery on February 15 and had persistent hematuria. Patient was on CBI, once hematuria improved he was discharged on . According to patient's patient had been lethargic since the surgery, more sleepy. After discharge and home, she noticed persistent drowsiness, increased confusion. Patient woke up fine this morning but did not take any of his medications, treat some of his breakfast later during the day he refused to take any supper, was more and more sleepy and confused so patient's decided to bring him to ER. He also appeared more short of breath than usual and was having cough according to . No fever spike at home. He complains of low back pain which is new to him. Vitals: Temperature 97.9, pulse 98, RR 22, blood pressure 138/64, saturating 100 % on 2 L On exam: Sleepy but arousable with deep pain and verbal stimuli, cooperative, no acute distress, neck supple, JVD normal, no lymphadenopathy, mucosa moist, no focal neurological deficit, +1 dependent edema, no obvious skin rashes or inflammation except redness with blanching on the back CVS: S1-S2, RRR. RS: Wheezing bilaterally. Abdomen: Soft, NT, ND, bowel sounds present. CXR: No acute abnormality of the chest CT head: No acute intracranial pathology. CT abdomen and pelvis without IV contrast: No acute abnormality CT scan abdomen and pelvis. Assessment and plan 77-year-old male with extensive past medical history as mentioned above was discharged from hospital on after TURP. Patient was persistently sleepy, confused, increased shortness of breath so brought him back to ER. Patient was talking appropriately on arrival but was very lethargic. ABG was obtained which showed hypercapnic respiratory failure. Patient also has leukocytosis which could be reactive and hyperkalemia. Patient has history of COPD which may be exacerbated along with JORJE/OHS exacerbated after surgery. Patient was started on BiPAP but he was fighting with BiPAP so was given Ativan and after which he was more sleepy. He was responding to his name and deep pain but does not follow all the instructions. Significant wheezing on auscultation. + Acute hypercapnic respiratory failure secondary to COPD exacerbation + Metabolic encephalopathy secondary to hypercapnia + Hyperkalemia + Reactive leukocytosis + Hx of COPD on 2 L nasal cannula, CAD S/P PA S/P PCI, HTN, HLD, prostate cancer , nephrolithiasis, HFrEF, severe - Admit to ICU - Continue BiPAP at 20/4 rate of 24, titrate FiO2 according to oxygen saturation - Repeat ABG in 1-2 hours after starting BiPAP, titrate IPAP and EPAP accordingly - IV methylprednisolone 40 mg every 8 - Azithromycin - Repeat ABG in CXR in a.m. - Serial troponins and ECGs - Pulmonary consult - Urine culture - Avoid benzodiazepines and narcotics - Obtain U tox - Blood cultures - TRC nebulization scheduled and when necessary TTS 30 min
[2018-02-21] MEDS ORDERED: PREDNISONE2.5 M1 PO (01:52)
[2018-02-21 04:45] LABS: ABSOLUTE BASOPHIL COUNT 0 /CUMM (0.0-0.2); ABSOLUTE EOSINOPHIL COUNT 0.2 /CUMM (0.0-0.7); ABSOLUTE GRANULOCYTE CT 13.7 /CUMM (1.4-6.5); ABSOLUTE LYMPH COUNT 0.6 /CUMM (1.2-3.4); ABSOLUTE MONOCYTE COUNT 0.3 /CUMM (0.10-0.60); BASOPHIL % 0 % (0.0-2.0); EOSINOPHIL % 1.3 % (0-5); HEMATOCRIT 31.3 % (42-52); MEAN CORPUSCULAR HGB 31.3 PG (27.0-31.0); MEAN CORPUSCULAR HGB CONC 33.2 G/DL (33.0-37.0); MEAN CORPUSCULAR VOLUME 94.3 FL (80.0-94.0); MEAN PLATELET VOLUME 8.7 FL (7.4-10.4); PLATELET COUNT 333 /CUMM (130-400); RBC DISTRIBUTION WIDTH 13.4 % (11.5-14.5); RED BLOOD CELL CT 3.32 /CUMM (4.70-6.10); WHITE BLOOD CELL COUNT 14.7 /CUMM (4.8-10.8)
[2018-02-21 05:19] LABS: GRANULOCYTE % 92.9 % (42.2-75.2)
--- NOTE | 2018-02-21 05:36 | Admission Certification ---
Admission Certification Certification Statement - As attending physician, I certify that at the time of - admission, based on clinical presentation, severity of - symptoms, need for further diagnostic testing and - therapeutic interventions, and risk of adverse outcomes - without in-hospital treatment, in my clinical assessment, - this patient requires an acute hospital stay for a minimum - of two nights or longer. I have also considered psychsocial - factors such as support system, advanced age, financial - issues, cognitive issues, and failed out-patient treatments, - past re-admission history, safety of patient, and lack of - compliance as applicable. Specific rationale supporting this admission is: Hypercapnic respiratory failure with metabolic encephalopathy secondary to COPD exacerbation
--- NOTE | 2018-02-21 07:02 | Cons- CRCU ---
Vazquez RICE,Kuldeep 02/21/18 0700: General Information and HPI Consulting Request Date of Consult: 02/21/18 Requested By: Dr Foss Reason for Consult: Acute hypoxic hypercarbic respiratory failure Source of Information: family, PATIENT IS ON BIPAP AND IS POOR HISTORIAN Exam Limitations: clinical condition History of Present Illness: Mr Wharton is a 77-year-old male with medical history of severe COPD on 2L/min O2/prednisone/azithromycin at home, b/l pulm nodules, coronary artery disease status post [place], [place]G, hypertension, hyperlipidemia, diverticulosis, nephrolithiasis, recent TURP procedure for BPH which turned out to be adenocarcinoma currently on hormonal therapy, depression, anxiety, insomnia, recent discharge from [facility] after the TURP procedure which was complicated by confusion, acute on chronic hypoxic respiratory failure, and urinary retention. Per his , he was not back at his baseline since his admission but was functional, but since yesterday he was more confused and drowsy. He was noted to have increased shortness of breath and cough as well, but the patient denied any fever/chills, sputum production, leg swelling, burning/changes in urinary habit, constipation, alcohol intake, changes in meds except that he had missed his evening dose the other day. In the ED, he was found to be hypoxic, hypercarbic, and confused, and was put on BiPAP, and he initially was very agitated/anxious, thus one dose of benzodiazepine was given. He was then transferred to the ICU for further care. Allergies/Medications Allergies: Coded Allergies: aspirin (Intermediate, HIVES 02/13/18) Home Med List: Amlodipine Besylate 5 MG TABLET 1 TAB PO DAILY HEART (Reported) Atorvastatin Calcium 40 MG TABLET 1 TAB PO DAILY cholesterol (Reported) Azithromycin (Zithromax) 500 MG TABLET 1 TAB PO Tuesday COPD Bicalutamide 50 MG TABLET 1 TAB PO DAILY Prostate Clopidogrel Bisulfate (Clopidogrel) 75 MG TABLET 1 TAB PO DAILY BLOOD THINNER (Reported) Ezetimibe (Zetia) 10 MG TABLET 1 TAB PO DAILY CHOLESTEROL (Reported) Furosemide (Lasix) 20 MG TABLET 1 TAB PO Tue DIURETIC (Reported) Ipratropium/Albuterol Sulfate (Iprat-Albut 0.5-3(2.5) MG/3 Ml) 3 ML AMPUL.NEB 3 ML INH Q4 BREATHING (Reported) EVERY 4 HOURS WHEN AWAKE Lorazepam (Ativan) 0.5 MG TABLET 1 TAB PO BIDP PRN ANXIETY (Reported) Losartan Potassium 50 MG TABLET 1 TAB PO DAILY htn (Reported) Metoprolol Tartrate 25 MG TABLET 1 TAB PO DAILY Heart Health (Reported) Prednisone 2.5 MG TABLET 1 TAB PO SAT COPD Current Medications: Current Medications Sig/Herber Start time Last Medication Dose Route Stop Time Status Admin Acetaminophen 650 MG Q6P PRN 02/21 0145 AC PO Acetaminophen 1,000 MG Q6P PRN 02/21 0145 AC IV Albuterol Sulfate 3 ML EVERY 4 HRS/AWAKE 02/21 0806 AC 02/21 INH 1604 Albuterol Sulfate 3 ML Q6 PRN 02/21 0215 DC INH Albuterol Sulfate 3 ML ONCE ONE 02/21 0015 DC INH 02/21 0016 Amlodipine Besylate 5 MG DAILY 02/21 900 AC 02/21 PO 1358 Atorvastatin Calcium 40 MG 1700 02/21 1700 AC PO Azithromycin 500 MG 0 02/21 2200 AC Sodium Chloride 250 ML IV Azithromycin 500 MG DAILY 02/21 900 DC Sodium Chloride 250 ML IV Azithromycin 500 MG ONCE ONE 02/21 0015 DC 02/21 Sodium Chloride 250 ML IV 02/21 0114 0148 Bicalutamide 50 MG DAILY 02/21 900 AC 02/21 PO 1358 Ceftriaxone Sodium 0 .STK-MED ONE 02/21 0126 DC .ROUTE Ceftriaxone Sodium 1,000 MG ONCE ONE 02/21 0030 DC 02/21 IV 02/21 0031 0138 Ezetimibe 10 MG DAILY 02/21 09 AC 02/21 PO 1358 Furosemide 20 MG SAT 02/21 09 AC 02/21 PO 1358 Heparin Sodium 5,000 UNIT Q8 02/21 06 AC 02/21 (Porcine) SC 1354 Ipratropium [place] 2.5 ML EVERY 4 HRS/AWAKE 02/21 08 AC 02/21 INH 1604 Ipratropium [place] 2.5 ML Q6 02/21 06 DC INH Lorazepam 0 .STK-MED ONE 02/21 0032 DC .ROUTE Lorazepam 1 MG STAT STA 02/21 0031 DC 02/21 IV 02/21 0032 0035 Losartan Potassium 50 MG DAILY 02/21 0900 AC 02/21 PO 1358 Magnesium Sulfate 1 GM ONCE ONE 02/21 0730 DC 02/21 Dextrose/Water 100 ML IV 02/21 1129 0856 Magnesium Sulfate 1 GM ONCE ONE 02/21 0545 DC 02/21 Dextrose/Water 100 ML IV 02/21 0944 0548 Methylprednisolone 40 MG Q8 02/21 0600 AC 02/21 IV 1355 Methylprednisolone 0 .STK-MED ONE 02/21 0126 DC .ROUTE Methylprednisolone 125 MG ONCE ONE 02/21 0015 DC 02/21 IV 02/21 0016 0138 Metoprolol Succinate 25 MG DAILY 02/21 09 AC 02/21 PO 1358 Sodium Chloride 1,000 ML BOLUS ONE 02/20 2315 DC 02/20 IV 02/21 0014 2342 Review of Systems Review of Systems Constitutional: Reports: no symptoms. EENTM: Reports: no symptoms. Cardiovascular: Reports: no symptoms. Respiratory: Reports: see HPI, cough, short of breath. GI: Reports: no symptoms. Genitourinary: Reports: no symptoms. Musculoskeletal: Reports: no symptoms. Skin: Reports: see HPI (has bruises from last admsn). Neurological/Psychological: Reports: see HPI, confusion. Hematologic/Endocrine: Reports: see HPI, bruising (b/l upper ext). All Other Systems: Reviewed and Negative Past History Travel History Traveled to [place] past 21 day No Medical History Blood Transfusion Hx: No Neurological: NONE EENT: HOARSE VOICE Cardiovascular: CHF, hypertension, hyperlipidemia, myocardial infarction Respiratory: COPD, emphysema, HFrEF Gastrointestinal: diverticulosis Hepatic: NONE Renal: benign prost hyperplasia, nephrolithiasis, adenocarcinoma of prostate Musculoskeletal: FRACTURE(LT.INDEX FINGER) Psychiatric: anxiety, depression, insomnia Endocrine: NONE Blood Disorders: NONE Cancer(s): prostate cancer (recent diagnosis on therapy) 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 FATHER (COPD). Psychosocial History Where Do You Live? Home Who Do You Live With? spouse Services at Home: Oxygen Primary Language: Paraguayan Smoking Status: Former Smoker ETOH Use: denies use Illicit Drug Use: denies illicit drug use Living Will? yes Functional Ability ADLs Independent: dressing, eating, toileting. Needs Assist: bathing. Ambulation: independent IADLs Independent: shopping, housework, finances, food prep, telephone, medication admin. Needs Assist: transportation. ECHO Results (as available) Date of last Echo 01/21/18 EF% 35 (akinetic little, severe ) Exam & Diagnostic Data Last 24 Hrs of Vital Signs/I&O Vital Signs Date Time Temp Pulse Resp B/P B/P Pulse O2 O2 Flow FiO2 Mean Ox Delivery Rate 02/21 0554 102 93 02/21 0400 92 BIPAP 35% 02/21 0344 106 93 02/21 0320 108 92 02/21 0228 91 BIPAP 30% 02/21 0139 108 29 135/66 98 BIPAP 30% 02/21 0025 97 98 02/20 2344 99.1 102 26 132/67 95 Nasal 2.0L Cannula 02/203 99 Nasal 2.0L Cannula 02/205 97.9 98 22 138/64 100 Nasal 2.0L Cannula Intake & Output 02/21 0800 02/21 0000 02/20 1600 Intake Total 1000 Output Total Balance 1000 Intake, IV 1000 Patient 71.412 kg 79.379 kg Weight Weight Bed scale Estimated Measurement Method Physical Exam General Appearance: alert, awake, anxious, mild distress (respiratory), on BiPAP Other Physical Findings: Skin extensive echymosis on forearm b/l Skin Temp/Moisture Exam: Warm/Dry HEENT on Bipap, so mucosa not examined Neck Supple Cardiovascular Normal S1, Normal S2 Lungs B/l decreased breath sounds, less wheezing Abdomen Soft, No Tenderness Neurological confused mentation, requires frequent reorientation, but normal speech otherwise, no facial changes, normal motor and sensory findings Extremities B/l pedal edema grade 1, b/l forearm echmosis and swelling Last 48 Hrs of Labs/Alok: Laboratory Tests 02/21/18 0355: Anion Gap 8, Estimated GFR > 60, BUN/Creatinine Ratio 24.0, Magnesium 1.5 L, Troponin I 0.02, CBC w Diff NO MAN DIFF REQ, RBC 3.32 L, MCV 94.3 H, MCH 31.3 H, MCHC 33.2, RDW 13.4, MPV 8.7, Gran % 92.9 H, Lymphocytes % 3.8 L, Monocytes % 2.0, Eosinophils % 1.3, Basophils % 0, Absolute Granulocytes 13.7 H, Absolute Lymphocytes 0.6 L, Absolute Monocytes 0.3, Absolute Eosinophils 0.2, Absolute Basophils 0 02/21/18 0325: pH 7.29 *L, pCO2 79 *H, pO2 58 L, HCO3 37 H, ABG O2 Sat (Measured) 90.0 L, P- 50 (Temp Corrected) N, Carboxyhemoglobin 0.7 L, O2 Concentration % .30, Respiration Rate 24, O2 Delivery Method BIPAP, Vent Mode ST, Expiratory Pressure 4, Inspiratory Pressure 20, Phlebotomy Draw Site RIGHT RADIAL 02/21/18 0000: pH 7.23 *L, pCO2 94 *H, pO2 104 H, HCO3 38 H, ABG O2 Sat (Measured) 97.0, P-50 (Temp Corrected) N, Carboxyhemoglobin 0.3 L, O2 Concentration % 1L, O2 Delivery Method N/C, Phlebotomy Draw Site RIGHT RADIAL 02/20/18 2135: Anion Gap 3 L, Estimated GFR > 60, BUN/Creatinine Ratio 20.0, Glucose 106 H, Calcium 9.1, Total Bilirubin 1.0, Direct Bilirubin 0.1, AST 30, ALT 27, Alkaline Phosphatase 74, Troponin I 0.01, Total Protein 6.0 L, Albumin 3.3 L, Amylase 144 H, Lipase 100, CBC w Diff NO MAN DIFF REQ, RBC 3.48 L, MCV 94.2 H, MCH 30.6, MCHC 32.4 L, RDW 13.7, MPV 8.4, Gran % 70.8, Lymphocytes % 10.8 L, Monocytes % 9.7 H, Eosinophils % 8.4 H, Basophils % 0.3, Absolute Granulocytes 10.5 H, Absolute Lymphocytes 1.6, Absolute Monocytes 1.4 H, Absolute Eosinophils 1.3, Absolute Basophils 0, Urine Color YEL, Urine Clarity CLEAR, Urine pH 6.0, Ur Specific Avery >= 1.030, Urine Protein 100 H, Urine Ketones NEG, Urine Nitrite NEG, Urine Bilirubin NEG, Urine Urobilinogen 0.2, Ur Leukocyte Esterase NEG, Ur Microscopic SEDIMENT EXAMINED, Urine RBC 3-5, Urine WBC 1-3 H, Ur Epithelial Cells RARE, Urine Bacteria RARE H, Urine Mucus FEW, Urine Hemoglobin MOD H, Urine Glucose NEG Diagnostic Data CXR Results IMPRESSION: No acute abnormality of the chest. DICTATED BY: Josh Moyer MD DATE/TIME DICTATED:02/20/182213 DENIER CONTROL OPERATOR:SU DATE/TIME TRANSCRIBED:02/20/182213 Assessment/Plan CRCU Impression/Plan: Mr Wharton is a 77-year-old male with medical history of severe COPD on 2L/min O2/prednisone/azithromycin at home, b/l pulm nodules, coronary artery disease status post [place], [place], hypertension, hyperlipidemia, diverticulosis, nephrolithiasis, recent TURP procedure for BPH which turned out to be adenocarcinoma currently on hormonal therapy, depression, anxiety, insomnia, recent discharge from [facility] after the TURP procedure which was complicated by confusion, acute on chronic hypoxic respiratory failure, and urinary retention. In the ED, he was found to be hypoxic, hypercarbic, and confused, and was put on BiPAP, and he initially was very agitated/anxious, thus one dose of benzodiazepine was given. He was then transferred to the ICU for the management of following issues: Patient is currently being treated in the ICU for the following issues: RESPIRATORY #Acute on chronic hypoxic hypercarbic respiratory failure, secondary to COPD exacerbation Patient's clinical picture is typical of COPD exacerbation, with altered mental status as the presenting feature, and given his respiratory distress this morning, he has been now admitted in the ICU for further management. We'll continue to monitor him closely as he will receive IV azithromycin, ceftriaxone and IV methylprednisolone, TRC/nebs. Most importantly, patient needs to be on BiPAP until he improves, and even if he improves later today he still will need nocturnal BiPAP. INFECTIOUS DISEASE #Possible acute bronchitis, ruling out pneumonia Patient's leukocytosis could be due to steroid use, or due to infection which explains his acute exacerbation of COPD as well. He would and if it from continuing azithromycin as well as ceftriaxone as we await his lower respiratory culture and urine culture. CARDIOLOGY #Severe aortic stenosis, congestive heart failure with reduced ejection fraction , stable Cardiology service notified as courtesy to the patient is currently admitted in the ICU but not placed an official consult yet. No active issue cardiologically. HEMATOLOGY #Leukocytosis, infective vs reactive, on IV abx METABOLIC #Borderline hyperkalemia (5.5), better now after IV fluids only at 4.9 #Hypomagnesiumemia, repleted ALIMENTARY #Can eat heart healthy diet once BiPAP is off NEPHROLOGY No issues NEUROLOGY As his mentation is better, only some confusion remains. Expecting better recovery once hypercarbia, hypoxia has resolved. CHRONIC ISSUES OTHERWISE: Continuing his home meds. MISC: Diet: Heart healthy DVT prophylaxis: SQ Heparin Code status: Full code Family update: Done with his today At some point, he needs to have a conversation with his family and oncologist about the prognosis of condition, cat given the new diagnosis of adenocarcinoma of prostate. Consult Acknowledgment - Thank you for your consult request. Samuel Stoner MD 02/21/18 0901: Assessment/Plan CRCU Other Findings/Comments: Samuel Osorio M.D. have examined this patient, reviewed available EMR data, personally reviewed images, discussed with resident/PA/ECONOMIC RESEARCH ASSISTANT, discussed management plan with housestaff and nursing staff, discussed managment plan all of healthcare providers, discussed management plan with patient and/or family, agreed with resident/PA/ECONOMIC RESEARCH ASSISTANT. The past history and parts of the chart have been autopopulated. Impression 77-year-old man * acute hypoxemic and hypercarbic respiratory failure secondary to COPD exacerbation Plan -trc/nebs -continue solumedrol -zithromax -bipap DVT prophylaxis at all times TTS 40 min Consult Acknowledgment - Thank you for your consult request. DVT prophylaxis at all times TTS 40 min Consult Acknowledgment - Thank you for your consult request.
[2018-02-21 08:00] VITALS: BP 114/58
--- NOTE | 2018-02-21 08:00 | RADIOLOGY REPORT ---
EXAMINATION: XR PORTABLE CHEST CLINICAL INFORMATION: Shortness of breath and altered mental status. COMPARISON: 02/20/2018 TECHNIQUE: Portable frontal view of the chest was obtained. FINDINGS: The lungs are hyperexpanded consistent with known emphysema. There is no focal consolidation, edema, or effusion. No pneumothorax. The cardiomediastinal silhouette is within normal limits. No acute osseous abnormality. IMPRESSION: No acute pulmonary findings.
[2018-02-21 12:00] VITALS: BP 116/60
[2018-02-21 16:00] VITALS: BP 110/58
[2018-02-22] VITALS: BP 104/58
[2018-02-22 04:39] LABS: ABSOLUTE BASOPHIL COUNT 0 /CUMM (0.0-0.2); ABSOLUTE EOSINOPHIL COUNT 0 /CUMM (0.0-0.7); ABSOLUTE LYMPH COUNT 0.4 /CUMM (1.2-3.4); ABSOLUTE MONOCYTE COUNT 0.3 /CUMM (0.10-0.60); BASOPHIL % 0 % (0.0-2.0); EOSINOPHIL % 0 % (0-5); GRANULOCYTE % 91.4 % (42.2-75.2); MEAN CORPUSCULAR HGB 31.3 PG (27.0-31.0); MEAN CORPUSCULAR HGB CONC 33.7 G/DL (33.0-37.0); MEAN CORPUSCULAR VOLUME 92.7 FL (80.0-94.0); MEAN PLATELET VOLUME 8.6 FL (7.4-10.4); PLATELET COUNT 296 /CUMM (130-400); RBC DISTRIBUTION WIDTH 13.6 % (11.5-14.5); WHITE BLOOD CELL COUNT 8.7 /CUMM (4.8-10.8)
[2018-02-22 04:43] LABS: HEMATOCRIT 25.9 % (42-52)
[2018-02-22 04:44] LABS: PTT 34 SEC (25-37)
--- NOTE | 2018-02-22 07:40 | PN- Resident CRCU ---
See Addendum Vazquez RICE,Kuldeep 02/22/18 0740: Subjective HPI/CRCU Issues: Acute hypoxic hypercarbic respiratory failure, AMS 24 Hour Events: I followed up and examined the patient today. He is resting comfortably in his recliner, on nasal cannula, and not in distress. He does not offer any complaints, appears eager about his discharge. He does not recall why he was put on BiPAP/ED events despite we telling him multiple times to reorient him. He is oriented to everything else otherwise. He was on BiPAP overnight but is refusing to get it more often. Objective Vital Signs & I&O Last 8 Hrs of Vitals and I&O: Vital Signs Date Time Temp Pulse Resp B/P B/P Pulse O2 O2 Flow FiO2 Mean Ox Delivery Rate 02/22 0400 97 Nasal 2.0L Cannula 02/22 0137 97 Nasal 2.0L Cannula 02/22 0118 98 97 02/22 0039 91 98 02/22 0029 90 99 02/22 0000 98 BIPAP 35% 02/22 0000 97.8 90 24 104/58 98 BIPAP 35% 02/21 2209 102 97 02/21 2000 95 Nasal 2.0L Cannula 02/21 1607 93 Nasal 2.0L Cannula 02/21 1600 98.7 104 28 110/58 95 Nasal 2.0L Cannula 02/21 1600 95 Nasal 2.0L Cannula 02/21 1200 113 93 02/21 1200 96 Nasal 2.0L Cannula 02/21 1200 98.0 108 35 116/60 96 Nasal 2.0L Cannula 02/21 1051 101 99 02/21 1039 BIPAP 28% 02/21 0845 104 99 02/21 0809 98 BIPAP 35% 02/21 0808 105 98 02/21 0800 98 BIPAP 35% 02/21 0800 97.7 102 24 114/58 98 BIPAP 35% Intake & Output 02/22 0800 02/22 0000 02/21 1600 Intake Total 420 460 590 Output Total 450 550 250 Balance -30 -90 340 Intake, IV 0 0 150 Intake, Oral 420 460 440 Number 0 0 Bowel Movements Output, Urine 450 550 250 Patient 72.32 kg Weight Weight Bed scale Measurement Method Exam General Appearance: well developed/nourished, no apparent distress, alert, awake , comfortable, on NS at 2L/min Other Physical Findings: Skin extensive echymosis on forearm b/l, no change Skin Temp/Moisture Exam: Warm/Dry HEENT on Bipap, so mucosa not examined Neck Supple Cardiovascular Normal S1, Normal S2 Lungs B/l decreased breath sounds, less wheezing Abdomen Soft, No Tenderness Neurological confused bute better than yesterday, requires frequent reorientation, but normal speech otherwise, no facial changes, normal motor and sensory findings Extremities B/l pedal edema grade 1, b/l forearm echmosis and swelling Current Medications: Current Medications Sig/Herber Start time Last Medication Dose Route Stop Time Status Admin Acetaminophen 650 MG Q6P PRN 02/21 0145 AC PO Acetaminophen 1,000 MG Q6P PRN 02/21 0145 AC IV Albuterol Sulfate 3 ML EVERY 4 HRS/AWAKE 02/21 0806 AC 02/22 INH 0122 Albuterol Sulfate 3 ML Q6 PRN 02/21 0215 DC INH Amlodipine Besylate 5 MG DAILY 02/21 09 AC 02/21 PO 1358 Atorvastatin Calcium 40 MG 1700 02/21 1700 AC 02/21 PO 1745 Azithromycin 500 MG DAILY 02/22 09 AC Sodium Chloride 250 ML IV Azithromycin 500 MG 0200 02/22 0200 CAN Sodium Chloride 250 ML IV Azithromycin 500 MG DAILY 02/21 09 DC Sodium Chloride 250 ML IV Bicalutamide 50 MG DAILY 02/21 09 AC 02/21 PO 1358 Ezetimibe 10 MG DAILY 02/21 0900 AC 02/21 PO 1358 Furosemide 20 MG TUES THURS SAT 02/21 09 AC 02/21 PO 1358 Heparin Sodium 5,000 UNIT Q8 02/21 06 AC 02/22 (Porcine) SC 0528 Ipratropium [place] 2.5 ML EVERY 4 HRS/AWAKE 02/21 0805 AC 02/22 INH 0122 Ipratropium [place] 2.5 ML Q6 02/21 06 DC INH Losartan Potassium 50 MG DAILY 02/21 09 AC 02/21 PO 1358 Magnesium Oxide 400 MG ONE ONE 02/22 2000 DC 02/21 PO 02/21 Magnesium Sulfate 1 GM ONCE ONE 02/21 0730 DC 02/21 Dextrose/Water 100 ML IV 02/21 1129 0856 Magnesium Sulfate 1 GM ONCE ONE 02/21 0545 DC 02/21 Dextrose/Water 100 ML IV 02/21 0944 0548 Melatonin 5 MG ONCE ONE 02/21 2100 DC 02/21 PO 02/21 2101 210 Methylprednisolone 40 MG Q8 02/21 06 AC 02/22 IV 0528 Metoprolol Succinate 25 MG DAILY 02/21 0900 AC 02/21 PO 1358 Impression/Plan Impression/Problem List Impression: Mr Wharton is a 77-year-old male with medical history of severe COPD on 2L/min O2/prednisone/azithromycin at home, b/l pulm nodules, coronary artery disease status post [place], CABG, hypertension, hyperlipidemia, diverticulosis, nephrolithiasis, recent TURP procedure for BPH which turned out to be adenocarcinoma currently on hormonal therapy, depression, anxiety, insomnia, recent discharge from [facility] after the TURP procedure which was complicated by confusion, acute on chronic hypoxic respiratory failure, and urinary retention. In the ED, he was found to be hypoxic, hypercarbic, and confused, and was put on BiPAP, and he initially was very agitated/anxious, thus one dose of benzodiazepine was given. He was then transferred to the ICU for the management of following issues: Patient is currently being treated in the ICU for the following issues: RESPIRATORY #Acute on chronic hypoxic hypercarbic respiratory failure, secondary to COPD exacerbation, improving Patient's clinical picture is typical of COPD exacerbation, with altered mental status as the presenting feature, and given his respiratory distress this morning, he was admitted in the ICU for further management. We'll continue to monitor him closely as he will receive IV azithromycin, and IV methylprednisolone, TRC/nebs. Most importantly, patient needs to be on BiPAP until he improves, and even if he improves later today he still will need nocturnal BiPAP, which he has been reluctant to go for. INFECTIOUS DISEASE #Possible acute bronchitis, no PNA Patient's leukocytosis could have been due to steroid use, or due to infection which explains his acute exacerbation of COPD as well. Will continue his home dose of azithromycin. CARDIOLOGY #Severe aortic stenosis, congestive heart failure with reduced ejection fraction , stable Cardiology service notified as courtesy to the patient is currently admitted in the ICU but not placed an official consult yet. No active issue cardiologically. HEMATOLOGY #Leukocytosis, infective vs reactive, on IV abx-->PO abx #low h/h today, likely dilutional METABOLIC #Borderline hyperkalemia (5.5), better now after IV fluids only at 4.8 #Hypomagnesiumemia, repleted ALIMENTARY #Can eat heart healthy diet once BiPAP is off NEPHROLOGY No issues NEUROLOGY As his mentation is better, only some confusion remains, better than yesterday. Expecting better recovery once hypercarbia, hypoxia has resolved. CHRONIC ISSUES OTHERWISE: Continuing his home meds. MISC: Diet: Heart healthy DVT prophylaxis: SQ Heparin Code status: Full code Family update: Done with his today At some point, he needs to have a conversation with his family and oncologist about the prognosis of condition, cat given the new diagnosis of adenocarcinoma of prostate. Problem List: 1. Acute on chronic respiratory failure with hypoxia and hypercapnia 2. COPD exacerbation Pain Ratin Pain Goal: Pain 4 or less Pain Plan: prn Tomorrow's Labs & Rationales: ICU lab bundle to track his initial high K, CBC to r/o diluational low h/h Samuel Stoner MD 02/22/18 0901: Impression/Plan Plan DVT/Prophylaxis: pharmacological Attending MD Review Statement Attending Sign Off Attending Cosign Statement: I have: examined this patient, reviewed avalbl EMR data, personally reviewd images, discussd w/resident/PA/CERTIFICATION ENGINEER, discussed mgmt plan w/casey, discussed mgmt plan w/CM, discussed mgmt plan w/pt, agreed w/resident/PA/CERTIFICATION ENGINEER, amended to note. Other Findings: ISamuel M.D. have examined this patient, reviewed available EMR data, personally reviewed images, discussed with resident/PA/CERTIFICATION ENGINEER, discussed management plan with housestaff and nursing staff, discussed managment plan all of healthcare providers, discussed management plan with patient and/or family, agreed with resident/PA/CERTIFICATION ENGINEER. The past history and parts of the chart have been autopopulated. Impression 77-year-old man * acute hypoxemic and hypercarbic respiratory failure secondary to COPD exacerbation Plan -trc/nebs -continue solumedrol -zithromax -bipap DVT prophylaxis at all times TTS 35 min Felipe Mullins MD 02/26/184: Attending MD Review Statement Attending Sign Off Attending Cosign Statement: I have: examined this patient, reviewed avalbl EMR data, discussd w/resident/PA/ CERTIFICATION ENGINEER, discussed mgmt plan w/casey, discussed mgmt plan w/CM, discussed mgmt plan w/ pt, agreed w/resident/PA/CERTIFICATION ENGINEER, amended to note.
[2018-02-22 08:00] VITALS: BP 112/66
[2018-02-22 16:00] VITALS: BP 92/58
[2018-02-22 21:09] VITALS: BP 120/60
--- NOTE | 2018-02-23 07:12 | PN- Housestaff ---
See Addendum Subjective Follow-up For: Acute on chronic hypoxic hypercarbic respiratory failure, secondary to COPD exacerbation Subjective: Mr Wharton was seen and examined this morning. He is resting comfortably in bed. He denies any issues overnight and feels well rested. He is Alert and oriented x 3, however is unable to articulate the reason why he was admitted. He did endorse some chest pain /pressure this morning (at approximately 640 am) but this seems to have passed and he does not seem to recall this complaint. He denies any dyspnea and is currently on supplemental O2 via NC. He denies any fever, chills, nausea or vomiting. BiPAP machine at the bedside and RT reports no issues overnight. Review of Systems Constitutional: Reports: see HPI. Objective Last 24 Hrs of Vital Signs/I&O Vital Signs Date Time Temp Pulse Resp B/P B/P Pulse O2 O2 Flow FiO2 Mean Ox Delivery Rate 02/23 0723 98.4 102 17 110/60 95 02/23 0213 93 96 02/23 0102 98 BIPAP 30% 02/23 0040 94 97 02/23 0000 95 Nasal 2.0L Cannula 02/22 2236 102 96 02/22 2109 98.1 95 17 120/60 95 Nasal 2.0L Cannula 02/22 1605 94 Nasal 2.0L Cannula 02/22 1600 95 Nasal 2.0L Cannula 02/22 1600 98.4 90 20 92/58 95 Nasal 2.0L Cannula 02/22 1136 95 Nasal 2.0L Cannula 02/22 0913 104 112/66 02/22 0913 104 112/66 02/22 0913 104 112/66 02/22 0809 93 Nasal 2.0L Cannula 02/22 0800 93 Nasal 2.0L Cannula 02/22 0800 97.6 103 22 112/66 93 Nasal 2.0L Cannula Intake & Output 02/23 0800 02/23 0000 02/22 1600 Intake Total 451 176 0432 Output Total 1050 575 Balance 480 -570 425 Intake, IV 280 Intake, Oral 480 480 720 Number 1 1 Bowel Movements Output, Urine 1050 575 Patient 69.003 kg Weight Physical Exam General Appearance: Alert, Oriented X3, Cooperative HEENT: Mucous Membr. moist/pink Cardiovascular: Normal S1, Normal S2 Lungs: Mild Crackles noted at Left Lung Base , Decreased air movement Abdomen: Normal Bowel Sounds, Soft, No Tenderness Neurological: Strength at 5/5 X4 Ext, Normal Tone, Sensation Intact, Cranial Nerves 3-12 NL Extremities: No Edema Vascular: Normal Pulses Reproductive (MALE) Parker catheter in place Current Medications: Current Medications Sig/Herber Start time Last Medication Dose Route Stop Time Status Admin Acetaminophen 650 MG Q6P PRN 02/21 0145 AC PO Acetaminophen 1,000 MG Q6P PRN 02/21 0145 AC IV Albuterol Sulfate 3 ML EVERY 4 HRS/AWAKE 02/21 0806 AC 02/23 INH 0805 Amlodipine Besylate 5 MG DAILY 02/21 0900 AC 02/22 PO 0913 Atorvastatin Calcium 40 MG 1700 02/21 1700 AC 02/22 PO 1647 Azithromycin 500 MG 02/24 0900 AC PO Azithromycin 500 MG DAILY 02/22 0900 MD 02/22 Sodium Chloride 250 ML IV 0913 Bicalutamide 50 MG DAILY 02/21 0900 AC 02/22 PO 0913 Ezetimibe 10 MG DAILY 02/21 0900 AC 02/22 PO 0913 Furosemide 20 MG SAT 02/21 0900 AC 02/21 PO 1358 Heparin Sodium 5,000 UNIT Q8 02/21 0600 AC 02/23 (Porcine) SC 0522 Ibuprofen 600 MG .ST-MED ONE 02/22 2011 DC PO 02/23 2012 Ipratropium [place] 2.5 ML EVERY 4 HRS/AWAKE 02/21 0805 AC 02/23 INH 0805 Losartan Potassium 50 MG DAILY 02/21 0900 AC 02/22 PO 0913 Methylprednisolone 40 MG Q12 02/22 2100 AC 02/22 IV 1950 Methylprednisolone 40 MG Q8 02/21 0600 DC 02/22 IV 0528 Metoprolol Succinate 25 MG DAILY 02/21 0900 AC 02/22 PO 0913 Last 24 Hrs of Lab/Alok Results Last 24 Hrs of Labs/Mics: Laboratory Tests 02/23/18 0655: Sodium Pending, Potassium Pending, Chloride Pending, Carbon Dioxide Pending, Anion Gap Pending, BUN Pending, Creatinine Pending, Glucose Pending, Calcium Pending, Phosphorus Pending, Magnesium Pending, Total Bilirubin Pending, AST Pending, ALT Pending, Albumin Pending, CBC w Diff Pending, WBC Pending, RBC Pending, Hgb Pending, Hct Pending, MCV Pending, MCH Pending, MCHC Pending, RDW Pending, Plt Count Pending, MPV Pending Assessment/Plan Assessment: Mr Wharton is a 77-year-old male with medical history of severe COPD on 2L/min O2/prednisone/azithromycin at home, b/l pulm nodules, coronary artery disease status post [place], CABG, hypertension, hyperlipidemia, diverticulosis, nephrolithiasis, 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 In the ED, he was found to be hypoxic, hypercarbic, and confused, and was put on BiPAP, and he initially was very agitated/anxious, thus one dose of benzodiazepine was given. He was then transferred to the ICU, following stabilization, he is now on the General Medical Floor. -Acute on chronic hypercapnic respiratory failure -Altered mental status, likely secondary to hypercarbia -COPD exacerbation -Leukocytosis, multifactorial -Newly diagnosed stage II prostate cancer -History of BPH status post TURP -History of COPD, on 2.0 L home O2 -CAD/MO status post CABG -History of severe aortic stenosis, dimensionless index 0.24 -HFrEF, LVEF 35-40% (12/2017) -Hypertension -Hyperlipidemia -History of nephrolithiasis -History of diverticulitis #Acute on chronic hypoxic hypercarbic respiratory failure, secondary to COPD exacerbation Patient's clinical picture is typical of COPD exacerbation IV azithromycin, to resume PO azithromycin. IV methylprednisolone--> will transition PO steroids. Continue BiPAP /nocturnal BiPAP #Possible acute bronchitis, no PNA Patient's leukocytosis could have been due to steroid use/infection/reactive Will continue his home dose of azithromycin. #Severe aortic stenosis, congestive heart failure with reduced ejection fraction , stable Cardiology service notified as courtesy May consider cardiology consultation if troponin elevated/recurrent chest symptoms. #Electrolyte Derangements Appear Improved compared to admission. Monitor BEP 02/24/2018 Continuing his home meds. Will require outpatient sleep study. Diet: Heart healthy DVT prophylaxis: SQ Heparin Code status: Full code Problem List: 1. COPD (chronic obstructive pulmonary disease) 2. Acute on chronic respiratory failure with hypoxia and hypercapnia Pain Ratin Pain Location: No Pain Endorsed Pain Goal: Remain pain free Pain Plan: Tylenol PRN Tomorrow's Labs & Rationales: CBC: monitor white cell count BEP: monitor electrolytes Pain Ratin Pain Location: No Pain Endorsed Pain Goal: Remain pain free Pain Plan: Tylenol PRN
[2018-02-23 07:23] VITALS: BP 110/60
[2018-02-23 07:52] LABS: ABSOLUTE BASOPHIL COUNT 0 /CUMM (0.0-0.2); ABSOLUTE EOSINOPHIL COUNT 0 /CUMM (0.0-0.7); ABSOLUTE GRANULOCYTE CT 13.7 /CUMM (1.4-6.5); ABSOLUTE LYMPH COUNT 0.5 /CUMM (1.2-3.4); ABSOLUTE MONOCYTE COUNT 0.6 /CUMM (0.10-0.60); BASOPHIL % 0 % (0.0-2.0); EOSINOPHIL % 0 % (0-5); HEMATOCRIT 27.7 % (42-52); MEAN CORPUSCULAR HGB 30.6 PG (27.0-31.0); MEAN CORPUSCULAR HGB CONC 32.9 G/DL (33.0-37.0); MEAN PLATELET VOLUME 9.2 FL (7.4-10.4); RBC DISTRIBUTION WIDTH 13.9 % (11.5-14.5); RED BLOOD CELL CT 2.98 /CUMM (4.70-6.10)
[2018-02-23 08:13] LABS: WHITE BLOOD CELL COUNT 14.8 /CUMM (4.8-10.8)
[2018-02-23 08:39] LABS: GRANULOCYTE % 92.4 % (42.2-75.2); PLATELET COUNT 327 /CUMM (130-400)
[2018-02-23 10:31] VITALS: BP 108/54
--- NOTE | 2018-02-23 11:19 | PN- Pulmonary ---
Subjective HPI/Critical Care Issues: pt seen and examined transferred out of ICU feeling much better out of bed Objective Current Medications: Current Medications Sig/Herber Start time Last Medication Dose Route Stop Time Status Admin Acetaminophen 650 MG Q6P PRN 02/21 0145 AC PO Acetaminophen 1,000 MG Q6P PRN 02/21 0145 AC IV Albuterol Sulfate 3 ML EVERY 4 HRS/AWAKE 02/21 0806 AC 02/23 INH 0805 Amlodipine Besylate 5 MG DAILY 02/21 0900 AC 02/22 PO 0913 Atorvastatin Calcium 40 MG 1700 02/21 1700 AC 02/22 PO 1647 Azithromycin 500 MG 02/24 0900 AC PO Azithromycin 500 MG DAILY 02/22 0900 DC 02/22 Sodium Chloride 250 ML IV 0913 Bicalutamide 50 MG DAILY 02/21 0900 AC 02/23 PO 1044 Ezetimibe 10 MG DAILY 02/21 0900 AC 02/23 PO 1045 Furosemide 20 MG SAT 02/21 0900 AC 02/21 PO 1358 Heparin Sodium 5,000 UNIT Q8 02/21 0600 AC 02/23 (Porcine) SC 0522 Ibuprofen 600 MG .STK-MED ONE 02/22 2011 DC PO 02/23 2012 Ipratropium [place] 2.5 ML EVERY 4 HRS/AWAKE 02/21 0805 AC 02/23 INH 0805 Losartan Potassium 50 MG DAILY 02/21 0900 AC 02/22 PO 0913 Methylprednisolone 40 MG Q12 02/22 2100 AC 02/23 IV 1027 Metoprolol Succinate 25 MG DAILY 02/21 0900 AC 02/23 PO 1045 Vital Signs & I&O Last 24 Hrs of Vitals and I&O: Vital Signs Date Time Temp Pulse Resp B/P B/P Pulse O2 O2 Flow FiO2 Mean Ox Delivery Rate 02/23 1031 108 18 108/54 93 Nasal 2.0L Cannula 02/23 0807 96 Nasal 2.0L Cannula 02/23 0723 98.4 102 17 110/60 95 02/23 0213 93 96 02/23 0102 98 BIPAP 30% 02/23 0040 94 97 02/23 0000 95 Nasal 2.0L Cannula 02/22 2236 102 96 02/22 2109 98.1 95 17 120/60 95 Nasal 2.0L Cannula 02/22 1605 94 Nasal 2.0L Cannula 02/22 1600 95 Nasal 2.0L Cannula 02/22 1600 98.4 90 20 92/58 95 Nasal 2.0L Cannula 02/22 1136 95 Nasal 2.0L Cannula Intake & Output 02/23 1600 02/23 0800 02/23 0000 Intake Total 480 480 Output Total 1050 Balance 480 -570 Intake, Oral 480 480 Number 1 Bowel Movements Output, Urine 1050 Patient 152 lb Weight Exam Other Physical Findings: [id number] heent-nc cvs-s1,s2 lungs-improved rhonchi abd-soft ext-without edema Results Last 24 Hrs of Lab Results: Laboratory Tests 02/23/1855: Troponin I 0.05 02/23/18654: Anion Gap 6, Estimated GFR > 60, Glucose 152 H, Calcium 8.9, Phosphorus 2.3 L, Magnesium 2.1, Total Bilirubin 0.8, AST 22, ALT 36, Albumin 3.3 L, CBC w Diff NO MAN DIFF REQ, RBC 2.98 L, MCV 93.0, MCH 30.6, MCHC 32.9 L, RDW 13.9, MPV 9.2, Gran % 92.4 H, Lymphocytes % 3.4 L, Monocytes % 4.2, Eosinophils % 0, Basophils % 0, Absolute Granulocytes 13.7 H, Absolute Lymphocytes 0.5 L, Absolute Monocytes 0.6, Absolute Eosinophils 0, Absolute Basophils 0 Impression/Plan Impression/Plan Impression/Plan: Impression 77-year-old man * acute hypoxemic and hypercarbic respiratory failure secondary to COPD exacerbation Plan -trc/nebs -dc solumedrol-begin prednisone 40mg x 2 days, 30x2,20x2,10x2, then stop -zithromax - resume mwf outpt dose -f/u with Dr. Romero on an outpatient basis -recommend outpatient sleep study DVT prophylaxis at all times
--- NOTE | 2018-02-23 13:58 | Patient Discharge Instructions ---
Discharge Instructions General Discharge Information You were seen/treated for: COPD Exacerbation Special Instructions: Please follow-up with your primary care physician in the next 7 days. Please follow-up with your urologist in next 7 days. Please follow-up with Dr. Romero as outpatient. You will likely be considered for a sleep study. Acute Coronary Syndrome Inclusion Criteria At DC or during hospital stay patient has or had the following: ACS DIAGNOSIS No Discharge Core Measures Meds if any: Prescribed or Continued at Discharge Meds if any: NOT Prescribed or Continued at Discharge Congestive Heart Failure Inclusion Criteria At DC or during hospital stay patient has or had the following: CHF DIAGNOSIS No Discharge Core Measures Meds if any: Prescribed or Continued at Discharge Meds if any: NOT Prescribed or Continued at Discharge Cerebrovascular accident Inclusion Criteria At DC or during hospital stay patient has or had the following: CVA/TIA Diagnosis No Discharge Core Measures Meds if any: Prescribed or Continued at Discharge Meds if any: NOT Prescribed or Continued at Discharge Venous thromboembolism Inclusion Criteria VTE Diagnosis No VTE Type NONE VTE Confirmed by (Test) NONE Discharge Core Measures - Per Current guidelines, there needs to be overlap - treatment for the first 5 days of Warfarin therapy. - If discharged on Warfarin prior to 5 days of - overlap therapy, the patient will need to be - assessed for post discharge needs including - *Post discharge parental anticoagulation - *Warfarin and/or parental anticoagulation education - *Follow up date to check INR post discharge At least 5 days overlap therapy as Inpatient No Meds if any: Prescribed or Continued at Discharge Note: Overlap Therapy is Warfarin and Anticoagulant Meds if any: NOT Prescribed or Continued at Discharge
[2018-02-23] MEDS ORDERED: PREDNISONE10 M2 PO (16:46)
[2018-02-23 21:34] VITALS: BP 104/66
[2018-02-24 06:58] VITALS: BP 110/70
--- NOTE | 2018-02-24 07:22 | PN- Housestaff ---
Subjective Follow-up For: COPD Exacerbation Subjective: Patient seen and examined this morning. Resting comfortably in bed. Denies any issues at the moment. States he was a little confused overnight thiking he was at home. This morning he is alert although not entirely clear on the reason why he is at the hospital. Denies any fever, chills, nausea, vomiting. Says that he's feeling better. Currently has supplemental oxygen by nasal cannula in place. Parker draining well. Review of Systems Constitutional: Reports: see HPI. Objective Last 24 Hrs of Vital Signs/I&O Vital Signs Date Time Temp Pulse Resp B/P B/P Pulse O2 O2 Flow FiO2 Mean Ox Delivery Rate 02/24 0658 98.0 92 18 110/70 96 02/23 2356 96 Nasal 3.0L Cannula 02/23 2134 98.3 107 18 104/66 98 02/23 1600 93 Nasal 2.0L Cannula 02/23 1445 108 100/60 02/23 1444 108 100/60 02/23 1200 93 Nasal 2.0L Cannula 02/23 1031 108 18 108/54 93 Nasal 2.0L Cannula 02/23 0807 96 Nasal 2.0L Cannula Intake & Output 02/24 0800 02/24 0000 02/23 1600 Intake Total 402 085 4445 Output Total 498 689 8736 Balance -400 60 20 Intake, IV 10 40 Intake, Oral 250 600 980 Number 1 0 Bowel Movements Output, Urine 608 625 0316 Physical Exam General Appearance: Alert, Oriented X3, Cooperative Cardiovascular: Regular Rate, Normal S1, Normal S2 Lungs: Clear to Auscultation, Normal Air Movement Abdomen: Normal Bowel Sounds, Soft, No Tenderness Neurological: Normal Gait, Normal Speech Extremities: No Clubbing, No Cyanosis, No Edema Current Medications: Current Medications Sig/Herber Start time Last Medication Dose Route Stop Time Status Admin Acetaminophen 650 MG Q6P PRN 02/21 0145 AC PO Acetaminophen 1,000 MG Q6P PRN 02/21 0145 AC IV Albuterol Sulfate 3 ML EVERY 4 HRS/AWAKE 02/21 0806 AC 02/24 INH 0756 Amlodipine Besylate 5 MG DAILY 02/21 0900 AC 02/22 PO 0913 Atorvastatin Calcium 40 MG 1700 02/21 1700 AC 02/23 PO 1703 Azithromycin 500 MG 02/24 0900 AC 02/24 PO 0819 Bicalutamide 50 MG DAILY 02/21 0900 AC 02/24 PO 0819 Ezetimibe 10 MG DAILY 02/21 0900 AC 02/24 PO 0819 Furosemide 20 MG TUES THURS SAT 02/21 0900 AC 02/21 PO 1358 Heparin Sodium 5,000 UNIT Q8 02/21 0600 AC 02/24 (Porcine) SC 0602 Ipratropium [place] 2.5 ML EVERY 4 HRS/AWAKE 02/21 0805 AC 02/24 INH 0756 Losartan Potassium 50 MG DAILY 02/21 0900 AC 02/22 PO 0913 Methylprednisolone 40 MG Q12 02/22 2100 DC 02/23 IV 1027 Metoprolol Succinate 25 MG DAILY 02/21 0900 AC 02/24 PO 0820 Patient Medication 1 ED ONE ONE 02/23 1700 DC Teaching ED 02/23 1701 Prednisone 40 MG ONCE ONE 02/24 0800 DC 02/24 PO 02/24 0801 0819 Prednisone 40 MG DAILY 02/23 1350 DC PO 02/24 0901 Last 24 Hrs of Lab/Alok Results Last 24 Hrs of Labs/Mics: Laboratory Tests 02/24/18 0620: Anion Gap 6, Estimated GFR > 60, BUN/Creatinine Ratio 24.3, CBC w Diff Pending, WBC Pending, RBC Pending, Hgb Pending, Hct Pending, MCV Pending, MCH Pending, MCHC Pending, RDW Pending, Plt Count Pending, MPV Pending Assessment/Plan Assessment: Mr Wharton is a 77-year-old male with medical history of severe COPD on 2L/min O2/prednisone/azithromycin at home, b/l pulm nodules, coronary artery disease status post [place], CABG, hypertension, hyperlipidemia, diverticulosis, nephrolithiasis, 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 In the ED, he was found to be hypoxic, hypercarbic, and confused, and was put on BiPAP, and he initially was very agitated/anxious, thus one dose of benzodiazepine was given. He was then transferred to the ICU, following stabilization, he is now on the General Medical Floor. -Acute on chronic hypercapnic respiratory failure -Altered mental status, likely secondary to hypercarbia -COPD exacerbation -Leukocytosis, multifactorial -Newly diagnosed stage II prostate cancer -History of BPH status post TURP -History of COPD, on 2.0 L home O2 -CAD/SD status post CABG -History of severe aortic stenosis, dimensionless index 0.24 -HFrEF, LVEF 35-40% (12/2017) -Hypertension -Hyperlipidemia -History of nephrolithiasis -History of diverticulitis #Acute on chronic hypoxic hypercarbic respiratory failure, secondary to COPD exacerbation Patient's clinical picture is typical of COPD exacerbation IV azithromycin, to resume PO azithromycin. IV methylprednisolone--> will transition PO steroids, 40 mg from today. Continue BiPAP /nocturnal BiPAP #Possible acute bronchitis, no PNA Patient's leukocytosis could have been due to steroid use/infection/reactive Will continue his home dose of azithromycin. #Severe aortic stenosis, congestive heart failure with reduced ejection fraction , stable Cardiology service notified as courtesy May consider cardiology consultation if troponin elevated/recurrent chest symptoms. #Hypertension Continue Metoprolol Hold Amlodipine due to hypotension. #Electrolyte Derangements Appear Improved compared to admission. Monitor BEP 02/24/2018 Continuing his home meds. Will require outpatient sleep study. Diet: Heart healthy DVT prophylaxis: SQ Heparin Code status: Full code Problem List: 1. Hypercapnic respiratory failure Pain Ratin Pain Location: No Pain endorsed Pain Goal: Remain pain free Pain Plan: No Pain endorsed Tomorrow's Labs & Rationales: No Labs - Discharge pending
[2018-02-24 08:20] LABS: ABSOLUTE BASOPHIL COUNT 0 /CUMM (0.0-0.2); ABSOLUTE EOSINOPHIL COUNT 0 /CUMM (0.0-0.7); ABSOLUTE GRANULOCYTE CT 11.6 /CUMM (1.4-6.5); ABSOLUTE MONOCYTE COUNT 1.7 /CUMM (0.10-0.60); BASOPHIL % 0.1 % (0.0-2.0); EOSINOPHIL % 0.1 % (0-5); GRANULOCYTE % 80.7 % (42.2-75.2); MEAN CORPUSCULAR HGB 30.8 PG (27.0-31.0); MEAN CORPUSCULAR VOLUME 93.3 FL (80.0-94.0); MEAN PLATELET VOLUME 9.4 FL (7.4-10.4); PLATELET COUNT 326 /CUMM (130-400); WHITE BLOOD CELL COUNT 14.4 /CUMM (4.8-10.8)
--- NOTE | 2018-02-24 11:03 | Discharge Summary ---
Visit Information Visit Dates Admission Date: 02/20/18 Discharge Date: 02/21/2018 Hospital Course Course Attending Physician: Felipe Mullins MD Primary Care Physician: Charlotte RICE,Naun Benites Hospital Course: Mr Wharton is a 77-year-old man with past medical history of COPD on 2.0 L home oxygen, CAD/GA status post CABG, hypertension, hyperlipidemia, BPH status post TURP, nephrolithiasis, and diverticulitis brought in by ambulance for increased weakness and confusion with decreased p.o. intake. The patient was recently admitted to [facility] from 02/15/18-02/19/18 for an elective TURP for his BPH. Postoperatively patient was found to be lethargic and confused for which she was placed under observation on the medical service. He was maintained on continuous bladder irrigation for hematuria with clots. It was reported that since his arrival home patient had apparently been progressively more weak and confused with decreased appetite. Vital signs at the time of admission: Temp 97.9-99.1, HR 98-102, RR 22-26, SBP 132-138, SPO2 95-100% on 40% FiO2 via BiPAP -CBC: WBC 14.9, hemoglobin 10.6, hematocrit 32.8, platelet 359 -BMP: Sodium 139, potassium 5.5, chloride 91, CO2 45, BUN 12, creatinine 0.6, anion gap 3, glucose 106 -Urinalysis: Unremarkable -AB.23/94/104/38 -EKG: Age-indeterminate anteroseptal infarct, T-wave inversion in V5-V6, normal sinus rhythm -Echocardiogram 01/20/18: LVEF 35-40% with increased LV wall thickness, akinetic anterior wall and apex, stage I diastolic dysfunction, severe aortic stenosis with trace/mild AR (DI 0.24) In the ED Blood cultures 2 were drawn and patient received ceftriaxone/ azithromycin/Solu-Medrol with 1 L of normal saline. He was subsequently admitted to the [facility] and managed for the following problems. Problem list -Acute on chronic hypercapnic respiratory failure -Altered mental status, likely secondary to hypercarbia -COPD exacerbation -Leukocytosis, multifactorial -SIRS -Newly diagnosed stage II prostate cancer -History of BPH status post TURP -History of COPD, on 2.0 L home O2 -CAD/GA status post CABG -History of severe aortic stenosis, dimensionless index 0.24 -HFrEF, LVEF 35-40% (12/2017) -Hypertension -Hyperlipidemia -History of nephrolithiasis -History of diverticulitis Patient met SIRS criteria through leukocytosis and tachycardia without any obvious source of infection. Subsequently started on IV steroids, IV azithromycin and serial breathing treatments. He also received a pulmonology consultation. Patient was placed on BiPAP which he tolerated well. On 02/15/2018 patient was downgraded to the Gen. medical service. He was transitioned to by mouth prednisone and sent home on a taper. Patient was also hyperkalemic (at 5.5) at the time of admission. After fluid hydration this normalized to 4.8. Over the course the admission the patient did not require all his antihypertensives. Because of borderline blood pressure consistently lower than 120, the patient's amlodipine was discontinued. Patient's Ativan which patient takes for anxiety was also discontinued and patient's was instructed that she should minimize the use of this medication. Patient was instructed to follow-up with his urologist for further care and outpatient follow-up. In the interim catheter was to remain in place. Patient code of the course of admission. *All imaging studies from the patient's hospitalization included on this report. Allergies: Coded Allergies: aspirin (Intermediate, HIVES 02/13/18) Pertinent Lab Results: SERVICE DATE: 02/20/18 EXAM TYPE: RAD - XRY-PORTABLE CHEST XRAY EXAMINATION: XR PORTABLE CHEST CLINICAL INFORMATION: Chest pain. Dyspnea. COMPARISON: Chest x-ray 02/09/2018 TECHNIQUE: Portable frontal view of the chest was obtained. 9:37 PM FINDINGS: There is emphysematous hyperinflation of lungs. Lungs are clear. No pulmonary vascular congestion. No infiltrate or pleural effusion. No pneumothorax. The cardiac and mediastinal contours are normal. There are calcifications of aortic arch. Multilevel degenerative spondylosis of dorsal spine. IMPRESSION: No acute abnormality of the chest. DICTATED BY: Josh Moyer MD SERVICE DATE: 02/20/18 EXAM TYPE: CAT - CT HEAD WO IV CONTRAST EXAMINATION: CT HEAD WITHOUT CONTRAST CLINICAL INFORMATION: Mental status change. COMPARISON: None TECHNIQUE: Contiguous axial imaging was performed from the skull base to vertex without intravenous administration of contrast. DLP: 863.88 mGy-cm FINDINGS: There is no evidence of acute intracranial hemorrhage or territorial infarction. No abnormal mass effect or midline shift is seen. [place] to white matter differentiation is well preserved. No extra-axial fluid collections are identified. There is atrophy with prominence of the ventricles and the sulci and hypodensity of the periventricular white matter due to chronic small vessel ischemic disease. There is vascular calcifications of the internal carotid arteries bilaterally. The osseous structures and soft tissues are normal. The mastoid air cells and visualized portions of the paranasal sinuses are well aerated. IMPRESSION: No acute intracranial pathology. DICTATED BY: Josh Moyer MD SERVICE DATE: 02/20/18 EXAM TYPE: CAT - CT ABD & PELVIS W/O IV CONTRAS EXAMINATION: CT ABDOMEN AND PELVIS WITHOUT CONTRAST CLINICAL INFORMATION: Abdominal pain COMPARISON: Ultrasound abdomen 12/23/2016 TECHNIQUE: Multidetector volumetric imaging was performed from the superior aspect of the liver through the pubic symphysis. Sagittal and coronal reformatted images were obtained on the technologist's workstation. DLP: 378.18 mGy-cm FINDINGS: LUNG BASES: The visualized lung bases are unremarkable. LIVER, GALLBLADDER, AND BILIARY TREE: The liver is normal in size, shape, and attenuation. No focal hepatic lesion or biliary ductal dilatation is present. The gallbladder is unremarkable with no evidence of radiopaque gallstones, gallbladder wall thickening, or obvious pericholecystic inflammatory changes. PANCREAS: Unremarkable. SPLEEN: Unremarkable. ADRENAL GLANDS: Unremarkable. KIDNEYS AND URETERS: The kidneys are normal in size, shape, and attenuation. No hydronephrosis, hydroureter, or calculi seen. No perinephric stranding. BLADDER: Parker catheter within the bladder. GASTROINTESTINAL TRACT: No acute change of the bowel. No bowel obstruction. No bowel wall thickening or edema. There is a diverticula of the left colon and the sigmoid but no diverticulitis. The appendix is not seen. There is no inflammation the mesentery. The small bowel loops are unremarkable. ABDOMINAL WALL: Small fat-containing bilateral inguinal hernias. LYMPH NODES: Normal. VASCULAR: There is atherosclerotic vascular wall calcifications of aorta and iliac arteries without aneurysm. PELVIC VISCERA: Unremarkable. OSSEOUS STRUCTURES: Degenerative spondylosis spine with multilevel disc height narrowing and endplate spurring and facet joint arthrosis IMPRESSION: No acute abnormality CT scan abdomen and pelvis. DICTATED BY: Josh Moyer MD SERVICE DATE: 02/21/18 EXAM TYPE: RAD - XRY-PORTABLE CHEST XRAY EXAMINATION: XR PORTABLE CHEST CLINICAL INFORMATION: Shortness of breath and altered mental status. COMPARISON: 02/20/2018 TECHNIQUE: Portable frontal view of the chest was obtained. FINDINGS: The lungs are hyperexpanded consistent with known emphysema. There is no focal consolidation, edema, or effusion. No pneumothorax. The cardiomediastinal silhouette is within normal limits. No acute osseous abnormality. IMPRESSION: No acute pulmonary findings. DICTATED BY: Vahid RICE,Timi Disposition Summary Disposition Principal Diagnosis: -Acute on chronic hypercapnic respiratory failure [facility] due to COPD exacerbation Additional Diagnosis: -Leukocytosis, multifactorial -Newly diagnosed stage II prostate cancer -History of BPH status post TURP -History of COPD, on 2.0 L home O2 -CAD/GA status post CABG -History of severe aortic stenosis, dimensionless index 0.24 -HFrEF, LVEF 35-40% (12/2017) -Hypertension -Hyperlipidemia Discharge Disposition: home or self care Discharge Instructions General Discharge Information Code Status: Full Code Patient's Diet: Heart Healthy Patient's Activity: As Tolerated Follow-Up Instructions/Appts: Please follow-up with your primary care physician in the next 7 days. Please follow-up with your urologist in next 7 days. Please follow-up with Dr. Romero as outpatient. You will likely be considered for a sleep study. Medications at Discharge Discharge Medications: Stop taking the following medications: Amlodipine Besylate (Amlodipine Besylate) 5 MG TABLET ORAL DAILY Qty = 90 Lorazepam (Ativan) 0.5 MG TABLET ORAL 2 x Daily as needed as needed for ANXIETY Continue taking these medications: Ezetimibe (Zetia) 10 MG TABLET 1 Tablet ORAL DAILY Comments: Last Taken: 02/24/18 Time: 9 AM Ipratropium/Albuterol Sulfate (Iprat-Albut 0.5-3(2.5) MG/3 Ml) 3 ML AMPUL.NEB 3 [place]iliters Inhale through mouth Every 4 hours Instructions: EVERY 4 HOURS WHEN AWAKE Comments: Last Taken: 02/19/18 Time: 4 PM Metoprolol Tartrate (Metoprolol Tartrate) 25 MG TABLET 1 Tablet ORAL DAILY Comments: Last Taken: 02/24/18 Time: 9 AM Losartan Potassium (Losartan Potassium) 50 MG TABLET 1 Tablet ORAL DAILY Comments: Last Taken: 02/19/18 Time: 9 AM Atorvastatin Calcium (Atorvastatin Calcium) 40 MG TABLET 1 Tablet ORAL DAILY Qty = 90 Comments: Last Taken: 02/23/18 Time: 9 pm Azithromycin (Zithromax) 500 MG TABLET 1 Tablet ORAL TUESDAY, TUESDAY AND TUESDAY Qty = 30 Comments: Last Taken: 02/24/18 Time: 8 AM Furosemide (Lasix) 20 MG TABLET 1 Tablet ORAL TUESDAY, TUESDAY, TUESDAY Comments: NOT GIVEN IN HOSPITAL Clopidogrel Bisulfate (Clopidogrel) 75 MG TABLET 1 Tablet ORAL DAILY Comments: Last Taken: 02/18/18 Time: 9:40 AM Bicalutamide (Bicalutamide) 50 MG TABLET 1 Tablet ORAL DAILY Qty = 30 Comments: Last Taken: 02/24/18 Time: 8 AM Start taking the following new medications: Prednisone (Prednisone) 10 MG TABLET 1 Tablet ORAL SEE INSTRUCTIONS Qty = 16 No Refills Instructions: ON Take 02/25 4 02/26-02/27 3 02/28-03/01 2 03/02-03/03 1 Copies To: Charlotte RICE,Naun Benites; Nick RICE,Hector Cruz; Jessica Gould MD, MD,Samuel Attending MD Review Statement Documenting Attending: Felipe Mullins MD Other Findings: Agree with above summary of care.
--- NOTE | 2018-02-24 11:08 | PN- Pulmonary ---
Subjective HPI/Critical Care Issues: pt seen and examined doing well anticipating discharge Objective Current Medications: Current Medications Sig/Herber Start time Last Medication Dose Route Stop Time Status Admin Acetaminophen 650 MG Q6P PRN 02/21 0145 DCD PO Acetaminophen 1,000 MG Q6P PRN 02/21 0145 DCD IV Albuterol Sulfate 3 ML EVERY 4 HRS/AWAKE 02/21 0806 DCD 02/24 INH 1135 Amlodipine Besylate 5 MG DAILY 02/21 0900 DCD 02/22 PO 0913 Atorvastatin Calcium 40 MG 1700 02/21 1700 DCD 02/23 PO 1703 Azithromycin 500 MG 02/24 0900 DCD 02/24 PO 0819 Bicalutamide 50 MG DAILY 02/21 0900 DCD 02/24 PO 0819 Clopidogrel Bisulfate 75 MG DAILY 02/24 0915 DCD PO Ezetimibe 10 MG DAILY 02/21 0900 DCD 02/24 PO 0819 Furosemide 20 MG SAT 02/21 0900 DCD 02/21 PO 1358 Heparin Sodium 5,000 UNIT Q8 02/21 06 DCD 02/24 (Porcine) SC 0602 Ipratropium [employer] 2.5 ML EVERY 4 HRS/AWAKE 02/21 0805 DCD 02/24 INH 1135 Losartan Potassium 50 MG DAILY 02/21 0900 DCD 02/22 PO 0913 Metoprolol Succinate 25 MG DAILY 02/21 0900 DCD 02/24 PO 0820 Patient Medication 1 ED ONE ONE 02/23 1700 DC Teaching ED 02/23 1701 Prednisone 40 MG ONCE ONE 02/24 0800 DC 02/24 PO 02/24 0801 0819 Prednisone 40 MG DAILY 02/23 1350 DC PO 02/24 0901 Vital Signs & I&O Last 24 Hrs of Vitals and I&O: Vital Signs Date Time Temp Pulse Resp B/P B/P Pulse O2 O2 Flow FiO2 Mean Ox Delivery Rate 02/24 0757 96 Nasal 3.0L Cannula 02/24 0658 98.0 92 18 110/70 96 02/23 2356 96 Nasal 3.0L Cannula 02/23 2134 98.3 107 18 104/66 98 02/23 1600 93 Nasal 2.0L Cannula 02/23 1445 108 100/60 02/23 1444 108 100/60 Intake & Output 02/24 1600 02/24 0800 02/24 0000 Intake Total 250 610 Output Total 650 550 Balance -400 60 Intake, IV 10 Intake, Oral 250 600 Number 1 Bowel Movements Output, Urine 650 550 Exam Other Physical Findings: gen-[id number] heent-nc cvs-s1,s2 lungs-improved rhonchi abd-soft ext-without edema Results Last 24 Hrs of Lab Results: Laboratory Tests 02/24/18 0620: Anion Gap 6, Estimated GFR > 60, BUN/Creatinine Ratio 24.3, CBC w Diff NO MAN DIFF REQ, RBC 2.90 L, MCV 93.3, MCH 30.8, MCHC 33.0, RDW 14.0, MPV 9.4, Gran % 80.7 H, Lymphocytes % 7.3 L, Monocytes % 11.8 H, Eosinophils % 0.1, Basophils % 0.1, Absolute Granulocytes 11.6 H, Absolute Lymphocytes 1.0 L, Absolute Monocytes 1.7 H, Absolute Eosinophils 0, Absolute Basophils 0 Impression/Plan Impression/Plan Impression/Plan: Impression 77-year-old man * acute hypoxemic and hypercarbic respiratory failure secondary to COPD exacerbation Plan -trc/nebs -prednisone 40mg x 2 days, 30x2,20x2,10x2, then stop -zithromax - resume mwf outpt dose -f/u with Dr. Romero on an outpatient basis -recommend outpatient sleep study DVT prophylaxis at all times
== END 2018-02-24 12:10 | disposition home health service (06) | DRG 189 ==
LOC: ERH 21:17 → CRI 23:10 → ERHI 23:10 → 2NB 23:10 → ERHI 23:10 → EDBEDREQ 02-21 00:35 → ENRESERV 02-21 00:41 → ERHI 02-21 00:43 → CRI 02-21 01:49 → ENTRNSPT 02-22 18:27 → EDTRNSPT 02-22 18:39 → EDTRNSPTSTS 02-22 18:39 → 2NB 02-22 18:50 → CMPTRNSPT 02-22 18:56 → 2NB 02-23 08:03 → ENTRNSPT 02-24 11:46 → EDTRNSPT 02-24 12:03 → EDTRNSPTSTS 02-24 12:03 → 2NB 02-24 12:10 → CMPTRNSPT 02-24 12:20
PROVIDERS: Internal Medicine Interventional Cardiology; Pediatrics; Student in an Organized Health Care Education/Training Program
PROC: 5A09457 Assistance with Respiratory Ventilation, 24-96 Consecutive Hours, Continuous Positive Airway Pressure (ICD-10-PCS; principal; 2018-02-21)
DX: J96.22 Acute and chronic respiratory failure with hypercapnia (principal); G93.41 Metabolic encephalopathy; J44.1 Chronic obstructive pulmonary disease with (acute) exacerbation; I50.22 Chronic systolic (congestive) heart failure; J44.0 Chronic obstructive pulmonary disease with (acute) lower respiratory infection; Z99.81 Dependence on supplemental oxygen; J96.01 Acute respiratory failure with hypoxia; I11.0 Hypertensive heart disease with heart failure; I35.0 Nonrheumatic aortic (valve) stenosis; C61 Malignant neoplasm of prostate; J20.9 Acute bronchitis, unspecified; Z79.52 Long term (current) use of systemic steroids; I25.10 Atherosclerotic heart disease of native coronary artery without angina pectoris; I25.2 Old myocardial infarction; Z79.01 Long term (current) use of anticoagulants; N40.0 Benign prostatic hyperplasia without lower urinary tract symptoms; Z90.79 Acquired absence of other genital organ(s); F32.9 Major depressive disorder, single episode, unspecified; F41.9 Anxiety disorder, unspecified; G47.00 Insomnia, unspecified; R91.8 Other nonspecific abnormal finding of lung field; Z88.6 Allergy status to analgesic agent; E78.5 Hyperlipidemia, unspecified; Z95.1 Presence of aortocoronary bypass graft; Z90.49 Acquired absence of other specified parts of digestive tract; E83.42 Hypomagnesemia
CPT/HCPCS: 2NSBP; CCU; ERO; 36592; 71045; 74176; 80307; 81001; 82436; 87040; 87070; 87071; 87086; 93005; 93010; 97116-GO; 97161-GP; 97530-GO; 99291; J0456; J0696; J1644; J2920; J2930; J7040; J9202

== ENCOUNTER 2018-03-12 17:22 | Inpatient (IN) | payer OTHER ==
[~2018-03-12] VITALS: Ht 177.8 cm; Wt 79.4 kg
[~2018-03-12 17:22] MED LIST changes: +PREDNISONE2.5 M1 PO
--- NOTE | 2018-03-12 17:49 | ED DYSPNEA/ASTHMA COMPLAINT ---
History of Present Illness General Chief Complaint: Dyspnea (COPD, CHF, Other) Stated Complaint: ACUTE SHORTNESS OF BREATH Source: patient, family, EMS Exam Limitations: no limitations Vital Signs & Intake/Output Vital Signs & Intake/Output Vital Signs Date Time Temp Pulse Resp B/P B/P Pulse O2 O2 Flow FiO2 Mean Ox Delivery Rate 03/13 0232 93 Nasal 28% Cannula 03/13 0022 91 Nasal 28% Cannula 03/12 2230 94 Nasal 28% Cannula 03/12 223 98.2 110 23 130/62 94 Nasal 28% Cannula 03/12 2223 Nasal 28% Cannula 03/12 2038 144/68 03/12 2038 144/68 03/12 2030 104 24 144/68 97 BIPAP 03/12 2016 102 96 03/12 1903 102 32 150/65 100 Nasal 2.5L Cannula 03/12 1805 99 Nasal 3.5L Cannula 03/12 1738 99 Nasal 5.0L Cannula 03/12 1724 98.4 101 24 162/113 94 Nasal 4.0L Cannula ED Intake and Output 03/13 0000 03/12 1200 Intake Total Output Total Balance Patient 175 lb Weight Weight Estimated Measurement Method Allergies Coded Allergies: aspirin (Intermediate, HIVES 02/13/18) Reconcile Medications Atorvastatin Calcium 40 MG TABLET 1 TAB PO DAILY cholesterol (Reported) Azithromycin (Zithromax) 500 MG TABLET 1 TAB PO Tuesday COPD Bicalutamide 50 MG TABLET 1 TAB PO DAILY Prostate Clopidogrel Bisulfate (Clopidogrel) 75 MG TABLET 1 TAB PO DAILY BLOOD THINNER (Reported) Ezetimibe (Zetia) 10 MG TABLET 1 TAB PO DAILY CHOLESTEROL (Reported) Furosemide (Lasix) 20 MG TABLET 1 TAB PO SAT DIURETIC (Reported) Ipratropium/Albuterol Sulfate (Iprat-Albut 0.5-3(2.5) MG/3 Ml) 3 ML AMPUL.NEB 3 ML INH Q4 BREATHING (Reported) EVERY 4 HOURS WHEN AWAKE Losartan Potassium 50 MG TABLET 1 TAB PO DAILY htn (Reported) Metoprolol Tartrate 25 MG TABLET 1 TAB PO DAILY Heart Health (Reported) Triage Note: RECEIVED 77 YO MALE BIBA FROM HOME WITH C/O WORSENING SHORTNESS OF BREATH. PT WAS RECENTLY DISCHARGED FROM [facility] FOR COPD EXACURBATION. PT RECEIVED 2 G MAGNESIUM IV, 125 MG SOLUMEDROL IV AND COMBIVENT MEDNEB TREATMENTS ON WAY TO THE ED. LABORED BREATHING NOTED. PT PLACED ON 5L O2 VIA N/C. O2 SATS 98%. CY JONES IN TO SEE PT UPON ARRIVAL TO ED Triage Nurses Notes Reviewed? yes Onset: Abrupt Duration: day(s): (1), constant, continues in ED, getting worse Timing: recent history Severity: mild, moderate Activities at Onset: rest Prior Episodes/Possible Cause: frequent episodes Modifying Factors: Worsens With: movement. Associated Symptoms: anxiety, cough, wheezing, weakness HPI: 77-year-old male history of COPD, CHF, hypertension, anxiety, depression and presents for evaluation of cough and shortness of breath. Patient reports symptoms started today and been persistent. Cough is mostly dry and occasionally productive of white sputum. No hemoptysis. He reports wheezing that is not improved after nebulizer treatments. No fevers no chest pain. Patient was recently admitted to the hospital with COPD exacerbation he was discharged on a steroid taper that ended. He reports that since the steroids and if his symptoms have gradually returned. He also reports persistent lower extremity edema and weakness. Symptoms get worse with exertion improvement MINIMALY at rest. Patient is on between 2 and 3 L nasal cannula at home 24 hours a day. He received 125 of Solu-Medrol and 2 g of magnesium by EMS. (Cy Espinosa) Past History Travel History Traveled to [place] past 21 day No Medical History Any Pertinent Medical History? see below for history Neurological: NONE EENT: HOARSE VOICE Cardiovascular: CHF, hypertension, hyperlipidemia, myocardial infarction Respiratory: COPD, emphysema, HFrEF Gastrointestinal: diverticulosis Hepatic: NONE Renal: benign prost hyperplasia, nephrolithiasis, adenocarcinoma of prostate Musculoskeletal: FRACTURE(LT.INDEX FINGER) Psychiatric: anxiety, depression, insomnia Endocrine: NONE Blood Disorders: NONE Cancer(s): prostate cancer (recent diagnosis on therapy) TRAINING SYSTEMS OFFICER/Reproductive: NONE History of MRSA: No History of VRE: No History of CDIFF: No Surgical History Surgical History: CABG, cholecystectomy, TURP 01/2018 Psychosocial History Who do you live with Spouse Services at Home [employer]xygen What is your primary language Slovenian Tobacco Use: Quit >30 days ago Family History Family History, If Any: MOTHER (lung cancer, COPD). FATHER (COPD). Hx Contributory? No (Cy Espinosa) Review of Systems Review of Systems Constitutional: Reports: no symptoms. EENTM: Reports: no symptoms. Respiratory: Denies: see HPI, cough, short of breath, sputum production, wheezing. Cardiovascular: Reports: no symptoms. GI: Reports: no symptoms. Genitourinary: Reports: no symptoms. Musculoskeletal: Reports: no symptoms. Skin: Reports: no symptoms. Neurological/Psychological: Reports: no symptoms. Hematologic/Endocrine: Reports: no symptoms. Immunologic/Allergic: Reports: no symptoms. All Other Systems: Reviewed and Negative (Cy Espinosa) Physical Exam Physical Exam General Appearance: well developed/nourished, alert, awake, anxious, moderate distress Head: atraumatic, normal appearance Eyes: Bilateral: normal appearance, PERRL, EOMI. Ears, Nose, Throat: normal pharynx, normal ENT inspection, hearing grossly normal Neck: normal inspection, supple, full range of motion Respiratory: chest non-tender, decreased breath sounds (RLL), accessory muscle use, rhonchi, wheezing (diffuse), respiratory distress Cardiovascular: normal peripheral pulses, tachycardia Peripheral Pulses: 2+ radial (R), 2+ radial (L) Gastrointestinal: soft, non-tender Extremities: normal range of motion, bilateral nonpitting lower extremity edema no erythema Neurologic/Psych: no motor/sensory deficits, awake, alert, oriented x 3 Skin: intact, normal color, warm/dry Lymphatic: no anterior cervical rosales Core Measures ACS in differential dx? No CVA/TIA Diagnosis No Sepsis Present: No Sepsis Focused Exam Completed? No (Cy Espinosa) Progress Differential Diagnosis: asthma, AMI, bronchitis, CHF, COPD, pulmonary embolism, pneumonia, pneumothorax, unstable angina Plan of Care: Orders Procedure Date/time Status EKG 03/13 0800 Active CBC WITHOUT DIFFERENTIAL 03/13 0600 Active BASIC ELECTROLYTES PLUS BUN&CR 03/13 0600 Active SPECIMEN TO BE OBTAINED 03/13 0018 Active Code Status 03/13 0011 Active TROPONIN LEVEL 03/13 0000 Active EKG 03/13 0000 Active CHF Diet 03/12 D Active Weight 03/12 2337 Active VTE Mechanical Prophylaxis 03/12 2337 Active Vital Signs 03/12 2337 Active Turn and Reposition 03/12 2337 Active Teach/Educate 03/12 2337 Active Skin Integrity Protocol 03/12 2337 Active Skin/Pressure Ulcer Assess (Sk 03/12 2337 Active Precautions 03/12 2337 Active Pain Treatment and Response 07/15 2337 Active Nutritional Intake, Monitor 03/12 2337 Active Isolation 03/12 2337 Active CIWA 03/12 2337 Complete Patient Care Conference 03/12 2337 Active Activity/Ambulation 03/12 2337 Active BIPAP 03/12 2300 Complete Pathway - chart 03/12 2241 Active Code Status 03/12 2241 Complete RT: Evaluation 03/12 2222 Active VRE ACTIVE SURVIELLANCE 03/12 221 Active ACTIVE SURVEILLANCE NARES 03/12 221 Active Patient Data 03/12 203 Active Admit to inpatient 03/12 203 Active LACTIC ACID 03/12 2027 Active BIPAP 03/12 2010 Complete MIXED VENOUS BLOOD GAS (GEN) 03/12 192 Complete D-DIMER 03/12 1735 Complete URINALYSIS 03/12 1727 Active TROPONIN LEVEL 03/12 1727 Complete MAGNESIUM 03/12 1727 Complete LACTIC ACID 03/12 1727 Complete COMPREHENSIVE METABOLIC PANEL 03/12 1727 Complete CBC WITHOUT DIFFERENTIAL 03/12 1727 Complete B-TYPE NATRIURETIC PEP (BNP) 03/12 1727 Complete EKG 03/12 1727 Active TRC EVALUATION (GEN) 03/12 UNK Complete THERAPIST ORDERS 03/12 UNK Complete Pathway - chart 03/12 UNK Active House Staff 03/12 UNK Active Intake & Output 03/12 UNK Active Current Medications Sig/Herber Start time Last Medication Dose Stop Time Status Admin Atorvastatin Calcium 40 MG DAILY 03/13 09 AC (Lipitor) Bicalutamide 50 MG DAILY 03/13 09 AC (Casodex 50MG) Ezetimibe 10 MG DAILY 03/13 09 AC (Zetia) Methylprednisolone 40 MG Q12 03/13 09 AC (Solumedrol) Albuterol Sulfate 3 ML EVERY 4 HRS/AWAKE 03/13 0800 AC 03/12 (Proventil) 225 Ipratropium [place] 2.5 ML EVERY 4 HRS/AWAKE 03/13 0800 AC 03/12 (Atrovent) 2256 Heparin Sodium 5,000 UNIT Q8 03/13 06 AC (Porcine) Azithromycin 500 MG DAILY 03/12 2245 AC 03/13 (Zithromax) 0045 Sodium Chloride 250 ML (Normal Saline 0.9%) Methylprednisolone 125 MG ONCE ONE 03/12 2245 CAN (Solu Medrol) 03/12 224 Clopidogrel Bisulfate 75 MG DAILY 03/12 1741 AC (Plavix) Losartan Potassium 50 MG DAILY 03/12 1741 AC (Cozaar) Metoprolol Tartrate 25 MG DAILY 03/12 1741 AC (Lopressor) Laboratory Tests 03/12/182114: pH 7.28 *L, pCO2 77 *H, pO2 80, HCO3 35 H, ABG O2 Sat (Measured) 95.0 L, P-50 (Temp Corrected) N, Carboxyhemoglobin 0.2 L, O2 Concentration % 30%, Temperature 98.4, Respiration Rate 26, O2 Delivery Method BIPAP, Vent Mode ST, Expiratory Pressure 6, Inspiratory Pressure 18, Phlebotomy Draw Site RIGHT RADIAL 03/12/181939: Bicarbonate Actual 19 L, Mixed VBG pH 7.22 L, Mixed VBG pCO2 47, Mixed VBG O2 Saturation 50 H, Carboxyhemoglobin 0.3 L, O2 Concentration % 2L, O2 Delivery Method NC, Phlebotomy Draw Site VENOUS 03/12/181824: Anion Gap 9, Estimated GFR > 60, BUN/Creatinine Ratio 23.3, Glucose 109 H, Lactic Acid 1.1, Calcium 9.5, Magnesium 2.4 H, Total Bilirubin 1.3, AST 23, ALT 39, Alkaline Phosphatase 87, Troponin I 0.01, Uav-O-Rwtpgotlahb Pept 1300 H, Total Protein 6.6, Albumin 3.9, Globulin 2.7, Albumin/Globulin Ratio 1.4, D- Dimer High Sensitivty < 200, CBC w Diff NO MAN DIFF REQ, RBC 3.76 L, MCV 94.2 H, MCH 31.5 H, MCHC 33.5, RDW 14.0, MPV 8.0, Gran % 86.1 H, Lymphocytes % 9.4 L, Monocytes % 3.3, Eosinophils % 1.0, Basophils % 0.2, Absolute Granulocytes 10.7 H, Absolute Lymphocytes 1.2, Absolute Monocytes 0.4, Absolute Eosinophils 0.1, Absolute Basophils 0 Microbiology 03/12 2230 UPPER RESP: Surveillance Culture - RECD 03/12 2230 GI: Surveillance Culture - RECD Patient is here for evaluation of shortness of breath and cough. On exam he has diffuse wheezing with to manage breath sounds in the right lower lobe. Patient was given a DuoNeb. He received IV Medrol magnesium BY EMS. Labs ordered chest x-ray ordered. Blood work is showing a white count of 12.4 negative d-dimer and BNP of 1300. Chest x-ray is negative for any acute findings no pulmonary edema no pneumonia. Patient was reevaluated and appeared lethargic. He was minimally responsive to loud verbal or painful stimuli a VBG was obtained which showed a pH of 7.22. Patient continues to be tACHPNIC he was placed on BiPAP. He'll be admitted to the hospital for further evaluation and treatment. He will require serial labs serial EKGs telemetry critical care BiPAP serial ABGs IV steroids and IV antibiotics. Case discussed with Dr. Fenton he agrees. Dr. Fenton WILL ADMIT the patient to the ICU Diagnostic Imaging: Viewed by Me: Radiology Read. Discussed w/RAD: Radiology Read. Radiology Impression: PATIENT: OUSMANE GUZMAN PRESENT AGE: 77 PATIENT ACCOUNT NO: [id number] : 42 LOCATION: [facility] ORDERING PHYSICIAN: Cy JONES SERVICE DATE: 03/12/18 EXAM TYPE: RAD - XRY- PORTABLE CHEST XRAY EXAMINATION: XR PORTABLE CHEST CLINICAL INFORMATION: Shortness of breath and hypoxia COMPARISON: February 21, 2018 TECHNIQUE: Portable frontal view of the chest was obtained. FINDINGS: There has been no interval change since the prior study. Again, no significant abnormality is noted involving the heart, lungs, mediastinum, bony thorax or soft tissues. IMPRESSION : Unremarkable examination. DICTATED BY: Jay Nina MD DATE/TIME DICTATED:1848 EQUIPMENT SUPERINTENDENT:SU DATE/TIME TRANSCRIBED:03/12/181848 CONFIDENTIAL, DO NOT COPY WITHOUT APPROPRIATE AUTHORIZATION. Initial ED EKG: normal sinus rhythm, nonspecific ST T wave chg, SINUS TACH 104, ANTERIOR Q WAVES Prior EKG: changed (IMPROVED T CHANGES ) (Cy Espinosa) Departure Departure Disposition: STILL A PATIENT Condition: Stable Referrals: Naun Porter MD (PCP/Family) Departure Forms: Customer Survey General Discharge Information (Cy Espinosa) Departure Clinical Impression Primary Impression: Acidosis Secondary Impressions: COPD exacerbation Admission Note Spoke With: Sloan Spain MD Documentation of Exam: Documentation of any treatments & extenuating circumstances including Concerns Regarding Discharge (functional status, medication knowledge or non-compliance, living conditions, etc.) that warrant an admission rather than observation: Pt with 02 dependent copd, now with respiratory acidosis, merits bipap, icu admission. PA/TRAFFIC COORDINATOR Co-Sign Statement Statement: ED Attending supervision documentation- [x] I saw and evaluated the patient. I have also reviewed all the pertinent lab results and diagnostic results. I agree with the findings and the plan of care as documented in the PA's/TRAFFIC COORDINATOR's documentation. [] I have reviewed the ED Record and agree with the PA's/TRAFFIC COORDINATOR's documentation. [] Additions or exceptions (if any) to the PAs/TRAFFIC COORDINATOR's note and plan are summarized below: [] (Jossy RICE,Sg Kitchen) Critical Care Note Critical Care Note Critical Care Time: 75-104 min (Cy Espinosa)
[2018-03-12 18:39] LABS: ABSOLUTE BASOPHIL COUNT 0 /CUMM (0.0-0.2); ABSOLUTE EOSINOPHIL COUNT 0.1 /CUMM (0.0-0.7); ABSOLUTE GRANULOCYTE CT 10.7 /CUMM (1.4-6.5); ABSOLUTE LYMPH COUNT 1.2 /CUMM (1.2-3.4); ABSOLUTE MONOCYTE COUNT 0.4 /CUMM (0.10-0.60); BASOPHIL % 0.2 % (0.0-2.0); GRANULOCYTE % 86.1 % (42.2-75.2); HEMATOCRIT 35.4 % (42-52); MEAN CORPUSCULAR HGB 31.5 PG (27.0-31.0); MEAN CORPUSCULAR HGB CONC 33.5 G/DL (33.0-37.0); MEAN CORPUSCULAR VOLUME 94.2 FL (80.0-94.0); PLATELET COUNT 273 /CUMM (130-400); RED BLOOD CELL CT 3.76 /CUMM (4.70-6.10); WHITE BLOOD CELL COUNT 12.4 /CUMM (4.8-10.8)
--- NOTE | 2018-03-12 18:54 | RADIOLOGY REPORT ---
EXAMINATION: XR PORTABLE CHEST CLINICAL INFORMATION: Shortness of breath and hypoxia COMPARISON: February 21, 2018 TECHNIQUE: Portable frontal view of the chest was obtained. FINDINGS: There has been no interval change since the prior study. Again, no significant abnormality is noted involving the heart, lungs, mediastinum, bony thorax or soft tissues. IMPRESSION: Unremarkable examination.
--- NOTE | 2018-03-12 21:43 | History & Physical ---
Carla Elizondo 03/12/18 2142: General Information and HPI History of Present Illness: Fan Wharton is a 77 YO male with a PMHx. of COPD on 2L home oxygen, CAD s/p CABG, HTN, HLD, and BPH s/p TURP who presents to the ED with a chief complaint of "dyspnea." Patient is accompanied by his spouse who mentions he has been increasingly short of breath since yesterday. Patient is also noted to be lethargic and experiences dyspnea at rest, usually while sitting. Patient is stated to have a cough with scant plegm production. Patient is noted to also have a decreased appetite and he states he becomes nauseous occasionally when eating. Patient admits to dizziness and headaches which also began yesterday. Patient denies chest pain, abdominal pain, falls, and fevers. Patient is a former smoker who quit smoking approximately 25 years ago. Patient denies any alcohol consumption. 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 Patient utilizes a walker for mobility. Patient follows Dr. Romero (Operator/Assistant Foreman) and Dr. Gould (Urologist). 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 FATHER (COPD). Psychosocial History Who Do You Live With? spouse Services at Home: Oxygen Primary Language: Hungarian Living Will? yes Functional Ability ADLs Independent: dressing, eating, toileting. Needs Assist: bathing. Ambulation: independent IADLs Independent: shopping, housework, finances, food prep, telephone, medication admin. Needs Assist: transportation. Review of Systems Review of Systems Constitutional: Reports: malaise (lethargy). Denies: diaphoresis, fever, weakness. EENTM: Denies: visual changes. Cardiovascular: Reports: edema, peripheral edema. Denies: chest pain, palpitations. Respiratory: Reports: cough, short of breath, sputum production. GI: Reports: nausea. Denies: abdominal pain, constipation, diarrhea, vomiting. Genitourinary: Denies: dysuria. Musculoskeletal: Denies: joint pain. Neurological/Psychological: Reports: headache, other (dizziness). Denies: confusion. Hematologic/Endocrine: Reports: bruising. Exam & Diagnostic Data Last 24 Hrs of Vital Signs/I&O Vital Signs Date Time Temp Pulse Resp B/P B/P Pulse O2 O2 Flow FiO2 Mean Ox Delivery Rate 03/13 0022 91 Nasal 28% Cannula 03/12 223 94 Nasal 28% Cannula 03/12 223 98.2 110 23 130/62 94 Nasal 28% Cannula 03/12 2223 Nasal 28% Cannula 03/12 2038 144/68 03/12 2038 144/68 03/12 2030 104 24 144/68 97 BIPAP 03/12 2016 102 96 03/12 1903 102 32 150/65 100 Nasal 2.5L Cannula 03/12 1805 99 Nasal 3.5L Cannula 03/12 1738 99 Nasal 5.0L Cannula 03/12 1724 98.4 101 24 162/113 94 Nasal 4.0L Cannula Intake & Output 03/13 0800 03/13 0000 03/12 1600 Intake Total Output Total Balance Patient 175 lb Weight Weight Estimated Measurement Method Physical Exam General Appearance Alert, Oriented X3, Mild Distress Skin No Rashes, No Breakdown HEENT Atraumatic, PERRLA Neck Supple, No JVD Lymphatic Cervical nl Cardiovascular Normal S1, Normal S2 Lungs Clear to Auscultation Abdomen Soft, No Tenderness Neurological Strength at 5/5 X4 Ext, Normal Tone, Sensation Intact Extremities 2+ pedal edema Vascular 3/4 Dorsalis pedis, 4/4 posterior tibialis Assessment/Plan Assessment: Imaging: CXR: Unremarkable examination. ECHO (01/20/18): LVEF 35-40%, Akinetic anterior wall Pertinent Labs: pBNP 1300 H WBC 12.4 , Hgb 11.9, Hct 35.4 ABG: pH 7.28; pCO2 77, p02 80; HCO3 35 Etiology in this case with a history of dyspnea at rest on 2-3 L home oxygen and increased work of breathing is likely due to a COPD exacerbation. Patient is acidotic and retaining CO2 with expected relief of symptoms with administration of non-invasive positive pressure ventiliation (BiPAP); however, patient has refused BiPAP and any medically unnecessary interventions and is currently DNR/ DNI. DECAF Score (3-6): consideration for a higher level of monitoring versus palliative care. Differential diagnosis includes CHF, PE, pneumonia, PTX, and pleural effusion. Assessment: 1. Hypercapneic Respiratory Failure, secondary to COPD 2. h/o CAD s/p CABG 3. h/o HTN, HLD 4. h/o BPH s/p TURP Plan: * Hypercapneic Respiratory Failure - Acute worsening of patient's respiratory symptoms beyond baseline in patient with history of Chronic Obstructive Pulmonary Disease - Admit to ICU for cardiac monitoring and assessment of vitals - Oxygen therapy to maintain saturation > 92% via high flow O2; patient has refused BiPAP intervention - Solu-Medrol 40 mg q12 hours - TRC/nebs - Atorvastatin 40 mg, Heparin SC, Clopidogrel 75 mg, Losartan 50 mg - Metoprolol 25 mg - Azithromycin antibiotic regimen as prophylaxis for any perceived respiratory infection and anti-inflammatory benefit - ABG follow-up to assess for any developing acidemia and CO2 retention - DVT PPx. Patient is DNR/DNI; Hospice Evaluation in the AM. As Ranked By This Provider Problem List: 1. COPD exacerbation 2. CAD (coronary artery disease) 3. BPH (benign prostatic hyperplasia) 4. Hypertension 5. Hyperlipidemia Core Measures/Misc (05/15) Acute Coronary Syndrome ACS Diagnosis: No Congestive Heart Failure Congestive Heart Failure Diagnosis Yes Last Known EF % 35 (35-40%) Cerebrovascular Accident CVA/TIA Diagnosis: No VTE (View Protocol) VTE Risk Factors Acute Medical Illness No Mechanical VTE Prophylaxis d/t N/A MechProphylax Ordered No VTE Pharm Prophylaxis d/t NA PharmProphylax ordered Sepsis (View protocol) Sepsis Present: No If YES complete Sepsis Event Note If YES complete Sepsis Event Note Milan Carrillo 03/13/18 0037: Core Measures/Misc (05/15) Sepsis (View protocol) If YES complete Sepsis Event Note If YES complete Sepsis Event Note Resident Review Statement Resident Statement: examined this patient, discussed with integrated marketing intern, agreed with integrated marketing intern, amended to note Other Findings: Mr Wharton is a 77 year old man w/ a PMHx of COPD(2L NC suppl O2), HFrEF, hypertension, anxiety, CAD s/p CABG, benign prost hyperplasia, nephrolithiasis, adenocarcinoma of prostate([place] 9/10) s/p TURP on anti-androgen tx came to the hospital with a chief concern of acute onset of dyspnea associated with non productive cough x 1 day. Dyspnea progressed from exertional to dyspnea at rest. No pnd. Has been using increasing frequency of nebulizer. Recently admitted to [facility] for COPD exacerbation and was discharged on prednisone taper. No CP/palpitations. No weight gain, or changes in urine output. No fever, or sick contacts. Has been taking his meds regularly. At the time of admission-temperature 98.4, pulse rate 101, RR 24, blood pressure 162/103, 94% on 4 L. General Exam: AAOx3, moderate distress, Skin: No rashes, no breakdown;HEENT: PERRLA, EOMI;Neck: Supple, No JVD ; No cervical lymphadenopathy;CVS: Reg Rate, Normal S1,S2, systolic murmut;Resp: decreased air entry, b/l expiratory wheezes; Abdomen: Soft, No tenderness, Normal Bowel Sounds;Neuro: Normal Speech, Strength 5/5 b/l x 4 extremities, Sensation intact, CN III-XII NL, Reflexes 2+; Extremities: No cyanosis, 2+ pitting pedal edema. EKG NSR, no STTWI. Echo- 22 Jan 2018 Moderately reduced left ventricular systolic function with segmental abnormalities consistent with Ischemic heart disease and prior infarct. Normal Right ventricular systolic function. Probably severe aortic stenosis. Etiology in his case is likely multifactorial w/ respiratory symptoms contributing more than his cardiac pathology ( ). Although, he no recent h/o infection he does have an acute exacerbation of COPD for which he could be treated w/ steroids+azithromycin. Given his recent diagnosis of adenocarcinoma of prostate, he could likely be experiencing more lethargy. In regards to his generalized worsening respiraotory pathology, he should be aggressively treated, but the patient refuses all interventions NIPPV or ventilation. He does have respiratory acidosis from his COPD, but given his compensation and mental acuity at pCO2 of 77, I suspect that he does have chronic hypercarbia for which is brain adapted well so far. Problem list: 1. Acute on chronic hypercarbic respiratory failure 2. COPD exacerbation 3. Leukocytosis, ? prednisone use. 4. Adenocarcinoma of prostate on anti-androgren tx 5. CAD/MT status post CABG 6. History of severe aortic stenosis 7. HFrEF, LVEF 35-40% (12/2017) 8. Hypertension 9. h/o Hyperlipidemia Pertinent lab findings WBC 12.4, platelet count 273, hemoglobin 11.9. Sodium 141, potassium 4.3, chloride 90, bicarbonate 42 (? metabolic compensation +diuretic use) BUN 14, creatinine 0.6. Lactic acid 1.1, magnesium 2.4 with an AST 23, ALT 39, alkaline phosphatase 87. Troponin I-0.01. ProBNP 1300. ABG-7.22, and was started on BiPAP. Inspiratory 18, expiratory 16. PH 7.28, PCO2 77, PO2 80, oxygen 30%. He was initially started on BiPAP, but he refused continued use of BiPAP; which was later changed to high flow nasal cannula. He did not have any altered mentation, and discussed clearly about his wishes for resuscitation. His and Dr. Anderson were present at the time of discussion. He wanted to continue to use high flow O2, after convincing him; and clearly wished not to use NIPPV, or be intubated at all. Discussed the risks vs benefits, and the pt understands. He clearly verbalized his wishes, given his worsening respiratory status. He was admitted to the ICU, given his recent change in respiratroy status. Plan: 1. Continue supplemental oxygen, high flow. 2. Since received iv solumedrol, would start on solumedrol 40mg q12, LRC. 3. Continue azithromycin 4. Continue his home doses of anti-hypertensives. 5. Hold lasix and continue his home dose of po lasix 6. Continue bicalutamide 7. No plan to trend his troponins or ekgs. Pt wishes hospice/comfort eval. DNR/DNI CHF diet. Grabiel RICESloan 03/13/18 0121: General Information and HPI MD Statement: I have seen and personally examined FAN WHARTON and documented this H&P. The patient is a 77 year old M who presented with a patient stated chief complaint of [AECOPD]. Source of Information: patient Allergies/Medications Allergies: Coded Allergies: aspirin (Intermediate, HIVES 02/13/18) Home Med list Atorvastatin Calcium 40 MG TABLET 1 TAB PO DAILY cholesterol (Reported) Azithromycin (Zithromax) 500 MG TABLET 1 TAB PO Tuesday COPD Bicalutamide 50 MG TABLET 1 TAB PO DAILY Prostate Clopidogrel Bisulfate (Clopidogrel) 75 MG TABLET 1 TAB PO DAILY BLOOD THINNER (Reported) Ezetimibe (Zetia) 10 MG TABLET 1 TAB PO DAILY CHOLESTEROL (Reported) Furosemide (Lasix) 20 MG TABLET 1 TAB PO SAT DIURETIC (Reported) Ipratropium/Albuterol Sulfate (Iprat-Albut 0.5-3(2.5) MG/3 Ml) 3 ML AMPUL.NEB 3 ML INH Q4 BREATHING (Reported) EVERY 4 HOURS WHEN AWAKE Losartan Potassium 50 MG TABLET 1 TAB PO DAILY htn (Reported) Metoprolol Tartrate 25 MG TABLET 1 TAB PO DAILY Heart Health (Reported) Past History Medical History Cardiovascular: CHF, hypertension, hyperlipidemia, myocardial infarction Respiratory: COPD, emphysema Gastrointestinal: diverticulosis Renal: benign prost hyperplasia, nephrolithiasis, adenocarcinoma of prostate Musculoskeletal: FRACTURE(LT.INDEX FINGER) Psychiatric: anxiety, depression, insomnia Surgical History Surgical History: CABG, cholecystectomy, TURP 01/2018 Past Family/Social History Psychosocial History Smoking Status: Former Smoker ETOH Use: occasional use Illicit Drug Use: denies illicit drug use Employment History Employment Retired Review of Systems Review of Systems Constitutional: Reports: see HPI. Exam & Diagnostic Data Last 24 Hrs of Vital Signs/I&O Vital Signs Date Time Temp Pulse Resp B/P B/P Pulse O2 O2 Flow FiO2 Mean Ox Delivery Rate 03/13 0022 91 Nasal 28% Cannula 03/12 2230 94 Nasal 28% Cannula 03/12 2230 98.2 110 23 130/62 94 Nasal 28% Cannula 03/12 2223 Nasal 28% Cannula 03/12 2038 144/68 03/128 144/68 03/12 2030 104 24 144/68 97 BIPAP 03/12 2016 102 96 03/12 1903 102 32 150/65 100 Nasal 2.5L Cannula 03/12 1805 99 Nasal 3.5L Cannula 03/12 1738 99 Nasal 5.0L Cannula 03/12 1724 98.4 101 24 162/113 94 Nasal 4.0L Cannula Intake & Output 03/13 0800 03/13 0000 03/12 1600 Intake Total Output Total Balance Patient 175 lb Weight Weight Estimated Measurement Method Physical Exam General Appearance Alert, Oriented X3, Moderate Distress Skin Diffuse bruising secondary to prednisone Skin Temp/Moisture Exam: Warm/Dry Sepsis Skin Exam (color): Normal for Ethnicity HEENT Atraumatic, PERRLA, EOMI Neck Supple, No JVD Lymphatic Axillary nl, Cervical nl Cardiovascular Regular Rate, Normal S1, Normal S2, No Murmurs Lungs Clear to Auscultation, Normal Air Movement Abdomen Normal Bowel Sounds, Soft, No Tenderness Extremities 2+ pedal edema Vascular Normal Pulses Core Measures/Misc (05/15) Sepsis (View protocol) If YES complete Sepsis Event Note If YES complete Sepsis Event Note Attending MD Review Statement Attending Statement Attending MD Statement: examined this patient, discuss w/resident/PA/SENIOR CREDIT ANALYST, agreed w/resident/PA/SENIOR CREDIT ANALYST, discussed with family, reviewed EMR data (avail), discussed with nursing, reviewed images, amended to note Attending Assessment/Plan: This patient is a 77 year old white man with a significant past medical history for COPD(2L NC suppl O2), HFrEF, hypertension, anxiety, CAD s/p CABG, benign prost hyperplasia, nephrolithiasis, adenocarcinoma of prostate ([place] 9/10) s /p TURP on anti-androgen treatment. He came to the hospital with a chief concern of acute onset of dyspnea associated with non-productive cough x 1 day. Dyspnea progressed from exertional to dyspnea at rest.. Has been using increasing frequency of nebulizer. Recently admitted to [facility] for COPD exacerbation and was discharged on prednisone taper. Found to have an elevated WBC at 12.4, Lactic acid 1.1, Troponin I-0.01.and ProBNP 1300. His initial ABG was 7.22,he was started on BiPAP. Inspiratory 18, expiratory 16. Repeat demonstrated PH 7.28, PCO2 77, PO2 80, oxygen 30%. He was initially started on BiPAP, but he refused continued use of BiPAP; which was later changed to high flow nasal cannula. He did not have any altered mentation, and discussed clearly about his wishes for resuscitation. We agreed to continue the high flow O2 and clearly wished not to use NIPPV, or be intubated at all. Discussed the risks vs benefits of therapy, and the patient understands. He clearly verbalized his wishes, given his worsening respiratory status. We are going to follow a more comfort measures approach. Will limit any aggressive therapy overnight. DNR /DNI. Hospice eval in the morning and maybe [employer] pancakes
[2018-03-12 22:30] VITALS: BP 130/62
[2018-03-13] VITALS: BP 134/70
[2018-03-13 06:02] LABS: ABSOLUTE BASOPHIL COUNT 0 /CUMM (0.0-0.2); ABSOLUTE EOSINOPHIL COUNT 0 /CUMM (0.0-0.7); ABSOLUTE GRANULOCYTE CT 4.8 /CUMM (1.4-6.5); ABSOLUTE LYMPH COUNT 0.4 /CUMM (1.2-3.4); ABSOLUTE MONOCYTE COUNT 0.1 /CUMM (0.10-0.60); BASOPHIL % 0 % (0.0-2.0); EOSINOPHIL % 0 % (0-5)
[2018-03-13 06:11] LABS: GRANULOCYTE % 91.6 % (42.2-75.2); HEMATOCRIT 33.4 % (42-52); MEAN CORPUSCULAR HGB 31.2 PG (27.0-31.0); MEAN CORPUSCULAR VOLUME 94.4 FL (80.0-94.0); MEAN PLATELET VOLUME 8.7 FL (7.4-10.4); PLATELET COUNT 240 /CUMM (130-400); RBC DISTRIBUTION WIDTH 14.1 % (11.5-14.5); RED BLOOD CELL CT 3.54 /CUMM (4.70-6.10)
[2018-03-13 06:14] LABS: WHITE BLOOD CELL COUNT 5.3 /CUMM (4.8-10.8)
[2018-03-13 08:00] VITALS: BP 120/69
--- NOTE | 2018-03-13 10:20 | PN- CRCU ---
Subjective HPI/Critical Care Issues: Mr Wharton is a 77 year old man w/ a PMHx of COPD(2L NC suppl O2), HFrEF, hypertension, anxiety, CAD s/p CABG, benign prost hyperplasia, nephrolithiasis, adenocarcinoma of prostate(Blair 9/10) s/p TURP on anti-androgen tx came to the hospital with a chief concern of acute onset of dyspnea associated with non productive cough x 1 day. Dyspnea progressed from exertional to dyspnea at rest. No pnd. Has been using increasing frequency of nebulizer. Recently admitted to [facility] for COPD exacerbation and was discharged on prednisone taper. No CP/palpitations. No weight gain, or changes in urine output. No fever, or sick contacts. Has been taking his meds regularly. Now in resp failure Pt wishes no further agg care Objective Current Medications: Current Medications Sig/Herber Start time Last Medication Dose Route Stop Time Status Admin Albuterol Sulfate 3 ML EVERY 4 HRS/AWAKE 03/13 0800 AC 03/13 INH 0846 Albuterol Sulfate 3 ML ONCE ONE 03/12 1815 DC 03/12 INH 03/12 181 1805 Albuterol Sulfate 3 ML ONCE ONE 03/12 1745 DC 03/12 INH 03/12 1746 1738 Atorvastatin Calcium 40 MG DAILY 03/13 09 AC PO Azithromycin 500 MG DAILY 03/12 2245 AC 03/13 Sodium Chloride 250 ML IV 0045 Bicalutamide 50 MG DAILY 03/13 0900 AC PO Clopidogrel Bisulfate 75 MG DAILY 03/12 1741 AC PO Ezetimibe 10 MG DAILY 03/13 0900 AC PO Heparin Sodium 5,000 UNIT Q8 03/13 0600 AC 03/13 (Porcine) SC 0606 Ipratropium [place] 2.5 ML EVERY 4 HRS/AWAKE 03/13 0800 AC 03/13 INH 0847 Ipratropium [place]and[place] 2.5 ML ONCE ONE 03/12 1745 DC 03/12 INH 03/12 1746 1738 Losartan Potassium 0 .STK-MED ONE 03/12 1804 DC PO Losartan Potassium 50 MG DAILY 03/12 1741 AC PO Methylprednisolone 40 MG Q12 03/13 0900 AC IV Methylprednisolone 125 MG ONCE ONE 03/12 2245 CAN IV 03/12 224 Metoprolol Tartrate 0 .STK-MED ONE 03/12 1804 DC PO Metoprolol Tartrate 25 MG DAILY 03/12 1741 AC PO Vital Signs & I&O Last 24 Hrs of Vitals and I&O: Vital Signs Date Time Temp Pulse Resp B/P B/P Pulse O2 O2 Flow FiO2 Mean Ox Delivery Rate 03/13 0847 91 Nasal 28% Cannula 03/13 0800 90 Nasal 28% Cannula 03/13 0800 99.2 114 30 120/69 90 Nasal 28% Cannula 03/13 0400 Nasal 28% Cannula 03/13 0232 93 Nasal 28% Cannula 03/13 0022 91 Nasal 28% Cannula 03/13 0000 94 Nasal 28% Cannula 03/13 0000 97.6 110 30 134/70 94 Nasal 28% Cannula 03/12 2230 94 Nasal 28% Cannula 03/12 2230 98.2 110 23 130/62 94 Nasal 28% Cannula 03/12 2223 Nasal 28% Cannula 03/12 2038 144/68 03/12 2038 144/68 03/12 2030 104 24 144/68 97 BIPAP 03/12 2016 102 96 03/12 1903 102 32 150/65 100 Nasal 2.5L Cannula 03/12 1805 99 Nasal 3.5L Cannula 03/12 1738 99 Nasal 5.0L Cannula 03/12 1724 98.4 101 24 162/113 94 Nasal 4.0L Cannula Intake & Output 03/13 1600 03/13 0800 03/13 0000 Intake Total 350 Output Total 425 Balance -75 Intake, IV 250 Intake, Oral 100 Output, Urine 425 Patient 175 lb Weight Weight Estimated Measurement Method Laboratory Tests 03/13 03/13 0800 0530 Chemistry Troponin I Cancelled Urines Urine Color (YEL,AMB,STR) YEL Urine Clarity (CLEAR) HAZY H Urine pH (5.0 - 8.0) 6.0 Ur Specific [place] (1.001 - 1.035) >= 1.030 Urine Protein (NEG,<30 MG/DL) 100 H Urine Ketones (NEG) 40 H Urine Nitrite (NEG) NEG Urine Bilirubin (NEG) NEG Urine Urobilinogen (0.1 - 1.0 EU/dl) 0.2 Ur Leukocyte Esterase (NEG) SMALL H Ur Microscopic SEDIMENT EXAMINED Urine RBC (0 - 5 /HPF) 25-50 H Urine WBC (0 - 2 /HPF) 10-15 H Ur Epithelial Cells (NONE,FEW) FEW Urine Bacteria (NEG/NONE) MOD H Urine Hemoglobin (NEG) LARGE H Urine Glucose (N MG/DL) NEG 03/13 03/13 0500 0000 Chemistry Sodium (137 - 145 mmol/L) 139 Potassium (3.5 - 5.1 mmol/L) 4.8 Chloride (98 - 107 mmol/L) 89 L Carbon Dioxide (22 - 30 mmol/L) 40 H Anion Gap (5 - 16) 10 BUN (9 - 20 mg/dL) 19 Creatinine (0.7 - 1.2 mg/dL) 0.5 L Estimated GFR (>60 ml/min) > 60 BUN/Creatinine Ratio (7 - 25 %) 38.0 H Troponin I Cancelled Hematology CBC w Diff MAN DIFF ORDERED WBC (4.8 - 10.8 /CUMM) 5.3 RBC (4.70 - 6.10 /CUMM) 3.54 L Hgb (14.0 - 18.0 G/DL) 11.0 L Hct (42 - 52 %) 33.4 L MCV (80.0 - 94.0 FL) 94.4 H MCH (27.0 - 31.0 PG) 31.2 H MCHC (33.0 - 37.0 G/DL) 33.0 RDW (11.5 - 14.5 %) 14.1 Plt Count (130 - 400 /CUMM) 240 MPV (7.4 - 10.4 FL) 8.7 Gran % (42.2 - 75.2 %) 91.6 H Lymphocytes % (20.5 - 51.1 %) 7.5 L Monocytes % (1.7 - 9.3 %) 0.9 L Eosinophils % (0 - 5 %) 0 Basophils % (0.0 - 2.0 %) 0 Absolute Granulocytes (1.4 - 6.5 /CUMM) 4.8 Absolute Lymphocytes (1.2 - 3.4 /CUMM) 0.4 L Absolute Monocytes (0.10 - 0.60 /CUMM) 0.1 Absolute Eosinophils (0.0 - 0.7 /CUMM) 0 Absolute Basophils (0.0 - 0.2 /CUMM) 0 Platelet Estimate (ADEQUATE) ADEQUATE Ovalocytes 2+ 03/12 Blood Gas pH (7.35 - 7.45 PH) 7.28 *L pCO2 (35 - 45 TORR) 77 *H pO2 (80 - 100 TORR) 80 HCO3 (21 - 28 MEQ/L) 35 H Bicarbonate Actual (22 - 26 MEQ/L) 19 L ABG O2 Sat (Measured) (>96.0 %) 95.0 L Mixed VBG pH (7.31 - 7.41 PH) 7.22 L Mixed VBG pCO2 (41 - 51 TORR) 47 Mixed VBG O2 Saturation (35 - 45 TORR) 50 H P-50 (Temp Corrected) N Carboxyhemoglobin (1.5 - 5.0 %) 0.2 L 0.3 L O2 Concentration % 30% 2L Temperature (97.0 - 100.0 FARH) 98.4 Respiration Rate (BPM) 26 O2 Delivery Method BIPAP NC Vent Mode ST Expiratory Pressure (CM H2O P) 6 Inspiratory Pressure (CM H2O P) 18 Chemistry Lactic Acid Cancelled Miscellaneous Phlebotomy Draw Site RIGHT RADIAL VENOUS 03/12 8845 Chemistry Sodium (137 - 145 mmol/L) 141 Potassium (3.5 - 5.1 mmol/L) 4.3 Chloride (98 - 107 mmol/L) 90 L Carbon Dioxide (22 - 30 mmol/L) 42 H Anion Gap (5 - 16) 9 BUN (9 - 20 mg/dL) 14 Creatinine (0.7 - 1.2 mg/dL) 0.6 L Estimated GFR (>60 ml/min) > 60 BUN/Creatinine Ratio (7 - 25 %) 23.3 Glucose (65 - 99 mg/dL) 109 H Lactic Acid (0.7 - 2.1 mmol/L) 1.1 Calcium (8.4 - 10.2 mg/dL) 9.5 Magnesium (1.6 - 2.3 mg/dL) 2.4 H Total Bilirubin (0.2 - 1.3 mg/dL) 1.3 AST (17 - 59 U/L) 23 ALT (21 - 72 U/L) 39 Alkaline Phosphatase (< 127 U/L) 87 Troponin I (<0.11 ng/ml) 0.01 [id number] Pept (<125 pg/mL) 1300 H Total Protein (6.3 - 8.2 g/dL) 6.6 Albumin (3.5 - 5.0 g/dL) 3.9 Globulin (1.9 - 4.2 gm/dL) 2.7 Albumin/Globulin Ratio (1.1 - 2.2 %) 1.4 Coagulation D-Dimer High Sensitivty (0 - 243 ng/ml) < 200 Hematology CBC w Diff NO MAN DIFF REQ WBC (4.8 - 10.8 /CUMM) 12.4 H RBC (4.70 - 6.10 /CUMM) 3.76 L Hgb (14.0 - 18.0 G/DL) 11.9 L Hct (42 - 52 %) 35.4 L MCV (80.0 - 94.0 FL) 94.2 H MCH (27.0 - 31.0 PG) 31.5 H MCHC (33.0 - 37.0 G/DL) 33.5 RDW (11.5 - 14.5 %) 14.0 Plt Count (130 - 400 /CUMM) 273 MPV (7.4 - 10.4 FL) 8.0 Gran % (42.2 - 75.2 %) 86.1 H Lymphocytes % (20.5 - 51.1 %) 9.4 L Monocytes % (1.7 - 9.3 %) 3.3 Eosinophils % (0 - 5 %) 1.0 Basophils % (0.0 - 2.0 %) 0.2 Absolute Granulocytes (1.4 - 6.5 /CUMM) 10.7 H Absolute Lymphocytes (1.2 - 3.4 /CUMM) 1.2 Absolute Monocytes (0.10 - 0.60 /CUMM) 0.4 Absolute Eosinophils (0.0 - 0.7 /CUMM) 0.1 Absolute Basophils (0.0 - 0.2 /CUMM) 0 Microbiology Date/Time Procedure - Status Source Growth 03/12 2230 Surveillance Culture - RECD UPPER RESP 03/12 2230 Surveillance Culture - RECD GI Impression/Plan Impression/Plan Impression/Plan: General: Nontoxic, In distress and on high flow HEENT: Sclera and conjunctiva within normal limits, without xanthelasmas. Neck: Carotids 2+ without bruits. Respiratory: Scattered rhonchi, air movement is markedly decreased throughout, with accessory respiratory muscle use. Heart: Regular rate and rhythm, 2 out of 6 systolic ejection murmur at left sternal border, without JVD. There is approximately greater than 1 cm of pitting edema in both lower extremities to the thighs Abdomen: Soft, nontender, no masses, normoactive bowel sounds. Extremities: Without clubbing, cyanosis,edema Neuro: Nonfocal exam, strength, 5 out of 5 Skin: skin tear forearm Psych: Mood and affect: Normal This is a gentleman with very end-stage COPD with FEV1 of 0.6 L, on oxygen, coronary artery disease with previous angioplasty, previous [place], hypertension, hyperlipidemia, diverticulosis, stable lung nodules at least for 5 years bilaterally, previous bronchiectasis which is mild with recurrent bronchitis episode, intolerant to Daliresp and has been on azithromycin for exacerbation prophylaxis, came into the hospital because of increasing resp failure with dyspnea Issues include * Acute on chronic resp failure due to copd and corpulmonale * Acute on chronic corpulmonale * End-stage COPD * REcently diagnosed wesley 9 prostate ca * Mild bilateral bronchiectasis in a gentleman with end-stage COPD high risk for pseudomonas with no exacerbation of bronchiectasis * Intolerant to preventative medications like Daliresp due to diarrhea and GI upset. Patient has been on azithromycin 500 mg 3 times a week * Chronic steroid dependent COPD now on low-dose steroids at home * Ischemic heart disease with reduce EF with PUlm htn, hypertension, hyperlipidemia * Severe Aortic stenosis * Multiple bilateral lung nodules which has been stable for more than 5 years. * Chronic enlarged prostate with malignancy * Worsening performance status REC PT wishes no further agg rx and change to comfort care with the following meds Wishes max conservative rx and if not better wishes comfort care and then will consider hospice (depending on his course will decide) PT is preterminally ill and will respect his wishes Ok to the floor on my service Cont iv steroids and Oxygen and azithro for now PO lasix 40 mg daily COnt other meds for now Start IV morphine 2 mg q2 hrs for dyspnea Ok to use xanax 0.25 for anxiety q6 hrs PT wishes no furter tele/bipap/icu care or any life prolonging meds OK to the floor Pt is critically ill tts 40 mins
--- NOTE | 2018-03-13 10:24 | PN- Resident CRCU ---
Subjective HPI/CRCU Issues: #Comfort Measures #[id number] Hypercarbic Respiratory Failure 2/2 end-stage COPD #Acute Exacerbation COPD #H/o adenocarcinoma of the prostate s/p TURP on antiandrogen therapy 24 Hour Events: Pt was seen and examined at bedside. He was pelasant, though in moderate respiratory distress impeding sustained conversation. He was accompanied by his . Discussion on code status, wishes and plan going forward was had, with patient deciding against aggresive interventions. Objective Vital Signs & I&O Last 8 Hrs of Vitals and I&O: Intake & Output 03/13 1600 03/13 0800 03/13 0000 Intake Total 350 Output Total 425 Balance -75 Intake, IV 250 Intake, Oral 100 Output, Urine 425 Patient 175 lb Weight Weight Estimated Measurement Method Laboratory Tests 03/13 03/13 0800 0530 Chemistry Troponin I Cancelled Urines Urine Color (YEL,AMB,STR) YEL Urine Clarity (CLEAR) HAZY H Urine pH (5.0 - 8.0) 6.0 Ur Specific [place] (1.001 - 1.035) >= 1.030 Urine Protein (NEG,<30 MG/DL) 100 H Urine Ketones (NEG) 40 H Urine Nitrite (NEG) NEG Urine Bilirubin (NEG) NEG Urine Urobilinogen (0.1 - 1.0 EU/dl) 0.2 Ur Leukocyte Esterase (NEG) SMALL H Ur Microscopic SEDIMENT EXAMINED Urine RBC (0 - 5 /HPF) 25-50 H Urine WBC (0 - 2 /HPF) 10-15 H Ur Epithelial Cells (NONE,FEW) FEW Urine Bacteria (NEG/NONE) MOD H Urine Hemoglobin (NEG) LARGE H Urine Glucose (N MG/DL) NEG 03/13 03/13 0500 0000 Chemistry Sodium (137 - 145 mmol/L) 139 Potassium (3.5 - 5.1 mmol/L) 4.8 Chloride (98 - 107 mmol/L) 89 L Carbon Dioxide (22 - 30 mmol/L) 40 H Anion Gap (5 - 16) 10 BUN (9 - 20 mg/dL) 19 Creatinine (0.7 - 1.2 mg/dL) 0.5 L Estimated GFR (>60 ml/min) > 60 BUN/Creatinine Ratio (7 - 25 %) 38.0 H Troponin I Cancelled Hematology CBC w Diff MAN DIFF ORDERED WBC (4.8 - 10.8 /CUMM) 5.3 RBC (4.70 - 6.10 /CUMM) 3.54 L Hgb (14.0 - 18.0 G/DL) 11.0 L Hct (42 - 52 %) 33.4 L MCV (80.0 - 94.0 FL) 94.4 H MCH (27.0 - 31.0 PG) 31.2 H MCHC (33.0 - 37.0 G/DL) 33.0 RDW (11.5 - 14.5 %) 14.1 Plt Count (130 - 400 /CUMM) 240 MPV (7.4 - 10.4 FL) 8.7 Gran % (42.2 - 75.2 %) 91.6 H Lymphocytes % (20.5 - 51.1 %) 7.5 L Monocytes % (1.7 - 9.3 %) 0.9 L Eosinophils % (0 - 5 %) 0 Basophils % (0.0 - 2.0 %) 0 Absolute Granulocytes (1.4 - 6.5 /CUMM) 4.8 Absolute Lymphocytes (1.2 - 3.4 /CUMM) 0.4 L Absolute Monocytes (0.10 - 0.60 /CUMM) 0.1 Absolute Eosinophils (0.0 - 0.7 /CUMM) 0 Absolute Basophils (0.0 - 0.2 /CUMM) 0 Platelet Estimate (ADEQUATE) ADEQUATE Ovalocytes 2+ 03/12 Blood Gas pH (7.35 - 7.45 PH) 7.28 *L pCO2 (35 - 45 TORR) 77 *H pO2 (80 - 100 TORR) 80 HCO3 (21 - 28 MEQ/L) 35 H Bicarbonate Actual (22 - 26 MEQ/L) 19 L ABG O2 Sat (Measured) (>96.0 %) 95.0 L Mixed VBG pH (7.31 - 7.41 PH) 7.22 L Mixed VBG pCO2 (41 - 51 TORR) 47 Mixed VBG O2 Saturation (35 - 45 TORR) 50 H P-50 (Temp Corrected) N Carboxyhemoglobin (1.5 - 5.0 %) 0.2 L 0.3 L O2 Concentration % 30% 2L Temperature (97.0 - 100.0 FARH) 98.4 Respiration Rate (BPM) 26 O2 Delivery Method BIPAP NC Vent Mode ST Expiratory Pressure (CM H2O P) 6 Inspiratory Pressure (CM H2O P) 18 Chemistry Lactic Acid Cancelled Miscellaneous Phlebotomy Draw Site RIGHT RADIAL VENOUS 03/125 Chemistry Sodium (137 - 145 mmol/L) 141 Potassium (3.5 - 5.1 mmol/L) 4.3 Chloride (98 - 107 mmol/L) 90 L Carbon Dioxide (22 - 30 mmol/L) 42 H Anion Gap (5 - 16) 9 BUN (9 - 20 mg/dL) 14 Creatinine (0.7 - 1.2 mg/dL) 0.6 L Estimated GFR (>60 ml/min) > 60 BUN/Creatinine Ratio (7 - 25 %) 23.3 Glucose (65 - 99 mg/dL) 109 H Lactic Acid (0.7 - 2.1 mmol/L) 1.1 Calcium (8.4 - 10.2 mg/dL) 9.5 Magnesium (1.6 - 2.3 mg/dL) 2.4 H Total Bilirubin (0.2 - 1.3 mg/dL) 1.3 AST (17 - 59 U/L) 23 ALT (21 - 72 U/L) 39 Alkaline Phosphatase (< 127 U/L) 87 Troponin I (<0.11 ng/ml) 0.01 [id number]-P-Xczynwkuvth Pept (<125 pg/mL) 1300 H Total Protein (6.3 - 8.2 g/dL) 6.6 Albumin (3.5 - 5.0 g/dL) 3.9 Globulin (1.9 - 4.2 gm/dL) 2.7 Albumin/Globulin Ratio (1.1 - 2.2 %) 1.4 Coagulation D-Dimer High Sensitivty (0 - 243 ng/ml) < 200 Hematology CBC w Diff NO MAN DIFF REQ WBC (4.8 - 10.8 /CUMM) 12.4 H RBC (4.70 - 6.10 /CUMM) 3.76 L Hgb (14.0 - 18.0 G/DL) 11.9 L Hct (42 - 52 %) 35.4 L MCV (80.0 - 94.0 FL) 94.2 H MCH (27.0 - 31.0 PG) 31.5 H MCHC (33.0 - 37.0 G/DL) 33.5 RDW (11.5 - 14.5 %) 14.0 Plt Count (130 - 400 /CUMM) 273 MPV (7.4 - 10.4 FL) 8.0 Gran % (42.2 - 75.2 %) 86.1 H Lymphocytes % (20.5 - 51.1 %) 9.4 L Monocytes % (1.7 - 9.3 %) 3.3 Eosinophils % (0 - 5 %) 1.0 Basophils % (0.0 - 2.0 %) 0.2 Absolute Granulocytes (1.4 - 6.5 /CUMM) 10.7 H Absolute Lymphocytes (1.2 - 3.4 /CUMM) 1.2 Absolute Monocytes (0.10 - 0.60 /CUMM) 0.4 Absolute Eosinophils (0.0 - 0.7 /CUMM) 0.1 Absolute Basophils (0.0 - 0.2 /CUMM) 0 Vital Signs Date Time Temp Pulse Resp B/P B/P Pulse O2 O2 Flow FiO2 Mean Ox Delivery Rate 03/13 1237 Nasal 28% Cannula 03/13 1051 112 120/76 03/13 1051 112 120/69 03/13 0847 91 Nasal 28% Cannula 03/13 0800 90 Nasal 28% Cannula 03/13 0800 99.2 114 30 120/69 90 Nasal 28% Cannula 03/13 0400 Nasal 28% Cannula 03/13 0232 93 Nasal 28% Cannula 03/13 0022 91 Nasal 28% Cannula 03/13 0000 94 Nasal 28% Cannula / 0000 97.6 110 30 134/70 94 Nasal 28% Cannula 03/12 2230 94 Nasal 28% Cannula 03/12 2230 98.2 110 23 130/62 94 Nasal 28% Cannula 03/12 2223 Nasal 28% Cannula 03/128 144/68 03/12 2038 144/68 03/12 2030 104 24 144/68 97 BIPAP 03/12 2016 102 96 03/12 1903 102 32 150/65 100 Nasal 2.5L Cannula 03/12 1805 99 Nasal 3.5L Cannula 03/12 1738 99 Nasal 5.0L Cannula 03/12 1724 98.4 101 24 162/113 94 Nasal 4.0L Cannula Exam General Appearance: no apparent distress, alert, awake Head: atraumatic, normal appearance Neck: normal inspection, supple Respiratory: chest non-tender, decreased breath sounds, crackles, respiratory distress Cardiovascular: regular rate/rhythm Gastrointestinal: normal bowel sounds, soft, non-tender, no organomegaly Extremities: normal inspection Cranial Nerves: normal hearing, normal speech Skin: multiple ecchymoses B/L on UE noted Current Medications: Current Medications Sig/Herber Start time Last Medication Dose Route Stop Time Status Admin Albuterol Sulfate 3 ML EVERY 4 HRS/AWAKE 03/13 0800 AC 03/13 INH 1233 Albuterol Sulfate 3 ML ONCE ONE 03/12 1815 DC 03/12 INH 03/12 1816 1805 Albuterol Sulfate 3 ML ONCE ONE 03/12 1745 DC 03/12 INH 03/12 1746 1738 Alprazolam 0.25 MG Q6P PRN 03/13 1045 AC 03/13 PO 03/20 1044 1040 Atorvastatin Calcium 40 MG DAILY 03/13 0900 DC PO Azithromycin 500 MG DAILY 03/12 2245 AC 03/13 Sodium Chloride 250 ML IV 0045 Bicalutamide 50 MG DAILY 03/13 0900 AC PO Clopidogrel Bisulfate 75 MG DAILY 03/12 1741 DC PO Ezetimibe 10 MG DAILY 03/13 0900 DC PO Furosemide 40 MG DAILY 03/13 1032 AC 03/13 PO 1039 Heparin Sodium 5,000 UNIT Q8 03/13 0600 DC 03/13 (Porcine) SC 0606 Ipratropium [place] 2.5 ML EVERY 4 HRS/AWAKE 03/13 0800 AC 03/13 INH 1233 Ipratropium [place] 2.5 ML ONCE ONE 03/12 1745 DC 03/12 INH 03/12 1746 1738 Losartan Potassium 0 .STK-MED ONE 03/12 1804 DC PO Losartan Potassium 50 MG DAILY 03/12 1741 AC 03/13 PO 1051 Methylprednisolone 40 MG Q12 03/13 0900 AC 03/13 IV 1044 Methylprednisolone 125 MG ONCE ONE 03/12 2245 CAN IV 03/12 2246 Metoprolol Tartrate 0 .STK-MED ONE 03/12 1804 DC PO Metoprolol Tartrate 25 MG DAILY 03/12 1741 AC 03/13 PO 1051 Morphine Sulfate 2 MG Q2P PRN 03/13 1045 AC 03/13 IV 1044 CXR Findings: 03/12 EXAM TYPE: RAD - XRY-PORTABLE CHEST XRAY EXAMINATION: XR PORTABLE CHEST CLINICAL INFORMATION: Shortness of breath and hypoxia COMPARISON: February 21, 2018 TECHNIQUE: Portable frontal view of the chest was obtained. FINDINGS: There has been no interval change since the prior study. Again, no significant abnormality is noted involving the heart, lungs, mediastinum, bony thorax or soft tissues. IMPRESSION: Unremarkable examination. Impression/Plan Impression/Problem List Impression: Mr. Wharton is a 77 y/o M PMH of oxygen dependant COPD on 2L @ home, CAD s/p CABG, HTN, HLD, and prostate adenoca s/p TURP on antiandrogen therapy who presented to the ED c/o dyspnea and productive cough. On admit, patient's ABG and oxygen status were consistent for hypercapneic respiratory failure (acidotic , hypercapneic). This patient's acute issues are likely multifactorial in nature , fueled primarily by his end-stage COPD. He was admitted to the ICU for management of acute on chronic hypercapneic respiratory failure and COPD exacerbation. Pt refuses aggresive respiratory intervention, prefering a conservative approach to his management and comfort measures. IMPRESSION #Acute on chronic Hypercarbic Respiratory Failure 2/2 end-stage COPD #Acute Exacerbation COPD #H/o adenocarcinoma of the prostate s/p TURP on antiandrogen therapy #H/o Ao Stenosis #H/o HTN #H/o HLD #H/o CAD s/p CABG #HFrEF, latest echo (01/13) - EF<35-40% #[id number] Hypercarbic Respiratory Failure 2/2 end-stage COPD Pt on high flow oxygen @ 28% O2, moderate respiratory distress impeding sustained conversation with a RR of 30. He would benefit for more aggresive respiratory intervention, though his wishes are to undergo only conservative measures. -Continue O2 support #Acute Exacerbation COPD His presentation of productive cough in the setting of respiratory failure in this patient is concerning for AECOPD. He is normally on azithromycin at home as ppx has been continued. Methylprednisolone IV 40mg has been started to improve respiratory status. -Continue azithromycin -Continue methylprednisolone #H/o adenocarcinoma of the prostate s/p TURP on antiandrogen therapy -No active issues -Bicalutamide continued #H/o HTN/ CAD s/p CABG/ HFrEF BP has been controlled overnight, now under 130/70. Anti HTN meds were continued though antiplatelet therapy were dc'd. -Continue losartan/metoprolol -Dc'd asa/plavix #H/o HLD Pt was on atorvastatin and ezetimibe for lipid control -- though pt decided on comfort measures care, so they were dc'd. -Dc'd atorvastatin and ezetimibe COMFORT MEASURES CHF DIET Problem List: 1. COPD exacerbation 2. COPD (chronic obstructive pulmonary disease) 3. Acute respiratory failure Pain Ratin Tomorrow's Labs & Rationales: . Plan DVT/Prophylaxis: mechanical
--- NOTE | 2018-03-13 10:35 | Transfer of Care Summary ---
Hospital Course Course Hospital Course: Reason for ICU admission: [id number] hypercarbic respiratory failure, acute COPD exacerbation History of presenting illness: Mr. Wharton is a 77 y/o M PMH of oxygen dependant COPD on 2L @ home, CAD s/p CABG, HTN, HLD, and prostate adenoca s/p TURP on antiandrogen therapy who presented to the ED c/o dyspnea and productive cough. On admit, patient's ABG and oxygen status were consistent for hypercapneic respiratory failure (acidotic, hypercapneic). He was admitted to the ICU for management of acute on chronic hypercapneic respiratory failure and COPD exacerbation. Pt wishes comfort measures only. Interval events in the ICU: None Mechanical ventilation: No NIPPV: No Antibiotics plan: Ppx azithromycin continued Catheters/ Lines plan: None Things to be followed up in the floor: hospice evaluation Nutrition: CHF diet DVT prophylaxis: Mechanical Code status: Comfort measures Pertinent Lab Results: Vital Signs Date Time Temp Pulse Resp B/P B/P Pulse O2 O2 Flow FiO2 Mean Ox Delivery Rate 03/13 1237 Nasal 28% Cannula 03/13 1051 112 120/76 03/13 1051 112 120/69 03/13 0847 91 Nasal 28% Cannula 03/13 0800 90 Nasal 28% Cannula 03/13 0800 99.2 114 30 120/69 90 Nasal 28% Cannula 03/13 0400 Nasal 28% Cannula 03/13 0232 93 Nasal 28% Cannula 03/13 0022 91 Nasal 28% Cannula 03/13 0000 94 Nasal 28% Cannula 03/13 0000 97.6 110 30 134/70 94 Nasal 28% Cannula 03/12 2230 94 Nasal 28% Cannula 03/12 2230 98.2 110 23 130/62 94 Nasal 28% Cannula 03/12 2223 Nasal 28% Cannula / 2038 144/68 03/12 2038 144/68 15 2030 104 24 144/68 97 BIPAP 03/12 2016 102 96 03/12 1903 102 32 150/65 100 Nasal 2.5L Cannula 03/12 1805 99 Nasal 3.5L Cannula 03/12 1738 99 Nasal 5.0L Cannula 03/12 1724 98.4 101 24 162/113 94 Nasal 4.0L Cannula Intake & Output 03/13 1600 16 0800 03/13 0000 Intake Total 120 350 Output Total 1400 425 Balance -1280 -75 Intake, IV 250 Intake, Oral 120 100 Number 0 Bowel Movements Output, Urine 1400 425 Patient 175 lb Weight Weight Estimated Measurement Method Assessment/Plan: Mr. Wharton is a 77 y/o M PMH of oxygen dependant COPD on 2L @ home, CAD s/p CABG, HTN, HLD, and prostate adenoca s/p TURP on antiandrogen therapy who presented to the ED c/o dyspnea and productive cough. On admit, patient's ABG and oxygen status were consistent for hypercapneic respiratory failure (acidotic , hypercapneic). This patient's acute issues are likely multifactorial in nature , fueled primarily by his end-stage COPD. He was admitted to the ICU for management of acute on chronic hypercapneic respiratory failure. Pt refuses aggresive respiratory intervention, prefering a conservative approach to his management and comfort measures. IMPRESSION #Acute on Chronic Hypercarbic Respiratory Failure 2/2 end-stage COPD #Acute Exacerbation COPD #H/o adenocarcinoma of the prostate s/p TURP on antiandrogen therapy #H/o Ao Stenosis #H/o HTN #H/o HLD #H/o CAD s/p CABG #HFrEF, latest echo (01/13) - EF<35-40% #[id number]-Druzztf Hypercarbic Respiratory Failure 2/2 end-stage COPD Pt on high flow oxygen @ 28% O2, moderate respiratory distress impeding sustained conversation with a RR of 30. He would benefit for more aggresive respiratory intervention, though his wishes are to undergo only conservative measures. -Continue O2 support #Acute Exacerbation COPD His presentation of productive cough in the setting of respiratory failure in this patient is concerning for AECOPD. He is normally on azithromycin at home as ppx has been continued. Methylprednisolone IV 40mg has been started to improve respiratory status. -Continue azithromycin -Continue methylprednisolone #H/o adenocarcinoma of the prostate s/p TURP on antiandrogen therapy -No active issues -Bicalutamide continued #H/o HTN/ CAD s/p CABG/ HFrEF BP has been controlled overnight, now under 130/70. Anti HTN meds were continued though antiplatelet therapy were dc'd. -Continue losartan/metoprolol -Dc'd asa/plavix #H/o HLD Pt was on atorvastatin and ezetimibe for lipid control -- though pt decided on comfort measures care, so they were dc'd. -Dc'd atorvastatin and ezetimibe COMFORT MEASURES CHF DIET
[2018-03-13 15:15] VITALS: BP 90/60
== END 2018-03-13 19:10 | disposition hospice, home (50) | DRG 190 ==
LOC: ERH 17:22 → CRI 20:32 → 2NA 20:32 → ERHI 20:32 → ENRESERV 21:13 → ENTRNSPT 21:33 → EDTRNSPT 21:51 → EDTRNSPTSTS 21:51 → CRI 22:08 → CMPTRNSPT 22:17 → CRI 03-13 10:46 → 2NA 03-13 15:37
PROVIDERS: Internal Medicine Endocrinology, Diabetes & Metabolism; Physician Assistant Medical
DX: J44.1 Chronic obstructive pulmonary disease with (acute) exacerbation (principal); J96.22 Acute and chronic respiratory failure with hypercapnia; I50.22 Chronic systolic (congestive) heart failure; Z51.5 Encounter for palliative care; I11.0 Hypertensive heart disease with heart failure; R53.83 Other fatigue; I35.0 Nonrheumatic aortic (valve) stenosis; C61 Malignant neoplasm of prostate; I27.81 Cor pulmonale (chronic); Z99.81 Dependence on supplemental oxygen; I25.10 Atherosclerotic heart disease of native coronary artery without angina pectoris; Z95.1 Presence of aortocoronary bypass graft; E78.5 Hyperlipidemia, unspecified; I10 Essential (primary) hypertension; N40.0 Benign prostatic hyperplasia without lower urinary tract symptoms; Z90.79 Acquired absence of other genital organ(s); I25.2 Old myocardial infarction; F41.9 Anxiety disorder, unspecified; F32.9 Major depressive disorder, single episode, unspecified; G47.00 Insomnia, unspecified; Z90.49 Acquired absence of other specified parts of digestive tract; Z66 Do not resuscitate
CPT/HCPCS: CCU; 36415; 71045; 81001; 82436; 93005; 93010; 99291; J0456; J1644; J2060; J2920; J2930; J7040; J9202

== ENCOUNTER 2018-03-13 19:16 | Inpatient (IN) | payer OTHER ==
[2018-03-13 15:15] VITALS: BP 90/60
--- NOTE | 2018-03-18 13:04 | Discharge Summary ---
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, on oxygen, coronary artery disease with previous angioplasty, previous LA, hypertension, hyperlipidemia, diverticulosis, stable lung nodules at least for 5 years bilaterally, previous bronchiectasis which is mild with recurrent bronchitis episode, intolerant to Daliresp and has been on azithromycin for exacerbation prophylaxis, came into the hospital because of increasing resp failure with dyspnea Issues include * Acute on chronic resp failure due to copd and corpulmonale * Acute on chronic corpulmonale * End-stage COPD * REcently diagnosed gleson 9 prostate ca * Mild bilateral bronchiectasis in a gentleman with end-stage COPD high risk for pseudomonas with no exacerbation of bronchiectasis * Intolerant to preventative medications like Daliresp due to diarrhea and GI upset. Patient has been on azithromycin 500 mg 3 times a week * Chronic steroid dependent COPD now on low-dose steroids at home * Ischemic heart disease with reduce EF with PUlm htn, hypertension, hyperlipidemia * Severe Aortic stenosis * Multiple bilateral lung nodules which has been stable for more than 5 years. * Chronic enlarged prostate with malignancy * Worsening performance status REC upon dc to hospice PT wishes no further agg rx and change to comfort care with the following meds Wishes max conservative rx and if not better wishes comfort care and then will consider hospice (depending on his course will decide) PT is preterminally ill and will respect his wishes Ok to the floor and to hospice Cont iv steroids and Oxygen and azithro for now Start IV morphine 2 mg q2 hrs for dyspnea Ok to use xanax 0.25 for anxiety q6 hrs Allergies: Coded Allergies: aspirin (Intermediate, HIVES 02/13/18) Disposition Summary Disposition Principal Diagnosis: Acute on chronic resp failure due to copd and corpulmonale Additional Diagnosis: Acute on chronic corpulmonale * End-stage COPD * REcently diagnosed gleson 9 prostate ca * Mild bilateral bronchiectasis in a gentleman with end-stage COPD high risk for pseudomonas with no exacerbation of bronchiectasis * Intolerant to preventative medications like Daliresp due to diarrhea and GI upset. Patient has been on azithromycin 500 mg 3 times a week * Chronic steroid dependent COPD now on low-dose steroids at home * Ischemic heart disease with reduce EF with PUlm htn, hypertension, hyperlipidemia * Severe Aortic stenosis * Multiple bilateral lung nodules which has been stable for more than 5 years. * Chronic enlarged prostate with malignancy * Worsening performance status Discharge Disposition: hospice - medical facilit Discharge Instructions General Discharge Information Code Status: Hospice Patient's Diet: as abdullahi Patient's Activity: as abdullahi Follow-Up Instructions/Appts: Bethel harvey and Charlotte Copies To: Charlotte RICE,Naun Benites
== END 2018-03-14 09:55 | disposition expired | DRG 189 ==
LOC: 2NA 19:16
DX: J96.22 Acute and chronic respiratory failure with hypercapnia (principal); I25.10 Atherosclerotic heart disease of native coronary artery without angina pectoris; I10 Essential (primary) hypertension; E78.5 Hyperlipidemia, unspecified; J44.9 Chronic obstructive pulmonary disease, unspecified
CPT/HCPCS: 2NASP